=== PATIENT | male | born 1965 | race Caucasian/White ===

== ENCOUNTER 2017-05-18 22:07 | Inpatient (IN) | payer OTHER ==
[~2017-05-18] VITALS: Ht 177.8 cm; Wt 77.5 kg
[2017-05-18 22:00] VITALS: O2SAT 100
[2017-05-18] MEDS ORDERED: LIDOCAINE HCL 1% PF 2 ML VIAL ONE (22:13)
[2017-05-18] MEDS ORDERED: ONDANSETRON HCL 4 MG/2 ML VIAL ONE (22:16)
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
[2017-05-18 22:38] LABS: AUTOMATED NEUTROPHIL # 19.2 TH/MM3 (1.8-7.7); BASOPHIL # 0.1 TH/MM3 (0-0.2); BASOPHIL % 0.6 % (0.0-2.0); EOSINOPHIL # 0.2 TH/MM3 (0-0.4); EOSINOPHIL % 0.6 % (0.0-4.0); HEMATOCRIT 50.4 % (39.0-51.0); HEMOGLOBIN 16.7 GM/DL (13.0-17.0); LYMPH % 15.3 % (9.0-44.0); LYMPHOCYTE # 3.7 TH/MM3 (1.0-4.8); MEAN CELL VOLUME 87.3 FL (80.0-100.0); MEAN CORPUSCULAR HGB CONC 33.2 % (32.0-36.0); MEAN PLATELET VOLUME 9.2 FL (7.0-11.0); MONO % 4.3 % (0.0-8.0); NEUT % 79.2 % (16.0-70.0); PLATELET COUNT 311 TH/MM3 (150-450); RED BLOOD COUNT 5.78 MIL/MM3 (4.50-5.90); RED CELL DISTRIBUTION WIDTH 14.3 % (11.6-17.2); WHITE BLOOD COUNT 24.3 TH/MM3 (4.0-11.0)
[2017-05-18] MEDS ORDERED: IODIXANOL 320 MG/ML 10 ML VIAL (for Rad CT) IVCONTRAST ONE (22:48)
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
--- NOTE | 2017-05-18 23:00 | RADRPT ---
EXAM DATE/TIME: 05/18/2017 22:09 [facility] COMPARISON: No previous studies available for comparison. INDICATIONS : Post left chest tube. MEDICAL HISTORY : None. SURGICAL HISTORY : None. ENCOUNTER: Initial ACUITY: 1 day PAIN SCORE: Non-responsive. LOCATION: Left chest FINDINGS: Left chest drainage tube tip projects in the medial upper chest. Multiple displaced fractures of the lateral left ribs. Asymmetric lucency in the lower right chest, partially included in the field-of- view, suggests possible anterior pneumothorax on the right side. Right subclavian catheter tip proje cts over the proximal superior vena cava. CONCLUSION: Left chest drainage tube in the medial apex. Multiple displaced left rib fractures. Josemanuel Murphy MD on May 18, 2017 at 22:57 Board Certified Radiologist. This report was verified electronically.
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
[2017-05-18 23:04] LABS: INTERNATIONAL NORMALIZED RATIO 1.1 RATIO; PROTHROMBIN TIME - PATIENT 10.8 SEC (9.8-11.6)
[2017-05-18] MEDS ORDERED: ETOMIDATE 40 MG/20 ML VIAL ONE (23:06)
[2017-05-18] MEDS ORDERED: ROCURONIUM INJ 50 MG/5 ML VIAL ONE ×2 (23:07→23:08)
[2017-05-18] MEDS ORDERED: MIDAZOLAM HCL 5 MG/ML VIAL (1 ML) ONE (23:08)
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
[2017-05-18] MEDS ORDERED: NURSING INFORMATION XX SCH (23:15)
[2017-05-18] MEDS ORDERED: ENALAPRILAT 1.25 MG/ML VIAL IV PUSH PRN (23:15)
[2017-05-18] MEDS ORDERED: MAGNESIUM HYDROXIDE SUSP 30 ML CUP PO PRN (23:15)
[2017-05-18] MEDS ORDERED: CHLORHEXIDINE GLUCONATE 2 % 1 PACK (2 CLOTHS) TOP PRN (23:15)
[2017-05-18] MEDS ORDERED: SODIUM CHLORIDE 0.9% FLUSH 10 ML FLUSH IV FLUSH PRN (23:15)
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
[2017-05-18] MEDS ORDERED: PROPOFOL 500 MG/50 ML INJ 50 ML ONE (23:24)
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
[2017-05-18 23:31] VITALS: O2SAT 92
[2017-05-18] MEDS ORDERED: fentaNYL DRIP 250 ML IV PRN (23:45)
[2017-05-18] MEDS ORDERED: PROPOFOL 1000 MG/100 ML INJ 100 ML IV PRN (23:45)
--- NOTE | 2017-05-18 23:45 | PD.PROCEDR ---
Procedure Note Procedure DATE: 05/18/2017 PROCEDURE: Orotracheal intubation INDICATION: Respiratory failure DETAILS OF PROCEDURE The patient was placed in optimal position and preoxygenated with 100% FiO2 via bag valve mask. At the start oxygen saturation was 90%. The patient was administered 20 mg etomidate IV and 50 mg rocuronium IV. I entered the oropharynx with a size 4 GVL glidescope blade and obtained a grade 2 view of the airway. On single attempt a size 8.0 cuffed endotracheal tube was passed through the vocal cords. Correct tube location was confirmed with end tidal CO2 detector and by auscultating over bilateral lung aragon. The endotracheal tube was secured with adhesive tape at a depth of 24 cm at the lips. The patient was connected to the ventilator. The patient tolerated the procedure well without any apparent complications. Oxygen saturations were maintained greater than 95% all times. STAT chest x-ray pending at time of dictation. Nura Yoder MD May 18, 2017 23:45
--- NOTE | 2017-05-18 23:45 | PD.PROCEDR ---
Procedure Note Procedure Date of procedure: 05/18/2017 Procedure: Right #10 Bahraini chest tube placement 2 Indication: Pneumothorax Details of procedure: Informed consent was obtained from the patient. The patient was laid supine. The lateral chest wall was cleaned with ChloraPrep twice. Regional sterile drapes were applied. 1% lidocaine was used for local anesthesia and injected into the subcutaneous and deep muscle tissues. Insertion needle was placed above the rib in the midaxillary space until urbina of air was obtained. Guidewire was placed over insertion needle into the chest wall cavity. A 0.5 cm skin incision was made with a scalpel blade. Site was dilated. A size 10 Bahraini chest tube was inserted into the pleural cavity. 2-0 silk was used to close the wound and to secure the chest tube. A sterile Vaseline gauze dressing was applied. The chest tube was connected to a Pleur-evac drainage system. There was a persistent 1 chamber air leak. There was 0 output from the chest tube. Estimated blood loss: 1 cc Complications: None. Stat chest x-ray initially revealed trace of chest tube outside the right hemithorax. Second chest tube barely within with resolution of pneumothorax. Nura Yoder MD May 18, 2017 23:45
[2017-05-19] VITALS (25 sets, daily range): BP systolic 79–125; BP diastolic 46–64; PULSE 70–121; RESP 13–32; TEMP 97.6–99.6; O2SAT 92–100
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
[2017-05-19] MEDS ORDERED: LIDOCAINE 1%/EPINEPHrine 1:100,000 SOLN 30 ML VIAL ONE (00:28)
--- NOTE | 2017-05-19 00:44 | RADRPT ---
EXAM DATE/TIME: 05/19/2017 00:13 [facility] COMPARISON: CHEST SINGLE AP, May 18, 2017, 23:41. INDICATIONS : Chest tube placement. MEDICAL HISTORY : None. SURGICAL HISTORY : None. ENCOUNTER: Initial ACUITY: 1 day PAIN SCORE: Non-responsive. LOCATION: Right chest FINDINGS: Portable AP view of the chest demonstrates a normal-sized cardiac silhouette. Another pleural cathete r overlies the right chest and is not clearly appear to be within the right pleural space given the l ocation. The distal tip may be within the pleural space but most of the catheter appears to be on the chest wall. However, the right pneumothorax is no longer seen. ETT, right subclavian line, and left chest tube remain present. Nasogastric tube has been placed and distal tip is near the gastric fundus . There is airspace consolidation in the left mid and lower lungs on. Left rib fractures and left cla vicle fracture remain visualized. There is left chest wall soft tissue air. CONCLUSION: 1. The second small bore pigtail pleural catheter on the right has been placed and most of it appears to be outside of the right hemithorax except for maybe the distal tip. However, the right pneumothor ax is no longer seen suggesting that it may be within the pleural space. Chest CT could confirm locat ion, if needed. 2. Persistent volume loss and left mid and lower lung zone airspace consolidation. No left pneumothor ax is visualized. 3. The nasogastric tube tip is in the stomach. Conor Chaudhry MD on May 19, 2017 at 0:39 Board Certified Radiologist. This report was verified electronically.
--- NOTE | 2017-05-19 01:14 | RADRPT ---
EXAM DATE/TIME: 05/19/2017 01:00 [facility] COMPARISON: CHEST SINGLE AP, May 19, 2017, 0:13. INDICATIONS : Right side chest tube placement. MEDICAL HISTORY : None. SURGICAL HISTORY : None. ENCOUNTER: Initial ACUITY: 1 day PAIN SCORE: 0/10 LOCATION: Bilateral chest FINDINGS: Portable AP view of the chest demonstrates a normal-sized cardiac silhouette. ETT, NG tube, left ches t tube, and right subclavian central line remain present. The small bore right pigtail catheter is al halina the right chest wall have been removed and a larger bore right chest tube has been placed. It ext ends into the mid hemithorax and then is directed inferiorly at the inferior medial hemithorax. No ri ght pneumothorax is identified. The mediastinum has now shifted back to the midline and the generaliz ed lucency in the right hemithorax has resolved. Additionally, the deep sulcus sign has resolved. The re is persistent left mid and lower lung zone airspace consolidation. Left rib fractures and clavicle fracture remain stable. CONCLUSION: 1. Removal of the 2 pleural catheters along the right chest wall and placement of another right chest tube with distal tip in the medial inferior right hemithorax. The right pneumothorax has resolved wi th shift of the mediastinum back to the midline and resolution of the generalized lucency in the righ t hemithorax. 2. Remaining findings are stable. Conor Chaudhry MD on May 19, 2017 at 1:09 Board Certified Radiologist. This report was verified electronically.
[2017-05-19] MEDS: PANTOPRAZOLE SODIUM 40 MG VIAL IVP SCH ×2 (01:43→23:45)
--- NOTE | 2017-05-19 01:44 | PD.PROCEDR ---
Procedure Note Procedure Date of procedure: 05/19/2017 Procedure: Right chest tube placement Indication: Pneumothorax Details of procedure: Informed consent was obtained from the patient prior to procedure. The patient was laid supine. The lateral chest wall was cleaned with ChloraPrep twice. Regional sterile drapes were applied. 1% lidocaine was used for local anesthesia and injected into the subcutaneous and deep muscle tissues. A 1 cm skin incision was made with a scalpel blade. A hemostat was used for blunt dissection. The hemostat was entered into the pleural space superior to the rib with release of all their. I explored the wound with my finger. A size 20 Italian chest tube was inserted with a Mariela clamp into the pleural cavity and directed toward the posterior anterior to a depth of 16. 0-0 silk was used to close the wound and to secure the chest tube. A sterile Vaseline gauze dressing was applied. The chest tube was connected to a Pleur-evac drainage system. There was a persistent 1 chamber air leak. There was 10 cc bloody output from the chest tube. Estimated blood loss: 10 cc Complications: None. Stat chest x-ray revealed no pneumothorax. Reexpansion of the lung.. Nura Yoder MD May 19, 2017 01:44
[2017-05-19 01:58] LABS: AUTOMATED NEUTROPHIL # 17.5 TH/MM3 (1.8-7.7); BASOPHIL % 0.1 % (0.0-2.0); EOSINOPHIL % 0.2 % (0.0-4.0); HEMATOCRIT 38.5 % (39.0-51.0); HEMOGLOBIN 12.8 GM/DL (13.0-17.0); LYMPH % 8.3 % (9.0-44.0); LYMPHOCYTE # 1.8 TH/MM3 (1.0-4.8); MEAN CELL VOLUME 87.4 FL (80.0-100.0); MEAN CORPUSCULAR HEMOGLOBIN 29.1 PG (27.0-34.0); MEAN CORPUSCULAR HGB CONC 33.3 % (32.0-36.0); MEAN PLATELET VOLUME 9.4 FL (7.0-11.0); MONO % 8.4 % (0.0-8.0); MONOCYTE # 1.8 TH/MM3 (0-0.9); PLATELET COUNT 243 TH/MM3 (150-450); RED BLOOD COUNT 4.41 MIL/MM3 (4.50-5.90); RED CELL DISTRIBUTION WIDTH 13.8 % (11.6-17.2); WHITE BLOOD COUNT 21.1 TH/MM3 (4.0-11.0)
[2017-05-19] MEDS ORDERED: BISACODYL 10 MG SUPP RECTAL PRN (02:00)
[2017-05-19] MEDS ORDERED: MAGNESIUM HYDROXIDE SUSP 30 ML CUP PO PRN (02:00)
[2017-05-19] MEDS ORDERED: LACTULOSE SYRUP 20 GM/30 ML CUP PO PRN (02:00)
[2017-05-19] MEDS ORDERED: MIDAZOLAM HCL 2 MG/2 ML VIAL IV PUSH PRN (02:00)
[2017-05-19] MEDS: MIDAZOLAM 100 MG/100 ML INJ 100 ML IV PRN (02:00)
[2017-05-19 02:08] LABS: BILIRUBIN, URINE NEG (NEG); BLOOD, URINE LARGE (NEG); GLUCOSE,URINE 70 mg/dL (NEG); HYALINE CAST, URINE 12 /lpf (RARE); KETONE, URINE TRACE mg/dL (NEG); MUCUS URINE FEW /lpf (OCC); NITRITE,URINE NEG (NEG); SQUAMOUS EPITHELIAL CELL URINE 1 /hpf (0-5); URINE COLOR YELLOW (YELLW/STRAW); URINE LEUKOCYTE ESTERASE NEG (NEG); WHITE BLOOD CELL CAST, URINE 1 /lpf
[2017-05-19 02:30] LABS: ALBUMIN 2.3 GM/DL (3.4-5.0); BICARBONATE 19.9 MEQ/L (21.0-32.0); CALCIUM 6.2 MG/DL (8.5-10.1); CREATININE 1.56 MG/DL (0.60-1.30); TOTAL BILIRUBIN ADULT 0.5 MG/DL (0.2-1.0); TOTAL PROTEIN 4.6 GM/DL (6.4-8.2)
[2017-05-19 02:34] LABS: CALCIUM-PROTEIN CORRECTED 7.4 MG/DL (8.5-10.1)
[2017-05-19 02:45] LABS: BANDS 5 % (0-6); CORRECTED NUCLEATED RBC 1 /100 WBC (0-0); LYMPHOCYTES 9 % (9-44); METAMYELOCYTES 3 % (0-1); MONOCYTES 3 % (0-8); NEUTROPHIL # MANUAL DIFF 18.6 TH/MM3 (1.8-7.7); NUCLEATED RED BLOOD CELL 1 (0-0); POLYS (SEG NEUTROPHILS) 80 % (16-70)
[2017-05-19] MEDS ORDERED: CALCIUM CHLORIDE INJ 2 GM in SODIUM CHLORIDE 0.9% INJ 100 ML IV ONE (02:45)
[2017-05-19] MEDS: RESP: ALBUTEROL 2.5 MG/IPRATROPIUM 0.5 MG NEB (SCH) INH ×4 (03:29→21:36)
[2017-05-19] MEDS: MULTIVITAMIN INJ 10 ML, THIAMINE INJ 100 MG, FOLIC ACID INJ 1 MG in SODIUM CHLORID 0.9%... IV SCH (03:37)
[2017-05-19] MEDS: CHLORHEXIDINE GLUCONATE 2 % 1 PACK (2 CLOTHS) TOP SCH (03:40)
[2017-05-19] MEDS: SODIUM CHLOR 0.9% 1000 ML INJ 1,000 ML IV SCH ×4 (03:40→19:54)
[2017-05-19] MEDS: NOREPINEPHRINE 4 MG/D5W 250 ML IV PRN ×2 (04:22)
[2017-05-19] MEDS ORDERED: EPINEPHrine HCL (1:10,000) 1 MG/10 ML SYRINGE IV ONE (05:00)
[2017-05-19] MEDS ORDERED: CALCIUM CHLORIDE 10% SOLN 1 GRAM/10 ML SYR IV ONE (05:00)
[2017-05-19] MEDS ORDERED: SODIUM BICARBONATE 8.4% INJ 50 MEQ/50 ML SYR IV ONE (05:00)
[2017-05-19] MEDS ORDERED: SODIUM BICARBONATE 8.4% INJ 50 MEQ/50 ML SYR ONE (05:07)
[2017-05-19] MEDS ORDERED: SODIUM BICARBONATE 8.4% INJ 50 MEQ/50 ML SYR IV SCH (05:15)
[2017-05-19 06:11] LABS: HEMATOCRIT 44.3 % (39.0-51.0); HEMOGLOBIN 15.1 GM/DL (13.0-17.0); MEAN CELL VOLUME 86.8 FL (80.0-100.0); MEAN CORPUSCULAR HEMOGLOBIN 29.6 PG (27.0-34.0); MEAN CORPUSCULAR HGB CONC 34.1 % (32.0-36.0); MEAN PLATELET VOLUME 9.2 FL (7.0-11.0); PLATELET COUNT 175 TH/MM3 (150-450); RED CELL DISTRIBUTION WIDTH 14.3 % (11.6-17.2); WHITE BLOOD COUNT 15.4 TH/MM3 (4.0-11.0)
--- NOTE | 2017-05-19 06:23 | PD.PROCEDR ---
Procedure Note Procedure DATE: 05/19/2017 PROCEDURE: Right femoral arterial catheter placement INDICATION: Hemodynamic access DETAILS OF PROCEDURE The patient was placed in supine position. The skin was cleansed with Chloraprep. Additional barrier precautions included large sterile drape, sterile gloves, sterile gown, face mask, and hat. 1% lidocaine was used for local anesthesia. Under direct ultrasound guidance and on the initial attempt, the artery was accessed with an introducer needle. The guide wire was advanced. Using Seldinger technique 20 gauge arterial catheter was placed. The guide wire was removed. The catheter was connected to a transducer line and flushed with saline. The video monitor displayed normal arterial wave forms. The catheter was secured with 2-0 silk. A sterile dressing with antibiotic disc was applied. ESTIMATED BLOOD LOSS: minimal COMPLICATIONS: None Nura Yoder MD May 19, 2017 06:23
[2017-05-19 06:47] LABS: BICARBONATE 23.1 MEQ/L (21.0-32.0); CALCIUM 7.3 MG/DL (8.5-10.1); CREATININE 1.92 MG/DL (0.60-1.30); MAGNESIUM 1.6 MG/DL (1.5-2.5); PHOSPHORUS 4.4 MG/DL (2.5-4.9); TROPONIN I 0.36 NG/ML (0.02-0.05)
[2017-05-19] MEDS ORDERED: CALCIUM CHLORIDE 10% SOLN 1 GRAM/10 ML SYR ONE (07:20)
[2017-05-19] MEDS ORDERED: DEXTROSE 50% IN WATER 50 ML SYRINGE ONE (07:22)
[2017-05-19 07:23] LABS: CALCIUM-PROTEIN CORRECTED 8.7 MG/DL (8.5-10.1); TOTAL PROTEIN 4.7 GM/DL (6.4-8.2)
[2017-05-19] MEDS ORDERED: SODIUM CHLOR 0.9% 1000 ML INJ 2,000 ML IV ONE (07:45)
[2017-05-19] MEDS ORDERED: INSULIN HUMAN REGULAR 1,000 UNITS/10 ML VIAL IV PUSH ONE (08:00)
[2017-05-19] MEDS ORDERED: CHLORHEXIDINE 0.12% (ORAL KIT) 15 ML CUP MT SCH (08:00)
[2017-05-19] MEDS: CHLORHEXIDINE 0.12% (ORAL KIT) 15 ML CUP MT SCH ×2 (08:00→21:12)
[2017-05-19] MEDS ORDERED: DEXTROSE 50% IN WATER 50 ML SYRINGE IV ONE (08:00)
[2017-05-19] MEDS ORDERED: CALCIUM CHLORIDE 10% SOLN 1 GRAM/10 ML SYR IV PUSH ONE (08:00)
[2017-05-19] MEDS ORDERED: MAGNESIUM SULFATE 1 GM PREMIX 200 ML ONE (08:04)
[2017-05-19 08:11] LABS: ALBUMIN 2.4 GM/DL (3.4-5.0); DIRECT BILIRUBIN ADULT 0.2 MG/DL (0.0-0.2)
[2017-05-19 08:12] LABS: INTERNATIONAL NORMALIZED RATIO 1.2 RATIO; PROTHROMBIN TIME - PATIENT 12.3 SEC (9.8-11.6)
[2017-05-19 08:13] LABS: INDIRECT BILIRUBIN 0.9 MG/DL (0.0-0.8); TOTAL BILIRUBIN ADULT 1.1 MG/DL (0.2-1.0); TOTAL PROTEIN 4.7 GM/DL (6.4-8.2)
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
[2017-05-19] MEDS ORDERED: DOCUSATE SODIUM 100 MG CAP PO SCH (09:00)
[2017-05-19] MEDS: SODIUM CHLORIDE 0.9% FLUSH 10 ML FLUSH IV FLUSH SCH ×2 (09:00→21:12)
[2017-05-19] MEDS: DOCUSATE SODIUM 50 MG/SENNA 8.6 MG TAB PO SCH ×2 (09:00→19:43)
[2017-05-19] MEDS: ARTIFICIAL TEARS OPTH SOLN 15 ML BTL EACH EYE SCH ×3 (09:00→15:56)
[2017-05-19 09:09] LABS: HEMATOCRIT 36.3 % (39.0-51.0); HEMOGLOBIN 12.7 GM/DL (13.0-17.0); MEAN CELL VOLUME 86.1 FL (80.0-100.0); MEAN CORPUSCULAR HGB CONC 34.9 % (32.0-36.0); MEAN PLATELET VOLUME 9.4 FL (7.0-11.0); PLATELET COUNT 105 TH/MM3 (150-450); RED BLOOD COUNT 4.21 MIL/MM3 (4.50-5.90); RED CELL DISTRIBUTION WIDTH 14.2 % (11.6-17.2); WHITE BLOOD COUNT 8.6 TH/MM3 (4.0-11.0)
[2017-05-19 09:33] LABS: BICARBONATE 23.3 MEQ/L (21.0-32.0); CALCIUM 11.2 MG/DL (8.5-10.1); CREATININE 1.67 MG/DL (0.60-1.30)
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
[2017-05-19] MEDS: PROPOFOL 1000 MG/100 ML INJ 100 ML IV PRN ×2 (11:02→19:54)
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
--- NOTE | 2017-05-19 11:52 | ECHRPT ---
Indication: r/o tamponade CONCLUSIONS Technically very difficult and limited study. Visualization of the left ventricle is inadequate to assess systolic function. The mitral valve is not well visualized. The aortic valve is not well visualized. Structurally normal tricuspid valve. No tricuspid regurgitation. No pericardial effusion. BP: / HR: Rhythm: MEASUREMENTS (Male / Female) Normal Values Technical Quality:Very technically difficult study M-MODE LV Diastolic Diameter MM 4.2 cm 4.2 - 5.9 / 3.9 - 5.3 cm LV Systolic Diameter MM 3.5 cm LV Ejection Fraction MM Teich 36.8 % IVS Diastolic Thickness MM 1.1 cm 0.6 - 1.0 / 0.6 - 0.9 cm LVPW Diastolic Thickness MM 0.8 cm 0.6 - 1.0 / 0.6 - 0.9 cm LV Relative Wall Thickness MM 0.5 0.24 - 0.42 / 0.22 - 0.42 RV Diastolic Diameter MM 2.9 cm FINDINGS LEFT VENTRICLE Technically very difficult and limited study. Visualization of the left ventricle is inadequate to assess systolic function. RIGHT VENTRICLE Normal right ventricular size and systolic function. LEFT ATRIUM The left atrial size is normal. RIGHT ATRIUM The right atrial size is normal. ATRIAL SEPTUM Normal atrial septal thickness without atrial level shunting by limited color doppler interrogation. AORTA The aortic root and proximal ascending aorta are normal in size on limited imaging. MITRAL VALVE The mitral valve is not well visualized. AORTIC VALVE The aortic valve is not well visualized. TRICUSPID VALVE Structurally normal tricuspid valve. No tricuspid regurgitation. PULMONARY VALVE The pulmonary valve is not well visualized. VESSELS The inferior vena cava is normal in size. PERICARDIUM No pericardial effusion. Eder Lambert MD (Electronically Signed) Final Date:19 May 2017 11:50
[2017-05-19] MEDS ORDERED: IOHEXOL 350 MG/ML 10 ML VIAL (for RAD DIAG) IVCONTRAST ONE (12:51)
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
[2017-05-19 14:10] LABS: HEMATOCRIT 36.8 % (39.0-51.0); HEMOGLOBIN 12.9 GM/DL (13.0-17.0); MEAN CELL VOLUME 85.6 FL (80.0-100.0); MEAN CORPUSCULAR HEMOGLOBIN 29.9 PG (27.0-34.0); MEAN CORPUSCULAR HGB CONC 34.9 % (32.0-36.0); MEAN PLATELET VOLUME 9.1 FL (7.0-11.0); PLATELET COUNT 105 TH/MM3 (150-450); RED CELL DISTRIBUTION WIDTH 14.8 % (11.6-17.2); WHITE BLOOD COUNT 8.1 TH/MM3 (4.0-11.0)
[2017-05-19] MEDS: fentaNYL DRIP 250 ML IV PRN ×2 (14:19)
[2017-05-19 14:28] LABS: CALCIUM 8.9 MG/DL (8.5-10.1); CREATININE 1.3 MG/DL (0.60-1.30)
[2017-05-19 14:29] LABS: INTERNATIONAL NORMALIZED RATIO 1.1 RATIO; PROTHROMBIN TIME - PATIENT 10.7 SEC (9.8-11.6)
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
--- NOTE | 2017-05-19 18:45 | EKG ---
Date Performed: 05/19/2017 Time Performed: 03:19:44 PTAGE: 51 years EKG: Sinus rhythm . Right bundle branch block Low QRS voltages in precordial leads Abnormal ECG NO PREVIOUS TRACING DOCTOR: Evan Allison Interpretating Date/Time 05/19/2017 18:42:35
--- NOTE | 2017-05-19 21:16 | PD.CONS ---
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 Impressions Chest X-Ray 05/19/17 Signed Impressions: Service Date/Time: Friday, May 19, 2017 01:00 - CONCLUSION: 1. Removal of the 2 pleural catheters along the right chest wall and placement of another right chest tube with distal tip in the medial inferior right hemithorax. The right pneumothorax has resolved with shift of the mediastinum back to the midline and resolution of the generalized lucency in the right hemithorax. 2. Remaining findings are stable. Conor Chaudhry MD Chest X-Ray 05/19/17 Signed Impressions: Service Date/Time: Friday, May 19, 2017 00:13 - CONCLUSION: 1. The second small bore pigtail pleural catheter on the right has been placed and most of it appears to be outside of the right hemithorax except for maybe the distal tip. However, the right pneumothorax is no longer seen suggesting that it may be within the pleural space. Chest CT could confirm location, if needed. 2. Persistent volume loss and left mid and lower lung zone airspace consolidation. No left pneumothorax is visualized. 3. The nasogastric tube tip is in the stomach. Conor Chaudhry MD Chest CT 05/19/17 Signed Impressions: Service Date/Time: Friday, May 19, 2017 12:33 - CONCLUSION: 1. Bilateral chest tubes with tiny left anterior pneumothorax. 2. No hemothorax seen. 3. Bibasilar consolidation likely atelectasis. Eric Linares MD Abdomen/Pelvis CT 05/19/17 Signed Impressions: Service Date/Time: Friday, May 19, 2017 12:33 - CONCLUSION: The abdomen and pelvis remained stable compared to the prior examination. No acute pathology within the abdomen or pelvis. Ronnie Childers MD Thoracic Spine CT 05/18/172209 Signed Impressions: Service Date/Time: Thursday, May 18, 2017 22:27 - CONCLUSION: 1. Superior endplate fracture of T12 without involvement of the posterior cortex and with approximate 10%% loss of height. 2. Numerous bilateral posterior rib fractures from C7 to the level of the 7th rib. Josemanuel Murphy MD Pelvis X-Ray 05/18/172209 Signed Impressions: Service Date/Time: Thursday, May 18, 2017 22:09 - CONCLUSION: No gross fracture seen. Josemanuel Murphy MD Lumbar Spine CT 05/18/172209 Signed Impressions: Service Date/Time: Thursday, May 18, 2017 22:27 - CONCLUSION: 1. Lumbar vertebral bodies and posterior elements are intact. 2. Superior endplate fracture of T12 and medial left posterior 11th rib fracture. Josemanuel Murphy MD Head CT 05/18/172209 Signed Impressions: Service Date/Time: Thursday, May 18, 2017 22:27 - CONCLUSION: 1. No acute findings in the brain. Josemanuel Murphy MD Chest X-Ray 05/18/172209 Signed Impressions: Service Date/Time: Thursday, May 18, 2017 22:09 - CONCLUSION: Left chest drainage tube in the medial apex. Multiple displaced left rib fractures. Josemanuel Murphy MD Chest CT 05/18/172209 Signed Impressions: Service Date/Time: Thursday, May 18, 2017 22:27 - CONCLUSION: 1. Multiple fractures of the left ribs, left clavicle, left scapula and fracture of the lateral right 5th rib. 2. Bilateral pulmonary contusions, left greater than right and left pleural fluid. 3. Bilateral pneumothoraces with left chest drainage tube in place. Josemanuel Murphy MD Cervical Spine CT 05/18/172209 Signed Impressions: Service Date/Time: Thursday, May 18, 2017 22:27 - CONCLUSION: 1. Left transverse process fracture of C6 and fractures of the medial left 1st and 2nd ribs. 2. The vertebral bodies of the cervical spine down to C7 and posterior elements down to the level of C5 are intact. Josemanuel Murphy MD Abdomen/Pelvis CT 05/18/17 2210 Signed Impressions: Service Date/Time: Thursday, May 18, 2017 22:27 - CONCLUSION: 1. Multiple findings in the chest including bilateral pneumothoraces and multiple bilateral rib fractures, see CT thorax report. 2. The solid and hollow organs of the abdomen/pelvis are grossly intact. Josemanuel Murphy MD Humerus X-Ray 05/18/17 0000 Signed Impressions: Service Date/Time: Thursday, May 18, 2017 22:09 - CONCLUSION: 1. The humerus is intact. 2. Left chest wall and shoulder fractures. Josemanuel Murphy MD Femur X-Ray 05/18/17 0000 Signed Impressions: Service Date/Time: Thursday, May 18, 2017 22:09 - CONCLUSION: Angulated mid shaft femoral fracture. Josemanuel Murphy MD Chest X-Ray 05/18/17 0000 Signed Impressions: Service Date/Time: Thursday, May 18, 2017 23:41 - CONCLUSION: 1. There is a small bore pigtail pleural catheter overlying the right chest wall. It does not appear to be within the hemithorax or pleural space. There is a persistent right pneumothorax present. 2. A larger bore left chest tube is in stable position and no left pneumothorax is identified. There is persistent left chest wall soft tissue air. 3. Airspace consolidation in the left mid and lower lung zone, increased from the prior chest x-ray. Conor Chaudhry MD Chest X-Ray 05/18/17 0000 Signed Impressions: Service Date/Time: Thursday, May 18, 2017 22:09 - CONCLUSION: Multiple rib fractures. Left clavicular fracture. Possible pneumothorax. Josemanuel Murphy MD neuro checks in a serial fashion. Placement of ICP monitor is not indicated at this time. Pulmonary. Full mechanical ventilation in Assist control mode of ventilation aggressive pulmonary toilette, nasotracheal suction, and breathing treatments with nebulizers. nondisplaced thoracic fracture. MRI T spine when stable Cervical fracture. Osburn collar. Will obtain flexion extension xrays Hypotension , possibly hemorrhagic shock He is currently on norepinephrine 20 mcg/min to maintain mean atrial pressure greater than 65 FloTrak CI 2.5 SVV 16 Received 5 L normal saline and 3 units PRBCs. Multiple rib fractures including left 1, 2, 3, 4, 5, 6, 7, 11 right 2, 3, 4, 5, Left-sided hemothorax, Bilateral pneumothoraces Bilateral chest tubes placed to -20 cm H2O. Resolution : Rosenberg catheter has been placed for accurate I's and O's in a critical patient Acute blood loss anemia. Transfused 3 units PRBCs today. Monitor CBC and coags daily. Follow trends ID: Receive cefazolin 2 g Left mid shift femur fracture Left lateral displaced clavicle fracture Left superior spine scapula fracture Left glenoid 12 mm fracture Consult orthopedic Daily PT and OT Renal. Creatinine 1.9 unknown baseline. monitor closely urine output, BUN and creatinine Endocrine.Monitor glucose and administer low-dose insulin sliding scale as indicated ID monitor for signs of infection Protonix for stress ulcer prophylaxis Juan hose and SCD's for DVT prophylaxis Caprini Risk Assessment Model Point Value = 1 Point Value = 2 Point Value = 3 Point Value = 5 Age 41-60 Minor surgery BMI > 25 kg/m2 Swollen legs Varicose veins or History of unexplained or recurrent spontaneous Oral contraceptives or hormone replacement Sepsis (< 1 month) Serious lung disease, including pneumonia (< 1 month) Abnormal pulmonary function Acute myocardial infarction Congestive heart failure (< 1 month) History of inflammatory bowel disease Medical patient at bed rest Age 61-74 Arthroscopic surgery Major open surgery (> 45 min) Laparoscopic surgery (> 45 min) Malignancy Confined to bed (> 72 hours) Immobilizing plaster cast Central venous access Age >= 75 History of VTE Family history of VTE Factor V Leiden Prothrombin [id number] Lupus anticoagulant Anticardiolipin antibodies Elevated serum homocysteine Heparin-induced thrombocytopenia Other congenital or acquired thrombophilia Stroke (< 1 month) Elective arthroplasty Hip, pelvis, or leg fracture Acute spinal cord injury (< 1 month) Prophylaxis Regimen Total Risk Factor Score Risk Level Prophylaxis Regimen 0-1 Low Early ambulation 2 Moderate Order ONE of the following: *Sequential Compression Device (SCD) *Heparin 5000 units SQ BID 3-4 Higher Order ONE of the following medications: *Heparin 5000 units SQ TID *Enoxaparin/Lovenox 40 mg SQ daily (WT < 150 kg, CrCl > 30 mL/min) *Enoxaparin/Lovenox 30 mg SQ daily (WT < 150 kg, CrCl > 10-29 mL/min) *Enoxaparin/Lovenox 30 mg SQ BID (WT < 150 kg, CrCl > 30 mL/min) AND/OR *Sequential Compression Device (SCD) 5 or more Highest Order ONE of the following medications: *Heparin 5000 units SQ TID (Preferred with Epidurals) *Enoxaparin/Lovenox 40 mg SQ daily (WT < 150 kg, CrCl > 30 mL/min) *Enoxaparin/Lovenox 30 mg SQ daily (WT < 150 kg, CrCl > 10-29 mL/min) *Enoxaparin/Lovenox 30 mg SQ BID (WT < 150 kg, CrCl > 30 mL/min) AND *Sequential Compression Device (SCD) Caprini Risk Assessment Model Point Value = 1 Point Value = 2 Point Value = 3 Point Value = 5 Age 41-60 Minor surgery BMI > 25 kg/m2 Swollen legs Varicose veins or History of unexplained or recurrent spontaneous Oral contraceptives or hormone replacement Sepsis (< 1 month) Serious lung disease, including pneumonia (< 1 month) Abnormal pulmonary function Acute myocardial infarction Congestive heart failure (< 1 month) History of inflammatory bowel disease Medical patient at bed rest Age 61-74 Arthroscopic surgery Major open surgery (> 45 min) Laparoscopic surgery (> 45 min) Malignancy Confined to bed (> 72 hours) Immobilizing plaster cast Central venous access Age >= 75 History of VTE Family history of VTE Factor V Leiden Prothrombin [id number] Lupus anticoagulant Anticardiolipin antibodies Elevated serum homocysteine Heparin-induced thrombocytopenia Other congenital or acquired thrombophilia Stroke (< 1 month) Elective arthroplasty Hip, pelvis, or leg fracture Acute spinal cord injury (< 1 month) Prophylaxis Regimen Total Risk Factor Score Risk Level Prophylaxis Regimen 0-1 Low Early ambulation 2 Moderate Order ONE of the following: *Sequential Compression Device (SCD) *Heparin 5000 units SQ BID 3-4 Higher Order ONE of the following medications: *Heparin 5000 units SQ TID *Enoxaparin/Lovenox 40 mg SQ daily (WT < 150 kg, CrCl > 30 mL/min) *Enoxaparin/Lovenox 30 mg SQ daily (WT < 150 kg, CrCl > 10-29 mL/min) *Enoxaparin/Lovenox 30 mg SQ BID (WT < 150 kg, CrCl > 30 mL/min) AND/OR *Sequential Compression Device (SCD) 5 or more Highest Order ONE of the following medications: *Heparin 5000 units SQ TID (Preferred with Epidurals) *Enoxaparin/Lovenox 40 mg SQ daily (WT < 150 kg, CrCl > 30 mL/min) *Enoxaparin/Lovenox 30 mg SQ daily (WT < 150 kg, CrCl > 10-29 mL/min) *Enoxaparin/Lovenox 30 mg SQ BID (WT < 150 kg, CrCl > 30 mL/min) AND *Sequential Compression Device (SCD) Caprini Risk Assessment Model Point Value = 1 Point Value = 2 Point Value = 3 Point Value = 5 Age 41-60 Minor surgery BMI > 25 kg/m2 Swollen legs Varicose veins or History of unexplained or recurrent spontaneous Oral contraceptives or hormone replacement Sepsis (< 1 month) Serious lung disease, including pneumonia (< 1 month) Abnormal pulmonary function Acute myocardial infarction Congestive heart failure (< 1 month) History of inflammatory bowel disease Medical patient at bed rest Age 61-74 Arthroscopic surgery Major open surgery (> 45 min) Laparoscopic surgery (> 45 min) Malignancy Confined to bed (> 72 hours) Immobilizing plaster cast Central venous access Age >= 75 History of VTE Family history of VTE Factor V Leiden Prothrombin [id number] Lupus anticoagulant Anticardiolipin antibodies Elevated serum homocysteine Heparin-induced thrombocytopenia Other congenital or acquired thrombophilia Stroke (< 1 month) Elective arthroplasty Hip, pelvis, or leg fracture Acute spinal cord injury (< 1 month) Prophylaxis Regimen Total Risk Factor Score Risk Level Prophylaxis Regimen 0-1 Low Early ambulation 2 Moderate Order ONE of the following: *Sequential Compression Device (SCD) *Heparin 5000 units SQ BID 3-4 Higher Order ONE of the following medications: *Heparin 5000 units SQ TID *Enoxaparin/Lovenox 40 mg SQ daily (WT < 150 kg, CrCl > 30 mL/min) *Enoxaparin/Lovenox 30 mg SQ daily (WT < 150 kg, CrCl > 10-29 mL/min) *Enoxaparin/Lovenox 30 mg SQ BID (WT < 150 kg, CrCl > 30 mL/min) AND/OR *Sequential Compression Device (SCD) 5 or more Highest Order ONE of the following medications: *Heparin 5000 units SQ TID (Preferred with Epidurals) *Enoxaparin/Lovenox 40 mg SQ daily (WT < 150 kg, CrCl > 30 mL/min) *Enoxaparin/Lovenox 30 mg SQ daily (WT < 150 kg, CrCl > 10-29 mL/min) *Enoxaparin/Lovenox 30 mg SQ BID (WT < 150 kg, CrCl > 30 mL/min) AND *Sequential Compression Device (SCD) Caprini Risk Assessment Model Point Value = 1 Point Value = 2 Point Value = 3 Point Value = 5 Age 41-60 Minor surgery BMI > 25 kg/m2 Swollen legs Varicose veins or History of unexplained or recurrent spontaneous Oral contraceptives or hormone replacement Sepsis (< 1 month) Serious lung disease, including pneumonia (< 1 month) Abnormal pulmonary function Acute myocardial infarction Congestive heart failure (< 1 month) History of inflammatory bowel disease Medical patient at bed rest Age 61-74 Arthroscopic surgery Major open surgery (> 45 min) Laparoscopic surgery (> 45 min) Malignancy Confined to bed (> 72 hours) Immobilizing plaster cast Central venous access Age >= 75 History of VTE Family history of VTE Factor V Leiden Prothrombin [id number] Lupus anticoagulant Anticardiolipin antibodies Elevated serum homocysteine Heparin-induced thrombocytopenia Other congenital or acquired thrombophilia Stroke (< 1 month) Elective arthroplasty Hip, pelvis, or leg fracture Acute spinal cord injury (< 1 month) Prophylaxis Regimen Total Risk Factor Score Risk Level Prophylaxis Regimen 0-1 Low Early ambulation 2 Moderate Order ONE of the following: *Sequential Compression Device (SCD) *Heparin 5000 units SQ BID 3-4 Higher Order ONE of the following medications: *Heparin 5000 units SQ TID *Enoxaparin/Lovenox 40 mg SQ daily (WT < 150 kg, CrCl > 30 mL/min) *Enoxaparin/Lovenox 30 mg SQ daily (WT < 150 kg, CrCl > 10-29 mL/min) *Enoxaparin/Lovenox 30 mg SQ BID (WT < 150 kg, CrCl > 30 mL/min) AND/OR *Sequential Compression Device (SCD) 5 or more Highest Order ONE of the following medications: *Heparin 5000 units SQ TID (Preferred with Epidurals) *Enoxaparin/Lovenox 40 mg SQ daily (WT < 150 kg, CrCl > 30 mL/min) *Enoxaparin/Lovenox 30 mg SQ daily (WT < 150 kg, CrCl > 10-29 mL/min) *Enoxaparin/Lovenox 30 mg SQ BID (WT < 150 kg, CrCl > 30 mL/min) AND *Sequential Compression Device (SCD) Further recommendations will be provided depending on the patient's clinical evaluation and follow up studies Scott Christensen MD May 19, 2017 21:16
[2017-05-20] VITALS (15 sets, daily range): BP systolic 92–109; BP diastolic 59–64; PULSE 74–88; RESP 13–22; TEMP 97.9–99.7; O2SAT 97–100
[2017-05-20] MEDS: PROPOFOL 1000 MG/100 ML INJ 100 ML IV PRN ×5 (00:26→23:48)
[2017-05-20] MEDS: fentaNYL DRIP 250 ML IV PRN ×2 (00:29→17:59)
[2017-05-20] MEDS: MULTIVITAMIN INJ 10 ML, THIAMINE INJ 100 MG, FOLIC ACID INJ 1 MG in SODIUM CHLORID 0.9%... IV SCH (02:48)
[2017-05-20] MEDS: SODIUM CHLOR 0.9% 1000 ML INJ 1,000 ML IV SCH ×4 (02:48→20:42)
[2017-05-20] MEDS: RESP: ALBUTEROL 2.5 MG/IPRATROPIUM 0.5 MG NEB (SCH) INH ×3 (03:53→21:21)
[2017-05-20 04:46] LABS: AUTOMATED NEUTROPHIL # 6.4 TH/MM3 (1.8-7.7); BASOPHIL % 0.4 % (0.0-2.0); EOSINOPHIL % 0.5 % (0.0-4.0); HEMATOCRIT 34.1 % (39.0-51.0); HEMOGLOBIN 11.9 GM/DL (13.0-17.0); LYMPH % 17.4 % (9.0-44.0); LYMPHOCYTE # 1.5 TH/MM3 (1.0-4.8); MEAN CELL VOLUME 85.9 FL (80.0-100.0); MONO % 9.1 % (0.0-8.0); MONOCYTE # 0.8 TH/MM3 (0-0.9); NEUT % 72.6 % (16.0-70.0); PLATELET COUNT 102 TH/MM3 (150-450); RED BLOOD COUNT 3.97 MIL/MM3 (4.50-5.90); RED CELL DISTRIBUTION WIDTH 14.3 % (11.6-17.2); WHITE BLOOD COUNT 8.8 TH/MM3 (4.0-11.0)
[2017-05-20 05:27] LABS: BICARBONATE 24.7 MEQ/L (21.0-32.0); CREATININE 1.2 MG/DL (0.60-1.30)
--- NOTE | 2017-05-20 05:43 | RADRPT ---
EXAM DATE/TIME: 05/20/2017 05:14 [place] COMPARISON: CHEST SINGLE AP, May 19, 2017, 1:00. INDICATIONS : Shortness of breath. MEDICAL HISTORY : None. SURGICAL HISTORY : None. ENCOUNTER: Subsequent ACUITY: 3 days PAIN SCORE: Non-responsive. LOCATION: Bilateral chest FINDINGS: Portable AP view of the chest demonstrates a normal-sized cardiac silhouette. ETT and nasogastric tub e remain present. Bilateral chest tubes are present and no pneumothorax is seen. Right subclavian bonnie tral line is present. There is mild airspace opacity in the left lower lung zone, improved from the p rior study. There is mild left chest wall subcutaneous emphysema. Displaced left rib fractures remain visualized. The left humeral head appears inferiorly displaced in relationship to the glenoid fossa. CONCLUSION: 1. Bilateral chest tubes remain present no pneumothorax is seen. 2. Left basilar opacity representing either atelectasis or consolidation and improved from the prior study. 3. Anterior-inferior dislocation of the left humeral head indicating shoulder dislocation. Suggest co rrelating with clinical examination. Conor Chaudhry MD on May 20, 2017 at 5:38 Board Certified Radiologist. This report was verified electronically.
[2017-05-20] MEDS: CHLORHEXIDINE GLUCONATE 2 % 1 PACK (2 CLOTHS) TOP SCH (06:23)
--- NOTE | 2017-05-20 07:12 | PD.ORT.PN ---
Subjective Subjective Remarks Patient is stable. In Padilla's traction Objective Vitals Vital Signs Date Time Temp Pulse Resp B/P (MAP) Pulse Ox O2 Delivery O2 Flow Rate FiO2 05/20/17 06:00 78 05/20/17 04:00 50 05/20/17 04:00 99.2 84 13 108/64 (79) 100 05/20/17 04:00 84 05/20/17 03:53 100 50 05/20/17 02:00 50 05/20/17 02:00 84 05/20/17 01:21 98 50 05/20/17 00:00 99.7 88 13 92/60 (71) 99 05/20/17 00:00 88 05/20/17 00:00 50 05/19/17 22:00 90 05/19/17 20:51 98 50 05/19/17 20:00 50 05/19/17 20:00 99.6 86 13 102/64 (77) 98 Automatic Cuff 05/19/17 20:00 86 05/19/17 19:00 98 Mechanical Ventilator 50 05/19/17 18:00 84 05/19/17 18:00 98 Mechanical Ventilator 50 05/19/17 16:05 100 50 05/19/17 16:00 84 05/19/17 16:00 50 05/19/17 16:00 99.4 76 13 104/59 (74) 97 05/19/17 15:00 78 05/19/17 14:00 82 05/19/17 12:30 97 100 05/19/17 12:00 72 05/19/17 12:00 98.9 75 20 109/57 (74) 92 05/19/17 12:00 60 05/19/17 11:04 99 100 05/19/17 10:00 70 05/19/17 08:02 98.5 81 20 125/64 99 05/19/17 08:00 98.2 82 20 107/62 (77) 93 05/19/17 08:00 60 05/19/17 08:00 81 05/19/17 07:56 98.5 80 20 106/52 98 I/O 05/19/17 05/19/17 05/19/17 05/20/17 05/20/17 05/20/17 07:00 15:00 23:00 07:00 15:00 23:00 Intake Total 4446 ml 3490 ml 100 ml Output Total 1155 ml 2215 ml 725 ml Balance 3291 ml 3490 ml -2215 ml -625 ml Intake IV Total 1246 ml 2200 ml 100 ml Packed Cells 3200 ml 800 ml FFP 430 ml Blood Product IV Normal Saline Flush 60 ml Output Urine Total 600 ml 1800 ml 550 ml Stool Total 0 ml Gastric Drainage Total 0 ml 30 ml 25 ml Chest Tube Drainage Total 555 ml 385 ml 150 ml # Bowel Movements 0 Result Diagram: 05/20/17 0435 05/20/17 0435 Other Results Laboratory Tests Test 05/19/17 07:30 05/19/17 14:06 Prothromb Time International Ratio 1.2 RATIO 1.1 RATIO Prothrombin Time 12.3 SEC (9.8-11.6) 10.7 SEC (9.8-11.6) Imaging Last 24 hours Impressions Chest X-Ray 05/19/17 0000 Signed Impressions: Service Date/Time: Friday, May 19, 2017 01:00 - CONCLUSION: 1. Removal of the 2 pleural catheters along the right chest wall and placement of another right chest tube with distal tip in the medial inferior right hemithorax. The right pneumothorax has resolved with shift of the mediastinum back to the midline and resolution of the generalized lucency in the right hemithorax. 2. Remaining findings are stable. Conor Chaudhry MD Chest X-Ray 05/19/17 0000 Signed Impressions: Service Date/Time: Friday, May 19, 2017 00:13 - CONCLUSION: 1. The second small bore pigtail pleural catheter on the right has been placed and most of it appears to be outside of the right hemithorax except for maybe the distal tip. However, the right pneumothorax is no longer seen suggesting that it may be within the pleural space. Chest CT could confirm location, if needed. 2. Persistent volume loss and left mid and lower lung zone airspace consolidation. No left pneumothorax is visualized. 3. The nasogastric tube tip is in the stomach. Conor Chaudhry MD Thoracic Spine CT 05/18/17 2210 Signed Impressions: Service Date/Time: Thursday, May 18, 2017 22:27 - CONCLUSION: 1. Superior endplate fracture of T12 without involvement of the posterior cortex and with approximate 10%% loss of height. 2. Numerous bilateral posterior rib fractures from C7 to the level of the 7th rib. Josemanuel Murphy MD Pelvis X-Ray 05/18/172209 Signed Impressions: Service Date/Time: Thursday, May 18, 2017 22:09 - CONCLUSION: No gross fracture seen. Josemanuel Murphy MD Lumbar Spine CT 05/18/172209 Signed Impressions: Service Date/Time: Thursday, May 18, 2017 22:27 - CONCLUSION: 1. Lumbar vertebral bodies and posterior elements are intact. 2. Superior endplate fracture of T12 and medial left posterior 11th rib fracture. Josemanuel Murphy MD Head CT 05/18/172209 Signed Impressions: Service Date/Time: Thursday, May 18, 2017 22:27 - CONCLUSION: 1. No acute findings in the brain. Josemanuel Murphy MD Chest X-Ray 05/18/172209 Signed Impressions: Service Date/Time: Thursday, May 18, 2017 22:09 - CONCLUSION: Left chest drainage tube in the medial apex. Multiple displaced left rib fractures. Josemanuel Murphy MD Chest CT 05/18/172209 Signed Impressions: Service Date/Time: Thursday, May 18, 2017 22:27 - CONCLUSION: 1. Multiple fractures of the left ribs, left clavicle, left scapula and fracture of the lateral right 5th rib. 2. Bilateral pulmonary contusions, left greater than right and left pleural fluid. 3. Bilateral pneumothoraces with left chest drainage tube in place. Josemanuel Murphy MD Cervical Spine CT 05/18/172209 Signed Impressions: Service Date/Time: Thursday, May 18, 2017 22:27 - CONCLUSION: 1. Left transverse process fracture of C6 and fractures of the medial left 1st and 2nd ribs. 2. The vertebral bodies of the cervical spine down to C7 and posterior elements down to the level of C5 are intact. Josemanuel Murphy MD Abdomen/Pelvis CT 05/18/172209 Signed Impressions: Service Date/Time: Thursday, May 18, 2017 22:27 - CONCLUSION: 1. Multiple findings in the chest including bilateral pneumothoraces and multiple bilateral rib fractures, see CT thorax report. 2. The solid and hollow organs of the abdomen/pelvis are grossly intact. Josemanuel Murphy MD Objective Remarks LLE: +bucks traction. Swelling but compartments are soft. Good distal pulses and appropriate capillary refills. Assessment & Plan Assessment and Plan 1) Left Femoral Shaft Fx Continue to ice by and remain in Padilla's traction We'll plan on surgery tomorrow for left femoral shaft Critical care Roman Zamora Jr. May 20, 2017 07:12
[2017-05-20] MEDS: CHLORHEXIDINE 0.12% (ORAL KIT) 15 ML CUP MT SCH ×2 (08:00→20:00)
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
[2017-05-20] MEDS: ARTIFICIAL TEARS OPTH SOLN 15 ML BTL EACH EYE SCH ×3 (08:16→17:58)
[2017-05-20] MEDS: SODIUM CHLORIDE 0.9% FLUSH 10 ML FLUSH IV FLUSH SCH ×2 (08:17→20:42)
[2017-05-20] MEDS: DOCUSATE SODIUM 50 MG/SENNA 8.6 MG TAB PO SCH ×2 (08:21→21:00)
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
[2017-05-20] MEDS: ENOXAPARIN SODIUM 30 MG/0.3 ML SYRINGE SQ SCH (17:58)
[2017-05-20] MEDS ORDERED: ROCURONIUM INJ 50 MG/5 ML VIAL ONE ×2 (19:35→22:59)
--- NOTE | 2017-05-20 20:23 | RADRPT ---
EXAM DATE/TIME: 05/20/2017 19:58 [facility] COMPARISON: CHEST SINGLE AP, May 20, 2017, 5:14. INDICATIONS : Shortness of breath. MEDICAL HISTORY : None. SURGICAL HISTORY : None. ENCOUNTER: Subsequent ACUITY: 2 days PAIN SCORE: Non-responsive. LOCATION: Bilateral chest FINDINGS: Endotracheal tube tip above the everton. Gastric tube tip and side-port project within the stomach. Bilateral chest drainage tubes are stable in position located in the upper medial right lung and lowe r left lung. There is persisting consolidation in the left lower lung with air bronchograms and loss of delineation of portions of the left hemidiaphragm. The infiltrate appears to have increased sinc e prior. There is interval development of loss of delineation of the right hemidiaphragm with hazy o pacity suggesting pleural effusion. CONCLUSION: 1. Mild increase in size of left lower lobe consolidative infiltrate. 2. Probable new small right pleural effusion. Josemanuel Murphy MD on May 20, 2017 at 20:20 Board Certified Radiologist. This report was verified electronically.
[2017-05-20] MEDS: HYDROmorphone HCL PF 2 MG/ML VIAL IV PUSH PRN (22:33)
[2017-05-20] MEDS: PANTOPRAZOLE SODIUM 40 MG VIAL IVP SCH (23:15)
[2017-05-20] MEDS ORDERED: ROCURONIUM INJ 50 MG/5 ML VIAL IV ONE ×2 (23:15)
[2017-05-20] MEDS ORDERED: MIDAZOLAM 100 MG/NS 100 ML DRIP Premix IV PRN (23:30)
[2017-05-20] MEDS: MIDAZOLAM 100 MG/100 ML INJ 100 ML IV PRN (23:50)
[2017-05-21] VITALS (20 sets, daily range): BP systolic 93–109; BP diastolic 52–57; PULSE 67–90; RESP 13–26; TEMP 98–101.4; O2SAT 90–100
[2017-05-21] MEDS: MULTIVITAMIN INJ 10 ML, THIAMINE INJ 100 MG, FOLIC ACID INJ 1 MG in SODIUM CHLORID 0.9%... IV SCH (01:15)
[2017-05-21] MEDS: HYDROmorphone HCL PF 2 MG/ML VIAL IV PUSH PRN ×2 (01:56→05:00)
[2017-05-21] MEDS: PROPOFOL 1000 MG/100 ML INJ 100 ML IV PRN ×6 (02:58→20:52)
[2017-05-21] MEDS: RESP: ALBUTEROL 2.5 MG/IPRATROPIUM 0.5 MG NEB (SCH) INH ×5 (03:55→20:08)
[2017-05-21] MEDS: CHLORHEXIDINE GLUCONATE 2 % 1 PACK (2 CLOTHS) TOP SCH ×2 (04:00→22:07)
[2017-05-21] MEDS: SODIUM CHLOR 0.9% 1000 ML INJ 1,000 ML IV SCH (04:23)
[2017-05-21] MEDS: ENOXAPARIN SODIUM 30 MG/0.3 ML SYRINGE SQ SCH (05:01)
[2017-05-21 05:33] LABS: AUTOMATED NEUTROPHIL # 7.7 TH/MM3 (1.8-7.7); EOSINOPHIL % 0.2 % (0.0-4.0); HEMATOCRIT 30.3 % (39.0-51.0); HEMOGLOBIN 10.7 GM/DL (13.0-17.0); LYMPH % 6.3 % (9.0-44.0); LYMPHOCYTE # 0.6 TH/MM3 (1.0-4.8); MEAN CELL VOLUME 86.6 FL (80.0-100.0); MEAN CORPUSCULAR HEMOGLOBIN 30.5 PG (27.0-34.0); MEAN CORPUSCULAR HGB CONC 35.2 % (32.0-36.0); MEAN PLATELET VOLUME 9.3 FL (7.0-11.0); MONOCYTE # 0.6 TH/MM3 (0-0.9); NEUT % 86.5 % (16.0-70.0); PLATELET COUNT 117 TH/MM3 (150-450); RED CELL DISTRIBUTION WIDTH 14.4 % (11.6-17.2); WHITE BLOOD COUNT 8.9 TH/MM3 (4.0-11.0)
[2017-05-21] MEDS: fentaNYL DRIP 250 ML IV PRN ×3 (06:08→21:56)
[2017-05-21] MEDS ORDERED: LACTATED RINGER'S 1000 ML INJ 1,000 ML IV ONE ×2 (06:15→12:00)
[2017-05-21 06:16] LABS: CALCIUM 6.9 MG/DL (8.5-10.1); CREATININE 1.2 MG/DL (0.60-1.30)
[2017-05-21 06:30] LABS: CALCIUM-PROTEIN CORRECTED 8.2 MG/DL (8.5-10.1); TOTAL PROTEIN 4.7 GM/DL (6.4-8.2)
--- NOTE | 2017-05-21 06:39 | RADRPT ---
EXAM DATE/TIME: 05/21/2017 04:59 [facility] COMPARISON: CHEST SINGLE AP, May 20, 2017, 19:58. INDICATIONS : Short of breath. MEDICAL HISTORY : None. SURGICAL HISTORY : None. ENCOUNTER: Subsequent ACUITY: 3 days PAIN SCORE: Non-responsive. LOCATION: Bilateral chest FINDINGS: Portable AP view of the chest demonstrates a normal-sized cardiac silhouette. Endotracheal tube, naso gastric tube, and right subclavian central line remain present. There are bilateral chest tubes and n o pneumothorax is seen. There is bilateral lower lungs airspace opacity, left greater than right. The re are multiple rib fractures and there is a left clavicle fracture. CONCLUSION: 1. Bilateral chest tubes are present and no pneumothorax is seen. 2. Stable bibasilar airspace opacities, left greater than right. Conor Chaudhry MD on May 21, 2017 at 6:36 Board Certified Radiologist. This report was verified electronically.
[2017-05-21] MEDS ORDERED: GENTAMICIN SULFATE 80 MG/2 ML VIAL ONE (07:39)
[2017-05-21] MEDS: CHLORHEXIDINE 0.12% (ORAL KIT) 15 ML CUP MT SCH ×2 (08:00→20:25)
[2017-05-21] MEDS: ARTIFICIAL TEARS OPTH SOLN 15 ML BTL EACH EYE SCH ×3 (08:15→18:00)
[2017-05-21] MEDS: SODIUM CHLORIDE 0.9% FLUSH 10 ML FLUSH IV FLUSH SCH ×2 (08:15→22:07)
[2017-05-21] MEDS: DOCUSATE SODIUM 50 MG/SENNA 8.6 MG TAB PO SCH ×2 (08:15→20:52)
[2017-05-21] MEDS ORDERED: VANCOMYCIN HCL 1000 MG VIAL ONE (08:20)
[2017-05-21] MEDS ORDERED: ceFAZolin 2 GM PREMIX 50 ML ONE (08:21)
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
[2017-05-21 08:41] LABS: BANDS 30 % (0-6); LYMPHOCYTES 7 % (9-44); MONOCYTES 3 % (0-8); POLYS (SEG NEUTROPHILS) 60 % (16-70)
[2017-05-21] MEDS ORDERED: ALBUMIN 5% INJ 500 ML IV ONE ×2 (08:45→16:00)
[2017-05-21] MEDS: LACTATED RINGER'S 1000 ML INJ 1,000 ML IV SCH ×2 (08:45→18:45)
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
[2017-05-21] MEDS: FAMOTIDINE 20 MG TAB NG SCH ×2 (09:00→20:52)
--- NOTE | 2017-05-21 10:44 | HHI.NSPN ---
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 Caprini Risk Assessment Model Point Value = 1 Point Value = 2 Point Value = 3 Point Value = 5 Age 41-60 Minor surgery BMI > 25 kg/m2 Swollen legs Varicose veins or History of unexplained or recurrent spontaneous Oral contraceptives or hormone replacement Sepsis (< 1 month) Serious lung disease, including pneumonia (< 1 month) Abnormal pulmonary function Acute myocardial infarction Congestive heart failure (< 1 month) History of inflammatory bowel disease Medical patient at bed rest Age 61-74 Arthroscopic surgery Major open surgery (> 45 min) Laparoscopic surgery (> 45 min) Malignancy Confined to bed (> 72 hours) Immobilizing plaster cast Central venous access Age >= 75 History of VTE Family history of VTE Factor V Leiden Prothrombin [id number] Lupus anticoagulant Anticardiolipin antibodies Elevated serum homocysteine Heparin-induced thrombocytopenia Other congenital or acquired thrombophilia Stroke (< 1 month) Elective arthroplasty Hip, pelvis, or leg fracture Acute spinal cord injury (< 1 month) Prophylaxis Regimen Total Risk Factor Score Risk Level Prophylaxis Regimen 0-1 Low Early ambulation 2 Moderate Order ONE of the following: *Sequential Compression Device (SCD) *Heparin 5000 units SQ BID 3-4 Higher Order ONE of the following medications: *Heparin 5000 units SQ TID *Enoxaparin/Lovenox 40 mg SQ daily (WT < 150 kg, CrCl > 30 mL/min) *Enoxaparin/Lovenox 30 mg SQ daily (WT < 150 kg, CrCl > 10-29 mL/min) *Enoxaparin/Lovenox 30 mg SQ BID (WT < 150 kg, CrCl > 30 mL/min) AND/OR *Sequential Compression Device (SCD) 5 or more Highest Order ONE of the following medications: *Heparin 5000 units SQ TID (Preferred with Epidurals) *Enoxaparin/Lovenox 40 mg SQ daily (WT < 150 kg, CrCl > 30 mL/min) *Enoxaparin/Lovenox 30 mg SQ daily (WT < 150 kg, CrCl > 10-29 mL/min) *Enoxaparin/Lovenox 30 mg SQ BID (WT < 150 kg, CrCl > 30 mL/min) AND *Sequential Compression Device (SCD) Caprini Risk Assessment Model Point Value = 1 Point Value = 2 Point Value = 3 Point Value = 5 Age 41-60 Minor surgery BMI > 25 kg/m2 Swollen legs Varicose veins or History of unexplained or recurrent spontaneous Oral contraceptives or hormone replacement Sepsis (< 1 month) Serious lung disease, including pneumonia (< 1 month) Abnormal pulmonary function Acute myocardial infarction Congestive heart failure (< 1 month) History of inflammatory bowel disease Medical patient at bed rest Age 61-74 Arthroscopic surgery Major open surgery (> 45 min) Laparoscopic surgery (> 45 min) Malignancy Confined to bed (> 72 hours) Immobilizing plaster cast Central venous access Age >= 75 History of VTE Family history of VTE Factor V Leiden Prothrombin [id number] Lupus anticoagulant Anticardiolipin antibodies Elevated serum homocysteine Heparin-induced thrombocytopenia Other congenital or acquired thrombophilia Stroke (< 1 month) Elective arthroplasty Hip, pelvis, or leg fracture Acute spinal cord injury (< 1 month) Prophylaxis Regimen Total Risk Factor Score Risk Level Prophylaxis Regimen 0-1 Low Early ambulation 2 Moderate Order ONE of the following: *Sequential Compression Device (SCD) *Heparin 5000 units SQ BID 3-4 Higher Order ONE of the following medications: *Heparin 5000 units SQ TID *Enoxaparin/Lovenox 40 mg SQ daily (WT < 150 kg, CrCl > 30 mL/min) *Enoxaparin/Lovenox 30 mg SQ daily (WT < 150 kg, CrCl > 10-29 mL/min) *Enoxaparin/Lovenox 30 mg SQ BID (WT < 150 kg, CrCl > 30 mL/min) AND/OR *Sequential Compression Device (SCD) 5 or more Highest Order ONE of the following medications: *Heparin 5000 units SQ TID (Preferred with Epidurals) *Enoxaparin/Lovenox 40 mg SQ daily (WT < 150 kg, CrCl > 30 mL/min) *Enoxaparin/Lovenox 30 mg SQ daily (WT < 150 kg, CrCl > 10-29 mL/min) *Enoxaparin/Lovenox 30 mg SQ BID (WT < 150 kg, CrCl > 30 mL/min) AND *Sequential Compression Device (SCD) Further recommendations will be provided depending on the patient's clinical evaluation and follow up studies Scott Christensen MD May 21, 2017 10:44
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
--- NOTE | 2017-05-21 11:12 | PD.OP ---
cc: Wing Hubbard MD Operative Report Date of Surgery: May 21, 2017 Preoperative Diagnosis: Displaced left femur fracture Postoperative Diagnosis: Procedure: Left femur reduction and intramedullary nail fixation Anesthesia: Gen. Surgeon: Wing Hubbard Building Dismantler(s): VALERIO Rees PA-C The surgical procedure was assisted by my physician office manager executive assistant. My P.A. presence was necessary throughout this case for the manipulation and positioning of the surgical extremity. My P.A. was assisting me throughout the duration of this procedure. The skill set of a physician office manager executive assistant was medically necessary to complete this procedure. During the surgical case the surgical aides teacher was working at the back table and the physician office manager executive assistant was directly assisting me. Operation and Findings: Plan of activity: Weight-bear as tolerated Patient was seen and evaluated preoperatively. The patient has significant leg pain from femur shaft fracture. The risk and benefits of surgery were discussed in depth with the patient to include bleeding, infection, nonunion, malunion, need for hip replacement, painful hardware, as well as medical competitions including blood clots, stroke, heart attack, and . Informed consent was obtained. Operative site was marked. Patient was brought to the operating room and placed on Zach table. IV sedation was administered by anesthesiologist. Timeout procedure was performed. Hip and leg were prepped with alcohol followed by Hibiclens and draped in the usual sterile fashion. IV antibiotics were given prior to incision. Procedure began with reduction of fracture. Traction was applied. The leg was manipulated to achieve reduction. Excellent reduction was achieved. Fluoroscopy was used to confirm reduction. A two inch incision was made over the anterior knee. A medial arthrotomy was created. Guidepin was placed into the distal femur and advanced into the femoral canal. Fluoroscopy confirmed appropriate guidepin placement. A opening reamer was placed over the guidepin. A long ball tipped guide pin was now placed down the femoral canal into the center of the proximal femur. The nail length was now measured. Fluoroscopy confirmed appropriate guidepin placement. Flexible reamers were now passed over the guidepin to ream the intramedullary canal. The canal was reamed up to size 12. The Synthes nail 11 mm x 360 mm was attached to the insertion handle. Nail was now placed over the guidepin into the femoral canal. Fluoroscopy confirmed appropriate nail placement. A small percutaneous incisions were made over the lateral thigh. Cannulas were placed through the insertion handle down to the femur. Using the insertion handle as a guide the distal interlocking screw holes were predrilled and screw lengths were measured. Appropriate length screws was now placed. Next, using perfect gambell technique two proximal interlocking screws were placed. Screw holes were predrilled and screw lengths were measured. Final fluoroscopy revealed well aligned fracture with well- placed hardware. Incision was closed with 0 Vicryl, 3-0 Vicryl and jakob. Sterile dressings were applied. Patient was transferred to intensive care in critical condition. Wing Hubbard MD May 21, 2017 11:12
[2017-05-21] MEDS ORDERED: ROCURONIUM INJ 50 MG/5 ML SYRINGE IV PUSH ONE (12:00)
--- NOTE | 2017-05-21 13:50 | RADRPT ---
EXAM DATE/TIME: 05/21/2017 10:51 [facility] COMPARISON: No previous studies available for comparison. INDICATIONS : Right femur open reduction internal fixation. MEDICAL HISTORY : None. SURGICAL HISTORY : None. ENCOUNTER: Subsequent ACUITY: 1 day PAIN SCORE: Non-responsive. LOCATION: Right femur FINDINGS: Status post placement of intramedullary aden in the femur. There is good alignment of the fracture fra gments. CONCLUSION: Good position and alignment on this postoperative study. Ronnie Childers MD on May 21, 2017 at 13:48 Board Certified Radiologist. This report was verified electronically.
[2017-05-21] MEDS: NOREPINEPHRINE 4 MG/D5W 250 ML IV PRN ×2 (13:51→17:45)
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
[2017-05-22] VITALS (20 sets, daily range): BP systolic 95–130; BP diastolic 47–62; PULSE 74–103; RESP 13–26; TEMP 98.6–102.6; O2SAT 94–99
[2017-05-22] MEDS: PROPOFOL 1000 MG/100 ML INJ 100 ML IV PRN ×4 (00:56→20:11)
[2017-05-22] MEDS: RESP: ALBUTEROL 2.5 MG/IPRATROPIUM 0.5 MG NEB (SCH) INH ×4 (03:12→20:08)
[2017-05-22 03:46] LABS: AUTOMATED NEUTROPHIL # 7.5 TH/MM3 (1.8-7.7); BASOPHIL % 0.3 % (0.0-2.0); EOSINOPHIL # 0.1 TH/MM3 (0-0.4); EOSINOPHIL % 0.8 % (0.0-4.0); HEMATOCRIT 25.5 % (39.0-51.0); HEMOGLOBIN 8.9 GM/DL (13.0-17.0); LYMPH % 8.9 % (9.0-44.0); LYMPHOCYTE # 0.8 TH/MM3 (1.0-4.8); MEAN CELL VOLUME 88.1 FL (80.0-100.0); MEAN CORPUSCULAR HEMOGLOBIN 30.8 PG (27.0-34.0); MEAN PLATELET VOLUME 9.3 FL (7.0-11.0); MONO % 5.2 % (0.0-8.0); MONOCYTE # 0.5 TH/MM3 (0-0.9); NEUT % 84.8 % (16.0-70.0); PLATELET COUNT 95 TH/MM3 (150-450); RED CELL DISTRIBUTION WIDTH 14.3 % (11.6-17.2); WHITE BLOOD COUNT 8.8 TH/MM3 (4.0-11.0)
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
[2017-05-22 04:39] LABS: BICARBONATE 26.3 MEQ/L (21.0-32.0); CALCIUM 7.1 MG/DL (8.5-10.1); CREATININE 1.11 MG/DL (0.60-1.30)
[2017-05-22] MEDS: LACTATED RINGER'S 1000 ML INJ 1,000 ML IV SCH ×3 (04:45→23:57)
[2017-05-22 04:58] LABS: CALCIUM-PROTEIN CORRECTED 8.2 MG/DL (8.5-10.1); TOTAL PROTEIN 5.1 GM/DL (6.4-8.2)
[2017-05-22 07:05] LABS: BANDS 26 % (0-6); CORRECTED NUCLEATED RBC 4 /100 WBC (0-0); LYMPHOCYTES 16 % (9-44); MONOCYTES 3 % (0-8); NUCLEATED RED BLOOD CELL 4 (0-0); POLYS (SEG NEUTROPHILS) 54 % (16-70)
[2017-05-22] MEDS: CHLORHEXIDINE 0.12% (ORAL KIT) 15 ML CUP MT SCH ×2 (08:00→20:04)
[2017-05-22] MEDS: fentaNYL DRIP 250 ML IV PRN ×2 (08:15→15:00)
[2017-05-22] MEDS: ARTIFICIAL TEARS OPTH SOLN 15 ML BTL EACH EYE SCH ×3 (09:00→18:00)
[2017-05-22] MEDS: DOCUSATE SODIUM 50 MG/SENNA 8.6 MG TAB PO SCH ×2 (09:00→20:05)
[2017-05-22] MEDS: SODIUM CHLORIDE 0.9% FLUSH 10 ML FLUSH IV FLUSH SCH ×2 (09:00→20:05)
[2017-05-22] MEDS: FAMOTIDINE 20 MG TAB NG SCH ×2 (09:00→20:05)
--- NOTE | 2017-05-22 09:09 | PD.ORT.PN ---
Subjective Subjective Remarks POD 1 s/p IMN left femur s/p left clavicle and scap fxs stable. no changes Objective Vitals Vital Signs Date Time Temp Pulse Resp B/P (MAP) Pulse Ox O2 Delivery O2 Flow Rate FiO2 05/22/17 08:24 94 50 05/22/17 06:00 83 05/22/17 04:12 99 50 05/22/17 04:00 85 05/22/17 04:00 98.6 85 20 100/50 (67) 98 05/22/17 04:00 50 05/22/17 03:41 89 111/52 05/22/17 02:00 78 05/22/17 01:17 98 50 05/22/17 00:57 80 110/55 05/22/17 00:00 81 05/22/17 00:00 50 05/22/17 00:00 78 101/57 05/22/17 00:00 99.5 78 26 101/57 (72) 98 05/21/17 22:00 79 05/21/17 20:52 80 101/51 05/21/17 20:09 97 50 05/21/17 20:00 77 05/21/17 20:00 50 05/21/17 20:00 99.0 77 26 106/53 (70) 99 05/21/17 19:00 77 111/82 05/21/17 18:00 81 05/21/17 17:45 79 106/51 05/21/17 17:28 99 60 05/21/17 16:00 60 05/21/17 16:00 80 05/21/17 16:00 101.0 80 15 109/56 (73) 100 05/21/17 15:31 100 100 05/21/17 14:00 80 05/21/17 13:51 79 100/51 05/21/17 12:30 95 60 05/21/17 12:01 94 100 05/21/17 12:00 90 05/21/17 12:00 101.2 90 17 102/57 (72) 90 05/21/17 12:00 60 05/21/17 09:55 100 100 I/O 05/21/17 05/21/17 05/21/17 05/22/17 05/22/17 05/22/17 07:00 15:00 23:00 07:00 15:00 23:00 Intake Total 3299 ml 500 ml 5449 ml 1812 ml 100 ml Output Total 890 ml 450 ml 1085 ml 650 ml Balance 2409 ml 50 ml 4364 ml 1162 ml 100 ml Intake IV Total 3061 ml 500 ml 5303 ml 1200 ml 100 ml Tube Feeding 178 ml 96 ml 552 ml Tube Irrigant 50 ml 60 ml Other 60 ml Output Urine Total 800 ml 400 ml 875 ml 500 ml Gastric Drainage Total 0 ml Chest Tube Drainage Total 90 ml 210 ml 150 ml Estimated Blood Loss 50 ml # Bowel Movements 0 0 Result Diagram: 05/22/17 0325 05/22/17 0325 Imaging Last 24 hours Impressions Chest X-Ray 05/19/17 0000 Signed Impressions: Service Date/Time: Friday, May 19, 2017 01:00 - CONCLUSION: 1. Removal of the 2 pleural catheters along the right chest wall and placement of another right chest tube with distal tip in the medial inferior right hemithorax. The right pneumothorax has resolved with shift of the mediastinum back to the midline and resolution of the generalized lucency in the right hemithorax. 2. Remaining findings are stable. Conor Chaudhry MD Chest X-Ray 05/19/17 0000 Signed Impressions: Service Date/Time: Friday, May 19, 2017 00:13 - CONCLUSION: 1. The second small bore pigtail pleural catheter on the right has been placed and most of it appears to be outside of the right hemithorax except for maybe the distal tip. However, the right pneumothorax is no longer seen suggesting that it may be within the pleural space. Chest CT could confirm location, if needed. 2. Persistent volume loss and left mid and lower lung zone airspace consolidation. No left pneumothorax is visualized. 3. The nasogastric tube tip is in the stomach. Conor Chaudhry MD Thoracic Spine CT 05/18/172209 Signed Impressions: Service Date/Time: Thursday, May 18, 2017 22:27 - CONCLUSION: 1. Superior endplate fracture of T12 without involvement of the posterior cortex and with approximate 10%% loss of height. 2. Numerous bilateral posterior rib fractures from C7 to the level of the 7th rib. Josemanuel Murphy MD Pelvis X-Ray 05/18/172209 Signed Impressions: Service Date/Time: Thursday, May 18, 2017 22:09 - CONCLUSION: No gross fracture seen. Josemanuel Murphy MD Lumbar Spine CT 05/18/172209 Signed Impressions: Service Date/Time: Thursday, May 18, 2017 22:27 - CONCLUSION: 1. Lumbar vertebral bodies and posterior elements are intact. 2. Superior endplate fracture of T12 and medial left posterior 11th rib fracture. Josemanuel Murphy MD Head CT 05/18/172209 Signed Impressions: Service Date/Time: Thursday, May 18, 2017 22:27 - CONCLUSION: 1. No acute findings in the brain. Josemanuel Murphy MD Chest X-Ray 05/18/172209 Signed Impressions: Service Date/Time: Thursday, May 18, 2017 22:09 - CONCLUSION: Left chest drainage tube in the medial apex. Multiple displaced left rib fractures. Josemanuel Murphy MD Chest CT 05/18/172209 Signed Impressions: Service Date/Time: Thursday, May 18, 2017 22:27 - CONCLUSION: 1. Multiple fractures of the left ribs, left clavicle, left scapula and fracture of the lateral right 5th rib. 2. Bilateral pulmonary contusions, left greater than right and left pleural fluid. 3. Bilateral pneumothoraces with left chest drainage tube in place. Josemanuel Murphy MD Cervical Spine CT 05/18/172209 Signed Impressions: Service Date/Time: Thursday, May 18, 2017 22:27 - CONCLUSION: 1. Left transverse process fracture of C6 and fractures of the medial left 1st and 2nd ribs. 2. The vertebral bodies of the cervical spine down to C7 and posterior elements down to the level of C5 are intact. Josemanuel Murphy MD Abdomen/Pelvis CT 05/18/172209 Signed Impressions: Service Date/Time: Thursday, May 18, 2017 22:27 - CONCLUSION: 1. Multiple findings in the chest including bilateral pneumothoraces and multiple bilateral rib fractures, see CT thorax report. 2. The solid and hollow organs of the abdomen/pelvis are grossly intact. Josemanuel Murphy MD Objective Remarks LLE: dressings clean and dry.; intact. nvi. LUE: +swelling of shoulder. good cap refill Assessment & Plan Assessment and Plan 1) Left Femoral Shaft Fx s/p IMN - POD 1 -daily dressing changes POD 2 -WBAT 2) Left Scapula and Clavicle fxs -due to both clavicle and scapula being fractured, will need to have ORIF of clavicle. however, will plan to proceed with clavicle ORIF next week -NWB -Kt Sanchez/First An BRYAN May 22, 2017 09:09
[2017-05-22] MEDS ORDERED: SODIUM CHLOR 0.9% 250 ML INJ 250 ML IV ONE (10:15)
[2017-05-22] MEDS ORDERED: Vancomycin Consult Pharmacy 1 EA OTHER SCH (10:15)
[2017-05-22] MEDS ORDERED: LACTULOSE SYRUP 20 GM/30 ML CUP PO SCH (10:30)
[2017-05-22] MEDS ORDERED: VANCOMYCIN INJ 1,000 MG in SODIUM CHLOR 0.9% 250 ML INJ 250 ML IV ONE (11:00)
[2017-05-22 12:30] LABS: BILIRUBIN, URINE NEG (NEG); BLOOD, URINE MOD (NEG); GLUCOSE,URINE 70 mg/dL (NEG); KETONE, URINE TRACE mg/dL (NEG); MUCUS URINE FEW /lpf (OCC); NITRITE,URINE NEG (NEG); SQUAMOUS EPITHELIAL CELL URINE <1 /hpf (0-5); URINE COLOR DARK-YELLOW (YELLW/STRAW); URINE LEUKOCYTE ESTERASE NEG (NEG)
[2017-05-22] MEDS: PIPERACIL-TAZO 3.375 GM PREMIX 50 ML IV SCH ×2 (14:00→20:04)
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
--- NOTE | 2017-05-22 14:46 | HHI.NSPN ---
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 150 kg, CrCl > 30 mL/min) AND *Sequential Compression Device (SCD) Further recommendations will be provided depending on the patient's clinical evaluation and follow up studies Scott Christensen MD May 22, 2017 14:46
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
[2017-05-22] MEDS: NOREPINEPHRINE 4 MG/D5W 250 ML IV PRN ×2 (17:00)
--- NOTE | 2017-05-22 19:36 | ECHRPT ---
Indication: BLUNT CHEST TRAUMA CONCLUSIONS Very technically difficult study. Grossly normal left ventricule. In limited views, function appear around mildly reduced to normal. BP: 100 / 50 HR: 85 Rhythm: Sinus MEASUREMENTS (Male / Female) Normal Values Technical Quality:Very technically difficult study M-MODE LV Diastolic Diameter MM 5.2 cm 4.2 - 5.9 / 3.9 - 5.3 cm LV Systolic Diameter MM 3.9 cm LV Ejection Fraction MM Teich 50.1 % IVS Diastolic Thickness MM 1.6 cm 0.6 - 1.0 / 0.6 - 0.9 cm LVPW Diastolic Thickness MM 1.3 cm 0.6 - 1.0 / 0.6 - 0.9 cm LV Relative Wall Thickness MM 0.5 0.24 - 0.42 / 0.22 - 0.42 RV Diastolic Diameter MM 2.0 cm DOPPLER AV Peak Velocity 121.0 cm/s AV Peak Gradient 5.9 mmHg AV Mean Gradient 4.0 mmHg AV Velocity Time Integral 20.2 cm LVOT Peak Velocity 45.1 cm/s LVOT Peak Gradient 0.8 mmHg LVOT Velocity Time Integral 8.2 cm Mitral E Point Velocity 60.2 cm/s Mitral A Point Velocity 63.2 cm/s Mitral E to A Ratio 1.0 LV E' Lateral Velocity 8.5 cm/s Mitral E to LV E' Lateral Ratio 7.1 LV E' Septal Velocity 6.5 cm/s Mitral E to LV E' Septal Ratio 9.2 TR Peak Velocity 190.0 cm/s TR Peak Gradient 14.4 mmHg Right Atrial Pressure 10.0 mmHg Pulmonary Artery Systolic Pressu 24.4 mmHg Right Ventricular Systolic Press 24.4 mmHg PV Peak Velocity 58.7 cm/s PV Peak Gradient 1.4 mmHg FINDINGS LEFT VENTRICLE Grossly normal left ventricule. In limited views, function appear around mildly reduced to normal. RIGHT VENTRICLE The right ventricle was not well visualized. LEFT ATRIUM The left atrium was not well visualized. RIGHT ATRIUM The right atrium is not well visualized. ATRIAL SEPTUM The interatrial septum not well visualized. AORTA The aortic root and proximal ascending aorta are not well visualized. MITRAL VALVE Grossly normal AORTIC VALVE The aortic valve is not well visualized. TRICUSPID VALVE Grossly normal PULMONARY VALVE The pulmonary valve is not well visualized. PERICARDIUM No pericardial effusion. Grant Florez DO (Electronically Signed) Final Date:22 May 2017 19:36
[2017-05-22] MEDS: HYDROmorphone HCL PF 2 MG/ML VIAL IV PUSH PRN (20:06)
[2017-05-23] VITALS (18 sets, daily range): BP systolic 97–123; BP diastolic 49–84; PULSE 75–86; RESP 13–22; TEMP 98.5–99.8; O2SAT 97–100
[2017-05-23] MEDS: VANCOMYCIN INJ 1,400 MG in SODIUM CHLORID 0.9% 500 ML INJ 500 ML IV SCH ×3 (00:17→23:08)
[2017-05-23] MEDS: PIPERACIL-TAZO 3.375 GM PREMIX 50 ML IV SCH ×4 (01:18→20:26)
[2017-05-23] MEDS: PROPOFOL 1000 MG/100 ML INJ 100 ML IV PRN ×4 (01:18→23:08)
[2017-05-23] MEDS: RESP: ALBUTEROL 2.5 MG/IPRATROPIUM 0.5 MG NEB (SCH) INH (03:21)
[2017-05-23] MEDS: CHLORHEXIDINE GLUCONATE 2 % 1 PACK (2 CLOTHS) TOP SCH (04:00)
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
[2017-05-23] MEDS: fentaNYL DRIP 250 ML IV PRN ×2 (04:24→18:24)
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
[2017-05-23 05:13] LABS: BASOPHIL % 0.2 % (0.0-2.0); EOSINOPHIL # 0.1 TH/MM3 (0-0.4); EOSINOPHIL % 1.3 % (0.0-4.0); HEMOGLOBIN 9.2 GM/DL (13.0-17.0); LYMPH % 6.8 % (9.0-44.0); LYMPHOCYTE # 0.6 TH/MM3 (1.0-4.8); MEAN CORPUSCULAR HEMOGLOBIN 30.7 PG (27.0-34.0); MEAN CORPUSCULAR HGB CONC 35.3 % (32.0-36.0); MEAN PLATELET VOLUME 9.5 FL (7.0-11.0); MONOCYTE # 0.5 TH/MM3 (0-0.9); NEUT % 86.7 % (16.0-70.0); PLATELET COUNT 123 TH/MM3 (150-450); RED BLOOD COUNT 2.99 MIL/MM3 (4.50-5.90); RED CELL DISTRIBUTION WIDTH 14.6 % (11.6-17.2); WHITE BLOOD COUNT 9.3 TH/MM3 (4.0-11.0)
[2017-05-23 05:38] LABS: ALBUMIN 1.9 GM/DL (3.4-5.0); BICARBONATE 27.2 MEQ/L (21.0-32.0); CREATININE 1.34 MG/DL (0.60-1.30); TOTAL BILIRUBIN ADULT 1.2 MG/DL (0.2-1.0); TOTAL PROTEIN 5.2 GM/DL (6.4-8.2)
[2017-05-23] MEDS: LACTATED RINGER'S 1000 ML INJ 1,000 ML IV SCH ×2 (06:28→20:26)
[2017-05-23] MEDS ORDERED: METHYLNALTREXONE BROMIDE 12 MG/0.6 ML VIAL SQ ONE (07:00)
[2017-05-23] MEDS ORDERED: BISACODYL 10 MG SUPP RECTAL ONE (07:00)
[2017-05-23] MEDS ORDERED: MINERAL OIL EMULSION 55% PO ONE (07:00)
[2017-05-23] MEDS: ARTIFICIAL TEARS OPTH SOLN 15 ML BTL EACH EYE SCH ×3 (07:42→18:00)
[2017-05-23] MEDS: CHLORHEXIDINE 0.12% (ORAL KIT) 15 ML CUP MT SCH ×2 (07:42→19:42)
[2017-05-23] MEDS: SODIUM CHLORIDE 0.9% FLUSH 10 ML FLUSH IV FLUSH SCH ×2 (07:42→20:26)
[2017-05-23] MEDS: RESP: ALBUTEROL 2.5 MG/IPRATROPIUM 0.5 MG NEB (SCH) NEB ×4 (08:13→20:04)
[2017-05-23] MEDS ORDERED: GLYCERIN ADULT 2 GM SUPP RECTAL ONE (08:15)
[2017-05-23] MEDS: FAMOTIDINE 20 MG TAB NG SCH ×2 (08:23→20:26)
[2017-05-23] MEDS: POLYETHYLENE GLYCOL 17 GM PKG OG-TUBE SCH ×2 (08:23→20:26)
[2017-05-23] MEDS: DOCUSATE SODIUM 50 MG/SENNA 8.6 MG TAB PO SCH ×2 (08:23→20:26)
[2017-05-23 08:38] LABS: BANDS 29 % (0-6); CORRECTED NUCLEATED RBC 1 /100 WBC (0-0); LYMPHOCYTES 7 % (9-44); METAMYELOCYTES 1 % (0-1); MONOCYTES 7 % (0-8); MYELOCYTES 3 % (0-0); NEUTROPHIL # MANUAL DIFF 7.9 TH/MM3 (1.8-7.7); NUCLEATED RED BLOOD CELL 1 (0-0); POLYS (SEG NEUTROPHILS) 52 % (16-70)
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
[2017-05-23] MEDS: LACTULOSE SYRUP 20 GM/30 ML CUP OG-TUBE SCH ×2 (11:11→18:00)
[2017-05-23 12:20] LABS: HEMOGLOBIN A1C 5.9 % (4.3-6.0)
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
[2017-05-23 13:58] LABS: CREATININE, RANDOM URINE 231.8 MG/DL
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
[2017-05-23] MEDS ORDERED: PHARMACY ORDERED LAB ONE (22:45)
[2017-05-24] VITALS (17 sets, daily range): BP systolic 96–137; BP diastolic 54–78; PULSE 71–87; RESP 20–27; TEMP 98.8–100.4; O2SAT 93–100
[2017-05-24] MEDS: RESP: ALBUTEROL 2.5 MG/IPRATROPIUM 0.5 MG NEB (SCH) NEB ×6 (00:02→21:31)
[2017-05-24] MEDS: LACTULOSE SYRUP 20 GM/30 ML CUP OG-TUBE SCH ×4 (00:27→17:49)
[2017-05-24] MEDS: PIPERACIL-TAZO 3.375 GM PREMIX 50 ML IV SCH ×2 (03:11→08:05)
[2017-05-24] MEDS: CHLORHEXIDINE GLUCONATE 2 % 1 PACK (2 CLOTHS) TOP SCH (04:00)
[2017-05-24] MEDS: LACTATED RINGER'S 1000 ML INJ 1,000 ML IV SCH (04:45)
[2017-05-24] MEDS: PROPOFOL 1000 MG/100 ML INJ 100 ML IV PRN ×5 (04:54→19:54)
[2017-05-24 05:53] LABS: AUTOMATED NEUTROPHIL # 8.6 TH/MM3 (1.8-7.7); BASOPHIL % 0.2 % (0.0-2.0); EOSINOPHIL # 0.2 TH/MM3 (0-0.4); EOSINOPHIL % 1.9 % (0.0-4.0); HEMATOCRIT 28.3 % (39.0-51.0); HEMOGLOBIN 9.6 GM/DL (13.0-17.0); LYMPH % 7.2 % (9.0-44.0); LYMPHOCYTE # 0.7 TH/MM3 (1.0-4.8); MEAN CELL VOLUME 87.6 FL (80.0-100.0); MEAN CORPUSCULAR HEMOGLOBIN 29.8 PG (27.0-34.0); MEAN PLATELET VOLUME 9.5 FL (7.0-11.0); MONO % 6.6 % (0.0-8.0); MONOCYTE # 0.7 TH/MM3 (0-0.9); NEUT % 84.1 % (16.0-70.0); PLATELET COUNT 173 TH/MM3 (150-450); RED BLOOD COUNT 3.23 MIL/MM3 (4.50-5.90); RED CELL DISTRIBUTION WIDTH 14.6 % (11.6-17.2); WHITE BLOOD COUNT 10.2 TH/MM3 (4.0-11.0)
[2017-05-24 06:22] LABS: ALBUMIN 1.7 GM/DL (3.4-5.0); BICARBONATE 26.5 MEQ/L (21.0-32.0); CALCIUM 7.2 MG/DL (8.5-10.1); CALCIUM-PROTEIN CORRECTED 8.1 MG/DL (8.5-10.1); CREATININE 1.26 MG/DL (0.60-1.30); FREE T3 1.31 PG/ML (2.18-3.98); FREE T4 0.92 NG/DL (0.76-1.46); MAGNESIUM 2.2 MG/DL (1.5-2.5); PHOSPHORUS 2.3 MG/DL (2.5-4.9); TOTAL BILIRUBIN ADULT 1.2 MG/DL (0.2-1.0); TOTAL PROTEIN 5.4 GM/DL (6.4-8.2)
[2017-05-24 06:44] LABS: BANDS 9 % (0-6); CORRECTED NUCLEATED RBC 2 /100 WBC (0-0); LYMPHOCYTES 5 % (9-44); MONOCYTES 6 % (0-8); MYELOCYTES 2 % (0-0); NEUTROPHIL # MANUAL DIFF 8.9 TH/MM3 (1.8-7.7); NUCLEATED RED BLOOD CELL 2 (0-0); POLYS (SEG NEUTROPHILS) 76 % (16-70)
--- NOTE | 2017-05-24 06:48 | RADRPT ---
EXAM DATE/TIME: 05/24/2017 05:35 [place] COMPARISON: CT ABDOMEN & PELVIS W CONTRAST, May 19, 2017, 12:33. INDICATIONS : Obstruction. MEDICAL HISTORY : None. SURGICAL HISTORY : None. ENCOUNTER: Subsequent ACUITY: 1 day PAIN SCORE: Non-responsive. LOCATION: Bilateral abdomen. FINDINGS: Supine view of the abdomen was performed. The abdominal bowel gas pattern is normal. No abnormal ma sses, calcifications, or organomegaly is seen. The osseous structures are unremarkable. CONCLUSION: Benign-appearing abdomen. No evidence of bowel obstruction. Conor Wolf MD on May 24, 2017 at 6:46 Board Certified Radiologist. This report was verified electronically.
[2017-05-24] MEDS: CHLORHEXIDINE 0.12% (ORAL KIT) 15 ML CUP MT SCH ×2 (08:00→19:54)
[2017-05-24] MEDS: SODIUM CHLORIDE 0.9% FLUSH 10 ML FLUSH IV FLUSH SCH ×2 (08:05→19:54)
[2017-05-24] MEDS: ARTIFICIAL TEARS OPTH SOLN 15 ML BTL EACH EYE SCH ×3 (08:05→17:49)
[2017-05-24] MEDS: POLYETHYLENE GLYCOL 17 GM PKG OG-TUBE SCH ×2 (08:05→19:54)
[2017-05-24] MEDS: FAMOTIDINE 20 MG TAB NG SCH ×2 (08:05→19:54)
[2017-05-24] MEDS: DOCUSATE SODIUM 50 MG/SENNA 8.6 MG TAB PO SCH ×2 (08:05→19:54)
[2017-05-24] MEDS: fentaNYL DRIP 250 ML IV PRN ×2 (08:06→17:54)
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
[2017-05-24] MEDS: FUROSEMIDE 40 MG/4 ML VIAL IV PUSH SCH ×2 (09:55→17:54)
[2017-05-24] MEDS: POTASSIUM CHLORIDE 25 MEQ EFFERVESCENT TAB PO SCH (09:55)
--- NOTE | 2017-05-24 09:58 | RADRPT ---
EXAM DATE/TIME: 05/24/2017 09:18 [facility] COMPARISON: CHEST SINGLE AP, May 23, 2017, 3:24. INDICATIONS : Shortness of breath. MEDICAL HISTORY : None. SURGICAL HISTORY : None. ENCOUNTER: Initial ACUITY: 1 day PAIN SCORE: Non-responsive. LOCATION: Bilateral chest FINDINGS: Persistent but improving air space disease is evident throughout both lungs. The lungs are hypoaerate d. Bilateral chest tubes are in place. There is no evidence of pneumothorax. Endotracheal and nasogastric tubes remain in good position. Heart and mediastinal structures are stable. CONCLUSION: 1. Persistent but improving airspace disease. 2. No evidence of pneumothorax. 3. Stable position of support devices. Aries Parmar MD on May 24, 2017 at 9:53 Board Certified Radiologist. This report was verified electronically.
[2017-05-24] MEDS ORDERED: MAGNESIUM CITRATE SOLN 300 ML BTL PO ONE (10:00)
[2017-05-24] MEDS ORDERED: PHARMACY ORDERED LAB ONE (10:45)
[2017-05-24] MEDS: VANCOMYCIN INJ 1,500 MG in SODIUM CHLORID 0.9% 500 ML INJ 500 ML IV SCH (11:40)
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
[2017-05-24] MEDS: METOCLOPRAMIDE HCL 10 MG/2 ML VIAL IV PUSH SCH ×2 (12:49→23:06)
[2017-05-24] MEDS: PIPERACIL-TAZO 4.5 GM PREMIX 100 ML IV SCH ×2 (12:49→19:53)
[2017-05-24] MEDS: MIDAZOLAM HCL 2 MG/2 ML VIAL IV PUSH PRN (14:55)
[2017-05-24] MEDS: ENOXAPARIN SODIUM 30 MG/0.3 ML SYRINGE SQ SCH (17:54)
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
[2017-05-25] VITALS (19 sets, daily range): BP systolic 109–124; BP diastolic 56–66; PULSE 76–97; RESP 18–23; TEMP 99.4–100.4; O2SAT 94–98
[2017-05-25] MEDS: RESP: ALBUTEROL 2.5 MG/IPRATROPIUM 0.5 MG NEB (SCH) NEB ×7 (00:10→23:19)
[2017-05-25] MEDS: LACTULOSE SYRUP 20 GM/30 ML CUP OG-TUBE SCH ×4 (00:26→17:36)
[2017-05-25] MEDS: PROPOFOL 1000 MG/100 ML INJ 100 ML IV PRN ×5 (00:26→20:09)
[2017-05-25] MEDS: VANCOMYCIN INJ 1,500 MG in SODIUM CHLORID 0.9% 500 ML INJ 500 ML IV SCH ×2 (01:10→11:28)
[2017-05-25] MEDS: PIPERACIL-TAZO 4.5 GM PREMIX 100 ML IV SCH ×3 (01:10→17:35)
--- NOTE | 2017-05-25 01:19 | RADRPT ---
EXAM DATE/TIME: 05/25/2017 00:52 [place] COMPARISON: CHEST SINGLE AP, May 24, 2017, 9:18. INDICATIONS : Short of breath. MEDICAL HISTORY : None. SURGICAL HISTORY : None. ENCOUNTER: Subsequent ACUITY: 1 week PAIN SCORE: 0/10 LOCATION: Bilateral chest FINDINGS: A single portable frontal view of the chest shows bilateral thoracostomy tubes. Tip of endotracheal t ube 5 cm from the [place]. Nasogastric tube courses off the inferior margin of the film. No pneumothor ax observed. Bibasilar parenchymal consolidations left more so than right. CONCLUSION: 1. Stable bibasilar parenchymal consolidations. 2. No pneumothorax. Josemanuel Hill Jr., MD on May 25, 2017 at 1:16 Board Certified Radiologist. This report was verified electronically.
[2017-05-25] MEDS: CHLORHEXIDINE GLUCONATE 2 % 1 PACK (2 CLOTHS) TOP SCH (03:49)
[2017-05-25] MEDS: ENOXAPARIN SODIUM 30 MG/0.3 ML SYRINGE SQ SCH ×2 (05:06→17:35)
[2017-05-25] MEDS: METOCLOPRAMIDE HCL 10 MG/2 ML VIAL IV PUSH SCH ×3 (05:07→22:42)
[2017-05-25 05:31] LABS: AUTOMATED NEUTROPHIL # 8.1 TH/MM3 (1.8-7.7); BASOPHIL % 0.2 % (0.0-2.0); EOSINOPHIL # 0.2 TH/MM3 (0-0.4); EOSINOPHIL % 1.7 % (0.0-4.0); HEMATOCRIT 27.2 % (39.0-51.0); HEMOGLOBIN 9.3 GM/DL (13.0-17.0); LYMPH % 8.8 % (9.0-44.0); LYMPHOCYTE # 0.9 TH/MM3 (1.0-4.8); MEAN CELL VOLUME 87.3 FL (80.0-100.0); MEAN CORPUSCULAR HGB CONC 34.4 % (32.0-36.0); MEAN PLATELET VOLUME 8.9 FL (7.0-11.0); MONO % 6.6 % (0.0-8.0); MONOCYTE # 0.6 TH/MM3 (0-0.9); NEUT % 82.7 % (16.0-70.0); PLATELET COUNT 200 TH/MM3 (150-450); RED BLOOD COUNT 3.11 MIL/MM3 (4.50-5.90); RED CELL DISTRIBUTION WIDTH 14.5 % (11.6-17.2); WHITE BLOOD COUNT 9.8 TH/MM3 (4.0-11.0)
[2017-05-25 06:11] LABS: ALBUMIN 1.6 GM/DL (3.4-5.0); BICARBONATE 31.1 MEQ/L (21.0-32.0); CALCIUM-PROTEIN CORRECTED 7.9 MG/DL (8.5-10.1); CREATININE 1.49 MG/DL (0.60-1.30); MAGNESIUM 2.6 MG/DL (1.5-2.5); PHOSPHORUS 2.5 MG/DL (2.5-4.9); TOTAL BILIRUBIN ADULT 1.4 MG/DL (0.2-1.0); TOTAL PROTEIN 5.4 GM/DL (6.4-8.2)
[2017-05-25] MEDS: fentaNYL DRIP 250 ML IV PRN ×3 (07:04→20:10)
[2017-05-25] MEDS: CHLORHEXIDINE 0.12% (ORAL KIT) 15 ML CUP MT SCH ×2 (08:00→19:59)
[2017-05-25] MEDS ORDERED: POTASSIUM CHLORIDE 20 MEQ PWD PACKET PO PRN (08:15)
[2017-05-25] MEDS ORDERED: SODIUM PHOSPHATE INJ 30 MMOL in SODIUM CHLOR 0.9% 250 ML INJ 240 ML IV PRN (08:15)
[2017-05-25] MEDS ORDERED: MAGNESIUM OXIDE 400 MG TAB PO PRN (08:15)
[2017-05-25] MEDS ORDERED: POTASSIUM CHLOR 20 MEQ PREMIX 100 ML IV PRN (08:15)
[2017-05-25] MEDS ORDERED: POTASSIUM PHOSPHATE INJ 30 MMOL in SODIUM CHLOR 0.9% 250 ML INJ 250 ML IV PRN (08:15)
[2017-05-25] MEDS ORDERED: MAGNESIUM SULFATE INJ 2 GM in SODIUM CHLORIDE 0.9% INJ 96 ML IV PRN (08:15)
[2017-05-25] MEDS ORDERED: POTASSIUM PHOSPHATE MONOBASIC 500 MG TAB PO PRN (08:15)
[2017-05-25] MEDS ORDERED: POTASSIUM PHOSPHATE MONOBASIC 500 MG TAB PO/TUBE PRN (08:15)
[2017-05-25] MEDS ORDERED: MAGNESIUM SULFATE INJ 4 GM in SODIUM CHLORIDE 0.9% INJ 92 ML IV PRN (08:15)
[2017-05-25] MEDS ORDERED: POTASSIUM CHLOR 40 MEQ PREMIX 100 ML IV PRN ×2 (08:15)
[2017-05-25] MEDS: FAMOTIDINE 20 MG TAB NG SCH ×2 (08:16→19:59)
[2017-05-25] MEDS: POTASSIUM CHLORIDE 25 MEQ EFFERVESCENT TAB PO SCH (08:16)
[2017-05-25] MEDS: FUROSEMIDE 40 MG/4 ML VIAL IV PUSH SCH (08:16)
[2017-05-25] MEDS: POLYETHYLENE GLYCOL 17 GM PKG OG-TUBE SCH ×2 (08:17→19:59)
[2017-05-25] MEDS: ARTIFICIAL TEARS OPTH SOLN 15 ML BTL EACH EYE SCH ×3 (08:17→17:36)
[2017-05-25] MEDS: SODIUM CHLORIDE 0.9% FLUSH 10 ML FLUSH IV FLUSH SCH ×2 (08:17→19:59)
[2017-05-25] MEDS: DOCUSATE SODIUM 50 MG/SENNA 8.6 MG TAB PO SCH ×2 (08:17→19:59)
--- NOTE | 2017-05-25 08:21 | PD.ORT.PN ---
Subjective Subjective Remarks POD 4 s/p IMN left femur s/p left clavicle and scap fxs stable. no changes Objective Vitals Vital Signs Date Time Temp Pulse Resp B/P (MAP) Pulse Ox O2 Delivery O2 Flow Rate FiO2 05/25/17 06:00 82 05/25/17 04:42 94 40 05/25/17 04:00 40 05/25/17 04:00 99.4 77 20 109/57 (74) 96 05/25/17 04:00 77 05/25/17 02:00 76 05/25/17 00:12 98 40 05/25/17 00:00 100.3 77 20 114/56 (75) 96 Arterial Line 05/25/17 00:00 40 05/25/17 00:00 77 05/24/17 22:00 81 05/24/17 21:37 99 40 05/24/17 20:00 100.4 84 20 112/56 (74) 96 05/24/17 20:00 40 05/24/17 20:00 84 05/24/17 18:00 71 05/24/17 16:01 100 100 05/24/17 16:00 74 05/24/17 16:00 40 05/24/17 16:00 98.8 75 20 96/54 (68) 96 05/24/17 14:00 75 05/24/17 12:00 87 05/24/17 12:00 100.1 87 21 110/62 (78) 95 05/24/17 12:00 40 05/24/17 10:00 79 I/O 05/24/17 05/24/17 05/24/17 05/25/17 05/25/17 05/25/17 07:00 15:00 23:00 07:00 15:00 23:00 Intake Total 2278 ml 50 ml 489 ml 1348 ml 350 ml Output Total 590 ml 2340 ml 2171 ml Balance 1688 ml 50 ml -1851 ml -823 ml 350 ml Intake IV Total 1764 ml 50 ml 100 ml 915 ml 350 ml Tube Feeding 314 ml 389 ml 433 ml Tube Irrigant 200 ml Output Urine Total 450 ml 2200 ml 2100 ml Stool Total 1 ml Chest Tube Drainage Total 140 ml 140 ml 70 ml # Bowel Movements 0 1 25 Result Diagram: 05/25/17 05005/25/17 050 Imaging Last 24 hours Impressions Chest X-Ray 05/19/17 0000 Signed Impressions: Service Date/Time: Friday, May 19, 2017 01:00 - CONCLUSION: 1. Removal of the 2 pleural catheters along the right chest wall and placement of another right chest tube with distal tip in the medial inferior right hemithorax. The right pneumothorax has resolved with shift of the mediastinum back to the midline and resolution of the generalized lucency in the right hemithorax. 2. Remaining findings are stable. Conor Chaudhry MD Chest X-Ray 05/19/17 0000 Signed Impressions: Service Date/Time: Friday, May 19, 2017 00:13 - CONCLUSION: 1. The second small bore pigtail pleural catheter on the right has been placed and most of it appears to be outside of the right hemithorax except for maybe the distal tip. However, the right pneumothorax is no longer seen suggesting that it may be within the pleural space. Chest CT could confirm location, if needed. 2. Persistent volume loss and left mid and lower lung zone airspace consolidation. No left pneumothorax is visualized. 3. The nasogastric tube tip is in the stomach. Conor Chaudhry MD Thoracic Spine CT 05/18/172209 Signed Impressions: Service Date/Time: Thursday, May 18, 2017 22:27 - CONCLUSION: 1. Superior endplate fracture of T12 without involvement of the posterior cortex and with approximate 10%% loss of height. 2. Numerous bilateral posterior rib fractures from C7 to the level of the 7th rib. Josemanuel Murphy MD Pelvis X-Ray 05/18/172209 Signed Impressions: Service Date/Time: Thursday, May 18, 2017 22:09 - CONCLUSION: No gross fracture seen. Josemanuel Murphy MD Lumbar Spine CT 05/18/172209 Signed Impressions: Service Date/Time: Thursday, May 18, 2017 22:27 - CONCLUSION: 1. Lumbar vertebral bodies and posterior elements are intact. 2. Superior endplate fracture of T12 and medial left posterior 11th rib fracture. Josemanuel Murphy MD Head CT 05/18/172209 Signed Impressions: Service Date/Time: Thursday, May 18, 2017 22:27 - CONCLUSION: 1. No acute findings in the brain. Josemanuel Murphy MD Chest X-Ray 05/18/172209 Signed Impressions: Service Date/Time: Thursday, May 18, 2017 22:09 - CONCLUSION: Left chest drainage tube in the medial apex. Multiple displaced left rib fractures. Josemanuel Murphy MD Chest CT 05/18/172209 Signed Impressions: Service Date/Time: Thursday, May 18, 2017 22:27 - CONCLUSION: 1. Multiple fractures of the left ribs, left clavicle, left scapula and fracture of the lateral right 5th rib. 2. Bilateral pulmonary contusions, left greater than right and left pleural fluid. 3. Bilateral pneumothoraces with left chest drainage tube in place. Josemanuel Murphy MD Cervical Spine CT 05/18/172209 Signed Impressions: Service Date/Time: Thursday, May 18, 2017 22:27 - CONCLUSION: 1. Left transverse process fracture of C6 and fractures of the medial left 1st and 2nd ribs. 2. The vertebral bodies of the cervical spine down to C7 and posterior elements down to the level of C5 are intact. Josemanuel Murphy MD Abdomen/Pelvis CT 05/18/172209 Signed Impressions: Service Date/Time: Thursday, May 18, 2017 22:27 - CONCLUSION: 1. Multiple findings in the chest including bilateral pneumothoraces and multiple bilateral rib fractures, see CT thorax report. 2. The solid and hollow organs of the abdomen/pelvis are grossly intact. Josemanuel Murphy MD Objective Remarks LLE: dressings clean and dry.; intact. nvi. LUE: +swelling of shoulder. good cap refill Assessment & Plan Assessment and Plan 1) Left Femoral Shaft Fx s/p IMN - POD 4 -daily dressing changes -WBAT 2) Left Scapula and Clavicle fxs -npo after MN -sign consents -plan for ORIF of left clavicle tomorrow -hold Kt Johansen/[employer] PA May 25, 2017 08:21
[2017-05-25] MEDS ORDERED: POTASSIUM CHLORIDE 25 MEQ EFFERVESCENT TAB OG-TUBE ONE (09:00)
[2017-05-25 09:11] LABS: BANDS 2 % (0-6); CORRECTED NUCLEATED RBC 5 /100 WBC (0-0); LYMPHOCYTES 7 % (9-44); METAMYELOCYTES 1 % (0-1); MONOCYTES 3 % (0-8); MYELOCYTES 1 % (0-0); NEUTROPHIL # MANUAL DIFF 8.6 TH/MM3 (1.8-7.7); NUCLEATED RED BLOOD CELL 5 (0-0); POLYS (SEG NEUTROPHILS) 84 % (16-70)
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
[2017-05-25] MEDS: FUROSEMIDE 20 MG/2 ML VIAL IV PUSH SCH (17:35)
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
[2017-05-25] MEDS ORDERED: PHARMACY ORDERED LAB ONE (23:45)
[2017-05-26] VITALS (17 sets, daily range): BP systolic 101–137; BP diastolic 54–70; PULSE 82–95; RESP 18–20; TEMP 99.3–100.4; O2SAT 92–99
[2017-05-26] MEDS: PIPERACIL-TAZO 4.5 GM PREMIX 100 ML IV SCH ×3 (00:12→15:12)
[2017-05-26] MEDS: LACTULOSE SYRUP 20 GM/30 ML CUP OG-TUBE SCH ×4 (00:12→18:00)
[2017-05-26] MEDS: PROPOFOL 1000 MG/100 ML INJ 100 ML IV PRN ×4 (00:12→19:04)
[2017-05-26] MEDS: VANCOMYCIN INJ 1,500 MG in SODIUM CHLORID 0.9% 500 ML INJ 500 ML IV SCH ×2 (00:42→12:43)
[2017-05-26] MEDS ORDERED: SODIUM CHLORID 0.9% 500 ML IV PRN (01:00)
[2017-05-26] MEDS ORDERED: LACTATED RINGER'S 1000 ML IV PRN (01:00)
[2017-05-26] MEDS ORDERED: POVIDONE IODINE 5% (ANTISEPSIS KIT) 4 APPLICATIONS EACH NARE PRN (01:00)
[2017-05-26] MEDS ORDERED: CHLORHEXIDINE GLUCONATE 2 % 1 PACK (2 CLOTHS) TOPICAL PRN (01:00)
[2017-05-26] MEDS: fentaNYL DRIP 250 ML IV PRN ×3 (03:00→19:20)
[2017-05-26] MEDS: CHLORHEXIDINE GLUCONATE 2 % 1 PACK (2 CLOTHS) TOP SCH ×2 (03:03→22:00)
[2017-05-26] MEDS: RESP: ALBUTEROL 2.5 MG/IPRATROPIUM 0.5 MG NEB (SCH) NEB ×6 (03:23→23:38)
[2017-05-26] MEDS: ENOXAPARIN SODIUM 30 MG/0.3 ML SYRINGE SQ SCH ×2 (04:15→18:24)
[2017-05-26 04:47] LABS: AUTOMATED NEUTROPHIL # 10.3 TH/MM3 (1.8-7.7); BASOPHIL % 0.2 % (0.0-2.0); EOSINOPHIL # 0.2 TH/MM3 (0-0.4); EOSINOPHIL % 1.3 % (0.0-4.0); HEMATOCRIT 29.6 % (39.0-51.0); LYMPH % 10.3 % (9.0-44.0); LYMPHOCYTE # 1.3 TH/MM3 (1.0-4.8); MEAN CELL VOLUME 87.6 FL (80.0-100.0); MEAN CORPUSCULAR HEMOGLOBIN 29.8 PG (27.0-34.0); MEAN PLATELET VOLUME 8.8 FL (7.0-11.0); MONO % 6.2 % (0.0-8.0); MONOCYTE # 0.8 TH/MM3 (0-0.9); PLATELET COUNT 259 TH/MM3 (150-450); RED BLOOD COUNT 3.37 MIL/MM3 (4.50-5.90); RED CELL DISTRIBUTION WIDTH 14.7 % (11.6-17.2); WHITE BLOOD COUNT 12.5 TH/MM3 (4.0-11.0)
[2017-05-26 05:27] LABS: ALBUMIN 1.6 GM/DL (3.4-5.0); BICARBONATE 32.3 MEQ/L (21.0-32.0); CALCIUM 6.9 MG/DL (8.5-10.1); CALCIUM-PROTEIN CORRECTED 7.6 MG/DL (8.5-10.1); CREATININE 1.36 MG/DL (0.60-1.30); MAGNESIUM 2.6 MG/DL (1.5-2.5); PHOSPHORUS 3.1 MG/DL (2.5-4.9); TOTAL BILIRUBIN ADULT 1.4 MG/DL (0.2-1.0); TOTAL PROTEIN 5.7 GM/DL (6.4-8.2)
--- NOTE | 2017-05-26 06:08 | RADRPT ---
EXAM DATE/TIME: 05/26/2017 05:31 [place] COMPARISON: CHEST SINGLE AP, May 25, 2017, 0:52. INDICATIONS : Short of breath. MEDICAL HISTORY : None. SURGICAL HISTORY : None. ENCOUNTER: Subsequent ACUITY: 1 week PAIN SCORE: Non-responsive. LOCATION: Bilateral chest FINDINGS: 2 portable frontal views of the chest show bibasilar consolidations. There is been slight improvement within the right base. No effusions. Heart is normal size. Tip of endotracheal tube 5 cm proximal to [place]. Tip of the nasogastric tube just past the GE junction. Right subclavian central line. CONCLUSION: Slight improvement within right basilar consolidation. Left is unchanged. Josemanuel Hill Jr., MD on May 26, 2017 at 6:06 Board Certified Radiologist. This report was verified electronically.
[2017-05-26] MEDS: METOCLOPRAMIDE HCL 10 MG/2 ML VIAL IV PUSH SCH ×3 (06:09→21:47)
[2017-05-26] MEDS ORDERED: DILTIAZEM HCL 25 MG/5 ML VIAL ONE (06:34)
--- NOTE | 2017-05-26 07:50 | PD.ORT.PN ---
Subjective Subjective Remarks POD 5 s/p IMN left femur s/p left clavicle and scap fxs stable. no changes Objective Vitals Vital Signs Date Time Temp Pulse Resp B/P (MAP) Pulse Ox O2 Delivery O2 Flow Rate FiO2 05/26/17 06:00 85 05/26/17 04:02 97 55 05/26/17 04:00 87 05/26/17 04:00 45 05/26/17 04:00 99.5 91 18 137/61 (86) 98 05/26/17 02:00 83 05/26/17 00:00 99.3 91 18 130/70 (90) 99 05/26/17 00:00 55 05/26/17 00:00 92 05/25/17 23:29 96 55 05/25/17 22:00 90 05/25/17 20:00 55 05/25/17 20:00 100.1 94 18 124/66 (85) 96 05/25/17 20:00 94 05/25/17 19:55 95 55 05/25/17 18:00 95 05/25/17 17:18 97 55 05/25/17 16:00 40 05/25/17 16:00 93 05/25/17 16:00 100.4 90 23 121/65 (83) 97 05/25/17 14:00 93 05/25/17 13:12 96 40 05/25/17 12:00 99.7 89 18 118/59 (78) 94 05/25/17 12:00 40 05/25/17 12:00 89 05/25/17 10:00 97 05/25/17 09:16 96 40 05/25/17 08:00 40 05/25/17 08:00 81 05/25/17 08:00 100.3 81 20 112/58 (76) 95 I/O 05/25/17 05/25/17 05/25/17 05/26/17 05/26/17 05/26/17 07:00 15:00 23:00 07:00 15:00 23:00 Intake Total 1348 ml 350 ml 1845 ml 1282 ml Output Total 2171 ml 2612 ml 2050 ml Balance -823 ml 350 ml -767 ml -768 ml Intake IV Total 915 ml 350 ml 1165 ml 801 ml Tube Feeding 433 ml 620 ml 281 ml Tube Irrigant 60 ml 200 ml Output Urine Total 2100 ml 2400 ml 1700 ml Stool Total 1 ml 100 ml 200 ml Chest Tube Drainage Total 70 ml 112 ml 150 ml # Bowel Movements 25 2 1 Result Diagram: 05/26/17 0345 05/26/17 0345 Other Results Laboratory Tests Test 05/26/17 03:45 Prothromb Time International Ratio 1.0 RATIO Prothrombin Time 10.0 SEC (9.8-11.6) Imaging Last 24 hours Impressions Chest X-Ray 05/19/17 0000 Signed Impressions: Service Date/Time: Friday, May 19, 2017 01:00 - CONCLUSION: 1. Removal of the 2 pleural catheters along the right chest wall and placement of another right chest tube with distal tip in the medial inferior right hemithorax. The right pneumothorax has resolved with shift of the mediastinum back to the midline and resolution of the generalized lucency in the right hemithorax. 2. Remaining findings are stable. Conor Chaudhry MD Chest X-Ray 05/19/17 0000 Signed Impressions: Service Date/Time: Friday, May 19, 2017 00:13 - CONCLUSION: 1. The second small bore pigtail pleural catheter on the right has been placed and most of it appears to be outside of the right hemithorax except for maybe the distal tip. However, the right pneumothorax is no longer seen suggesting that it may be within the pleural space. Chest CT could confirm location, if needed. 2. Persistent volume loss and left mid and lower lung zone airspace consolidation. No left pneumothorax is visualized. 3. The nasogastric tube tip is in the stomach. Conor Chaudhry MD Thoracic Spine CT 05/18/172209 Signed Impressions: Service Date/Time: Thursday, May 18, 2017 22:27 - CONCLUSION: 1. Superior endplate fracture of T12 without involvement of the posterior cortex and with approximate 10%% loss of height. 2. Numerous bilateral posterior rib fractures from C7 to the level of the 7th rib. Josemanuel Murphy MD Pelvis X-Ray 05/18/172209 Signed Impressions: Service Date/Time: Thursday, May 18, 2017 22:09 - CONCLUSION: No gross fracture seen. Josemanuel Murphy MD Lumbar Spine CT 05/18/172209 Signed Impressions: Service Date/Time: Thursday, May 18, 2017 22:27 - CONCLUSION: 1. Lumbar vertebral bodies and posterior elements are intact. 2. Superior endplate fracture of T12 and medial left posterior 11th rib fracture. Josemanuel Murphy MD Head CT 05/18/172209 Signed Impressions: Service Date/Time: Thursday, May 18, 2017 22:27 - CONCLUSION: 1. No acute findings in the brain. Josemanuel Murphy MD Chest X-Ray 05/18/172209 Signed Impressions: Service Date/Time: Thursday, May 18, 2017 22:09 - CONCLUSION: Left chest drainage tube in the medial apex. Multiple displaced left rib fractures. Josemanuel Murphy MD Chest CT 05/18/172209 Signed Impressions: Service Date/Time: Thursday, May 18, 2017 22:27 - CONCLUSION: 1. Multiple fractures of the left ribs, left clavicle, left scapula and fracture of the lateral right 5th rib. 2. Bilateral pulmonary contusions, left greater than right and left pleural fluid. 3. Bilateral pneumothoraces with left chest drainage tube in place. Josemanuel Murphy MD Cervical Spine CT 05/18/172209 Signed Impressions: Service Date/Time: Thursday, May 18, 2017 22:27 - CONCLUSION: 1. Left transverse process fracture of C6 and fractures of the medial left 1st and 2nd ribs. 2. The vertebral bodies of the cervical spine down to C7 and posterior elements down to the level of C5 are intact. Josemanuel Murphy MD Abdomen/Pelvis CT 05/18/172209 Signed Impressions: Service Date/Time: Thursday, May 18, 2017 22:27 - CONCLUSION: 1. Multiple findings in the chest including bilateral pneumothoraces and multiple bilateral rib fractures, see CT thorax report. 2. The solid and hollow organs of the abdomen/pelvis are grossly intact. Josemanuel Murphy MD Objective Remarks LLE: dressings clean and dry.; intact. nvi. LUE: +swelling of shoulder. good cap refill Assessment & Plan Assessment and Plan 1) Left Femoral Shaft Fx s/p IMN - POD 5 -daily dressing changes -WBAT 2) Left Scapula and Clavicle fxs -surgeyr today with Dr Lio Herrera,Kt Sosa PA/[employer] PA May 26, 2017 07:50
[2017-05-26 08:29] LABS: BANDS 14 % (0-6); CORRECTED NUCLEATED RBC 3 /100 WBC (0-0); LYMPHOCYTES 14 % (9-44); METAMYELOCYTES 4 % (0-1); MONOCYTES 3 % (0-8); MYELOCYTES 1 % (0-0); NEUTROPHIL # MANUAL DIFF 10.3 TH/MM3 (1.8-7.7); NUCLEATED RED BLOOD CELL 3 (0-0); POLYS (SEG NEUTROPHILS) 63 % (16-70)
[2017-05-26 08:30] LABS: TOXIC GRANULATION 2+ (NORMAL)
[2017-05-26] MEDS: FUROSEMIDE 20 MG/2 ML VIAL IV PUSH SCH ×2 (08:51→18:24)
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
[2017-05-26] MEDS: POLYETHYLENE GLYCOL 17 GM PKG OG-TUBE SCH ×2 (08:52→21:46)
[2017-05-26] MEDS: POTASSIUM CHLORIDE 25 MEQ EFFERVESCENT TAB PO SCH (08:52)
[2017-05-26] MEDS: DOCUSATE SODIUM 50 MG/SENNA 8.6 MG TAB PO SCH ×2 (08:52→21:46)
[2017-05-26] MEDS: SODIUM CHLORIDE 0.9% FLUSH 10 ML FLUSH IV FLUSH SCH ×2 (08:52→21:46)
[2017-05-26] MEDS: FAMOTIDINE 20 MG TAB NG SCH ×2 (08:52→21:46)
[2017-05-26] MEDS: CHLORHEXIDINE 0.12% (ORAL KIT) 15 ML CUP MT SCH ×2 (08:53→20:19)
[2017-05-26] MEDS: ARTIFICIAL TEARS OPTH SOLN 15 ML BTL EACH EYE SCH ×3 (08:53→20:19)
[2017-05-26] MEDS: POTASSIUM CHLOR 20 MEQ PREMIX 100 ML IV PRN (08:58)
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
[2017-05-26] MEDS ORDERED: POTASSIUM CHLOR 20 MEQ PREMIX 100 ML IV ONE (10:00)
[2017-05-26] MEDS ORDERED: ACETAMINOPHEN 1000 MG/100 ML 100 ML IV ONE (10:24)
[2017-05-26] MEDS ORDERED: GENTAMICIN SULFATE 80 MG/2 ML VIAL ONE (11:18)
[2017-05-26] MEDS ORDERED: STERILE WATER FOR INJECTION 20 ML VIAL IV ONE (12:00)
[2017-05-26] MEDS ORDERED: VECURONIUM BROMIDE 20 MG VIAL IV ONE (12:00)
[2017-05-26] MEDS ORDERED: ROCURONIUM INJ 50 MG/5 ML SYRINGE IV PUSH ONE (12:00)
[2017-05-26] MEDS ORDERED: DEXAMETHASONE SOD PHOS 4 MG/ML VIAL IV ONE (12:00)
[2017-05-26] MEDS ORDERED: ONDANSETRON HCL 4 MG/2 ML VIAL IV ONE (12:00)
[2017-05-26] MEDS ORDERED: ceFAZolin 2 GM PREMIX 50 ML IV SCH (12:00)
--- NOTE | 2017-05-26 12:02 | PD.OP ---
cc: Wing Hubbard MD Operative Report Date of Surgery: May 26, 2017 Preoperative Diagnosis: Displaced left clavicle fracture, left scapula fracture Postoperative Diagnosis: Procedure: Open reduction internal fixation left clavicle Anesthesia: Gen. Surgeon: Wing Hubbard Flex O Writer Operator(s): VALERIO Rees PA-C The surgical procedure was assisted by my physician wet process assistant head miller. My P.A. presence was necessary throughout this case for the manipulation and positioning of the surgical extremity. My P.A. was assisting me throughout the duration of this procedure. The skill set of a physician wet process assistant head miller was medically necessary to complete this procedure. During the surgical case the salesperson surgical appliances was working at the back table and the physician wet process assistant head miller was directly assisting me. Operation and Findings: Implants used:ITS Plan of activity: Sling, nonweightbearing left arm Patient was seen and evaluated preoperatively. Patient was found to have a displaced left clavicle fracture and scapula fracture. The risks and benefits of surgical and nonsurgical options were discussed in detail and informed consent was obtained for surgery. Patient was brought to the operating room and placed on or table. IV sedation and GETA were administered by anesthesiologist. Antibiotics were given prior to incision. Operative arm and shoulder were prepped with alcohol followed by Hibiclens and draped usual sterile fashion. Timeout procedure was performed. Procedure began with a 4 inch incision over the anterior clavicle. Subcutaneous tissue was dissected with Bovie. The fracture was now visualized. Soft tissue was retracted. Fracture was cleaned with curettes. Attention was now turned to reduction. Gentle traction was applied and fracture tenaculums were used to reduce the fracture. Fracture was manipulated to achieve excellent reduction. Multiplanar fluoroscopy confirmed well aligned fracture. K wires were used to hold provisional fixation. A clavicle plate was selected and contoured to fit appropriately. Plate was provisionally held in place K wires. 3.5 cortical screws were used to compress plate to bone. Fluoroscopy confirmed appropriate plate placement and fracture reduction. Multiple screws were placed on each side of the fracture. All Screws were predrilled and premeasured for appropriate length. Care was taken to avoid injury to neurovascular structures. Final fluoroscopy revealed well aligned fracture with well-placed hardware. Wound was thoroughly irrigated. Fascia was closed with #0 Vicryl, subcutaneous tissues closed with 3-0 Vicryl, and skin was closed with jakob. Sterile dressings were applied. Patient was placed into a sling. Patient was transferred to intensive care unit in stable condition. Needle and sponge counts were correct. Wing Hubbard MD May 26, 2017 12:02
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
[2017-05-26] MEDS: cefTRIAXone INJ 2,000 MG in SODIUM CHLORIDE 0.9% INJ 100 ML IV SCH (18:23)
--- NOTE | 2017-05-26 21:35 | RADRPT ---
EXAM DATE/TIME: 05/26/2017 11:40 [facility] COMPARISON: No previous studies available for comparison. INDICATIONS : Orif left clavicle. MEDICAL HISTORY : Trauma SURGICAL HISTORY : Orthopedic surgery, left femur. ENCOUNTER: Subsequent ACUITY: 2 weeks PAIN SCORE: Non-responsive. LOCATION: Left CLAVICLE FINDINGS: Screw and plate fixation noted of the mid to distal shaft fracture of the left clavicle. Alignment ap pears near-anatomic. There is a comminuted fracture of the scapula noted. The humeral joint is dislocated anteriorly. CONCLUSION: 1. Dislocated glenohumeral joint. 2. Screw and plate fixation of the mid shaft fracture of the left clavicle in near-anatomic alignment . Conor Wolf MD on May 26, 2017 at 21:32 Board Certified Radiologist. This report was verified electronically.
[2017-05-27] VITALS (20 sets, daily range): BP systolic 97–159; BP diastolic 50–92; PULSE 78–111; RESP 18–20; TEMP 99.6–102.9; O2SAT 92–99
[2017-05-27] MEDS: LACTULOSE SYRUP 20 GM/30 ML CUP OG-TUBE SCH ×4 (00:20→17:22)
[2017-05-27] MEDS: PROPOFOL 1000 MG/100 ML INJ 100 ML IV PRN ×7 (00:21→23:54)
[2017-05-27] MEDS: HYDROmorphone HCL PF 2 MG/ML VIAL IV PUSH PRN (01:00)
[2017-05-27] MEDS: MIDAZOLAM HCL 2 MG/2 ML VIAL IV PUSH PRN ×2 (01:05→04:21)
[2017-05-27] MEDS ORDERED: MIDAZOLAM HCL 5 MG/ML VIAL (1 ML) ONE (01:07)
[2017-05-27] MEDS ORDERED: MIDAZOLAM 100 MG/NS 100 ML DRIP Premix IV PRN (01:30)
[2017-05-27] MEDS: RESP: ALBUTEROL 2.5 MG/IPRATROPIUM 0.5 MG NEB (SCH) NEB (03:29)
[2017-05-27] MEDS: ACETAMINOPHEN 325 MG TAB PO PRN ×2 (04:30→20:26)
[2017-05-27 05:05] LABS: AUTOMATED NEUTROPHIL # 10.6 TH/MM3 (1.8-7.7); BASOPHIL % 0.3 % (0.0-2.0); EOSINOPHIL # 0.4 TH/MM3 (0-0.4); EOSINOPHIL % 3.7 % (0.0-4.0); HEMATOCRIT 28.8 % (39.0-51.0); HEMOGLOBIN 9.6 GM/DL (13.0-17.0); LYMPH % 5.7 % (9.0-44.0); LYMPHOCYTE # 0.7 TH/MM3 (1.0-4.8); MEAN CELL VOLUME 89.1 FL (80.0-100.0); MEAN CORPUSCULAR HEMOGLOBIN 29.8 PG (27.0-34.0); MEAN CORPUSCULAR HGB CONC 33.5 % (32.0-36.0); MEAN PLATELET VOLUME 8.8 FL (7.0-11.0); MONO % 2.5 % (0.0-8.0); MONOCYTE # 0.3 TH/MM3 (0-0.9); NEUT % 87.8 % (16.0-70.0); PLATELET COUNT 276 TH/MM3 (150-450); RED BLOOD COUNT 3.23 MIL/MM3 (4.50-5.90); RED CELL DISTRIBUTION WIDTH 14.6 % (11.6-17.2); WHITE BLOOD COUNT 12.1 TH/MM3 (4.0-11.0)
[2017-05-27 05:09] LABS: ALBUMIN 1.6 GM/DL (3.4-5.0); BICARBONATE 31.1 MEQ/L (21.0-32.0); CALCIUM 6.7 MG/DL (8.5-10.1); CALCIUM-PROTEIN CORRECTED 7.5 MG/DL (8.5-10.1); CREATININE 1.43 MG/DL (0.60-1.30); MAGNESIUM 2.6 MG/DL (1.5-2.5); PHOSPHORUS 2.8 MG/DL (2.5-4.9); TOTAL BILIRUBIN ADULT 1.4 MG/DL (0.2-1.0); TOTAL PROTEIN 5.5 GM/DL (6.4-8.2)
[2017-05-27] MEDS: METOCLOPRAMIDE HCL 10 MG/2 ML VIAL IV PUSH SCH ×3 (05:27→20:09)
[2017-05-27] MEDS: ENOXAPARIN SODIUM 30 MG/0.3 ML SYRINGE SQ SCH ×2 (05:28→17:22)
--- NOTE | 2017-05-27 06:03 | RADRPT ---
EXAM DATE/TIME: 05/27/2017 05:23 [facility] COMPARISON: CHEST SINGLE AP, May 26, 2017, 5:31. INDICATIONS : Short of breath. MEDICAL HISTORY : None. SURGICAL HISTORY : None. ENCOUNTER: Subsequent ACUITY: 1 week PAIN SCORE: 0/10 LOCATION: Bilateral chest FINDINGS: Single portable frontal view of the chest shows consolidation scattered throughout the left lung. Thi s is more pronounced in the prior study. Right basilar consolidation is stable. Mild cardiomegaly. En dotracheal tube 4 cm from the ever[place]. Nasogastric tube and right-sided central venous catheter noted. Left basilar thoracostomy tube. No pneumothorax. Left clavicular surgical plate. Left-sided rib frac tures. CONCLUSION: Worsening consolidation throughout the left lung. Right basilar consolidation is stable. Josemanuel Hill Jr., MD on May 27, 2017 at 6:01 Board Certified Radiologist. This report was verified electronically.
[2017-05-27 06:54] LABS: BANDS 19 % (0-6); CORRECTED NUCLEATED RBC 4 /100 WBC (0-0); LYMPHOCYTES 5 % (9-44); METAMYELOCYTES 4 % (0-1); MONOCYTES 1 % (0-8); MYELOCYTES 2 % (0-0); NEUTROPHIL # MANUAL DIFF 11.1 TH/MM3 (1.8-7.7); NUCLEATED RED BLOOD CELL 4 (0-0); POLYS (SEG NEUTROPHILS) 67 % (16-70); TOXIC VACUOLATION PRESENT (NONE SEEN)
[2017-05-27] MEDS: fentaNYL DRIP 250 ML IV PRN ×2 (06:54→19:13)
[2017-05-27 06:55] LABS: TOXIC GRANULATION 1+ (NORMAL)
[2017-05-27] MEDS: FUROSEMIDE 20 MG/2 ML VIAL IV PUSH SCH ×2 (08:24→17:22)
[2017-05-27] MEDS: SODIUM CHLORIDE 0.9% FLUSH 10 ML FLUSH IV FLUSH SCH ×2 (08:24→21:08)
[2017-05-27] MEDS: FAMOTIDINE 20 MG TAB NG SCH ×2 (08:24→20:09)
[2017-05-27] MEDS: POLYETHYLENE GLYCOL 17 GM PKG OG-TUBE SCH ×2 (08:24→20:08)
[2017-05-27] MEDS: CHLORHEXIDINE 0.12% (ORAL KIT) 15 ML CUP MT SCH ×2 (08:24→20:09)
[2017-05-27] MEDS: POTASSIUM CHLORIDE 25 MEQ EFFERVESCENT TAB PO SCH (08:25)
[2017-05-27] MEDS: DOCUSATE SODIUM 50 MG/SENNA 8.6 MG TAB PO SCH ×2 (08:25→20:09)
[2017-05-27] MEDS: ARTIFICIAL TEARS OPTH SOLN 15 ML BTL EACH EYE SCH ×3 (08:33→17:22)
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
--- NOTE | 2017-05-27 12:53 | RADRPT ---
EXAM DATE/TIME: 05/27/2017 12:25 [facility] COMPARISON: CHEST SINGLE AP, May 27, 2017, 5:23. INDICATIONS : Short of breath. MEDICAL HISTORY : None. SURGICAL HISTORY : None. ENCOUNTER: Subsequent ACUITY: 2 weeks PAIN SCORE: Non-responsive. LOCATION: Bilateral chest FINDINGS: There are bilateral chest tubes in place. Endotracheal tube and nasogastric tube are in good position . There is a right subclavian introducer present. The catheter tip overlies the junction of the subcl robina vein and superior vena cava. There are postsurgical changes involving the left clavicle. There is consolidation in the left lower lobe. This is similar to previous exam. The right lung is re latively clear. There is no pneumothorax. CONCLUSION: 1. Continued basilar consolidation on the left. 2. Support equipment in satisfactory position. 3. Stable compared to previous dated 05/27/17 Alejandro Davalos MD on May 27, 2017 at 12:50 Board Certified Radiologist. This report was verified electronically.
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
[2017-05-27] MEDS: cefTRIAXone INJ 2,000 MG in SODIUM CHLORIDE 0.9% INJ 100 ML IV SCH (17:21)
[2017-05-28] VITALS (19 sets, daily range): BP systolic 92–129; BP diastolic 55–60; PULSE 87–109; RESP 18–20; TEMP 101.1–103.2; O2SAT 94–98
[2017-05-28] MEDS: LACTULOSE SYRUP 20 GM/30 ML CUP OG-TUBE SCH ×4 (00:39→18:52)
[2017-05-28] MEDS: CHLORHEXIDINE GLUCONATE 2 % 1 PACK (2 CLOTHS) TOP SCH (00:39)
[2017-05-28 05:23] LABS: AUTOMATED NEUTROPHIL # 9.8 TH/MM3 (1.8-7.7); BASOPHIL # 0.1 TH/MM3 (0-0.2); BASOPHIL % 0.4 % (0.0-2.0); EOSINOPHIL # 0.2 TH/MM3 (0-0.4); EOSINOPHIL % 1.4 % (0.0-4.0); HEMATOCRIT 27.6 % (39.0-51.0); HEMOGLOBIN 9.3 GM/DL (13.0-17.0); LYMPH % 10.3 % (9.0-44.0); LYMPHOCYTE # 1.2 TH/MM3 (1.0-4.8); MEAN CELL VOLUME 88.7 FL (80.0-100.0); MEAN CORPUSCULAR HEMOGLOBIN 29.8 PG (27.0-34.0); MEAN CORPUSCULAR HGB CONC 33.6 % (32.0-36.0); MEAN PLATELET VOLUME 8.4 FL (7.0-11.0); MONO % 4.3 % (0.0-8.0); MONOCYTE # 0.5 TH/MM3 (0-0.9); NEUT % 83.6 % (16.0-70.0); PLATELET COUNT 269 TH/MM3 (150-450); RED BLOOD COUNT 3.11 MIL/MM3 (4.50-5.90); RED CELL DISTRIBUTION WIDTH 14.8 % (11.6-17.2); WHITE BLOOD COUNT 11.7 TH/MM3 (4.0-11.0)
[2017-05-28 05:58] LABS: BICARBONATE 32.6 MEQ/L (21.0-32.0); CALCIUM 6.6 MG/DL (8.5-10.1); CREATININE 1.56 MG/DL (0.60-1.30)
[2017-05-28 06:34] LABS: TOTAL PROTEIN 5.4 GM/DL (6.4-8.2)
[2017-05-28 06:37] LABS: CALCIUM-PROTEIN CORRECTED 7.4 MG/DL (8.5-10.1)
[2017-05-28] MEDS: ENOXAPARIN SODIUM 30 MG/0.3 ML SYRINGE SQ SCH ×2 (06:40→18:51)
[2017-05-28] MEDS: METOCLOPRAMIDE HCL 10 MG/2 ML VIAL IV PUSH SCH ×2 (06:41→13:31)
[2017-05-28] MEDS: fentaNYL DRIP 250 ML IV PRN (06:50)
--- NOTE | 2017-05-28 08:04 | PD.ORT.PN ---
Subjective Subjective Remarks s/p IMN left femur s/p left clavicle and scap fxs with ORIF - POD 2 stable. no changes Objective Vitals Vital Signs Date Time Temp Pulse Resp B/P (MAP) Pulse Ox O2 Delivery O2 Flow Rate FiO2 05/28/17 06:00 87 05/28/17 04:10 98 45 05/28/17 04:00 87 05/28/17 04:00 101.6 87 20 107/55 (72) 97 05/28/17 04:00 50 05/28/17 02:00 92 05/28/17 01:14 95 50 05/28/17 00:00 50 05/28/17 00:00 95 05/28/17 00:00 102.9 95 20 92/55 (67) 96 05/27/17 22:13 96 50 05/27/17 22:00 97 05/27/17 20:00 110 05/27/17 20:00 50 05/27/17 20:00 102.9 110 20 111/57 (75) 92 05/27/17 19:42 93 50 05/27/17 18:00 99 05/27/17 16:20 96 50 05/27/17 16:00 100.0 96 20 99/73 (82) 98 05/27/17 16:00 50 05/27/17 16:00 87 05/27/17 14:00 90 05/27/17 12:55 96 50 05/27/17 12:00 65 05/27/17 12:00 99.6 78 18 125/60 (81) 95 05/27/17 12:00 95 05/27/17 11:45 99 100 05/27/17 10:00 88 05/27/17 09:02 97 65 I/O 05/27/17 05/27/17 05/27/17 05/28/17 05/28/17 05/28/17 07:00 15:00 23:00 07:00 15:00 23:00 Intake Total 871 ml 200 ml 767 ml 697 ml Output Total 1520 ml 1790 ml 1250 ml Balance -649 ml 200 ml -1023 ml -553 ml Intake IV Total 200 ml 200 ml 445 ml Tube Feeding 471 ml 322 ml 497 ml Tube Irrigant 200 ml 200 ml Output Urine Total 1200 ml 1650 ml 1100 ml Stool Total 300 ml 100 ml 100 ml Chest Tube Drainage Total 20 ml 40 ml 50 ml Result Diagram: 05/28/17 0458 05/28/178 Imaging Last 24 hours Impressions Chest X-Ray 05/19/17 0000 Signed Impressions: Service Date/Time: Friday, May 19, 2017 01:00 - CONCLUSION: 1. Removal of the 2 pleural catheters along the right chest wall and placement of another right chest tube with distal tip in the medial inferior right hemithorax. The right pneumothorax has resolved with shift of the mediastinum back to the midline and resolution of the generalized lucency in the right hemithorax. 2. Remaining findings are stable. Conor Chaudhry MD Chest X-Ray 05/19/17 0000 Signed Impressions: Service Date/Time: Friday, May 19, 2017 00:13 - CONCLUSION: 1. The second small bore pigtail pleural catheter on the right has been placed and most of it appears to be outside of the right hemithorax except for maybe the distal tip. However, the right pneumothorax is no longer seen suggesting that it may be within the pleural space. Chest CT could confirm location, if needed. 2. Persistent volume loss and left mid and lower lung zone airspace consolidation. No left pneumothorax is visualized. 3. The nasogastric tube tip is in the stomach. Conor Chaudhry MD Thoracic Spine CT [id number]/[id number] Signed Impressions: Service Date/Time: Thursday, May 18, 2017 22:27 - CONCLUSION: 1. Superior endplate fracture of T12 without involvement of the posterior cortex and with approximate 10%% loss of height. 2. Numerous bilateral posterior rib fractures from C7 to the level of the 7th rib. Josemanuel Murphy MD Pelvis X-Ray [id number] Signed Impressions: Service Date/Time: Thursday, May 18, 2017 22:09 - CONCLUSION: No gross fracture seen. Josemanuel Murphy MD Lumbar Spine CT [id number] Signed Impressions: Service Date/Time: Thursday, May 18, 2017 22:27 - CONCLUSION: 1. Lumbar vertebral bodies and posterior elements are intact. 2. Superior endplate fracture of T12 and medial left posterior 11th rib fracture. Josemanuel Murphy MD Head CT [id number] Signed Impressions: Service Date/Time: Thursday, May 18, 2017 22:27 - CONCLUSION: 1. No acute findings in the brain. Josemanuel Murphy MD Chest X-Ray [id number]/[id number] Signed Impressions: Service Date/Time: Thursday, May 18, 2017 22:09 - CONCLUSION: Left chest drainage tube in the medial apex. Multiple displaced left rib fractures. Josemanuel Murphy MD Chest CT [id number] Signed Impressions: Service Date/Time: Thursday, May 18, 2017 22:27 - CONCLUSION: 1. Multiple fractures of the left ribs, left clavicle, left scapula and fracture of the lateral right 5th rib. 2. Bilateral pulmonary contusions, left greater than right and left pleural fluid. 3. Bilateral pneumothoraces with left chest drainage tube in place. Josemanuel Murphy MD Cervical Spine CT [id number] Signed Impressions: Service Date/Time: Thursday, May 18, 2017 22:27 - CONCLUSION: 1. Left transverse process fracture of C6 and fractures of the medial left 1st and 2nd ribs. 2. The vertebral bodies of the cervical spine down to C7 and posterior elements down to the level of C5 are intact. Josemanuel Murphy MD Abdomen/Pelvis CT [id number] Signed Impressions: Service Date/Time: Thursday, May 18, 2017 22:27 - CONCLUSION: 1. Multiple findings in the chest including bilateral pneumothoraces and multiple bilateral rib fractures, see CT thorax report. 2. The solid and hollow organs of the abdomen/pelvis are grossly intact. Josemanuel Murphy MD Objective Remarks LLE: dressings clean and dry.; intact. nvi. LUE: +swelling of shoulder. good cap refill Assessment & Plan Assessment and Plan 1) Left Femoral Shaft Fx s/p IMN -daily dressing changes -WBAT 2) Left Scapula and Clavicle fxs -NWB -daily dressing changes to left clavicle -CT scan left shoulder to eval glenoid fracture -will need further surgery on glenoid once CT scan done Kt Herrera/[employer] IRVIN May 28, 2017 08:04
[2017-05-28] MEDS: CHLORHEXIDINE 0.12% (ORAL KIT) 15 ML CUP MT SCH ×2 (08:17→20:08)
[2017-05-28] MEDS: ARTIFICIAL TEARS OPTH SOLN 15 ML BTL EACH EYE SCH ×3 (08:18→18:53)
[2017-05-28] MEDS: FUROSEMIDE 20 MG/2 ML VIAL IV PUSH SCH ×2 (08:18→18:53)
[2017-05-28] MEDS: FAMOTIDINE 20 MG TAB NG SCH ×2 (08:18→20:09)
[2017-05-28] MEDS: SODIUM CHLORIDE 0.9% FLUSH 10 ML FLUSH IV FLUSH SCH ×2 (08:18→20:09)
[2017-05-28] MEDS: POLYETHYLENE GLYCOL 17 GM PKG OG-TUBE SCH ×2 (08:19→20:09)
[2017-05-28] MEDS: POTASSIUM CHLORIDE 25 MEQ EFFERVESCENT TAB PO SCH (08:19)
[2017-05-28] MEDS: DOCUSATE SODIUM 50 MG/SENNA 8.6 MG TAB PO SCH ×2 (08:19→20:09)
[2017-05-28] MEDS: ACETAMINOPHEN 325 MG TAB PO PRN ×2 (08:36→21:02)
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
[2017-05-28] MEDS ORDERED: PHARMACY ORDERED LAB ONE (11:45)
[2017-05-28 12:24] LABS: BACTERIA, URINE OCC /hpf; BILIRUBIN, URINE SMALL (NEG); BLOOD, URINE TRACE (NEG); GLUCOSE,URINE NEG (NEG); KETONE, URINE NEG (NEG); MUCUS URINE FEW /lpf (OCC); NITRITE,URINE NEG (NEG); PH, URINE 5.5 (5.0-8.5); URINE COLOR DARK-YELLOW (YELLW/STRAW); URINE LEUKOCYTE ESTERASE NEG (NEG)
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
[2017-05-28] MEDS: PROPOFOL 1000 MG/100 ML INJ 100 ML IV PRN ×2 (15:05→19:40)
[2017-05-28] MEDS ORDERED: Vancomycin Consult Pharmacy 1 EA OTHER SCH (16:30)
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
--- NOTE | 2017-05-28 18:45 | RADRPT ---
EXAM DATE/TIME: 05/28/2017 18:22 [facility] COMPARISON: CHEST SINGLE AP, May 27, 2017, 12:25. CT THORAX W CONTRAST, May 18, 2017, 22:27. INDICATIONS : Post left side chest tube removal. MEDICAL HISTORY : None. SURGICAL HISTORY : Left clavicle. ENCOUNTER: Subsequent ACUITY: 1 day PAIN SCORE: Non-responsive. LOCATION: Bilateral chest FINDINGS: Left chest tube has been removed. I don't see a pneumothorax. A right chest tube remains in place, al so without pneumothorax. Left rib fractures are again noted. Persistent parenchymal consolidation and small effusion at the le ft base, not significantly changed. Endotracheal tube tip is proximally 4 cm above the [place]. Nasogastric tube courses into the stomach. There is a right subclavian central venous catheter with tip in the superior vena cava. CONCLUSION: 1. Left chest tube removed in the interim. Other lines and tubes unchanged, including a right chest t ube. 2. No pneumothorax. 3. Parenchymal consolidation and small effusion of the left base not significantly changed. Conor Wolf MD on May 28, 2017 at 18:40 Board Certified Radiologist. This report was verified electronically.
[2017-05-28] MEDS: PIPERACIL-TAZO 3.375 GM PREMIX 50 ML IV SCH (18:51)
[2017-05-28] MEDS ORDERED: MICAFUNGIN INJ 150 MG in SODIUM CHLORIDE 0.9% INJ 100 ML IV SCH (20:00)
[2017-05-28] MEDS ORDERED: VANCOMYCIN 1,500 MG/NS 500 ML IV ONE ×2 (20:00)
[2017-05-29] VITALS (19 sets, daily range): BP systolic 95–116; BP diastolic 52–68; PULSE 68–109; RESP 14–28; TEMP 98.7–100.9; O2SAT 95–100
[2017-05-29] MEDS: PIPERACIL-TAZO 3.375 GM PREMIX 50 ML IV SCH ×5 (00:32→22:57)
[2017-05-29] MEDS: fentaNYL DRIP 250 ML IV PRN ×2 (01:48→13:00)
[2017-05-29] MEDS: PROPOFOL 1000 MG/100 ML INJ 100 ML IV PRN ×3 (01:48→23:47)
[2017-05-29] MEDS: CHLORHEXIDINE GLUCONATE 2 % 1 PACK (2 CLOTHS) TOP SCH (03:09)
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
[2017-05-29 05:09] LABS: AUTOMATED NEUTROPHIL # 7.1 TH/MM3 (1.8-7.7); BASOPHIL # 0.1 TH/MM3 (0-0.2); BASOPHIL % 0.6 % (0.0-2.0); EOSINOPHIL # 0.1 TH/MM3 (0-0.4); EOSINOPHIL % 1.1 % (0.0-4.0); HEMATOCRIT 29.5 % (39.0-51.0); HEMOGLOBIN 9.9 GM/DL (13.0-17.0); LYMPH % 12.4 % (9.0-44.0); LYMPHOCYTE # 1.1 TH/MM3 (1.0-4.8); MEAN CELL VOLUME 88.7 FL (80.0-100.0); MEAN CORPUSCULAR HEMOGLOBIN 29.8 PG (27.0-34.0); MEAN CORPUSCULAR HGB CONC 33.6 % (32.0-36.0); MEAN PLATELET VOLUME 8.8 FL (7.0-11.0); MONOCYTE # 0.4 TH/MM3 (0-0.9); NEUT % 80.9 % (16.0-70.0); PLATELET COUNT 222 TH/MM3 (150-450); RED BLOOD COUNT 3.33 MIL/MM3 (4.50-5.90); RED CELL DISTRIBUTION WIDTH 14.9 % (11.6-17.2); WHITE BLOOD COUNT 8.8 TH/MM3 (4.0-11.0)
[2017-05-29] MEDS: ENOXAPARIN SODIUM 30 MG/0.3 ML SYRINGE SQ SCH ×2 (05:24→17:53)
[2017-05-29 05:39] LABS: BICARBONATE 32.4 MEQ/L (21.0-32.0); CALCIUM 7.4 MG/DL (8.5-10.1); CREATININE 1.41 MG/DL (0.60-1.30)
[2017-05-29 07:22] LABS: BANDS 12 % (0-6); BASOPHILS 1 % (0-2); CORRECTED NUCLEATED RBC 1 /100 WBC (0-0); LYMPHOCYTES 7 % (9-44); NUCLEATED RED BLOOD CELL 1 (0-0); POLYS (SEG NEUTROPHILS) 79 % (16-70); TOXIC GRANULATION 1+ (NORMAL); TOXIC VACUOLATION PRESENT (NONE SEEN)
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
[2017-05-29] MEDS: CHLORHEXIDINE 0.12% (ORAL KIT) 15 ML CUP MT SCH ×2 (07:41→20:22)
[2017-05-29] MEDS ORDERED: VANCOMYCIN INJ 1,250 MG in SODIUM CHLOR 0.9% 250 ML INJ 250 ML IV SCH (08:00)
[2017-05-29] MEDS: ARTIFICIAL TEARS OPTH SOLN 15 ML BTL EACH EYE SCH ×3 (08:28→17:54)
[2017-05-29] MEDS: FAMOTIDINE 20 MG TAB NG SCH ×2 (08:28→20:22)
[2017-05-29] MEDS: DOCUSATE SODIUM 50 MG/SENNA 8.6 MG TAB PO SCH ×2 (08:28→20:22)
[2017-05-29] MEDS: FUROSEMIDE 20 MG/2 ML VIAL IV PUSH SCH ×2 (08:30→17:53)
[2017-05-29] MEDS: SODIUM CHLORIDE 0.9% FLUSH 10 ML FLUSH IV FLUSH SCH ×2 (08:31→20:22)
[2017-05-29] MEDS: POTASSIUM CHLORIDE 25 MEQ EFFERVESCENT TAB PO SCH (08:31)
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
[2017-05-29] MEDS: oxyCODONE HCL ORAL CONC 5 MG/0.25 ML SYRINGE PO SCH ×4 (14:02→23:47)
[2017-05-29] MEDS: ACETAMINOPHEN 325 MG TAB PO PRN (14:04)
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
--- NOTE | 2017-05-29 15:10 | HHI.NSPN ---
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 08:15 Potassium Phosphate 30 mmol/ Sodium Chloride 260 ml @ 42 mls/hr UNSCH PRN IV SEE LABEL COMMENTS; Start 05/25/17 at 08:15 Potassium Chloride (KCl Powder) 40 meq DAILY PRN PO For Potassium 3.3 - 3.5 mEq /L Last administered on 05/25/17at 20:16; Start 05/25/17 at 08:15 Potassium Bicarb/ Potassium Chloride (K-Lyte Cl Eff) 25 meq NOW ONCE OG-TUBE Last administered on 05/25/17at 09:27; Start 05/25/17 at 09:00; Stop 05/25/17 at 09:01; Status DC Piperacillin Sod/ Tazobactam Sod 100 ml @ 200 mls/hr Q8H IV Last administered on 05/26/17at 15:12; Start 05/25/17 at 16:00; Stop 05/26/17 at 16:57; Status DC Furosemide (Lasix Inj) 20 mg BID@09,18 IV PUSH Last administered on 06/01/17at 09:26; Start 05/25/17 at 18:00 Lactated Ringer's 1,000 ml @ 30 mls/hr Q24H PRN IV SEE LABEL COMMENTS; Start at 01:00; Stop 05/29/17 at 00:59; Status DC Sodium Chloride 500 ml @ 30 mls/hr [id number] PRN IV SEE LABEL COMMENTS; Start at 01:00; Stop 05/29/17 at 00:59; Status DC Povidone Iodine (Betadine 5% Antisepsis Kit) 1 applic [employer]UC[employer] PRN EACH NARE SEE LABEL COMMENTS; Start 05/26/17 at 01:00; Stop 05/29/17 at 00:59; Status DC Chlorhexidine Gluconate (Chlorhexidine 2% Cloth) 3 pack [employer] PRN TOPICAL SEE LABEL COMMENTS; Start 05/26/17 at 01:00; Stop 05/29/17 at 00:59; Status DC Diltiazem HCl (Cardizem Inj) 25 mg STK-MED ONCE .ROUTE ; Start 05/26/17 at 06:34 ; Stop 05/26/17 at 06:35; Status DC Potassium Chloride 100 ml @ 50 mls/hr ONCE ONCE IV ; Start 05/26/17 at 10:00; Stop 05/26/17 at 11:59; Status DC Acetaminophen 100 ml @ As Directed STK-MED ONCE IV ; Start 05/26/17 at 10:24; Stop 05/26/17 at 10:25; Status DC Gentamicin Sulfate (Gentamicin Inj) 240 mg STK-MED ONCE .ROUTE ; Start 05/26/17 at 11:18; Stop 05/26/17 at 11:19; Status DC Cefazolin Sodium/ Dextrose 50 ml @ 100 mls/hr Q8H IV ; Start 05/26/17 at 12:00 ; Stop 05/27/17 at 04:29; Status UNV Fentanyl Citrate (fentaNYL INJ) 200 mcg STK-MED ONCE .ROUTE ; Start 05/26/17 at 12:31; Stop 05/26/17 at 12:32; Status DC Miscellaneous Information SPECIFIC LAB TO BE DRAWN:VANCO TROUGH DATE TO... ONCE ONCE .XX ; Start 05/28/17 at 11:45; Stop 05/28/17 at 11:46; Status Cancel Ceftriaxone Sodium 2000 mg/ Sodium Chloride 100 ml @ 200 mls/hr Q24H IV Last administered on 05/27/17at 17:21; Start 05/26/17 at 18:00; Stop 05/28/17 at 17:04 ; Status DC Midazolam HCl (Versed Inj) 5 mg STK-MED ONCE .ROUTE ; Start 05/27/17 at 01:07; Stop 05/27/17 at 01:08; Status DC Midazolam HCl 100 ml @ 2 mls/hr TITRATE PRN IV SEDATION Last administered on at 01:10; Start 05/27/17 at 01:30 Acetaminophen (Tylenol) 650 mg Q4H PRN PO temp >101 Last administered on at 08:33; Start 05/27/17 at 04:30 Calcium Chloride (Calcium Chloride Inj) 1 gm STK-MED ONCE IV ; Start 05/19/17 at 05:00; Stop 05/27/17 at 10:02; Status DC Epinephrine HCl (EPINEPHrine (1:10,000) INJ) 1 mg STK-MED ONCE IV ; Start at 05:00; Stop 05/27/17 at 10:02; Status DC Sodium Bicarbonate (Sodium Bicarbonate 8.4% Inj) 50 meq STK-MED ONCE IV ; Start 05/19/17 at 05:00; Stop 05/27/17 at 10:02; Status DC Rocuronium [place] (Zemuron Inj) 50 mg STK-MED ONCE IV PUSH ; Start 05/26/17 at 12:00; Stop 05/27/17 at 15:30; Status DC Vecuronium [place] (Norcuron 20 Mg Inj) 20 mg STK-MED ONCE IV ; Start 05/26/17 at 12:00; Stop 05/27/17 at 15:30; Status DC Dexamethasone Sodium Phosphate (Decadron Inj) 4 mg STK-MED ONCE IV ; Start 05/26 at 12:00; Stop 05/27/17 at 15:30; Status DC Ondansetron HCl (Zofran Inj) 4 mg STK-MED ONCE IV ; Start 05/26/17 at 12:00; Stop 05/27/17 at 15:30; Status DC Sterile Water (Sterile Water For Injection) 20 ml STK-MED ONCE IV ; Start at 12:00; Stop 05/27/17 at 15:30; Status DC Piperacillin Sod/ Tazobactam Sod 50 ml @ 100 mls/hr Q6H IV Last administered on 05/30/17at 12:58; Start 05/28/17 at 18:00; Stop 05/30/17 at 14:18; Status DC Pharmacy Profile Note 0 ml @ 0 mls/hr UNSCH OTHER ; Start 05/28/17 at 16:30; Stop 05/29/17 at 19:52; Status DC Micafungin Sodium 150 mg/Sodium Chloride 100 ml @ 100 mls/hr Q24H IV Last administered on 05/28/17at 20:09; Start 05/28/17 at 20:00; Stop 05/29/17 at 19:52 ; Status DC Vancomycin HCl 1500 mg/Sodium Chloride 515 ml @ 257.5 mls/ hr ONCE ONCE IV Last administered on 05/28/17at 21:28; Start 05/28/17 at 20:00; Stop 05/28/17 at 21:59; Status DC Vancomycin HCl 1250 mg/Sodium Chloride 262.5 ml @ 250 mls/hr Q12H IV Last administered on 05/29/17at 07:41; Start 05/29/17 at 08:00; Stop 05/29/17 at 13:00 ; Status DC Miscellaneous Information SPECIFIC LAB TO BE PATTIE... ONCE ONCE .XX ; Start 05/31 at 07:45; Stop 05/31/17 at 07:45; Status DC Oxycodone HCl (Roxicodone Intensol Liq) 5 mg Q4H PO Last administered on at 09:27; Start 05/29/17 at 13:00 Vancomycin HCl 1500 mg/Sodium Chloride 515 ml @ 250 mls/hr Q12H IV ; Start at 20:00; Stop 05/29/17 at 20:00; Status DC Acetazolamide Sodium (Diamox Inj) 250 mg Q4HR IV PUSH Last administered on 05/30at 12:58; Start 05/29/17 at 16:00; Stop 05/30/17 at 15:59; Status DC Water (Free Water) 250 ml Q6H G-TUBE Last administered on 05/30/17at 08:26; Start 05/29/17 at 16:00; Stop 05/30/17 at 15:02; Status DC Miscellaneous Medication (ASP Crit: Doc ESBL, MDR A baumannii or P aer) 1 UNSCH X1 PRN .XX PHARMACY DOCUMENTATION; Start 05/30/17 at 14:30; Stop 05/31/17 at 14 :29; Status DC Miscellaneous Medication [place] [place] [place] 1 UNSCH X1 PRN XX PHARMACY DOCUMENTATION; Start 05/30/17 at 14:30; Stop 05/31/17 at 14:29; Status DC Ertapenem 1000 mg/ Sodium Chloride 100 ml @ 200 mls/hr Q24H IV Last administered on 05/31/17at 15:58; Start 05/30/17 at 16:00 Water (Free Water) 300 ml Q6H G-TUBE Last administered on 06/01/17at 09:27; Start 05/30/17 at 16:00 (Scott Christensen MD) Medical Decision Making MDM Remarks 51 y/o male Traumatic T12 superior endplate compression fracture Respiratory failure, remains intubated, sedated (Sulma Fernandez) Plan Plan Remarks cont neuro checks, sedation wean as tolerating and f/u neuro examination cont critical care and trauma management cont nonoperative mgt of T12 fracture, obtain TLSO when more improved for transferring (Sulma Fernandez) Attending Statement neuro Continue checks Pulmonary. Continue mechanical ventilation in Assist control mode of ventilation aggressive pulmonary toilette, nasotracheal suction, and breathing treatments with nebulizers. nondisplaced thoracic fracture. MRI T spine when stable Cervical fracture. Continue bracing with [place] collar. Will obtain flexion extension xrays when improved Hypotension , possibly hemorrhagic shock He is currently on norepinephrine 20 mcg/min to maintain mean atrial pressure greater than 65 FloTrak CI 2.5 SVV 16 Received 5 L normal saline and 3 units PRBCs. Multiple rib fractures including left 1, 2, 3, 4, 5, 6, 7, 11 right 2, 3, 4, 5, Left-sided hemothorax, Bilateral pneumothoraces Bilateral chest tubes placed to -20 cm H2O. : Rosenberg catheter has been placed for accurate I's and O's in a critical patient Acute blood loss anemia. Transfused 3 units PRBCs today. Monitor CBC and coags daily. Follow trends ID: Receive cefazolin 2 g Left mid shift femur fracture Left lateral displaced clavicle fracture Left superior spine scapula fracture Left glenoid 12 mm fracture Care by orthopedic Daily PT and OT Renal. Creatinine 1.9 unknown baseline. monitor closely urine output, BUN and creatinine Endocrine.Monitor glucose and administer low-dose insulin sliding scale as indicated ID monitor for signs of infection Protonix for stress ulcer prophylaxis Juan hose and SCD's for DVT prophylaxis The exam, history, and the medical decision-making described in the above note were completed with the assistance of the mid-level provider. I reviewed and agree with the findings presented. I attest that I had a [id number] encounter with the patient on the same day, and personally performed and documented my assessment and findings in the medical record. (Scott Christensen MD) Sulma Fernandez May 29, 2017 15:10 Scott Christensen MD Jun 01, 2017 10:53
[2017-05-29] MEDS: FREE WATER G-TUBE SCH ×2 (16:00→20:23)
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
[2017-05-29] MEDS ORDERED: VANCOMYCIN INJ 1,500 MG in SODIUM CHLORID 0.9% 500 ML INJ 500 ML IV SCH (20:00)
[2017-05-30] VITALS (19 sets, daily range): BP systolic 81–121; BP diastolic 51–69; PULSE 62–89; RESP 14–26; TEMP 98–99.5; O2SAT 100
[2017-05-30] MEDS: PROPOFOL 1000 MG/100 ML INJ 100 ML IV PRN ×3 (02:53→19:49)
[2017-05-30] MEDS: fentaNYL DRIP 250 ML IV PRN (02:54)
[2017-05-30] MEDS: CHLORHEXIDINE GLUCONATE 2 % 1 PACK (2 CLOTHS) TOP SCH (02:54)
[2017-05-30] MEDS: FREE WATER G-TUBE SCH ×4 (02:54→21:56)
[2017-05-30] MEDS: ENOXAPARIN SODIUM 30 MG/0.3 ML SYRINGE SQ SCH ×2 (04:19→18:22)
[2017-05-30] MEDS: oxyCODONE HCL ORAL CONC 5 MG/0.25 ML SYRINGE PO SCH ×5 (04:19→21:55)
[2017-05-30] MEDS: PIPERACIL-TAZO 3.375 GM PREMIX 50 ML IV SCH ×2 (04:20→12:58)
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
[2017-05-30 06:02] LABS: AUTOMATED NEUTROPHIL # 5.9 TH/MM3 (1.8-7.7); BASOPHIL # 0.1 TH/MM3 (0-0.2); BASOPHIL % 0.9 % (0.0-2.0); EOSINOPHIL # 0.2 TH/MM3 (0-0.4); EOSINOPHIL % 2.9 % (0.0-4.0); HEMATOCRIT 29.4 % (39.0-51.0); HEMOGLOBIN 9.7 GM/DL (13.0-17.0); LYMPH % 17.2 % (9.0-44.0); LYMPHOCYTE # 1.4 TH/MM3 (1.0-4.8); MEAN CELL VOLUME 90.8 FL (80.0-100.0); MEAN CORPUSCULAR HEMOGLOBIN 29.8 PG (27.0-34.0); MEAN CORPUSCULAR HGB CONC 32.9 % (32.0-36.0); MEAN PLATELET VOLUME 9.6 FL (7.0-11.0); MONO % 6.2 % (0.0-8.0); MONOCYTE # 0.5 TH/MM3 (0-0.9); NEUT % 72.8 % (16.0-70.0); PLATELET COUNT 234 TH/MM3 (150-450); RED BLOOD COUNT 3.23 MIL/MM3 (4.50-5.90); RED CELL DISTRIBUTION WIDTH 15.3 % (11.6-17.2)
[2017-05-30 07:03] LABS: BICARBONATE 29.5 MEQ/L (21.0-32.0); CREATININE 1.32 MG/DL (0.60-1.30)
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
[2017-05-30 07:27] LABS: CALCIUM-PROTEIN CORRECTED 7.5 MG/DL (8.5-10.1); TOTAL PROTEIN 6.1 GM/DL (6.4-8.2)
[2017-05-30] MEDS: POTASSIUM CHLOR 20 MEQ PREMIX 100 ML IV PRN (08:24)
[2017-05-30] MEDS: FUROSEMIDE 20 MG/2 ML VIAL IV PUSH SCH ×2 (08:25→18:21)
[2017-05-30] MEDS: FAMOTIDINE 20 MG TAB NG SCH ×2 (08:25→21:55)
[2017-05-30] MEDS: POTASSIUM CHLORIDE 25 MEQ EFFERVESCENT TAB PO SCH (08:25)
[2017-05-30] MEDS: SODIUM CHLORIDE 0.9% FLUSH 10 ML FLUSH IV FLUSH SCH ×2 (08:25→21:55)
[2017-05-30] MEDS: ARTIFICIAL TEARS OPTH SOLN 15 ML BTL EACH EYE SCH ×3 (08:26→18:21)
[2017-05-30] MEDS: CHLORHEXIDINE 0.12% (ORAL KIT) 15 ML CUP MT SCH ×2 (08:26→21:55)
[2017-05-30] MEDS: DOCUSATE SODIUM 50 MG/SENNA 8.6 MG TAB PO SCH ×2 (08:26→21:55)
[2017-05-30] MEDS: ACETAMINOPHEN 325 MG TAB PO PRN (08:33)
--- NOTE | 2017-05-30 13:14 | HHI.NSPN ---
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 Start 05/30/17 at 14:30; Stop 05/31/17 at 14:29; Status DC Ertapenem 1000 mg/ Sodium Chloride 100 ml @ 200 mls/hr Q24H IV Last administered on 05/31/17at 15:58; Start 05/30/17 at 16:00 Water (Free Water) 300 ml Q6H G-TUBE Last administered on 06/01/17at 09:27; Start 05/30/17 at 16:00 Attending Statement neuro Continue checks Pulmonary. Continue mechanical ventilation in Assist control mode of ventilation aggressive pulmonary toilette, nasotracheal suction, and breathing treatments with nebulizers. nondisplaced thoracic fracture. MRI T spine when stable Cervical fracture. Continue bracing with Wise collar. Will obtain flexion extension xrays when improved Hypotension , possibly hemorrhagic shock He is currently on norepinephrine 20 mcg/min to maintain mean atrial pressure greater than 65 FloTrak CI 2.5 SVV 16 Received 5 L normal saline and 3 units PRBCs. Multiple rib fractures including left 1, 2, 3, 4, 5, 6, 7, 11 right 2, 3, 4, 5, Left-sided hemothorax, Bilateral pneumothoraces Bilateral chest tubes placed to -20 cm H2O. : Rosenberg catheter has been placed for accurate I's and O's in a critical patient Acute blood loss anemia. Transfused 3 units PRBCs today. Monitor CBC and coags daily. Follow trends ID: Receive cefazolin 2 g Left mid shift femur fracture Left lateral displaced clavicle fracture Left superior spine scapula fracture Left glenoid 12 mm fracture Care by orthopedic Daily PT and OT Renal. Creatinine 1.9 unknown baseline. monitor closely urine output, BUN and creatinine Endocrine.Monitor glucose and administer low-dose insulin sliding scale as indicated ID monitor for signs of infection Protonix for stress ulcer prophylaxis Juan hose and SCD's for DVT prophylaxis The exam, history, and the medical decision-making described in the above note were completed with the assistance of the mid-level provider. I reviewed and agree with the findings presented. I attest that I had a [id number] encounter with the patient on the same day, and personally performed and documented my assessment and findings in the medical record. Scott Christensen MD May 30, 2017 13:14
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
[2017-05-30] MEDS ORDERED: ASP: Documented ESBL, MDR A baumannii or P. aeruginosa PRN (14:30)
[2017-05-30] MEDS ORDERED: PHARMACY INFORMATION XX PRN (14:30)
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
[2017-05-30] MEDS: ERTAPENEM INJ 1,000 MG in SODIUM CHLORIDE 0.9% INJ 100 ML IV SCH (18:21)
[2017-05-31] VITALS (18 sets, daily range): BP systolic 102–125; BP diastolic 58–74; PULSE 73–93; RESP 14–27; TEMP 98.7–99.7; O2SAT 98–100
[2017-05-31] MEDS: oxyCODONE HCL ORAL CONC 5 MG/0.25 ML SYRINGE PO SCH ×6 (01:00→21:55)
[2017-05-31] MEDS: CHLORHEXIDINE GLUCONATE 2 % 1 PACK (2 CLOTHS) TOP SCH (04:00)
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
[2017-05-31] MEDS: FREE WATER G-TUBE SCH ×4 (05:13→21:55)
[2017-05-31] MEDS: ENOXAPARIN SODIUM 30 MG/0.3 ML SYRINGE SQ SCH ×2 (05:20→18:11)
[2017-05-31] MEDS: POTASSIUM CHLOR 20 MEQ PREMIX 100 ML IV PRN (05:20)
[2017-05-31] MEDS ORDERED: PHARMACY ORDERED LAB ONE (07:45)
[2017-05-31] MEDS: CHLORHEXIDINE 0.12% (ORAL KIT) 15 ML CUP MT SCH ×2 (08:08→21:55)
[2017-05-31] MEDS: SODIUM CHLORIDE 0.9% FLUSH 10 ML FLUSH IV FLUSH SCH ×2 (08:09→21:00)
[2017-05-31] MEDS: ARTIFICIAL TEARS OPTH SOLN 15 ML BTL EACH EYE SCH ×3 (08:09→18:11)
[2017-05-31] MEDS: POTASSIUM CHLORIDE 25 MEQ EFFERVESCENT TAB PO SCH (08:09)
[2017-05-31] MEDS: FAMOTIDINE 20 MG TAB NG SCH ×2 (08:09→21:55)
[2017-05-31] MEDS: DOCUSATE SODIUM 50 MG/SENNA 8.6 MG TAB PO SCH ×2 (08:10→21:00)
[2017-05-31] MEDS: FUROSEMIDE 20 MG/2 ML VIAL IV PUSH SCH ×2 (08:11→18:11)
[2017-05-31 10:49] LABS: BASOPHIL # 0.1 TH/MM3 (0-0.2); BASOPHIL % 0.5 % (0.0-2.0); EOSINOPHIL # 0.3 TH/MM3 (0-0.4); EOSINOPHIL % 2.2 % (0.0-4.0); HEMATOCRIT 33.2 % (39.0-51.0); HEMOGLOBIN 10.6 GM/DL (13.0-17.0); LYMPH % 16.6 % (9.0-44.0); MEAN CELL VOLUME 89.5 FL (80.0-100.0); MEAN CORPUSCULAR HEMOGLOBIN 28.6 PG (27.0-34.0); MEAN CORPUSCULAR HGB CONC 31.9 % (32.0-36.0); MEAN PLATELET VOLUME 9.7 FL (7.0-11.0); MONO % 6.6 % (0.0-8.0); MONOCYTE # 0.8 TH/MM3 (0-0.9); NEUT % 74.1 % (16.0-70.0); PLATELET COUNT 427 TH/MM3 (150-450); RED BLOOD COUNT 3.71 MIL/MM3 (4.50-5.90); RED CELL DISTRIBUTION WIDTH 15.1 % (11.6-17.2); WHITE BLOOD COUNT 12.2 TH/MM3 (4.0-11.0)
[2017-05-31 11:16] LABS: ALBUMIN 1.9 GM/DL (3.4-5.0); BICARBONATE 27.6 MEQ/L (21.0-32.0); CALCIUM 7.3 MG/DL (8.5-10.1); CALCIUM-PROTEIN CORRECTED 7.6 MG/DL (8.5-10.1); CREATININE 1.22 MG/DL (0.60-1.30); TOTAL BILIRUBIN ADULT 1.4 MG/DL (0.2-1.0); TOTAL PROTEIN 6.5 GM/DL (6.4-8.2)
[2017-05-31] MEDS: PROPOFOL 1000 MG/100 ML INJ 100 ML IV PRN (12:04)
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
[2017-05-31] MEDS: ERTAPENEM INJ 1,000 MG in SODIUM CHLORIDE 0.9% INJ 100 ML IV SCH (15:58)
--- NOTE | 2017-05-31 16:07 | HHI.NSPN ---
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 [facility]acy Information) 1 UNSCH X1 PRN XX PHARMACY DOCUMENTATION; Start 05/30/17 at 14:30; Stop 05/31/17 at 14:29; Status DC Ertapenem 1000 mg/ Sodium Chloride 100 ml @ 200 mls/hr Q24H IV Last administered on 05/31/17at 15:58; Start 05/30/17 at 16:00 Water (Free Water) 300 ml Q6H G-TUBE Last administered on 05/31/17at 15:58; Start 05/30/17 at 16:00 Attending Statement neuro Continue checks Pulmonary. Continue mechanical ventilation in Assist control mode of ventilation aggressive pulmonary toilette, nasotracheal suction, and breathing treatments with nebulizers. nondisplaced thoracic fracture. MRI T spine when stable Cervical fracture. Continue bracing with [place] collar. Will obtain flexion extension xrays when improved Hypotension , possibly hemorrhagic shock He is currently on norepinephrine 20 mcg/min to maintain mean atrial pressure greater than 65 FloTrak CI 2.5 SVV 16 Received 5 L normal saline and 3 units PRBCs. Multiple rib fractures including left 1, 2, 3, 4, 5, 6, 7, 11 right 2, 3, 4, 5, Left-sided hemothorax, Bilateral pneumothoraces Bilateral chest tubes placed to -20 cm H2O. : Rosenberg catheter has been placed for accurate I's and O's in a critical patient Acute blood loss anemia. Transfused 3 units PRBCs today. Monitor CBC and coags daily. Follow trends ID: Receive cefazolin 2 g Left mid shift femur fracture Left lateral displaced clavicle fracture Left superior spine scapula fracture Left glenoid 12 mm fracture Care by orthopedic Daily PT and OT Renal. Creatinine 1.9 unknown baseline. monitor closely urine output, BUN and creatinine Endocrine.Monitor glucose and administer low-dose insulin sliding scale as indicated ID monitor for signs of infection Protonix for stress ulcer prophylaxis Juan hose and SCD's for DVT prophylaxis The exam, history, and the medical decision-making described in the above note were completed with the assistance of the mid-level provider. I reviewed and agree with the findings presented. I attest that I had a [id number] encounter with the patient on the same day, and personally performed and documented my assessment and findings in the medical record. Scott Christensen MD May 31, 2017 16:07
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
[2017-05-31] MEDS: fentaNYL DRIP 250 ML IV PRN (22:54)
[2017-06-01] VITALS (20 sets, daily range): BP systolic 97–143; BP diastolic 56–87; PULSE 75–96; RESP 16–26; TEMP 98.8–100.3; O2SAT 94–100
[2017-06-01] MEDS: oxyCODONE HCL ORAL CONC 5 MG/0.25 ML SYRINGE PO SCH ×6 (00:53→21:42)
[2017-06-01] MEDS: CHLORHEXIDINE GLUCONATE 2 % 1 PACK (2 CLOTHS) TOP SCH ×2 (03:15→21:43)
[2017-06-01] MEDS: FREE WATER G-TUBE SCH ×4 (04:00→21:43)
[2017-06-01] MEDS: ENOXAPARIN SODIUM 30 MG/0.3 ML SYRINGE SQ SCH ×3 (05:49→21:43)
--- NOTE | 2017-06-01 07:17 | PD.ORT.PN ---
Subjective Subjective Remarks s/p IMN left femur s/p left clavicle and scap fxs with ORIF - POD 6 stable. no changes Objective Vitals Vital Signs Date Time Temp Pulse Resp B/P (MAP) Pulse Ox O2 Delivery O2 Flow Rate FiO2 06/01/17 06:00 86 06/01/17 05:31 100 30 06/01/17 04:00 86 06/01/17 04:00 30 06/01/17 04:00 99.9 86 22 143/87 (105) 100 06/01/17 02:00 89 06/01/17 01:32 99 30 06/01/17 00:00 99.1 88 26 123/65 (84) 100 06/01/17 00:00 88 06/01/17 00:00 30 05/31/17 22:00 81 05/31/17 20:47 100 30 05/31/17 20:00 30 05/31/17 20:00 99.3 84 15 102/61 (75) 100 05/31/17 20:00 85 05/31/17 18:14 98 30 05/31/17 18:00 85 05/31/17 16:00 30 05/31/17 16:00 98.9 73 14 111/65 (80) 100 05/31/17 16:00 83 05/31/17 14:18 88 05/31/17 12:10 30 05/31/17 12:10 98.7 93 27 110/58 (75) 100 05/31/17 12:04 83 05/31/17 11:05 30 05/31/17 11:00 30 05/31/17 10:46 100 30 05/31/17 10:00 83 05/31/17 08:00 98.9 73 14 111/65 (80) 100 05/31/17 08:00 30 05/31/17 08:00 73 I/O 05/31/17 05/31/17 05/31/17 06/01/17 06/01/17 06/01/17 07:00 15:00 23:00 07:00 15:00 23:00 Intake Total 1013 ml 1414 ml 1522 ml Output Total 1400 ml 1760.0 ml 1650 ml Balance -387 ml -346.0 ml -128 ml Intake IV Total 409 ml Tube Feeding 413 ml 405 ml 922 ml Other 600 ml 600 ml 600 ml Output Urine Total 1400 ml 1650 ml 1550 ml Stool Total 50 ml 100 ml Tube Feeding Residual Discard 60.0 ml Result Diagram: 05/31/1755 05/31/17954 Imaging Last 24 hours Impressions Chest X-Ray 05/19/17 0000 Signed Impressions: Service Date/Time: Friday, May 19, 2017 01:00 - CONCLUSION: 1. Removal of the 2 pleural catheters along the right chest wall and placement of another right chest tube with distal tip in the medial inferior right hemithorax. The right pneumothorax has resolved with shift of the mediastinum back to the midline and resolution of the generalized lucency in the right hemithorax. 2. Remaining findings are stable. Conor Chaudhry MD Chest X-Ray 05/19/17 0000 Signed Impressions: Service Date/Time: Friday, May 19, 2017 00:13 - CONCLUSION: 1. The second small bore pigtail pleural catheter on the right has been placed and most of it appears to be outside of the right hemithorax except for maybe the distal tip. However, the right pneumothorax is no longer seen suggesting that it may be within the pleural space. Chest CT could confirm location, if needed. 2. Persistent volume loss and left mid and lower lung zone airspace consolidation. No left pneumothorax is visualized. 3. The nasogastric tube tip is in the stomach. Conor Chaudhry MD Thoracic Spine CT 05/18/172209 Signed Impressions: Service Date/Time: Thursday, May 18, 2017 22:27 - CONCLUSION: 1. Superior endplate fracture of T12 without involvement of the posterior cortex and with approximate 10%% loss of height. 2. Numerous bilateral posterior rib fractures from C7 to the level of the 7th rib. Josemanuel Murphy MD Pelvis X-Ray 05/18/172209 Signed Impressions: Service Date/Time: Thursday, May 18, 2017 22:09 - CONCLUSION: No gross fracture seen. Josemanuel Murphy MD Lumbar Spine CT 05/18/172209 Signed Impressions: Service Date/Time: Thursday, May 18, 2017 22:27 - CONCLUSION: 1. Lumbar vertebral bodies and posterior elements are intact. 2. Superior endplate fracture of T12 and medial left posterior 11th rib fracture. Josemanuel uMrphy MD Head CT 05/18/172209 Signed Impressions: Service Date/Time: Thursday, May 18, 2017 22:27 - CONCLUSION: 1. No acute findings in the brain. Josemanuel Murphy MD Chest X-Ray 05/18/172209 Signed Impressions: Service Date/Time: Thursday, May 18, 2017 22:09 - CONCLUSION: Left chest drainage tube in the medial apex. Multiple displaced left rib fractures. Josemanuel Murphy MD Chest CT 05/18/172209 Signed Impressions: Service Date/Time: Thursday, May 18, 2017 22:27 - CONCLUSION: 1. Multiple fractures of the left ribs, left clavicle, left scapula and fracture of the lateral right 5th rib. 2. Bilateral pulmonary contusions, left greater than right and left pleural fluid. 3. Bilateral pneumothoraces with left chest drainage tube in place. Josemanuel Murphy MD Cervical Spine CT 05/18/172209 Signed Impressions: Service Date/Time: Thursday, May 18, 2017 22:27 - CONCLUSION: 1. Left transverse process fracture of C6 and fractures of the medial left 1st and 2nd ribs. 2. The vertebral bodies of the cervical spine down to C7 and posterior elements down to the level of C5 are intact. Josemanuel Murphy MD Abdomen/Pelvis CT 05/18/172209 Signed Impressions: Service Date/Time: Thursday, May 18, 2017 22:27 - CONCLUSION: 1. Multiple findings in the chest including bilateral pneumothoraces and multiple bilateral rib fractures, see CT thorax report. 2. The solid and hollow organs of the abdomen/pelvis are grossly intact. Josemanuel Murphy MD Objective Remarks LLE: dressings clean and dry.; intact. nvi. LUE: +swelling of shoulder. good cap refill Assessment & Plan Assessment and Plan 1) Left Femoral Shaft Fx s/p IMN -daily dressing changes -WBAT 2) Left Scapula and Clavicle fxs s/p ORIF of clavicle - POD 6 -NWB -daily dressing changes to left clavicle -CT of shoulder complete -will need ORIF of left glenoid -npo after MN -consents on chart -plan for possible surgery tomorrow Kt Herrera/[employer] Senior Project Manager PA Jun 01, 2017 07:17
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
[2017-06-01] MEDS: FUROSEMIDE 20 MG/2 ML VIAL IV PUSH SCH ×2 (09:26→17:53)
[2017-06-01] MEDS: FAMOTIDINE 20 MG TAB NG SCH ×2 (09:26→21:42)
[2017-06-01] MEDS: ARTIFICIAL TEARS OPTH SOLN 15 ML BTL EACH EYE SCH ×3 (09:26→17:53)
[2017-06-01] MEDS: CHLORHEXIDINE 0.12% (ORAL KIT) 15 ML CUP MT SCH ×2 (09:26→21:42)
[2017-06-01] MEDS: POTASSIUM CHLORIDE 25 MEQ EFFERVESCENT TAB PO SCH (09:26)
[2017-06-01] MEDS: DOCUSATE SODIUM 50 MG/SENNA 8.6 MG TAB PO SCH ×2 (09:26→21:42)
[2017-06-01] MEDS: SODIUM CHLORIDE 0.9% FLUSH 10 ML FLUSH IV FLUSH SCH ×2 (09:31→21:42)
[2017-06-01] MEDS: PROPOFOL 1000 MG/100 ML INJ 100 ML IV PRN (10:41)
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
[2017-06-01 15:17] LABS: AUTOMATED NEUTROPHIL # 6.9 TH/MM3 (1.8-7.7); BASOPHIL # 0.1 TH/MM3 (0-0.2); BASOPHIL % 0.7 % (0.0-2.0); EOSINOPHIL # 0.2 TH/MM3 (0-0.4); HEMATOCRIT 27.5 % (39.0-51.0); HEMOGLOBIN 9.6 GM/DL (13.0-17.0); LYMPH % 13.2 % (9.0-44.0); LYMPHOCYTE # 1.2 TH/MM3 (1.0-4.8); MEAN CELL VOLUME 89.3 FL (80.0-100.0); MEAN CORPUSCULAR HEMOGLOBIN 31.1 PG (27.0-34.0); MEAN CORPUSCULAR HGB CONC 34.9 % (32.0-36.0); MEAN PLATELET VOLUME 8.7 FL (7.0-11.0); MONO % 9.3 % (0.0-8.0); MONOCYTE # 0.9 TH/MM3 (0-0.9); NEUT % 74.8 % (16.0-70.0); PLATELET COUNT 394 TH/MM3 (150-450); RED BLOOD COUNT 3.08 MIL/MM3 (4.50-5.90); RED CELL DISTRIBUTION WIDTH 14.5 % (11.6-17.2); WHITE BLOOD COUNT 9.3 TH/MM3 (4.0-11.0)
[2017-06-01 15:40] LABS: BICARBONATE 29.5 MEQ/L (21.0-32.0); CALCIUM 7.6 MG/DL (8.5-10.1); CREATININE 1.15 MG/DL (0.60-1.30)
[2017-06-01] MEDS: ERTAPENEM INJ 1,000 MG in SODIUM CHLORIDE 0.9% INJ 100 ML IV SCH (15:50)
[2017-06-01] MEDS: fentaNYL DRIP 250 ML IV PRN (15:51)
[2017-06-01 16:21] LABS: STOMATOCYTES 1+ (NORMAL)
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
[2017-06-01] MEDS: ACETAMINOPHEN 325 MG TAB PO PRN (21:42)
[2017-06-02] VITALS (18 sets, daily range): BP systolic 103–136; BP diastolic 56–72; PULSE 75–107; RESP 16–29; TEMP 99.5–100.5; O2SAT 94–100
[2017-06-02] MEDS: oxyCODONE HCL ORAL CONC 5 MG/0.25 ML SYRINGE PO SCH ×6 (00:09→20:36)
[2017-06-02] MEDS: MIDAZOLAM HCL 2 MG/2 ML VIAL IV PUSH PRN ×3 (00:45→23:38)
[2017-06-02] MEDS: FREE WATER G-TUBE SCH ×5 (01:55→23:39)
[2017-06-02] MEDS: PROPOFOL 1000 MG/100 ML INJ 100 ML IV PRN ×3 (01:55→18:22)
[2017-06-02 05:35] LABS: AUTOMATED NEUTROPHIL # 6.9 TH/MM3 (1.8-7.7); BASOPHIL % 0.5 % (0.0-2.0); EOSINOPHIL # 0.1 TH/MM3 (0-0.4); EOSINOPHIL % 1.3 % (0.0-4.0); HEMATOCRIT 31.9 % (39.0-51.0); HEMOGLOBIN 10.4 GM/DL (13.0-17.0); LYMPH % 16.3 % (9.0-44.0); LYMPHOCYTE # 1.5 TH/MM3 (1.0-4.8); MEAN CELL VOLUME 91.2 FL (80.0-100.0); MEAN CORPUSCULAR HEMOGLOBIN 29.8 PG (27.0-34.0); MEAN CORPUSCULAR HGB CONC 32.7 % (32.0-36.0); MONO % 8.3 % (0.0-8.0); MONOCYTE # 0.8 TH/MM3 (0-0.9); NEUT % 73.6 % (16.0-70.0); PLATELET COUNT 430 TH/MM3 (150-450); WHITE BLOOD COUNT 9.3 TH/MM3 (4.0-11.0)
[2017-06-02 05:55] LABS: BICARBONATE 27.4 MEQ/L (21.0-32.0); CALCIUM 7.9 MG/DL (8.5-10.1); CREATININE 1.16 MG/DL (0.60-1.30)
--- NOTE | 2017-06-02 07:06 | PD.ORT.PN ---
Subjective Subjective Remarks s/p IMN left femur s/p left clavicle and scap fxs with ORIF - POD 7 stable. no changes Objective Vitals Vital Signs Date Time Temp Pulse Resp B/P (MAP) Pulse Ox O2 Delivery O2 Flow Rate FiO2 06/02/17 06:00 78 06/02/17 04:00 81 06/02/17 04:00 100.1 81 16 103/61 (75) 99 06/02/17 04:00 40 06/02/17 03:41 99 40 06/02/17 02:00 81 06/02/17 00:40 100 40 06/02/17 00:00 100.4 88 26 136/72 (93) 94 06/02/17 00:00 88 06/02/17 00:00 40 06/01/17 23:48 94 28 06/01/17 22:00 96 06/01/17 20:31 94 28 06/01/17 20:00 100.3 90 24 110/62 (78) 98 06/01/17 20:00 90 06/01/17 20:00 28 18 18:00 94 06/01/17 16:00 90 06/01/17 16:00 99.8 94 21 108/61 (77) 99 06/01/17 16:00 28 06/01/17 16:00 98 28 06/01/17 16:00 28 18 14:00 90 18 12:52 100 28 18 12:00 28 06/01/17 12:00 98.8 87 21 97/56 (70) 96 06/01/17 12:00 87 18 10:33 100 28 18 10:00 75 18 09:01 100 28 18 08:00 30 06/01/17 08:00 80 06/01/17 08:00 99.7 80 16 119/70 (86) 100 I/O 06/01/06/01/18 //18 //18 //18 18 07:00 15:00 23:00 07:00 15:00 23:00 Intake Total 1522 ml 100 ml 1670 ml 806 ml Output Total 1650 ml 1950 ml 1300 ml Balance -128 ml 100 ml -280 ml -494 ml Intake IV Total 100 ml 350 ml Tube Feeding 922 ml 720 ml 416 ml Other 600 ml 600 ml 390 ml Output Urine Total 1550 ml 1850 ml 1250 ml Stool Total 100 ml 100 ml 50 ml Result Diagram: 06/02/17 0510 06/02/17 0510 Imaging Last 24 hours Impressions Chest X-Ray 05/19/17 0000 Signed Impressions: Service Date/Time: Friday, May 19, 2017 01:00 - CONCLUSION: 1. Removal of the 2 pleural catheters along the right chest wall and placement of another right chest tube with distal tip in the medial inferior right hemithorax. The right pneumothorax has resolved with shift of the mediastinum back to the midline and resolution of the generalized lucency in the right hemithorax. 2. Remaining findings are stable. Conor Chaudhry MD Chest X-Ray 05/19/17 0000 Signed Impressions: Service Date/Time: Friday, May 19, 2017 00:13 - CONCLUSION: 1. The second small bore pigtail pleural catheter on the right has been placed and most of it appears to be outside of the right hemithorax except for maybe the distal tip. However, the right pneumothorax is no longer seen suggesting that it may be within the pleural space. Chest CT could confirm location, if needed. 2. Persistent volume loss and left mid and lower lung zone airspace consolidation. No left pneumothorax is visualized. 3. The nasogastric tube tip is in the stomach. Conor Chaudhry MD Thoracic Spine CT 05/18/172209 Signed Impressions: Service Date/Time: Thursday, May 18, 2017 22:27 - CONCLUSION: 1. Superior endplate fracture of T12 without involvement of the posterior cortex and with approximate 10%% loss of height. 2. Numerous bilateral posterior rib fractures from C7 to the level of the 7th rib. Josemanuel Murphy MD Pelvis X-Ray 05/18/172209 Signed Impressions: Service Date/Time: Thursday, May 18, 2017 22:09 - CONCLUSION: No gross fracture seen. Josemanuel Murphy MD Lumbar Spine CT 05/18/172209 Signed Impressions: Service Date/Time: Thursday, May 18, 2017 22:27 - CONCLUSION: 1. Lumbar vertebral bodies and posterior elements are intact. 2. Superior endplate fracture of T12 and medial left posterior 11th rib fracture. Josemanuel Murphy MD Head CT 05/18/172209 Signed Impressions: Service Date/Time: Thursday, May 18, 2017 22:27 - CONCLUSION: 1. No acute findings in the brain. Josemanuel Murphy MD Chest X-Ray 05/18/172209 Signed Impressions: Service Date/Time: Thursday, May 18, 2017 22:09 - CONCLUSION: Left chest drainage tube in the medial apex. Multiple displaced left rib fractures. Josemanuel Murphy MD Chest CT 05/18/172209 Signed Impressions: Service Date/Time: Thursday, May 18, 2017 22:27 - CONCLUSION: 1. Multiple fractures of the left ribs, left clavicle, left scapula and fracture of the lateral right 5th rib. 2. Bilateral pulmonary contusions, left greater than right and left pleural fluid. 3. Bilateral pneumothoraces with left chest drainage tube in place. Josemanuel Murphy MD Cervical Spine CT 05/18/172209 Signed Impressions: Service Date/Time: Thursday, May 18, 2017 22:27 - CONCLUSION: 1. Left transverse process fracture of C6 and fractures of the medial left 1st and 2nd ribs. 2. The vertebral bodies of the cervical spine down to C7 and posterior elements down to the level of C5 are intact. Josemanuel Murphy MD Abdomen/Pelvis CT 05/18/172209 Signed Impressions: Service Date/Time: Thursday, May 18, 2017 22:27 - CONCLUSION: 1. Multiple findings in the chest including bilateral pneumothoraces and multiple bilateral rib fractures, see CT thorax report. 2. The solid and hollow organs of the abdomen/pelvis are grossly intact. Josemanuel Murphy MD Objective Remarks LLE: dressings clean and dry.; intact. nvi. LUE: +swelling of shoulder. good cap refill Assessment & Plan Assessment and Plan 1) Left Femoral Shaft Fx s/p IMN -daily dressing changes -WBAT 2) Left Scapula and Clavicle fxs s/p ORIF of clavicle - POD 7 -NWB -daily dressing changes to left clavicle -CT of shoulder complete -will need ORIF of left glenoid -npo after MN -consents on chart -plan for surgery thursday for left glenoid Kt Herrera/First An BRYAN Jun 02, 2017 07:05
[2017-06-02] MEDS: CHLORHEXIDINE 0.12% (ORAL KIT) 15 ML CUP MT SCH ×2 (08:05→20:35)
[2017-06-02] MEDS: POTASSIUM CHLORIDE 25 MEQ EFFERVESCENT TAB PO SCH (08:14)
[2017-06-02] MEDS: SODIUM CHLORIDE 0.9% FLUSH 10 ML FLUSH IV FLUSH SCH ×2 (08:15→20:36)
[2017-06-02] MEDS: FUROSEMIDE 20 MG/2 ML VIAL IV PUSH SCH ×2 (08:15→18:21)
[2017-06-02] MEDS: FAMOTIDINE 20 MG TAB NG SCH ×2 (08:15→20:36)
[2017-06-02] MEDS: DOCUSATE SODIUM 50 MG/SENNA 8.6 MG TAB PO SCH ×2 (08:15→20:36)
[2017-06-02] MEDS: ARTIFICIAL TEARS OPTH SOLN 15 ML BTL EACH EYE SCH ×3 (08:16→18:00)
[2017-06-02] MEDS: fentaNYL DRIP 250 ML IV PRN (08:29)
--- NOTE | 2017-06-02 08:37 | HHI.PR ---
Neuropsych Emotional Emotional: UnabletoAssess: Emotional, Anxious/Fearful, Depressed/Sad, Hostile/ Resentful, Irritable/Angry/Frustrate, Labile, Constricted/Blunted Behavior Behavior: Intact: Impulsive/Agitated, Unable to Asses: Behavior, Coping/ Acceptance, Cooperative w/ Treatment, Motivation, Frustration Tolerance/[place], Suicidal/Homicidal Risk Cognitive Cognitive: Unable to Asses: Cognitive, Attention/Concentration, Confused/ Orientation, Insight/Awareness, Judgement/Problem-Solving, Memory Psychosocial Psychosocial: Unable to Asses: Psychosocial, Family/Other Adjustment, Realistic Expectation, Self-Esteem/Confidence Progress Notes/Response to Tx Contents of Sessions: Adjustment, Level of Consciousness Time with Patient: 15 minutes Premorbid psychological status Premorbid Cognitive, Emotional and Behavioral Status: Deferred. The patient has high school years of education and a solid work history prior to this injury. The patient has no prior psychiatric difficulties, as described above. Substance abuse history is unknown. Behavioral Reactions of Patient and Family/Support System: Deferred. The patients family is experiencing ongoing issues of adjustment given the nature of the injury, and this aspect of recovery will require ongoing monitoring. Emotional/Behavioral Status of Patient and Family/Support System: Deferred. Pertinent issues, if appropriate to this patients clinical care, are described in detail above. Maximizing acute care outcome It is recommended that the patient be monitored for emergent behavioral impulsivity as the medical condition evolves. This patients neuropathological challenges may limit his rehabilitation potential going forward, and these challenges will require specialized therapeutic skills to maximize outcome. Additionally, the patients family is experiencing ongoing issues of adjustment given the traumatic nature of the injury, and they may benefit from ongoing psychological assistance. At this point in the recovery process, the patient does not have cognitive capacity as the patient is unable to understand a situation and its likely consequences, nor is he able to manipulate information rationally. Cognitive capacity will be assessed throughout the recovery process. Anticipated Problems Ongoing areas of concern will include behavioral impulsivity, lack of insight and judgment, which is expected to improve with time and treatment. Presently , the patient intubated and sedated. Given the severity of the patient's injuries it is my clinical opinion that this patient will be unable to return to any type of productive employment for at least one year, perhaps longer and likely never. This patient is not considered safe to discharge home with supervision. Treatment Plan This clinician will continue to follow with you throughout the course of this patients critical care treatment, and I will be available to meet with the patients family/support system to facilitate their understanding and the ongoing care of their family member. The goals of neuropsychological intervention shall be both educational and supportive to the family/support system as is deemed clinically appropriate. Disinhibition Score: 15.68 Aggression Score: 14.00 Lability Score: 14.00 Agitated Behavior Total Score: 15 Impression 51 year old male s/p [place] [facility] [place] The patient reportedly is difficult to wean from sedation, hence the referral to neuropsychology. Diagnosis: (1) Multiple fractures of ribs, bilateral, initial encounter for closed fracture Status: Acute Progress Note Narrative PTD 15. The patient's respiratory functioning is improving, and sedation is being weaned. There is a concern whether there was a hypoxic component to his multitrauma. He has no diagnosed brain injury from his accident. His ABS is 15 (15.7,14,14), the same from yesterday. However, on further investigation, nursing had not completed the scale since 05/31. The ABS was reordered, and the incident was reported to the nurse landscape account manager for the unit. I will follow. Jay Maradiaga PhD Jun 02, 2017 8:37 am
--- NOTE | 2017-06-02 11:37 | HHI.NSPN ---
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 Potassium Phosphate (K-Phos) 2,000 mg UNSCH PRN PO/TUBE SEE LABEL COMMENTS; Start 05/25/17 at 08:15 Potassium Phosphate 30 mmol/ Sodium Chloride 260 ml @ 42 mls/hr UNSCH PRN IV SEE LABEL COMMENTS; Start 05/25/17 at 08:15 Potassium Chloride (KCl Powder) 40 meq DAILY PRN PO For Potassium 3.3 - 3.5 mEq /L Last administered on 05/25/17at 20:16; Start 05/25/17 at 08:15 Potassium Bicarb/ Potassium Chloride (K-Lyte Cl Eff) 25 meq NOW ONCE OG-TUBE Last administered on 05/25/17at 09:27; Start 05/25/17 at 09:00; Stop 05/25/17 at 09:01; Status DC Piperacillin Sod/ Tazobactam Sod 100 ml @ 200 mls/hr Q8H IV Last administered on 05/26/17at 15:12; Start 05/25/17 at 16:00; Stop 05/26/17 at 16:57; Status DC Furosemide (Lasix Inj) 20 mg BID@,18 IV PUSH Last administered on 06/05/17at 09:50; Start 05/25/17 at 18:00 Lactated Ringer's 1,000 ml @ 30 mls/hr Q24H PRN IV SEE LABEL COMMENTS; Start at 01:00; Stop 05/29/17 at 00:59; Status DC Sodium Chloride 500 ml @ 30 mls/hr [id number] PRN IV SEE LABEL COMMENTS; Start at 01:00; Stop 05/29/17 at 00:59; Status DC Povidone Iodine (Betadine 5% Antisepsis Kit) 1 applic ATTACHER PRN EACH NARE SEE LABEL COMMENTS; Start 05/26/17 at 01:00; Stop 05/29/17 at 00:59; Status DC Chlorhexidine Gluconate (Chlorhexidine 2% Cloth) 3 pack ATTACHER PRN TOPICAL SEE LABEL COMMENTS; Start 05/26/17 at 01:00; Stop 05/29/17 at 00:59; Status DC Diltiazem HCl (Cardizem Inj) 25 mg STK-MED ONCE .ROUTE ; Start 05/26/17 at 06:34 ; Stop 05/26/17 at 06:35; Status DC Potassium Chloride 100 ml @ 50 mls/hr ONCE ONCE IV ; Start 05/26/17 at 10:00; Stop 05/26/17 at 11:59; Status DC Acetaminophen 100 ml @ As Directed STK-MED ONCE IV ; Start 05/26/17 at 10:24; Stop 05/26/17 at 10:25; Status DC Gentamicin Sulfate (Gentamicin Inj) 240 mg STK-MED ONCE .ROUTE ; Start 05/26/17 at 11:18; Stop 05/26/17 at 11:19; Status DC Cefazolin Sodium/ Dextrose 50 ml @ 100 mls/hr Q8H IV ; Start 05/26/17 at 12:00 ; Stop 05/27/17 at 04:29; Status UNV Fentanyl Citrate (fentaNYL INJ) 200 mcg STK-MED ONCE .ROUTE ; Start 05/26/17 at 12:31; Stop 05/26/17 at 12:32; Status DC Miscellaneous Information SPECIFIC LAB TO BE DRAWN:VANCO TROUGH DATE TO... ONCE ONCE .XX ; Start 05/28/17 at 11:45; Stop 05/28/17 at 11:46; Status Cancel Ceftriaxone Sodium 2000 mg/ Sodium Chloride 100 ml @ 200 mls/hr Q24H IV Last administered on 05/27/17at 17:21; Start 05/26/17 at 18:00; Stop 05/28/17 at 17:04 ; Status DC Midazolam HCl (Versed Inj) 5 mg STK-MED ONCE .ROUTE ; Start 05/27/17 at 01:07; Stop 05/27/17 at 01:08; Status DC Midazolam HCl 100 ml @ 2 mls/hr TITRATE PRN IV SEDATION Last administered on at 01:10; Start 05/27/17 at 01:30; Stop 06/04/17 at 11:12; Status DC Acetaminophen (Tylenol) 650 mg Q4H PRN PO temp >101 Last administered on at 23:38; Start 05/27/17 at 04:30 Calcium Chloride (Calcium Chloride Inj) 1 gm STK-MED ONCE IV ; Start 05/19/17 at 05:00; Stop 05/27/17 at 10:02; Status DC Epinephrine HCl (EPINEPHrine (1:10,000) INJ) 1 mg STK-MED ONCE IV ; Start at 05:00; Stop 05/27/17 at 10:02; Status DC Sodium Bicarbonate (Sodium Bicarbonate 8.4% Inj) 50 meq STK-MED ONCE IV ; Start 05/19/17 at 05:00; Stop 05/27/17 at 10:02; Status DC Rocuronium [place] (Zemuron Inj) 50 mg STK-MED ONCE IV PUSH ; Start 05/26/17 at 12:00; Stop 05/27/17 at 15:30; Status DC Vecuronium [place] (Norcuron 20 Mg Inj) 20 mg STK-MED ONCE IV ; Start 05/26/17 at 12:00; Stop 05/27/17 at 15:30; Status DC Dexamethasone Sodium Phosphate (Decadron Inj) 4 mg STK-MED ONCE IV ; Start 05/26 at 12:00; Stop 05/27/17 at 15:30; Status DC Ondansetron HCl (Zofran Inj) 4 mg STK-MED ONCE IV ; Start 05/26/17 at 12:00; Stop 05/27/17 at 15:30; Status DC Sterile Water (Sterile Water For Injection) 20 ml STK-MED ONCE IV ; Start at 12:00; Stop 05/27/17 at 15:30; Status DC Piperacillin Sod/ Tazobactam Sod 50 ml @ 100 mls/hr Q6H IV Last administered on 05/30/17at 12:58; Start 05/28/17 at 18:00; Stop 05/30/17 at 14:18; Status DC Pharmacy Profile Note 0 ml @ 0 mls/hr UNSCH OTHER ; Start 05/28/17 at 16:30; Stop 05/29/17 at 19:52; Status DC Micafungin Sodium 150 mg/Sodium Chloride 100 ml @ 100 mls/hr Q24H IV Last administered on 05/28/17at 20:09; Start 05/28/17 at 20:00; Stop 05/29/17 at 19:52 ; Status DC Vancomycin HCl 1500 mg/Sodium Chloride 515 ml @ 257.5 mls/ hr ONCE ONCE IV Last administered on 05/28/17at 21:28; Start 05/28/17 at 20:00; Stop 05/28/17 at 21:59; Status DC Vancomycin HCl 1250 mg/Sodium Chloride 262.5 ml @ 250 mls/hr Q12H IV Last administered on 05/29/17at 07:41; Start 05/29/17 at 08:00; Stop 05/29/17 at 13:00 ; Status DC Miscellaneous Information SPECIFIC LAB TO BE PATTIE... ONCE ONCE .XX ; Start 05/31 at 07:45; Stop 05/31/17 at 07:45; Status DC Oxycodone HCl (Roxicodone Intensol Liq) 5 mg Q4H PO Last administered on at 09:25; Start 05/29/17 at 13:00 Vancomycin HCl 1500 mg/Sodium Chloride 515 ml @ 250 mls/hr Q12H IV ; Start at 20:00; Stop 05/29/17 at 20:00; Status DC Acetazolamide Sodium (Diamox Inj) 250 mg Q4HR IV PUSH Last administered on 05/30at 12:58; Start 05/29/17 at 16:00; Stop 05/30/17 at 15:59; Status DC Water (Free Water) 250 ml Q6H G-TUBE Last administered on 05/30/17at 08:26; Start 05/29/17 at 16:00; Stop 05/30/17 at 15:02; Status DC Miscellaneous Medication (ASP Crit: Doc ESBL, MDR A baumannii or P aer) 1 UNSCH X1 PRN .XX PHARMACY DOCUMENTATION; Start 05/30/17 at 14:30; Stop 05/31/17 at 14 :29; Status DC Miscellaneous Medication ([facility]) 1 UNSCH X1 PRN XX PHARMACY DOCUMENTATION; Start 05/30/17 at 14:30; Stop 05/31/17 at 14:29; Status DC Ertapenem 1000 mg/ Sodium Chloride 100 ml @ 200 mls/hr Q24H IV Last administered on 06/04/17at 17:11; Start 05/30/17 at 16:00; Stop 06/08/17 at 15:59 Water (Free Water) 300 ml Q6H G-TUBE Last administered on 06/04/17at 04:00; Start 05/30/17 at 16:00; Stop 06/05/17 at 06:51; Status DC Gentamicin Sulfate (Gentamicin Inj) 240 mg STK-MED ONCE .ROUTE Last administered on 06/03/17at 10:57; Start 06/03/17 at 07:26; Stop 06/03/17 at 07:27 ; Status DC Cefazolin Sodium (Ancef Inj) 2,000 mg ONCE ONCE IV Last administered on at 10:47; Start 06/03/17 at 11:02; Stop 06/03/17 at 11:05; Status DC Cefazolin Sodium/ Dextrose 50 ml @ 100 mls/hr Q8H IV ; Start 06/03/17 at 18:00 ; Stop 06/03/17 at 18:00; Status DC Cefazolin Sodium 2000 mg/Sodium Chloride 120 ml @ 100 mls/hr Q8H IV Last administered on 06/05/17at 11:42; Start 06/03/17 at 18:00; Stop 06/05/17 at 11:11 ; Status DC Fentanyl Citrate (fentaNYL INJ) 300 mcg STK-MED ONCE .ROUTE ; Start 06/03/17 at 13:22; Stop 06/03/17 at 13:23; Status DC Fentanyl (Duragesic 50 Mcg Patch.72 Hr) 1 patch Q3D T-DERMAL Last administered on 06/04/17at 11:41; Start 06/04/17 at 12:00 Morphine Sulfate (Morphine Inj) 2 mg Q3H PRN IV PUSH breakthrough pain Last administered on 06/04/17at 23:43; Start 06/04/17 at 11:15 Miscellaneous Information 1 Q3D T-DERMAL ; Start 06/07/17 at 12:00 Hydromorphone HCl (Dilaudid Pf Inj) 1 mg ONCE ONCE IV PUSH ; Start 06/04/17 at 14:15; Stop 06/04/17 at 14:16; Status DC Artificial Tears (Tears Naturale Opth Soln) 1 drop TID PRN EACH EYE dry eye; Start 06/05/17 at 06:45 Rocuronium [place] (Zemuron Inj) 100 mg STK-MED ONCE IV PUSH ; Start 06/03/17 at 12:00; Stop 06/05/17 at 09:50; Status DC Phenylephrine HCl (Neosynephrine/ NS 1000 Mcg/10ml Syr) 1,000 mcg STK-MED ONCE IV ; Start 06/03/17 at 12:00; Stop 06/05/17 at 09:50; Status DC Dexamethasone Sodium Phosphate (Decadron Inj) 4 mg STK-MED ONCE IV ; Start 06/03 at 12:00; Stop 06/05/17 at 09:50; Status DC Ondansetron HCl (Zofran Inj) 4 mg STK-MED ONCE IV ; Start 06/03/17 at 12:00; Stop 06/05/17 at 09:50; Status DC Cefazolin Sodium (Ancef Inj) 2,000 mg STK-MED ONCE IV ; Start 06/03/17 at 12:00 ; Stop 06/05/17 at 09:50; Status DC (Scott Christensen MD) Medical Decision Making MDM Remarks 51 y/o male Traumatic T12 superior endplate compression fracture Respiratory failure, remains intubated, sedated (Sulma Fernandez) Plan Plan Remarks cont neuro checks, sedation wean as tolerating and f/u neuro examination cont critical care and trauma management cont nonoperative mgt of T12 fracture, obtain TLSO when more improved for transferring (Sulma Fernandez) Attending Statement neuro Continue checks Pulmonary. Continue mechanical ventilation in Assist control mode of ventilation aggressive pulmonary toilette, nasotracheal suction, and breathing treatments with nebulizers. nondisplaced thoracic fracture. MRI T spine when stable Cervical fracture. Continue bracing with [place] collar. Will obtain flexion extension xrays when improved Hypotension , possibly hemorrhagic shock He is currently on norepinephrine 20 mcg/min to maintain mean atrial pressure greater than 65 FloTrak CI 2.5 SVV 16 Received 5 L normal saline and 3 units PRBCs. Multiple rib fractures including left 1, 2, 3, 4, 5, 6, 7, 11 right 2, 3, 4, 5, Left-sided hemothorax, Bilateral pneumothoraces Bilateral chest tubes placed to -20 cm H2O. : Rosenberg catheter has been placed for accurate I's and O's in a critical patient Acute blood loss anemia. Transfused 3 units PRBCs today. Monitor CBC and coags daily. Follow trends ID: Receive cefazolin 2 g Left mid shift femur fracture Left lateral displaced clavicle fracture Left superior spine scapula fracture Left glenoid 12 mm fracture Care by orthopedic Daily PT and OT Renal. Creatinine 1.9 unknown baseline. monitor closely urine output, BUN and creatinine Endocrine.Monitor glucose and administer low-dose insulin sliding scale as indicated ID monitor for signs of infection Protonix for stress ulcer prophylaxis Juan hose and SCD's for DVT prophylaxis The exam, history, and the medical decision-making described in the above note were completed with the assistance of the mid-level provider. I reviewed and agree with the findings presented. I attest that I had a [id number] encounter with the patient on the same day, and personally performed and documented my assessment and findings in the medical record. (Scott Christensen MD) Sulma Fernandez Jun 02, 2017 11:37 Scott Christensen MD Jun 05, 2017 13:01
[2017-06-02] MEDS: ERTAPENEM INJ 1,000 MG in SODIUM CHLORIDE 0.9% INJ 100 ML IV SCH (15:23)
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
[2017-06-02] MEDS: ENOXAPARIN SODIUM 30 MG/0.3 ML SYRINGE SQ SCH ×2 (18:21→23:39)
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
[2017-06-02] MEDS: ACETAMINOPHEN 325 MG TAB PO PRN (23:38)
[2017-06-02] MEDS: CHLORHEXIDINE GLUCONATE 2 % 1 PACK (2 CLOTHS) TOP SCH (23:39)
[2017-06-02] MEDS: RESP: ALBUTEROL 2.5 MG/3 ML NEB (PRN) INH (23:49)
[2017-06-03] VITALS (13 sets, daily range): BP systolic 104–118; BP diastolic 59–83; PULSE 83–109; RESP 18–36; TEMP 98.1–101.5; O2SAT 94–100
[2017-06-03] MEDS: oxyCODONE HCL ORAL CONC 5 MG/0.25 ML SYRINGE PO SCH ×3 (01:00→20:39)
[2017-06-03 06:06] LABS: AUTOMATED NEUTROPHIL # 7.6 TH/MM3 (1.8-7.7); BASOPHIL # 0.1 TH/MM3 (0-0.2); BASOPHIL % 0.9 % (0.0-2.0); EOSINOPHIL # 0.1 TH/MM3 (0-0.4); HEMATOCRIT 36.1 % (39.0-51.0); HEMOGLOBIN 11.8 GM/DL (13.0-17.0); LYMPH % 15.4 % (9.0-44.0); LYMPHOCYTE # 1.6 TH/MM3 (1.0-4.8); MEAN CELL VOLUME 91.7 FL (80.0-100.0); MEAN CORPUSCULAR HGB CONC 32.7 % (32.0-36.0); MEAN PLATELET VOLUME 8.9 FL (7.0-11.0); MONO % 7.9 % (0.0-8.0); MONOCYTE # 0.8 TH/MM3 (0-0.9); NEUT % 74.8 % (16.0-70.0); PLATELET COUNT 469 TH/MM3 (150-450); RED BLOOD COUNT 3.94 MIL/MM3 (4.50-5.90); RED CELL DISTRIBUTION WIDTH 15.2 % (11.6-17.2); WHITE BLOOD COUNT 10.2 TH/MM3 (4.0-11.0)
[2017-06-03 06:31] LABS: BICARBONATE 27.5 MEQ/L (21.0-32.0); CALCIUM 7.5 MG/DL (8.5-10.1); CREATININE 1.19 MG/DL (0.60-1.30)
[2017-06-03] MEDS ORDERED: GENTAMICIN SULFATE 80 MG/2 ML VIAL ONE (07:26)
[2017-06-03 07:56] LABS: BANDS 2 % (0-6); BASOPHILS 2 % (0-2); CORRECTED NUCLEATED RBC 1 /100 WBC (0-0); LYMPHOCYTES 10 % (9-44); METAMYELOCYTES 1 % (0-1); MONOCYTES 4 % (0-8); MYELOCYTES 2 % (0-0); NEUTROPHIL # MANUAL DIFF 8.6 TH/MM3 (1.8-7.7); NUCLEATED RED BLOOD CELL 1 (0-0); POLYS (SEG NEUTROPHILS) 79 % (16-70)
[2017-06-03 07:57] LABS: POLYCHROMASIA 2.1 % (0.0-1.9)
[2017-06-03] MEDS: CHLORHEXIDINE 0.12% (ORAL KIT) 15 ML CUP MT SCH ×2 (08:00→20:40)
--- NOTE | 2017-06-03 08:16 | PD.ORT.PN ---
Subjective Subjective Remarks s/p IMN left femur s/p left clavicle and scap fxs with ORIF - POD 8 stable. no changes Objective Vitals Vital Signs Date Time Temp Pulse Resp B/P (MAP) Pulse Ox O2 Delivery O2 Flow Rate FiO2 06/03/17 06:00 88 06/03/17 04:00 92 06/03/17 04:00 50 06/03/17 04:00 100.3 92 24 113/66 (82) 100 06/03/17 02:00 100 06/03/17 00:00 109 06/03/17 00:00 50 06/03/17 00:00 101.5 109 36 104/59 (74) 94 06/02/17 23:50 95 50 06/02/17 22:00 107 06/02/17 20:19 100 30 06/02/17 20:00 99.7 97 29 128/66 (86) 97 06/02/17 20:00 97 06/02/17 20:00 30 06/02/17 18:00 94 06/02/17 16:00 86 06/02/17 16:00 99.5 86 22 116/67 (83) 98 06/02/17 16:00 40 06/02/17 14:00 92 06/02/17 12:00 100.5 96 21 113/56 (75) 98 06/02/17 12:00 40 06/02/17 12:00 94 06/02/17 11:55 98 40 06/02/17 10:00 96 06/02/17 08:29 98 40 I/O 06/02/17 06/02/17 06/02/17 06/03/17 06/03/17 06/03/17 07:00 15:00 23:00 07:00 15:00 23:00 Intake Total 806 ml 250 ml 1197 ml 673 ml Output Total 1300 ml 2850 ml 2350 ml Balance -494 ml 250 ml -1653 ml -1677 ml Intake IV Total 250 ml 200 ml Tube Feeding 416 ml 397 ml 313 ml Other 390 ml 600 ml 360 ml Output Urine Total 1250 ml 2800 ml 2250 ml Stool Total 50 ml 50 ml 100 ml Result Diagram: 06/03/17 0514 06/03/17 0514 Imaging Last 24 hours Impressions Chest X-Ray 3/6/18 0000 Signed Impressions: Service Date/Time: Friday, May 19, 2017 01:00 - CONCLUSION: 1. Removal of the 2 pleural catheters along the right chest wall and placement of another right chest tube with distal tip in the medial inferior right hemithorax. The right pneumothorax has resolved with shift of the mediastinum back to the midline and resolution of the generalized lucency in the right hemithorax. 2. Remaining findings are stable. Conor Chaudhry MD Chest X-Ray 05/19/17 Signed Impressions: Service Date/Time: Friday, May 19, 2017 00:13 - CONCLUSION: 1. The second small bore pigtail pleural catheter on the right has been placed and most of it appears to be outside of the right hemithorax except for maybe the distal tip. However, the right pneumothorax is no longer seen suggesting that it may be within the pleural space. Chest CT could confirm location, if needed. 2. Persistent volume loss and left mid and lower lung zone airspace consolidation. No left pneumothorax is visualized. 3. The nasogastric tube tip is in the stomach. Conor Chaudhry MD Thoracic Spine CT [id number]/[id number] Signed Impressions: Service Date/Time: Thursday, May 18, 2017 22:27 - CONCLUSION: 1. Superior endplate fracture of T12 without involvement of the posterior cortex and with approximate 10%% loss of height. 2. Numerous bilateral posterior rib fractures from C7 to the level of the 7th rib. Josemanuel Murphy MD Pelvis X-Ray [id number] Signed Impressions: Service Date/Time: Thursday, May 18, 2017 22:09 - CONCLUSION: No gross fracture seen. Josemanuel Murphy MD Lumbar Spine CT [id number]/[id number] Signed Impressions: Service Date/Time: Thursday, May 18, 2017 22:27 - CONCLUSION: 1. Lumbar vertebral bodies and posterior elements are intact. 2. Superior endplate fracture of T12 and medial left posterior 11th rib fracture. Josemanuel Murphy MD Head CT [id number] Signed Impressions: Service Date/Time: Thursday, May 18, 2017 22:27 - CONCLUSION: 1. No acute findings in the brain. Josemanuel Murphy MD Chest X-Ray [id number]/172209 Signed Impressions: Service Date/Time: Thursday, May 18, 2017 22:09 - CONCLUSION: Left chest drainage tube in the medial apex. Multiple displaced left rib fractures. Josemanuel Murphy MD Chest CT [id number]/172209 Signed Impressions: Service Date/Time: Thursday, May 18, 2017 22:27 - CONCLUSION: 1. Multiple fractures of the left ribs, left clavicle, left scapula and fracture of the lateral right 5th rib. 2. Bilateral pulmonary contusions, left greater than right and left pleural fluid. 3. Bilateral pneumothoraces with left chest drainage tube in place. Josemanuel Murphy MD Cervical Spine CT [id number] Signed Impressions: Service Date/Time: Thursday, May 18, 2017 22:27 - CONCLUSION: 1. Left transverse process fracture of C6 and fractures of the medial left 1st and 2nd ribs. 2. The vertebral bodies of the cervical spine down to C7 and posterior elements down to the level of C5 are intact. Josemanuel Murphy MD Abdomen/Pelvis CT [id number] Signed Impressions: Service Date/Time: Thursday, May 18, 2017 22:27 - CONCLUSION: 1. Multiple findings in the chest including bilateral pneumothoraces and multiple bilateral rib fractures, see CT thorax report. 2. The solid and hollow organs of the abdomen/pelvis are grossly intact. Josemanuel Murphy MD Objective Remarks LLE: dressings clean and dry.; intact. nvi. LUE: +swelling of shoulder. good cap refill Assessment & Plan Assessment and Plan 1) Left Femoral Shaft Fx s/p IMN -daily dressing changes -WBAT 2) Left Scapula and Clavicle fxs s/p ORIF of clavicle - POD 8 -NWB -daily dressing changes to left clavicle -CT of shoulder complete -will need ORIF of left glenoid -surgery today for left glenoid Kt Herrera/First An BRYAN Jun 03, 2017 08:16
--- NOTE | 2017-06-03 08:42 | HHI.PR ---
Neuropsych Emotional Emotional: UnabletoAssess: Emotional, Anxious/Fearful, Depressed/Sad, Hostile/ Resentful, Irritable/Angry/Frustrate, Labile, Constricted/Blunted Behavior Behavior: Unable to Asses: Behavior, Coping/Acceptance, Cooperative w/ Treatment, Motivation, Frustration Tolerance/[place], Impulsive/Agitated, Suicidal/ Homicidal Risk Cognitive Cognitive: Unable to Asses: Cognitive, Attention/Concentration, Confused/ Orientation, Insight/Awareness, Judgement/Problem-Solving, Memory Psychosocial Psychosocial: Unable to Asses: Psychosocial, Family/Other Adjustment, Realistic Expectation, Self-Esteem/Confidence Progress Notes/Response to Tx Contents of Sessions: Adjustment, Level of Consciousness Time with Patient: 15 minutes Premorbid psychological status Premorbid Cognitive, Emotional and Behavioral Status: Deferred. The patient has high school years of education and a solid work history prior to this injury. The patient has no prior psychiatric difficulties, as described above. Substance abuse history is unknown. Behavioral Reactions of Patient and Family/Support System: Deferred. The patients family is experiencing ongoing issues of adjustment given the nature of the injury, and this aspect of recovery will require ongoing monitoring. Emotional/Behavioral Status of Patient and Family/Support System: Deferred. Pertinent issues, if appropriate to this patients clinical care, are described in detail above. Maximizing acute care outcome It is recommended that the patient be monitored for emergent behavioral impulsivity as the medical condition evolves. This patients neuropathological challenges may limit his rehabilitation potential going forward, and these challenges will require specialized therapeutic skills to maximize outcome. Additionally, the patients family is experiencing ongoing issues of adjustment given the traumatic nature of the injury, and they may benefit from ongoing psychological assistance. At this point in the recovery process, the patient does not have cognitive capacity as the patient is unable to understand a situation and its likely consequences, nor is he able to manipulate information rationally. Cognitive capacity will be assessed throughout the recovery process. Anticipated Problems Ongoing areas of concern will include behavioral impulsivity, lack of insight and judgment, which is expected to improve with time and treatment. Presently , the patient intubated and sedated. Given the severity of the patient's injuries it is my clinical opinion that this patient will be unable to return to any type of productive employment for at least one year, perhaps longer and likely never. This patient is not considered safe to discharge home with supervision. Treatment Plan This clinician will continue to follow with you throughout the course of this patients critical care treatment, and I will be available to meet with the patients family/support system to facilitate their understanding and the ongoing care of their family member. The goals of neuropsychological intervention shall be both educational and supportive to the family/support system as is deemed clinically appropriate. Disinhibition Score: 15.68 Aggression Score: 14.00 Lability Score: 14.00 Agitated Behavior Total Score: 15 Impression 51 year old male s/p [place]it[place] 2[place] [facility] [place]. The patient reportedly is difficult to wean from sedation, hence the referral to neuropsychology. Diagnosis: (1) Multiple fractures of ribs, bilateral, initial encounter for closed fracture Status: Acute Progress Note Narrative PTD 16. The patient remains mechanically ventilated and is tolerating CPAP trials. His sedation is being weaned, and in doing so there is a risk of agitation/restlessness. The ABS was ordered, twice, although nursing is not completing, which was reported to nurse manager of warehouse and risk management. He was out to OR this morning during rounds. I will follow. aJy Maradiaga PhD Jun 03, 2017 8:42 am
[2017-06-03] MEDS: ARTIFICIAL TEARS OPTH SOLN 15 ML BTL EACH EYE SCH (09:00)
[2017-06-03] MEDS: fentaNYL DRIP 250 ML IV PRN (10:02)
[2017-06-03] MEDS ORDERED: ceFAZolin INJ 1,000 MG VIAL IV ONE ×2 (11:02→12:00)
[2017-06-03] MEDS ORDERED: PHENYLEPH/NS 1000 MCG/10 ML SYR IV ONE (12:00)
[2017-06-03] MEDS ORDERED: ROCURONIUM INJ 50 MG/5 ML SYRINGE IV PUSH ONE (12:00)
[2017-06-03] MEDS ORDERED: ONDANSETRON HCL 4 MG/2 ML VIAL IV ONE (12:00)
[2017-06-03] MEDS ORDERED: DEXAMETHASONE SOD PHOS 4 MG/ML VIAL IV ONE (12:00)
--- NOTE | 2017-06-03 12:36 | PD.OP ---
cc: Wing Hubbard MD Operative Report Date of Surgery: Jun 03, 2017 Preoperative Diagnosis: Displaced left scapula / glenoid fracture Postoperative Diagnosis: Procedure: Open reduction internal fixation left glenoid/scapular Surgeon: Wing Hubbard Cna Caregiver(s): VALERIO Forte PA-C The surgical procedure was assisted by my physician collections assistant. My P.A. presence was necessary throughout this case for the manipulation and positioning of the surgical extremity. My P.A. was assisting me throughout the duration of this procedure. The skill set of a physician collections assistant was medically necessary to complete this procedure. During the surgical case the director medical surgical was working at the back table and the physician collections assistant was directly assisting me. Operation and Findings: Patient was seen and evaluated preoperatively. Patient was found to have a displaced left glenoid fracture with dislocation of shoulder. The risks and benefits of surgical and nonsurgical options were discussed in detail and informed consent was obtained for surgery. Patient was brought to the operating room and placed on or table. IV sedation and GETA were administered by anesthesiologist. Antibiotics were given prior to incision. Operative arm and shoulder were prepped with alcohol followed by Hibiclens and draped usual sterile fashion. Timeout procedure was performed. Procedure began with a 4 inch incision over the anterior shoulder. Cephalic vein was identified. A deltopectoral approach was utilized. At this point the coracoid process fragment was visualized. The rotator cuff interval was opened first. Multiple attempts were made at reduction of fracture through the rotator cuff interval. I was unable to achieve optimal reduction. At this point an osteotomy was performed of the lesser tuberosity. The subscapularis and lesser tuberosity were elevated. The glenoid was now visualized. At this point attention was turned towards reduction of fracture. The posterior portion of the glenoid was visualized. The anterior portion of the glenoid which was still attached to the coracoid process was also visualized. Fracture fragment was manipulated. The fracture fragment was gently mobilized. Multiple attempts were made to achieve anatomic reduction. A complete anatomic reduction was not obtainable. The fracture fragment was placed into near- anatomic alignment. K wires were used to hold provisional fixation. Fluoroscopy confirmed reasonable alignment of the fracture. The glenohumeral joint was now reduced. 2 guidepins for the ITS cannulated screws were now placed from anterior to posterior across the fracture. Fluoroscopy confirmed appropriate guidepin placement. Cannulated drills placed over the guidepin. 2 appropriate length screws were now placed. Good compression was obtained. At this point attention was turned to repair of the subscapularis osteotomy. #5 FiberWire suture were placed through the rotator cuff tendon and lesser tuberosity. Drill tunnels were now made through the humerus. Sutures were passed through the bone tunnels. Sutures were tied appropriately. Subscapularis was now stable. Final fluoroscopy revealed well aligned fracture with well-placed hardware. Wound was thoroughly irrigated. Fascia was closed with #1 Vicryl, subcutaneous tissues closed with 3-0 Vicryl, and skin was closed with jakob. Sterile dressings were applied. Patient was placed into a sling. Patient was awakened and transferred to recovery in stable condition. Needle and sponge counts were correct. Wing Hubbard MD Jun 03, 2017 12:36
--- NOTE | 2017-06-03 13:51 | RADRPT ---
EXAM DATE/TIME: 06/03/2017 12:10 [facility] COMPARISON: No previous studies available for comparison. INDICATIONS : Open reduction internal fixation of left scapula/ glenoid fossa. MEDICAL HISTORY : None. SURGICAL HISTORY : None. ENCOUNTER: Initial ACUITY: 1 day PAIN SCORE: Non-responsive. LOCATION: Left Scapula FINDINGS: Plate is seen bridging the clavicle. Screws are seen in the glenoid. Alignment is anatomic. CONCLUSION: Anatomic alignment. Selvin Davalos MD FACR on June 03, 2017 at 13:48 Board Certified Radiologist. This report was verified electronically.
--- NOTE | 2017-06-03 13:54 | HHI.NSPN ---
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 05/25/17 at 08:15 Potassium Phosphate (K-Phos) 2,000 mg UNSCH PRN PO/TUBE SEE LABEL COMMENTS; Start 05/25/17 at 08:15 Potassium Phosphate 30 mmol/ Sodium Chloride 260 ml @ 42 mls/hr UNSCH PRN IV SEE LABEL COMMENTS; Start 05/25/17 at 08:15 Potassium Chloride (KCl Powder) 40 meq DAILY PRN PO For Potassium 3.3 - 3.5 mEq /L Last administered on 05/25/17at 20:16; Start 05/25/17 at 08:15 Potassium Bicarb/ Potassium Chloride (K-Lyte Cl Eff) 25 meq NOW ONCE OG-TUBE Last administered on 05/25/17at 09:27; Start 05/25/17 at 09:00; Stop 05/25/17 at 09:01; Status DC Piperacillin Sod/ Tazobactam Sod 100 ml @ 200 mls/hr Q8H IV Last administered on 05/26/17at 15:12; Start 05/25/17 at 16:00; Stop 05/26/17 at 16:57; Status DC Furosemide (Lasix Inj) 20 mg BID@,18 IV PUSH Last administered on 06/06/17at 08:43; Start 05/25/17 at 18:00; Stop 06/06/17 at 11:10; Status DC Lactated Ringer's 1,000 ml @ 30 mls/hr Q24H PRN IV SEE LABEL COMMENTS; Start at 01:00; Stop 05/29/17 at 00:59; Status DC Sodium Chloride 500 ml @ 30 mls/hr [id number] PRN IV SEE LABEL COMMENTS; Start at 01:00; Stop 05/29/17 at 00:59; Status DC Povidone Iodine (Betadine 5% Antisepsis Kit) 1 applic SENIOR STAFF PSYCHOLOGIST PRN EACH NARE SEE LABEL COMMENTS; Start 05/26/17 at 01:00; Stop 05/29/17 at 00:59; Status DC Chlorhexidine Gluconate (Chlorhexidine 2% Cloth) 3 pack SENIOR STAFF PSYCHOLOGIST PRN TOPICAL SEE LABEL COMMENTS; Start 05/26/17 at 01:00; Stop 05/29/17 at 00:59; Status DC Diltiazem HCl (Cardizem Inj) 25 mg STK-MED ONCE .ROUTE ; Start 05/26/17 at 06:34 ; Stop 05/26/17 at 06:35; Status DC Potassium Chloride 100 ml @ 50 mls/hr ONCE ONCE IV ; Start 05/26/17 at 10:00; Stop 05/26/17 at 11:59; Status DC Acetaminophen 100 ml @ As Directed STK-MED ONCE IV ; Start 05/26/17 at 10:24; Stop 05/26/17 at 10:25; Status DC Gentamicin Sulfate (Gentamicin Inj) 240 mg STK-MED ONCE .ROUTE ; Start 05/26/17 at 11:18; Stop 05/26/17 at 11:19; Status DC Cefazolin Sodium/ Dextrose 50 ml @ 100 mls/hr Q8H IV ; Start 05/26/17 at 12:00 ; Stop 05/27/17 at 04:29; Status UNV Fentanyl Citrate (fentaNYL INJ) 200 mcg STK-MED ONCE .ROUTE ; Start 05/26/17 at 12:31; Stop 05/26/17 at 12:32; Status DC Miscellaneous Information SPECIFIC LAB TO BE DRAWN:VANCO TROUGH DATE TO... ONCE ONCE .XX ; Start 05/28/17 at 11:45; Stop 05/28/17 at 11:46; Status Cancel Ceftriaxone Sodium 2000 mg/ Sodium Chloride 100 ml @ 200 mls/hr Q24H IV Last administered on 05/27/17at 17:21; Start 05/26/17 at 18:00; Stop 05/28/17 at 17:04 ; Status DC Midazolam HCl (Versed Inj) 5 mg STK-MED ONCE .ROUTE ; Start 05/27/17 at 01:07; Stop 05/27/17 at 01:08; Status DC Midazolam HCl 100 ml @ 2 mls/hr TITRATE PRN IV SEDATION Last administered on at 01:10; Start 05/27/17 at 01:30; Stop 06/04/17 at 11:12; Status DC Acetaminophen (Tylenol) 650 mg Q4H PRN PO temp >101 Last administered on at 23:38; Start 05/27/17 at 04:30 Calcium Chloride (Calcium Chloride Inj) 1 gm STK-MED ONCE IV ; Start 05/19/17 at 05:00; Stop 05/27/17 at 10:02; Status DC Epinephrine HCl (EPINEPHrine (1:10,000) INJ) 1 mg STK-MED ONCE IV ; Start at 05:00; Stop 05/27/17 at 10:02; Status DC Sodium Bicarbonate (Sodium Bicarbonate 8.4% Inj) 50 meq STK-MED ONCE IV ; Start 05/19/17 at 05:00; Stop 05/27/17 at 10:02; Status DC Rocuronium Loyal (Zemuron Inj) 50 mg STK-MED ONCE IV PUSH ; Start 05/26/17 at 12:00; Stop 05/27/17 at 15:30; Status DC Vecuronium Loyal (Norcuron 20 Mg Inj) 20 mg STK-MED ONCE IV ; Start 05/26/17 at 12:00; Stop 05/27/17 at 15:30; Status DC Dexamethasone Sodium Phosphate (Decadron Inj) 4 mg STK-MED ONCE IV ; Start 05/26 at 12:00; Stop 05/27/17 at 15:30; Status DC Ondansetron HCl (Zofran Inj) 4 mg STK-MED ONCE IV ; Start 05/26/17 at 12:00; Stop 05/27/17 at 15:30; Status DC Sterile Water (Sterile Water For Injection) 20 ml STK-MED ONCE IV ; Start at 12:00; Stop 05/27/17 at 15:30; Status DC Piperacillin Sod/ Tazobactam Sod 50 ml @ 100 mls/hr Q6H IV Last administered on 05/30/17at 12:58; Start 05/28/17 at 18:00; Stop 05/30/17 at 14:18; Status DC Pharmacy Profile Note 0 ml @ 0 mls/hr UNSCH OTHER ; Start 05/28/17 at 16:30; Stop 05/29/17 at 19:52; Status DC Micafungin Sodium 150 mg/Sodium Chloride 100 ml @ 100 mls/hr Q24H IV Last administered on 05/28/17at 20:09; Start 05/28/17 at 20:00; Stop 05/29/17 at 19:52 ; Status DC Vancomycin HCl 1500 mg/Sodium Chloride 515 ml @ 257.5 mls/ hr ONCE ONCE IV Last administered on 05/28/17at 21:28; Start 05/28/17 at 20:00; Stop 05/28/17 at 21:59; Status DC Vancomycin HCl 1250 mg/Sodium Chloride 262.5 ml @ 250 mls/hr Q12H IV Last administered on 05/29/17at 07:41; Start 05/29/17 at 08:00; Stop 05/29/17 at 13:00 ; Status DC Miscellaneous Information SPECIFIC LAB TO BE PATTIE... ONCE ONCE .XX ; Start 05/31 at 07:45; Stop 05/31/17 at 07:45; Status DC Oxycodone HCl (Roxicodone Intensol Liq) 5 mg Q4H PO Last administered on at 12:22; Start 05/29/17 at 13:00 Vancomycin HCl 1500 mg/Sodium Chloride 515 ml @ 250 mls/hr Q12H IV ; Start at 20:00; Stop 05/29/17 at 20:00; Status DC Acetazolamide Sodium (Diamox Inj) 250 mg Q4HR IV PUSH Last administered on 05/30at 12:58; Start 05/29/17 at 16:00; Stop 05/30/17 at 15:59; Status DC Water (Free Water) 250 ml Q6H G-TUBE Last administered on 05/30/17at 08:26; Start 05/29/17 at 16:00; Stop 05/30/17 at 15:02; Status DC Miscellaneous Medication (ASP Crit: Doc ESBL, MDR A baumannii or P aer) 1 UNSCH X1 PRN .XX PHARMACY DOCUMENTATION; Start 05/30/17 at 14:30; Stop 05/31/17 at 14 :29; Status DC Miscellaneous Medication (Replaced By [facility] Information) 1 UNSCH X1 PRN XX PHARMACY DOCUMENTATION; Start 05/30/17 at 14:30; Stop 05/31/17 at 14:29; Status DC Ertapenem 1000 mg/ Sodium Chloride 100 ml @ 200 mls/hr Q24H IV Last administered on 06/05/17at 16:59; Start 05/30/17 at 16:00; Stop 06/08/17 at 15:59 Water (Free Water) 300 ml Q6H G-TUBE Last administered on 06/04/17at 04:00; Start 05/30/17 at 16:00; Stop 06/05/17 at 06:51; Status DC Gentamicin Sulfate (Gentamicin Inj) 240 mg STK-MED ONCE .ROUTE Last administered on 06/03/17at 10:57; Start 06/03/17 at 07:26; Stop 06/03/17 at 07:27 ; Status DC Cefazolin Sodium (Ancef Inj) 2,000 mg ONCE ONCE IV Last administered on at 10:47; Start 06/03/17 at 11:02; Stop 06/03/17 at 11:05; Status DC Cefazolin Sodium/ Dextrose 50 ml @ 100 mls/hr Q8H IV ; Start 06/03/17 at 18:00 ; Stop 06/03/17 at 18:00; Status DC Cefazolin Sodium 2000 mg/Sodium Chloride 120 ml @ 100 mls/hr Q8H IV Last administered on 06/05/17at 11:42; Start 06/03/17 at 18:00; Stop 06/05/17 at 11:11 ; Status DC Fentanyl Citrate (fentaNYL INJ) 300 mcg STK-MED ONCE .ROUTE ; Start 06/03/17 at 13:22; Stop 06/03/17 at 13:23; Status DC Fentanyl (Duragesic 50 Mcg Patch.72 Hr) 1 patch Q3D T-DERMAL Last administered on 06/04/17at 11:41; Start 06/04/17 at 12:00 Morphine Sulfate (Morphine Inj) 2 mg Q3H PRN IV PUSH breakthrough pain Last administered on 06/06/17at 13:52; Start 06/04/17 at 11:15 Miscellaneous Information 1 Q3D T-DERMAL ; Start 06/07/17 at 12:00 Hydromorphone HCl (Dilaudid Pf Inj) 1 mg ONCE ONCE IV PUSH ; Start 06/04/17 at 14:15; Stop 06/04/17 at 14:16; Status DC Artificial Tears (Tears Naturale Opth Soln) 1 drop TID PRN EACH EYE dry eye; Start 06/05/17 at 06:45 Rocuronium Loyal (Zemuron Inj) 100 mg STK-MED ONCE IV PUSH ; Start 06/03/17 at 12:00; Stop 06/05/17 at 09:50; Status DC Phenylephrine HCl (Neosynephrine/ NS 1000 Mcg/10ml Syr) 1,000 mcg STK-MED ONCE IV ; Start 06/03/17 at 12:00; Stop 06/05/17 at 09:50; Status DC Dexamethasone Sodium Phosphate (Decadron Inj) 4 mg STK-MED ONCE IV ; Start 06/03 at 12:00; Stop 06/05/17 at 09:50; Status DC Ondansetron HCl (Zofran Inj) 4 mg STK-MED ONCE IV ; Start 06/03/17 at 12:00; Stop 06/05/17 at 09:50; Status DC Cefazolin Sodium (Ancef Inj) 2,000 mg STK-MED ONCE IV ; Start 06/03/17 at 12:00 ; Stop 06/05/17 at 09:50; Status DC (Scott Christensen MD) Medical Decision Making MDM Remarks 51 y/o male Traumatic T12 superior endplate compression fracture Respiratory failure, remains intubated, sedated (Sulma Fernandez) Plan Plan Remarks cont neuro checks, cont critical care and trauma management cont nonoperative mgt of T12 fracture, obtain TLSO when more improved for transferring (Sulma Fernandez) Attending Statement neuro Continue checks Pulmonary. Continue mechanical ventilation in Assist control mode of ventilation aggressive pulmonary toilette, nasotracheal suction, and breathing treatments with nebulizers. nondisplaced thoracic fracture. MRI T spine when stable Cervical fracture. Continue bracing with [place] collar. Will obtain flexion extension xrays when improved Hypotension , possibly hemorrhagic shock He is currently on norepinephrine 20 mcg/min to maintain mean atrial pressure greater than 65 FloTrak CI 2.5 SVV 16 Received 5 L normal saline and 3 units PRBCs. Multiple rib fractures including left 1, 2, 3, 4, 5, 6, 7, 11 right 2, 3, 4, 5, Left-sided hemothorax, Bilateral pneumothoraces Bilateral chest tubes placed to -20 cm H2O. : Rosenberg catheter has been placed for accurate I's and O's in a critical patient Acute blood loss anemia. Transfused 3 units PRBCs today. Monitor CBC and coags daily. Follow trends ID: Receive cefazolin 2 g Left mid shift femur fracture Left lateral displaced clavicle fracture Left superior spine scapula fracture Left glenoid 12 mm fracture Care by orthopedic Daily PT and OT Renal. Creatinine 1.9 unknown baseline. monitor closely urine output, BUN and creatinine Endocrine.Monitor glucose and administer low-dose insulin sliding scale as indicated ID monitor for signs of infection Protonix for stress ulcer prophylaxis Juan hose and SCD's for DVT prophylaxis The exam, history, and the medical decision-making described in the above note were completed with the assistance of the mid-level provider. I reviewed and agree with the findings presented. I attest that I had a [id number] encounter with the patient on the same day, and personally performed and documented my assessment and findings in the medical record. (Scott Christensen MD) Sulma Fernandez Jun 03, 2017 13:54 Scott Christensen MD Jun 06, 2017 14:50
[2017-06-03] MEDS: ERTAPENEM INJ 1,000 MG in SODIUM CHLORIDE 0.9% INJ 100 ML IV SCH (14:42)
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
[2017-06-03] MEDS: CEFAZOLIN INJ 2,000 MG in SODIUM CHLORIDE 0.9% INJ 100 ML IV SCH (17:18)
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
[2017-06-03] MEDS ORDERED: ceFAZolin 2 GM PREMIX 50 ML IV SCH (18:00)
[2017-06-03] MEDS: FAMOTIDINE 20 MG TAB NG SCH (20:38)
[2017-06-03] MEDS: SODIUM CHLORIDE 0.9% FLUSH 10 ML FLUSH IV FLUSH SCH (20:38)
[2017-06-03] MEDS: DOCUSATE SODIUM 50 MG/SENNA 8.6 MG TAB PO SCH (20:39)
[2017-06-03] MEDS: FREE WATER G-TUBE SCH (23:39)
[2017-06-04] VITALS (19 sets, daily range): BP systolic 98–121; BP diastolic 57–71; PULSE 85–107; RESP 16–32; TEMP 98.2–99.4; O2SAT 96–100
[2017-06-04] MEDS: oxyCODONE HCL ORAL CONC 5 MG/0.25 ML SYRINGE PO SCH ×7 (00:57→20:16)
[2017-06-04] MEDS: CEFAZOLIN INJ 2,000 MG in SODIUM CHLORIDE 0.9% INJ 100 ML IV SCH ×3 (01:03→17:12)
[2017-06-04] MEDS: PROPOFOL 1000 MG/100 ML INJ 100 ML IV PRN ×2 (01:03→05:15)
[2017-06-04] MEDS: FREE WATER G-TUBE SCH ×4 (04:00→21:09)
[2017-06-04] MEDS: ENOXAPARIN SODIUM 30 MG/0.3 ML SYRINGE SQ SCH ×2 (05:15→17:13)
[2017-06-04] MEDS: CHLORHEXIDINE GLUCONATE 2 % 1 PACK (2 CLOTHS) TOP SCH (05:16)
--- NOTE | 2017-06-04 07:08 | PD.ORT.PN ---
Subjective Subjective Remarks s/p IMN left femur - POD 14 s/p ORIF left clavicle fx - POD 9 s/p ORIF left glenoid fx - POD 1 stable. no changes Objective Vitals Vital Signs Date Time Temp Pulse Resp B/P (MAP) Pulse Ox O2 Delivery O2 Flow Rate FiO2 06/04/17 06:00 95 06/04/17 05:13 16 06/04/17 04:00 50 06/04/17 04:00 88 06/04/17 04:00 99.4 90 16 98/57 (71) 99 06/04/17 03:30 99 50 06/04/17 02:00 85 06/04/17 00:08 99 50 06/04/17 00:00 99.3 105 18 117/71 (86) 99 06/04/17 00:00 50 06/04/17 00:00 107 06/03/17 22:00 101 06/03/17 20:16 100 50 06/03/17 20:00 99.0 102 22 110/66 (81) 100 06/03/17 20:00 103 06/03/17 20:00 50 06/03/17 18:00 100 06/03/17 16:00 99 06/03/17 16:00 50 06/03/17 16:00 98.1 94 23 118/69 (85) 100 06/03/17 14:25 98 50 06/03/17 14:00 50 06/03/17 14:00 98.1 83 18 115/83 (94) 98 06/03/17 14:00 83 06/03/17 09:02 100 50 06/03/17 08:00 99.2 87 23 110/65 (80) 100 06/03/17 08:00 87 06/03/17 08:00 50 I/O 06/03/17 06/03/17 06/03/17 06/04/17 06/04/17 06/04/17 07:00 15:00 23:00 07:00 15:00 23:00 Intake Total 673 ml 640 ml 460 ml 1176 ml Output Total 2350 ml 450 ml 500 ml 1200 ml Balance -1677 ml 190 ml -40 ml -24 ml Intake IV Total 240 ml 100 ml 320 ml Tube Feeding 313 ml 60 ml 556 ml Other 360 ml 400 ml 300 ml 300 ml Output Urine Total 2250 ml 500 ml 1150 ml Stool Total 100 ml 50 ml Estimated Blood Loss 50 ml Other 400 ml Result Diagram: 06/03/17 0514 06/03/17 0514 Imaging Last 24 hours Impressions Chest X-Ray 05/19/17 0000 Signed Impressions: Service Date/Time: Friday, May 19, 2017 01:00 - CONCLUSION: 1. Removal of the 2 pleural catheters along the right chest wall and placement of another right chest tube with distal tip in the medial inferior right hemithorax. The right pneumothorax has resolved with shift of the mediastinum back to the midline and resolution of the generalized lucency in the right hemithorax. 2. Remaining findings are stable. Conor Chaudhry MD Chest X-Ray 05/19/17 0000 Signed Impressions: Service Date/Time: Friday, May 19, 2017 00:13 - CONCLUSION: 1. The second small bore pigtail pleural catheter on the right has been placed and most of it appears to be outside of the right hemithorax except for maybe the distal tip. However, the right pneumothorax is no longer seen suggesting that it may be within the pleural space. Chest CT could confirm location, if needed. 2. Persistent volume loss and left mid and lower lung zone airspace consolidation. No left pneumothorax is visualized. 3. The nasogastric tube tip is in the stomach. Conor Chaudhry MD Thoracic Spine CT [id number]/18/172209 Signed Impressions: Service Date/Time: Thursday, May 18, 2017 22:27 - CONCLUSION: 1. Superior endplate fracture of T12 without involvement of the posterior cortex and with approximate 10%% loss of height. 2. Numerous bilateral posterior rib fractures from C7 to the level of the 7th rib. Josemanuel Murphy MD Pelvis X-Ray [id number]/172209 Signed Impressions: Service Date/Time: Thursday, May 18, 2017 22:09 - CONCLUSION: No gross fracture seen. Josemanuel Murphy MD Lumbar Spine CT [id number]/18/172209 Signed Impressions: Service Date/Time: Thursday, May 18, 2017 22:27 - CONCLUSION: 1. Lumbar vertebral bodies and posterior elements are intact. 2. Superior endplate fracture of T12 and medial left posterior 11th rib fracture. Josemanuel Murphy MD Head CT [id number]/172209 Signed Impressions: Service Date/Time: Thursday, May 18, 2017 22:27 - CONCLUSION: 1. No acute findings in the brain. Josemanuel Murphy MD Chest X-Ray [id number]/18/172209 Signed Impressions: Service Date/Time: Thursday, May 18, 2017 22:09 - CONCLUSION: Left chest drainage tube in the medial apex. Multiple displaced left rib fractures. Josemanuel Murphy MD Chest CT [id number]/18/172209 Signed Impressions: Service Date/Time: Thursday, May 18, 2017 22:27 - CONCLUSION: 1. Multiple fractures of the left ribs, left clavicle, left scapula and fracture of the lateral right 5th rib. 2. Bilateral pulmonary contusions, left greater than right and left pleural fluid. 3. Bilateral pneumothoraces with left chest drainage tube in place. Josemanuel Murphy MD Cervical Spine CT [id number] Signed Impressions: Service Date/Time: Thursday, May 18, 2017 22:27 - CONCLUSION: 1. Left transverse process fracture of C6 and fractures of the medial left 1st and 2nd ribs. 2. The vertebral bodies of the cervical spine down to C7 and posterior elements down to the level of C5 are intact. Josemanuel Murphy MD Abdomen/Pelvis CT [id number] Signed Impressions: Service Date/Time: Thursday, May 18, 2017 22:27 - CONCLUSION: 1. Multiple findings in the chest including bilateral pneumothoraces and multiple bilateral rib fractures, see CT thorax report. 2. The solid and hollow organs of the abdomen/pelvis are grossly intact. Josemanuel Murphy MD Objective Remarks LLE: dressings clean and dry.; intact. nvi. LUE: +swelling of shoulder. good cap refill Assessment & Plan Assessment and Plan 1) Left Femoral Shaft Fx s/p IMN - POD 14 -daily dressing changes -WBAT -will order Xrays today of left femur 2) Left Clavicle fxs s/p ORIF- POD 9 3) Left Glenoid Fx s/p ORIF - POD 1 -NWB LUE -maintain sling/swathe at all times -no ROM -daily dressing changes POD 2 -Ortho surgeries complete at this time Kt Herrera/Health Plan Advisor IRVIN Jun 04, 2017 07:08
[2017-06-04] MEDS ORDERED: WHEEMIS3 (07:09)
[2017-06-04] MEDS ORDERED: XARE10TA PO (07:09)
[2017-06-04] MEDS ORDERED: HYDR-3583 PO (07:09)
[2017-06-04] MEDS: CHLORHEXIDINE 0.12% (ORAL KIT) 15 ML CUP MT SCH ×2 (08:00→20:00)
[2017-06-04] MEDS: POTASSIUM CHLORIDE 25 MEQ EFFERVESCENT TAB PO SCH ×2 (08:13→09:00)
[2017-06-04] MEDS: FUROSEMIDE 20 MG/2 ML VIAL IV PUSH SCH ×3 (08:14→17:12)
[2017-06-04] MEDS: FAMOTIDINE 20 MG TAB NG SCH ×2 (08:15→20:16)
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
[2017-06-04] MEDS: SODIUM CHLORIDE 0.9% FLUSH 10 ML FLUSH IV FLUSH SCH ×2 (09:00→20:17)
[2017-06-04] MEDS: ARTIFICIAL TEARS OPTH SOLN 15 ML BTL EACH EYE SCH ×2 (09:00→13:00)
[2017-06-04] MEDS: DOCUSATE SODIUM 50 MG/SENNA 8.6 MG TAB PO SCH ×2 (09:00→20:16)
[2017-06-04 10:07] LABS: CREATININE 1.11 MG/DL (0.60-1.30)
[2017-06-04] MEDS: ONDANSETRON HCL 4 MG/2 ML VIAL IV PUSH PRN ×2 (11:40→18:50)
[2017-06-04] MEDS: fentaNYL 50 MCG/HR PATCH T-DERMAL SCH (11:41)
[2017-06-04] MEDS: MORPHINE SULFATE 2 MG/ML SYRINGE IV PUSH PRN ×4 (11:41→23:43)
--- NOTE | 2017-06-04 14:07 | RADRPT ---
EXAM DATE/TIME: 06/04/2017 12:15 [facility] COMPARISON: FEMUR LEFT (AP & LAT/2VWS), May 21, 2017, 10:51. INDICATIONS : Post op left femur fracture. MEDICAL HISTORY : None. SURGICAL HISTORY : Left shoulder ORIF. Left femur ORIF. ENCOUNTER: Subsequent ACUITY: 2 days PAIN SCORE: 9/10 LOCATION: Left femur FINDINGS: Intramedullary aden with fixation screws are noted within the left femur status post ORIF. There is ad equate alignment of the femur. CONCLUSION: Status post ORIF of left mid femoral shaft fracture appears to be adequately aligned. Esteban Shen MD on June 04, 2017 at 14:03 Board Certified Radiologist. This report was verified electronically.
[2017-06-04] MEDS ORDERED: HYDROmorphone HCL PF 1 MG/ML VIAL IV PUSH ONE (14:15)
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
[2017-06-04] MEDS: ERTAPENEM INJ 1,000 MG in SODIUM CHLORIDE 0.9% INJ 100 ML IV SCH (17:11)
[2017-06-05] VITALS (16 sets, daily range): BP systolic 113–125; BP diastolic 60–68; PULSE 94–106; RESP 22–30; TEMP 98.6–100.3; O2SAT 94–99
[2017-06-05] MEDS: oxyCODONE HCL ORAL CONC 5 MG/0.25 ML SYRINGE PO SCH ×6 (00:53→20:12)
[2017-06-05] MEDS: CEFAZOLIN INJ 2,000 MG in SODIUM CHLORIDE 0.9% INJ 100 ML IV SCH ×2 (02:23→11:42)
[2017-06-05] MEDS: CHLORHEXIDINE GLUCONATE 2 % 1 PACK (2 CLOTHS) TOP SCH (04:00)
[2017-06-05] MEDS: FREE WATER G-TUBE SCH (04:00)
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
[2017-06-05 04:30] LABS: AUTOMATED NEUTROPHIL # 5.8 TH/MM3 (1.8-7.7); BASOPHIL # 0.1 TH/MM3 (0-0.2); BASOPHIL % 0.8 % (0.0-2.0); EOSINOPHIL # 0.1 TH/MM3 (0-0.4); EOSINOPHIL % 0.7 % (0.0-4.0); HEMATOCRIT 25.9 % (39.0-51.0); HEMOGLOBIN 8.6 GM/DL (13.0-17.0); LYMPH % 13.1 % (9.0-44.0); MEAN CORPUSCULAR HEMOGLOBIN 29.7 PG (27.0-34.0); MEAN PLATELET VOLUME 8.5 FL (7.0-11.0); MONO % 12.3 % (0.0-8.0); NEUT % 73.1 % (16.0-70.0); PLATELET COUNT 476 TH/MM3 (150-450); RED BLOOD COUNT 2.88 MIL/MM3 (4.50-5.90); RED CELL DISTRIBUTION WIDTH 15.7 % (11.6-17.2); WHITE BLOOD COUNT 7.9 TH/MM3 (4.0-11.0)
[2017-06-05 05:09] LABS: ALBUMIN 1.9 GM/DL (3.4-5.0); BICARBONATE 29.9 MEQ/L (21.0-32.0); CREATININE 1.02 MG/DL (0.60-1.30); TOTAL PROTEIN 6.3 GM/DL (6.4-8.2)
[2017-06-05 05:12] LABS: CALCIUM-PROTEIN CORRECTED 6.4 MG/DL (8.5-10.1)
[2017-06-05] MEDS: ENOXAPARIN SODIUM 30 MG/0.3 ML SYRINGE SQ SCH ×2 (05:21→17:00)
[2017-06-05] MEDS ORDERED: ARTIFICIAL TEARS OPTH SOLN 15 ML BTL EACH EYE PRN (06:45)
--- NOTE | 2017-06-05 07:06 | PD.ORT.PN ---
Subjective Subjective Remarks s/p IMN left femur - POD 15 s/p ORIF left clavicle fx - POD 10 s/p ORIF left glenoid fx - POD 2 extubated. awake. responds to commands Objective Vitals Vital Signs Date Time Temp Pulse Resp B/P (MAP) Pulse Ox O2 Delivery O2 Flow Rate FiO2 06/05/17 06:00 96 06/05/17 04:59 97 35 06/05/17 04:00 100.3 105 26 118/65 (82) 97 06/05/17 04:00 105 06/05/17 02:00 105 06/05/17 00:00 100.3 97 26 116/60 (78) 99 06/05/17 00:00 99 35 06/05/17 00:00 97 06/04/17 22:00 96 06/04/17 21:53 97 40 06/04/17 21:52 97 Nasal Cannula 5.00 06/04/17 20:00 98.2 102 16 121/61 (81) 97 06/04/17 19:30 Nasal Cannula 6.00 06/04/17 18:00 100 06/04/17 16:00 99.0 97 22 113/70 (84) 98 06/04/17 16:00 97 06/04/17 14:00 97 06/04/17 12:30 98 Bi-Pap 40 06/04/17 12:30 97 40 06/04/17 12:00 100 06/04/17 12:00 99.2 100 32 110/60 (77) 99 06/04/17 10:00 107 06/04/17 09:02 96 Nasal Cannula 6 06/04/17 09:00 100 Nasal Cannula 4.00 06/04/17 08:48 98 50 06/04/17 08:47 50 06/04/17 08:00 50 06/04/17 08:00 99.0 104 27 114/64 (81) 100 06/04/17 08:00 104 I/O 06/04/17 06/04/17 06/04/17 06/05/17 06/05/17 06/05/17 07:00 15:00 23:00 07:00 15:00 23:00 Intake Total 1176 ml 60 ml Output Total 1200 ml 1850 ml 1625 ml Balance -24 ml -1790 ml -1625 ml Intake IV Total 320 ml Tube Feeding 556 ml Other 300 ml 60 ml Output Urine Total 1150 ml 1850 ml 1625 ml Stool Total 50 ml 0 ml 0 ml Result Diagram: 06/05/17 0340 06/05/17 0340 Imaging Last 24 hours Impressions Chest X-Ray 05/19/17 0000 Signed Impressions: Service Date/Time: Friday, May 19, 2017 01:00 - CONCLUSION: 1. Removal of the 2 pleural catheters along the right chest wall and placement of another right chest tube with distal tip in the medial inferior right hemithorax. The right pneumothorax has resolved with shift of the mediastinum back to the midline and resolution of the generalized lucency in the right hemithorax. 2. Remaining findings are stable. Conor Chaudhry MD Chest X-Ray 05/19/17 0000 Signed Impressions: Service Date/Time: Friday, May 19, 2017 00:13 - CONCLUSION: 1. The second small bore pigtail pleural catheter on the right has been placed and most of it appears to be outside of the right hemithorax except for maybe the distal tip. However, the right pneumothorax is no longer seen suggesting that it may be within the pleural space. Chest CT could confirm location, if needed. 2. Persistent volume loss and left mid and lower lung zone airspace consolidation. No left pneumothorax is visualized. 3. The nasogastric tube tip is in the stomach. Conor Chaudhry MD Thoracic Spine CT [id number]/18/172209 Signed Impressions: Service Date/Time: Thursday, May 18, 2017 22:27 - CONCLUSION: 1. Superior endplate fracture of T12 without involvement of the posterior cortex and with approximate 10%% loss of height. 2. Numerous bilateral posterior rib fractures from C7 to the level of the 7th rib. Josemanuel Murphy MD Pelvis X-Ray [id number]/18/172209 Signed Impressions: Service Date/Time: Thursday, May 18, 2017 22:09 - CONCLUSION: No gross fracture seen. Josemanuel Murphy MD Lumbar Spine CT [id number]/18/172209 Signed Impressions: Service Date/Time: Thursday, May 18, 2017 22:27 - CONCLUSION: 1. Lumbar vertebral bodies and posterior elements are intact. 2. Superior endplate fracture of T12 and medial left posterior 11th rib fracture. Josemanuel Murphy MD Head CT [id number]/18/172209 Signed Impressions: Service Date/Time: Thursday, May 18, 2017 22:27 - CONCLUSION: 1. No acute findings in the brain. Josemanuel Murphy MD Chest X-Ray 05/18/172209 Signed Impressions: Service Date/Time: Thursday, May 18, 2017 22:09 - CONCLUSION: Left chest drainage tube in the medial apex. Multiple displaced left rib fractures. Josemanuel Murphy MD Chest CT [id number]/18/172209 Signed Impressions: Service Date/Time: Thursday, May 18, 2017 22:27 - CONCLUSION: 1. Multiple fractures of the left ribs, left clavicle, left scapula and fracture of the lateral right 5th rib. 2. Bilateral pulmonary contusions, left greater than right and left pleural fluid. 3. Bilateral pneumothoraces with left chest drainage tube in place. Josemanuel Murphy MD Cervical Spine CT [id number]/18/172209 Signed Impressions: Service Date/Time: Thursday, May 18, 2017 22:27 - CONCLUSION: 1. Left transverse process fracture of C6 and fractures of the medial left 1st and 2nd ribs. 2. The vertebral bodies of the cervical spine down to C7 and posterior elements down to the level of C5 are intact. Josemanuel Murphy MD Abdomen/Pelvis CT [id number]/18/172209 Signed Impressions: Service Date/Time: Thursday, May 18, 2017 22:27 - CONCLUSION: 1. Multiple findings in the chest including bilateral pneumothoraces and multiple bilateral rib fractures, see CT thorax report. 2. The solid and hollow organs of the abdomen/pelvis are grossly intact. Josemanuel Murphy MD Objective Remarks LLE: dressings clean and dry.; intact. nvi. LUE: +swelling of shoulder. good cap refill Assessment & Plan Assessment and Plan 1) Left Femoral Shaft Fx s/p IMN - POD 15 -daily dressing changes -WBAT -will order Xrays today of left femur 2) Left Clavicle fxs s/p ORIF- POD 10 3) Left Glenoid Fx s/p ORIF - POD 2 -NWB LUE -maintain sling/swathe at all times -no ROM -daily dressing changes POD 2 -Ortho surgeries complete at this time Kt Herrera/Sign Poster PA Jun 05, 2017 07:06
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
[2017-06-05] MEDS: POTASSIUM CHLORIDE 25 MEQ EFFERVESCENT TAB PO SCH (09:49)
[2017-06-05] MEDS: FAMOTIDINE 20 MG TAB NG SCH ×2 (09:49→20:12)
[2017-06-05] MEDS: DOCUSATE SODIUM 50 MG/SENNA 8.6 MG TAB PO SCH ×2 (09:49→20:12)
[2017-06-05] MEDS: FUROSEMIDE 20 MG/2 ML VIAL IV PUSH SCH ×2 (09:50→17:01)
[2017-06-05] MEDS: SODIUM CHLORIDE 0.9% FLUSH 10 ML FLUSH IV FLUSH SCH ×2 (09:50→20:13)
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
[2017-06-05] MEDS: ERTAPENEM INJ 1,000 MG in SODIUM CHLORIDE 0.9% INJ 100 ML IV SCH (16:59)
[2017-06-05] MEDS: RESP: ALBUTEROL 2.5 MG/3 ML NEB (PRN) INH (17:00)
[2017-06-06] VITALS (13 sets, daily range): BP systolic 129–147; BP diastolic 63–84; PULSE 69–108; RESP 16–28; TEMP 98.1–99.3; O2SAT 95–99
[2017-06-06] MEDS: oxyCODONE HCL ORAL CONC 5 MG/0.25 ML SYRINGE PO SCH ×6 (01:00→20:44)
[2017-06-06] MEDS: CHLORHEXIDINE GLUCONATE 2 % 1 PACK (2 CLOTHS) TOP SCH (03:50)
[2017-06-06] MEDS: ENOXAPARIN SODIUM 30 MG/0.3 ML SYRINGE SQ SCH ×2 (05:28→17:21)
[2017-06-06 05:47] LABS: AUTOMATED NEUTROPHIL # 6.1 TH/MM3 (1.8-7.7); BASOPHIL % 0.3 % (0.0-2.0); EOSINOPHIL # 0.1 TH/MM3 (0-0.4); EOSINOPHIL % 1.3 % (0.0-4.0); HEMATOCRIT 26.8 % (39.0-51.0); HEMOGLOBIN 8.9 GM/DL (13.0-17.0); LYMPH % 16.2 % (9.0-44.0); LYMPHOCYTE # 1.4 TH/MM3 (1.0-4.8); MEAN CELL VOLUME 92.1 FL (80.0-100.0); MEAN CORPUSCULAR HEMOGLOBIN 30.5 PG (27.0-34.0); MEAN CORPUSCULAR HGB CONC 33.1 % (32.0-36.0); MEAN PLATELET VOLUME 8.4 FL (7.0-11.0); MONOCYTE # 0.9 TH/MM3 (0-0.9); NEUT % 72.2 % (16.0-70.0); PLATELET COUNT 490 TH/MM3 (150-450); RED BLOOD COUNT 2.91 MIL/MM3 (4.50-5.90); RED CELL DISTRIBUTION WIDTH 16.1 % (11.6-17.2); WHITE BLOOD COUNT 8.5 TH/MM3 (4.0-11.0)
[2017-06-06 05:58] LABS: BICARBONATE 28.7 MEQ/L (21.0-32.0); CALCIUM 6.9 MG/DL (8.5-10.1); CREATININE 0.8 MG/DL (0.60-1.30)
[2017-06-06 06:17] LABS: TOTAL PROTEIN 6.6 GM/DL (6.4-8.2)
[2017-06-06 06:41] LABS: CALCIUM-PROTEIN CORRECTED 7.2 MG/DL (8.5-10.1)
--- NOTE | 2017-06-06 08:15 | PD.ORT.PN ---
Subjective Subjective Remarks Continuing to progress. Pain is controlled Objective Vitals Vital Signs Date Time Temp Pulse Resp B/P (MAP) Pulse Ox O2 Delivery O2 Flow Rate FiO2 06/06/17 06:00 96 06/06/17 04:00 98 06/06/17 04:00 69 18 138/69 (92) 95 06/06/17 02:00 102 06/06/17 00:00 89 06/06/17 00:00 95 22 129/63 (85) 99 06/05/17 22:00 97 06/05/17 20:19 97 35 06/05/17 20:00 97 22 125/68 (87) 96 06/05/17 20:00 106 06/05/17 19:00 97 Nasal Cannula 3.00 06/05/17 18:00 101 06/05/17 16:00 99 06/05/17 16:00 98.8 99 30 120/67 (84) 97 06/05/17 14:00 94 06/05/17 12:00 97 06/05/17 12:00 98.7 97 27 113/67 (82) 97 06/05/17 11:20 95 35 06/05/17 10:00 105 06/05/17 09:00 94 Nasal Cannula 3.00 I/O 06/05/17 06/05/17 06/05/17 06/06/17 06/06/17 06/06/17 07:00 15:00 23:00 07:00 15:00 23:00 Intake Total 1973 ml 263 ml 480 ml Output Total 1625 ml 860 ml 550 ml 800 ml Balance -1625 ml 1113 ml -287 ml -320 ml Intake Oral 680 ml 150 ml 480 ml IV Total 1293 ml 113 ml Other 0 ml Output Urine Total 1625 ml 860 ml 550 ml 800 ml Stool Total 0 ml Bladder Scan Volume Amount 505 ml Result Diagram: 06/06/17 0510 06/06/17 0510 Imaging Last 24 hours Impressions Chest X-Ray 05/19/17 0000 Signed Impressions: Service Date/Time: Friday, May 19, 2017 01:00 - CONCLUSION: 1. Removal of the 2 pleural catheters along the right chest wall and placement of another right chest tube with distal tip in the medial inferior right hemithorax. The right pneumothorax has resolved with shift of the mediastinum back to the midline and resolution of the generalized lucency in the right hemithorax. 2. Remaining findings are stable. Conor Chaudhry MD Chest X-Ray 05/19/17 0000 Signed Impressions: Service Date/Time: Friday, May 19, 2017 00:13 - CONCLUSION: 1. The second small bore pigtail pleural catheter on the right has been placed and most of it appears to be outside of the right hemithorax except for maybe the distal tip. However, the right pneumothorax is no longer seen suggesting that it may be within the pleural space. Chest CT could confirm location, if needed. 2. Persistent volume loss and left mid and lower lung zone airspace consolidation. No left pneumothorax is visualized. 3. The nasogastric tube tip is in the stomach. Conor Chaudhry MD Thoracic Spine CT [id number]/[id number] Signed Impressions: Service Date/Time: Thursday, May 18, 2017 22:27 - CONCLUSION: 1. Superior endplate fracture of T12 without involvement of the posterior cortex and with approximate 10%% loss of height. 2. Numerous bilateral posterior rib fractures from C7 to the level of the 7th rib. Josemanuel Murphy MD Pelvis X-Ray [id number] Signed Impressions: Service Date/Time: Thursday, May 18, 2017 22:09 - CONCLUSION: No gross fracture seen. Josemanuel Murphy MD Lumbar Spine CT [id number] Signed Impressions: Service Date/Time: Thursday, May 18, 2017 22:27 - CONCLUSION: 1. Lumbar vertebral bodies and posterior elements are intact. 2. Superior endplate fracture of T12 and medial left posterior 11th rib fracture. Josemanuel Murphy MD Head CT [id number] Signed Impressions: Service Date/Time: Thursday, May 18, 2017 22:27 - CONCLUSION: 1. No acute findings in the brain. Josemanuel Murphy MD Chest X-Ray [id number]/18/172209 Signed Impressions: Service Date/Time: Thursday, May 18, 2017 22:09 - CONCLUSION: Left chest drainage tube in the medial apex. Multiple displaced left rib fractures. Josemanuel Murphy MD Chest CT [id number]/172209 Signed Impressions: Service Date/Time: Thursday, May 18, 2017 22:27 - CONCLUSION: 1. Multiple fractures of the left ribs, left clavicle, left scapula and fracture of the lateral right 5th rib. 2. Bilateral pulmonary contusions, left greater than right and left pleural fluid. 3. Bilateral pneumothoraces with left chest drainage tube in place. Josemanuel Murphy MD Cervical Spine CT [id number] Signed Impressions: Service Date/Time: Thursday, May 18, 2017 22:27 - CONCLUSION: 1. Left transverse process fracture of C6 and fractures of the medial left 1st and 2nd ribs. 2. The vertebral bodies of the cervical spine down to C7 and posterior elements down to the level of C5 are intact. Josemanuel Murphy MD Abdomen/Pelvis CT [id number] Signed Impressions: Service Date/Time: Thursday, May 18, 2017 22:27 - CONCLUSION: 1. Multiple findings in the chest including bilateral pneumothoraces and multiple bilateral rib fractures, see CT thorax report. 2. The solid and hollow organs of the abdomen/pelvis are grossly intact. Josemanuel Murphy MD Objective Remarks LLE: dressings clean and dry.; intact. nvi. LUE: Clean dry dressings in place +swelling of shoulder. good cap refill. Sling and swath in place. Full extension and flexion of all fingers Assessment & Plan Assessment and Plan 1) Left Femoral Shaft Fx s/p IMN - POD 16 -daily dressing changes -WBAT 2) Left Clavicle fxs s/p ORIF- POD 11 3) Left Glenoid Fx s/p ORIF - POD 3 -NWB LUE -maintain sling/swathe at all times -no ROM -daily dressing changes POD 2 . Dry dressings over clavicle and Xeroform over humerus incision -Ortho surgeries complete at this time Roman Zaomra Jr. Jun 06, 2017 08:15
[2017-06-06] MEDS: FUROSEMIDE 20 MG/2 ML VIAL IV PUSH SCH (08:43)
[2017-06-06] MEDS: FAMOTIDINE 20 MG TAB NG SCH ×2 (08:43→20:44)
[2017-06-06] MEDS: DOCUSATE SODIUM 50 MG/SENNA 8.6 MG TAB PO SCH ×2 (08:43→20:44)
[2017-06-06] MEDS: POTASSIUM CHLORIDE 25 MEQ EFFERVESCENT TAB PO SCH (08:44)
[2017-06-06] MEDS: SODIUM CHLORIDE 0.9% FLUSH 10 ML FLUSH IV FLUSH SCH ×2 (08:44→20:44)
[2017-06-06] MEDS: MORPHINE SULFATE 2 MG/ML SYRINGE IV PUSH PRN ×4 (10:50→22:24)
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
[2017-06-06] MEDS: ERTAPENEM INJ 1,000 MG in SODIUM CHLORIDE 0.9% INJ 100 ML IV SCH (15:47)
[2017-06-06] MEDS: SENNOSIDES 8.6 MG TAB PO PRN (20:44)
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
[2017-06-07] VITALS (14 sets, daily range): BP systolic 128–165; BP diastolic 64–80; PULSE 76–103; RESP 17–29; TEMP 98–101; O2SAT 94–100
[2017-06-07] MEDS: MAGNESIUM HYDROXIDE SUSP 30 ML CUP PO SCH ×3 (00:10→23:22)
[2017-06-07] MEDS: oxyCODONE HCL ORAL CONC 5 MG/0.25 ML SYRINGE PO SCH ×5 (00:10→20:55)
[2017-06-07] MEDS: MORPHINE SULFATE 2 MG/ML SYRINGE IV PUSH PRN ×5 (01:10→21:44)
[2017-06-07] MEDS: RESP: ALBUTEROL 2.5 MG/3 ML NEB (PRN) INH (03:32)
[2017-06-07] MEDS: ACETAMINOPHEN 325 MG TAB PO PRN ×2 (03:36→11:17)
[2017-06-07] MEDS: CHLORHEXIDINE GLUCONATE 2 % 1 PACK (2 CLOTHS) TOP SCH (04:00)
[2017-06-07] MEDS: ENOXAPARIN SODIUM 30 MG/0.3 ML SYRINGE SQ SCH ×2 (04:42→18:42)
[2017-06-07] MEDS: POTASSIUM CHLORIDE 25 MEQ EFFERVESCENT TAB PO SCH (08:22)
[2017-06-07] MEDS: FAMOTIDINE 20 MG TAB NG SCH ×2 (08:23→20:54)
[2017-06-07] MEDS: DOCUSATE SODIUM 50 MG/SENNA 8.6 MG TAB PO SCH ×2 (08:23→20:54)
[2017-06-07] MEDS: SODIUM CHLORIDE 0.9% FLUSH 10 ML FLUSH IV FLUSH SCH ×2 (08:24→20:55)
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
[2017-06-07] MEDS: REMOVE OLD DURAGESIC (FENTANYL) PATCH T-DERMAL SCH (11:18)
[2017-06-07] MEDS: fentaNYL 50 MCG/HR PATCH T-DERMAL SCH (11:18)
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
[2017-06-07] MEDS: ERTAPENEM INJ 1,000 MG in SODIUM CHLORIDE 0.9% INJ 100 ML IV SCH (16:14)
[2017-06-07 16:48] LABS: AUTOMATED NEUTROPHIL # 6.4 TH/MM3 (1.8-7.7); BASOPHIL # 0.1 TH/MM3 (0-0.2); BASOPHIL % 0.6 % (0.0-2.0); EOSINOPHIL # 0.2 TH/MM3 (0-0.4); EOSINOPHIL % 2.6 % (0.0-4.0); HEMATOCRIT 32.1 % (39.0-51.0); HEMOGLOBIN 10.5 GM/DL (13.0-17.0); LYMPH % 16.8 % (9.0-44.0); LYMPHOCYTE # 1.5 TH/MM3 (1.0-4.8); MEAN CELL VOLUME 89.8 FL (80.0-100.0); MEAN CORPUSCULAR HEMOGLOBIN 29.3 PG (27.0-34.0); MEAN CORPUSCULAR HGB CONC 32.6 % (32.0-36.0); MEAN PLATELET VOLUME 8.7 FL (7.0-11.0); MONO % 8.4 % (0.0-8.0); MONOCYTE # 0.7 TH/MM3 (0-0.9); NEUT % 71.6 % (16.0-70.0); PLATELET COUNT 470 TH/MM3 (150-450); RED BLOOD COUNT 3.57 MIL/MM3 (4.50-5.90); RED CELL DISTRIBUTION WIDTH 15.3 % (11.6-17.2); WHITE BLOOD COUNT 8.9 TH/MM3 (4.0-11.0)
[2017-06-07 17:06] LABS: BICARBONATE 27.2 MEQ/L (21.0-32.0); CALCIUM 7.7 MG/DL (8.5-10.1); CREATININE 0.75 MG/DL (0.60-1.30)
[2017-06-08] VITALS (11 sets, daily range): BP systolic 127–141; BP diastolic 67–84; PULSE 91–104; RESP 17–20; TEMP 97.8–98.6; O2SAT 93–100
[2017-06-08] MEDS: oxyCODONE HCL ORAL CONC 5 MG/0.25 ML SYRINGE PO SCH ×6 (01:10→20:21)
[2017-06-08] MEDS: MORPHINE SULFATE 2 MG/ML SYRINGE IV PUSH PRN ×3 (01:52→18:08)
[2017-06-08] MEDS: CHLORHEXIDINE GLUCONATE 2 % 1 PACK (2 CLOTHS) TOP SCH (02:45)
[2017-06-08] MEDS: ENOXAPARIN SODIUM 30 MG/0.3 ML SYRINGE SQ SCH ×2 (04:49→16:29)
[2017-06-08 05:50] LABS: BASOPHIL % 0.5 % (0.0-2.0); EOSINOPHIL # 0.2 TH/MM3 (0-0.4); EOSINOPHIL % 2.7 % (0.0-4.0); HEMATOCRIT 31.4 % (39.0-51.0); HEMOGLOBIN 10.4 GM/DL (13.0-17.0); LYMPH % 19.6 % (9.0-44.0); LYMPHOCYTE # 1.4 TH/MM3 (1.0-4.8); MEAN CELL VOLUME 89.3 FL (80.0-100.0); MEAN CORPUSCULAR HEMOGLOBIN 29.6 PG (27.0-34.0); MEAN CORPUSCULAR HGB CONC 33.2 % (32.0-36.0); MEAN PLATELET VOLUME 8.4 FL (7.0-11.0); MONO % 8.5 % (0.0-8.0); MONOCYTE # 0.6 TH/MM3 (0-0.9); NEUT % 68.7 % (16.0-70.0); PLATELET COUNT 538 TH/MM3 (150-450); RED BLOOD COUNT 3.51 MIL/MM3 (4.50-5.90); RED CELL DISTRIBUTION WIDTH 15.5 % (11.6-17.2); WHITE BLOOD COUNT 7.3 TH/MM3 (4.0-11.0)
[2017-06-08 05:53] LABS: BICARBONATE 26.5 MEQ/L (21.0-32.0); CALCIUM 7.6 MG/DL (8.5-10.1); CREATININE 0.82 MG/DL (0.60-1.30)
--- NOTE | 2017-06-08 07:09 | PD.ORT.PN ---
Subjective Subjective Remarks s/p IMN left femur - POD 18 s/p ORIF left clavicle fx - POD 13 s/p ORIF left glenoid fx - POD 5 extubated. awake. responds to commands Objective Vitals Vital Signs Date Time Temp Pulse Resp B/P (MAP) Pulse Ox O2 Delivery O2 Flow Rate FiO2 06/08/17 06:00 100 06/08/17 05:49 18 06/08/17 04:00 98.6 98 18 137/75 (95) 100 06/08/17 04:00 93 06/08/17 02:00 98 06/08/17 01:57 16 06/08/17 00:00 98 06/08/17 00:00 98.2 98 17 131/78 (95) 100 06/07/17 22:00 81 06/07/17 20:21 100 Nasal Cannula 3.00 06/07/17 20:00 98.9 96 24 145/76 (99) 100 06/07/17 20:00 96 06/07/17 19:00 100 Nasal Cannula 2.00 06/07/17 18:00 90 06/07/17 16:00 98.0 94 20 165/77 (106) 98 06/07/17 16:00 94 06/07/17 14:00 76 06/07/17 12:00 98.8 103 22 129/80 (96) 95 06/07/17 12:00 76 06/07/17 10:00 76 06/07/17 08:02 97 Nasal Cannula 3.00 06/07/17 08:00 76 06/07/17 08:00 97 Nasal Cannula 2.00 06/07/17 08:00 98.8 90 22 128/73 (91) 97 I/O 06/07/17 06/07/17 06/07/17 06/08/17 06/08/17 06/08/17 07:00 15:00 23:00 07:00 15:00 23:00 Intake Total 720 ml 760 ml 120 ml Output Total 501 ml 226 ml 375 ml Balance 219 ml 534 ml -255 ml Intake Oral 720 ml 660 ml 120 ml IV Total 100 ml Output Urine Total 500 ml 225 ml 375 ml Stool Total 1 ml 1 ml # Voids 5 5 # Bowel Movements 2 Result Diagram: 06/08/1744406/08/17444 Imaging Last 24 hours Impressions Chest X-Ray 05/19/17 0000 Signed Impressions: Service Date/Time: Friday, May 19, 2017 01:00 - CONCLUSION: 1. Removal of the 2 pleural catheters along the right chest wall and placement of another right chest tube with distal tip in the medial inferior right hemithorax. The right pneumothorax has resolved with shift of the mediastinum back to the midline and resolution of the generalized lucency in the right hemithorax. 2. Remaining findings are stable. Conor Chaudhry MD Chest X-Ray 05/19/17 0000 Signed Impressions: Service Date/Time: Friday, May 19, 2017 00:13 - CONCLUSION: 1. The second small bore pigtail pleural catheter on the right has been placed and most of it appears to be outside of the right hemithorax except for maybe the distal tip. However, the right pneumothorax is no longer seen suggesting that it may be within the pleural space. Chest CT could confirm location, if needed. 2. Persistent volume loss and left mid and lower lung zone airspace consolidation. No left pneumothorax is visualized. 3. The nasogastric tube tip is in the stomach. Conor Chaudhry MD Thoracic Spine CT [id number]/18/[id number] Signed Impressions: Service Date/Time: Thursday, May 18, 2017 22:27 - CONCLUSION: 1. Superior endplate fracture of T12 without involvement of the posterior cortex and with approximate 10%% loss of height. 2. Numerous bilateral posterior rib fractures from C7 to the level of the 7th rib. Josemanuel Murphy MD Pelvis X-Ray [id number]/[id number] Signed Impressions: Service Date/Time: Thursday, May 18, 2017 22:09 - CONCLUSION: No gross fracture seen. Josemanuel Murphy MD Lumbar Spine CT [id number]/18/172209 Signed Impressions: Service Date/Time: Thursday, May 18, 2017 22:27 - CONCLUSION: 1. Lumbar vertebral bodies and posterior elements are intact. 2. Superior endplate fracture of T12 and medial left posterior 11th rib fracture. Josemanuel Murphy MD Head CT [id number]/18/172209 Signed Impressions: Service Date/Time: Thursday, May 18, 2017 22:27 - CONCLUSION: 1. No acute findings in the brain. Josemanuel Murphy MD Chest X-Ray [id number]/18/172209 Signed Impressions: Service Date/Time: Thursday, May 18, 2017 22:09 - CONCLUSION: Left chest drainage tube in the medial apex. Multiple displaced left rib fractures. Josemanuel Murphy MD Chest CT [id number]/18/172209 Signed Impressions: Service Date/Time: Thursday, May 18, 2017 22:27 - CONCLUSION: 1. Multiple fractures of the left ribs, left clavicle, left scapula and fracture of the lateral right 5th rib. 2. Bilateral pulmonary contusions, left greater than right and left pleural fluid. 3. Bilateral pneumothoraces with left chest drainage tube in place. Josemanuel Murphy MD Cervical Spine CT [id number]/18/172209 Signed Impressions: Service Date/Time: Thursday, May 18, 2017 22:27 - CONCLUSION: 1. Left transverse process fracture of C6 and fractures of the medial left 1st and 2nd ribs. 2. The vertebral bodies of the cervical spine down to C7 and posterior elements down to the level of C5 are intact. Josemanuel Murphy MD Abdomen/Pelvis CT 05/18/172209 Signed Impressions: Service Date/Time: Thursday, May 18, 2017 22:27 - CONCLUSION: 1. Multiple findings in the chest including bilateral pneumothoraces and multiple bilateral rib fractures, see CT thorax report. 2. The solid and hollow organs of the abdomen/pelvis are grossly intact. Josemanuel Murphy MD Objective Remarks LLE: dressings clean and dry.; intact. nvi. LUE: Clean dry dressings in place +swelling of shoulder. good cap refill. Sling and swath in place. Full extension and flexion of all fingers Assessment & Plan Assessment and Plan 1) Left Femoral Shaft Fx s/p IMN - POD 18 -daily dressing changes -WBAT 2) Left Clavicle fxs s/p ORIF- POD 13 3) Left Glenoid Fx s/p ORIF - POD 5 -NWB LUE -maintain sling/swathe at all times -no ROM -daily dressing changes POD 2 . Dry dressings over clavicle and Xeroform over humerus incision -Ortho surgeries complete at this time Kt Herrera/Sports Equipment Racker IRVIN Jun 08, 2017 07:09
[2017-06-08] MEDS: DOCUSATE SODIUM 50 MG/SENNA 8.6 MG TAB PO SCH ×2 (08:23→20:22)
[2017-06-08] MEDS: FAMOTIDINE 20 MG TAB NG SCH ×2 (08:23→20:22)
[2017-06-08] MEDS: SODIUM CHLORIDE 0.9% FLUSH 10 ML FLUSH IV FLUSH SCH ×2 (08:23→20:22)
[2017-06-08] MEDS: POTASSIUM CHLORIDE 25 MEQ EFFERVESCENT TAB PO SCH (08:23)
[2017-06-08] MEDS: LACTULOSE SYRUP 20 GM/30 ML CUP PO SCH (08:28)
[2017-06-08] MEDS: MAGNESIUM HYDROXIDE SUSP 30 ML CUP PO SCH (13:13)
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
[2017-06-09] VITALS (11 sets, daily range): BP systolic 123–149; BP diastolic 69–82; PULSE 93–104; RESP 16–20; TEMP 97.7–99.5; O2SAT 92–98
[2017-06-09] MEDS: oxyCODONE HCL ORAL CONC 5 MG/0.25 ML SYRINGE PO SCH ×6 (02:08→20:24)
[2017-06-09] MEDS: MAGNESIUM HYDROXIDE SUSP 30 ML CUP PO SCH ×2 (02:08→14:00)
[2017-06-09] MEDS: CHLORHEXIDINE GLUCONATE 2 % 1 PACK (2 CLOTHS) TOP SCH (04:00)
[2017-06-09] MEDS: ENOXAPARIN SODIUM 30 MG/0.3 ML SYRINGE SQ SCH ×2 (04:26→17:49)
[2017-06-09] MEDS: RESP: ALBUTEROL 2.5 MG/3 ML NEB (PRN) INH (04:37)
[2017-06-09] MEDS: MORPHINE SULFATE 2 MG/ML SYRINGE IV PUSH PRN ×2 (05:29→23:16)
[2017-06-09] MEDS: LACTULOSE SYRUP 20 GM/30 ML CUP PO SCH (09:00)
[2017-06-09] MEDS: SODIUM CHLORIDE 0.9% FLUSH 10 ML FLUSH IV FLUSH SCH ×2 (09:00→20:24)
[2017-06-09] MEDS: DOCUSATE SODIUM 50 MG/SENNA 8.6 MG TAB PO SCH ×2 (09:00→20:24)
[2017-06-09] MEDS: FAMOTIDINE 20 MG TAB NG SCH ×2 (09:37→20:23)
[2017-06-09] MEDS: POTASSIUM CHLORIDE 25 MEQ EFFERVESCENT TAB PO SCH (09:37)
--- NOTE | 2017-06-09 11:24 | RADRPT ---
EXAM DATE/TIME: 06/09/2017 10:43 [place] COMPARISON: No previous studies available for comparison. INDICATIONS : T12 fracture. MEDICAL HISTORY : cleared by rad SURGICAL HISTORY : cleared by rad ENCOUNTER: Initial ACUITY: 3 day PAIN SCORE: 5/10 LOCATION: back TECHNIQUE: Multiplanar multisequence MRI of the thoracic spine was performed. FINDINGS: There is a mild compression fracture through the superior endplate of T12 with marrow edema. This is not associated with significant retropulsion. There is no compression of the conus medullaris. At T8 vertebral body posteriorly there is a 2.1 cm lesion that has increased T1 signal and decreased T2 signal. Findings are nonspecific. Consider atypical hemangioma. No associated pathologic fracture. CONCLUSION: 1. At T12 there is a mild superior plate compression fracture without retropulsion. No compression of conus medullaris. 2. At T8 there is a 2.1 cm vertebral body lesion posteriorly. This is of uncertain etiology. Consider atypical hemangioma. Av Cheung MD on June 09, 2017 at 11:14 Board Certified Radiologist. This report was verified electronically.
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
[2017-06-10 00:23] VITALS: BP 128/74; PULSE 91; RESP 18; TEMP 98.8; O2SAT 96
[2017-06-10] MEDS: MAGNESIUM HYDROXIDE SUSP 30 ML CUP PO SCH ×3 (01:20→21:19)
[2017-06-10] MEDS: oxyCODONE HCL ORAL CONC 5 MG/0.25 ML SYRINGE PO SCH ×6 (01:20→21:18)
[2017-06-10] MEDS: CHLORHEXIDINE GLUCONATE 2 % 1 PACK (2 CLOTHS) TOP SCH ×2 (04:00→21:19)
[2017-06-10 04:30] VITALS: BP 143/81; PULSE 95; RESP 17; TEMP 98.2; O2SAT 97
[2017-06-10] MEDS: ENOXAPARIN SODIUM 30 MG/0.3 ML SYRINGE SQ SCH ×2 (05:50→17:55)
--- NOTE | 2017-06-10 07:12 | PD.ORT.PN ---
Subjective Subjective Remarks Continuing to progress. Pain is controlled Objective Vitals Vital Signs Date Time Temp Pulse Resp B/P (MAP) Pulse Ox O2 Delivery O2 Flow Rate FiO2 06/10/17 06:29 20 06/10/17 04:30 98.2 95 17 143/81 (101) 97 06/10/17 02:18 20 06/10/17 00:23 98.8 91 18 128/74 (92) 96 06/09/17 20:00 97.7 93 18 123/82 (96) 96 06/09/17 19:20 Nasal Cannula 2.00 06/09/17 18:32 95 06/09/17 17:19 98 Nasal Cannula 3.00 06/09/17 16:00 98.0 93 16 135/78 (97) 95 06/09/17 14:33 95 06/09/17 12:29 2.00 06/09/17 12:27 95 06/09/17 12:00 97.7 95 20 148/73 (98) 98 06/09/17 09:15 92 Nasal Cannula 3.00 06/09/17 08:00 97.8 104 19 140/69 (92) 92 I/O 06/09/17 06/09/17 06/09/17 06/10/17 06/10/17 06/10/17 07:00 15:00 23:00 07:00 15:00 23:00 Intake Total 380 ml 0 ml 765 ml 480 ml Output Total 1800 ml 1750 ml 2700 ml Balance -1420 ml 0 ml -985 ml -2220 ml Intake Oral 380 ml 765 ml 480 ml IV Total 0 ml Output Urine Total 1800 ml 1750 ml 2700 ml # Bowel Movements 0 4 Result Diagram: 06/08/17 0445 06/08/17 0445 Imaging Last 24 hours Impressions Chest X-Ray 05/19/17 0000 Signed Impressions: Service Date/Time: Friday, May 19, 2017 01:00 - CONCLUSION: 1. Removal of the 2 pleural catheters along the right chest wall and placement of another right chest tube with distal tip in the medial inferior right hemithorax. The right pneumothorax has resolved with shift of the mediastinum back to the midline and resolution of the generalized lucency in the right hemithorax. 2. Remaining findings are stable. Conor Chaudhry MD Chest X-Ray 05/19/17 0000 Signed Impressions: Service Date/Time: Friday, May 19, 2017 00:13 - CONCLUSION: 1. The second small bore pigtail pleural catheter on the right has been placed and most of it appears to be outside of the right hemithorax except for maybe the distal tip. However, the right pneumothorax is no longer seen suggesting that it may be within the pleural space. Chest CT could confirm location, if needed. 2. Persistent volume loss and left mid and lower lung zone airspace consolidation. No left pneumothorax is visualized. 3. The nasogastric tube tip is in the stomach. Conor Chaudhry MD Thoracic Spine CT 05/18/172209 Signed Impressions: Service Date/Time: Thursday, May 18, 2017 22:27 - CONCLUSION: 1. Superior endplate fracture of T12 without involvement of the posterior cortex and with approximate 10%% loss of height. 2. Numerous bilateral posterior rib fractures from C7 to the level of the 7th rib. Josemanuel Murphy MD Pelvis X-Ray [id number]/18/172209 Signed Impressions: Service Date/Time: Thursday, May 18, 2017 22:09 - CONCLUSION: No gross fracture seen. Josemanuel Murphy MD Lumbar Spine CT [id number]/18/172209 Signed Impressions: Service Date/Time: Thursday, May 18, 2017 22:27 - CONCLUSION: 1. Lumbar vertebral bodies and posterior elements are intact. 2. Superior endplate fracture of T12 and medial left posterior 11th rib fracture. Josemanuel Murphy MD Head CT [id number]/18/172209 Signed Impressions: Service Date/Time: Thursday, May 18, 2017 22:27 - CONCLUSION: 1. No acute findings in the brain. Josemanuel Murphy MD Chest X-Ray [id number]/18/172209 Signed Impressions: Service Date/Time: Thursday, May 18, 2017 22:09 - CONCLUSION: Left chest drainage tube in the medial apex. Multiple displaced left rib fractures. Josemanuel Mruphy MD Chest CT [id number]/18/172209 Signed Impressions: Service Date/Time: Thursday, May 18, 2017 22:27 - CONCLUSION: 1. Multiple fractures of the left ribs, left clavicle, left scapula and fracture of the lateral right 5th rib. 2. Bilateral pulmonary contusions, left greater than right and left pleural fluid. 3. Bilateral pneumothoraces with left chest drainage tube in place. Josemanuel Murphy MD Cervical Spine CT [id number]/18/172209 Signed Impressions: Service Date/Time: Thursday, May 18, 2017 22:27 - CONCLUSION: 1. Left transverse process fracture of C6 and fractures of the medial left 1st and 2nd ribs. 2. The vertebral bodies of the cervical spine down to C7 and posterior elements down to the level of C5 are intact. Josemanuel Murphy MD Abdomen/Pelvis CT [id number]/18/172209 Signed Impressions: Service Date/Time: Thursday, May 18, 2017 22:27 - CONCLUSION: 1. Multiple findings in the chest including bilateral pneumothoraces and multiple bilateral rib fractures, see CT thorax report. 2. The solid and hollow organs of the abdomen/pelvis are grossly intact. Josemanuel Murphy MD Objective Remarks LLE: dressings clean and dry.; intact. nvi. LUE: Clean dry dressings in place +swelling of shoulder. good cap refill. Sling is laying on bed next to patient. Full extension and flexion of all fingers Assessment & Plan Assessment and Plan 1) Left Femoral Shaft Fx s/p IMN - POD 19 -daily dressing changes -WBAT 2) Left Clavicle fxs s/p ORIF- POD 14 3) Left Glenoid Fx s/p ORIF - POD 6 -NWB LUE -maintain sling/swathe at all times - Orthotec to apply a new sling and swath and to reinforce -no ROM -daily dressing . Dry dressings over clavicle and Xeroform over humerus incision New x-rays today of left shoulder due to noncompliance in sling not on body -Ortho surgeries complete at this time Roman Zamora Jr. Jun 10, 2017 07:12
[2017-06-10 08:00] VITALS: BP 141/78; PULSE 99; RESP 19; TEMP 97.9; O2SAT 95
[2017-06-10] MEDS: LACTULOSE SYRUP 20 GM/30 ML CUP PO SCH (09:00)
--- NOTE | 2017-06-10 10:24 | RADRPT ---
EXAM DATE/TIME: 06/10/2017 09:45 [facility] COMPARISON: No previous studies available for comparison. INDICATIONS : Left shoulder pain; Post op. MEDICAL HISTORY : None. SURGICAL HISTORY : ORIF left shoulder. ENCOUNTER: Subsequent ACUITY: 1 week PAIN SCORE: 10/10 LOCATION: Left shoulder. FINDINGS: Status post internal fixation of the left clavicle. There is good alignment and position of the fract ure fragments. There are 2 screws in the scapula. There is good alignment at the left shoulder joint. Multiple left-sided rib fractures are demonstrated. CONCLUSION: Good position and alignment on this postoperative study. Ronnie Childers MD on June 10, 2017 at 10:22 Board Certified Radiologist. This report was verified electronically.
[2017-06-10] MEDS: DOCUSATE SODIUM 50 MG/SENNA 8.6 MG TAB PO SCH ×2 (10:36→21:00)
[2017-06-10] MEDS: POTASSIUM CHLORIDE 25 MEQ EFFERVESCENT TAB PO SCH (10:37)
[2017-06-10] MEDS: FAMOTIDINE 20 MG TAB NG SCH ×2 (10:37→21:19)
[2017-06-10] MEDS: SODIUM CHLORIDE 0.9% FLUSH 10 ML FLUSH IV FLUSH SCH ×2 (10:39→21:18)
[2017-06-10] MEDS: MORPHINE SULFATE 2 MG/ML SYRINGE IV PUSH PRN ×3 (11:40→23:44)
[2017-06-10] MEDS: fentaNYL 50 MCG/HR PATCH T-DERMAL SCH (11:40)
[2017-06-10 12:00] VITALS: BP 127/63; PULSE 103; RESP 19; TEMP 97.7; O2SAT 92
[2017-06-10] MEDS: REMOVE OLD DURAGESIC (FENTANYL) PATCH T-DERMAL SCH (12:00)
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
[2017-06-10 15:02] LABS: CREATININE 0.74 MG/DL (0.60-1.30)
[2017-06-10 16:00] VITALS: BP 140/71; PULSE 95; RESP 18; TEMP 97.7; O2SAT 97
[2017-06-10 20:00] VITALS: BP 132/81; PULSE 94; RESP 16; TEMP 98.1; O2SAT 95
[2017-06-10] MEDS: SODIUM CHLORIDE 0.9% FLUSH 10 ML FLUSH IV FLUSH PRN (23:44)
[2017-06-11] VITALS: BP 146/75; PULSE 94; RESP 16; TEMP 98.9; O2SAT 93
[2017-06-11] MEDS: oxyCODONE HCL ORAL CONC 5 MG/0.25 ML SYRINGE PO SCH ×6 (02:02→21:24)
[2017-06-11] MEDS: ENOXAPARIN SODIUM 30 MG/0.3 ML SYRINGE SQ SCH ×2 (04:18→17:29)
[2017-06-11] MEDS: MORPHINE SULFATE 2 MG/ML SYRINGE IV PUSH PRN ×2 (06:46→14:19)
[2017-06-11] MEDS: SODIUM CHLORIDE 0.9% FLUSH 10 ML FLUSH IV FLUSH PRN (06:46)
[2017-06-11 08:00] VITALS: BP 142/72; PULSE 99; RESP 17; TEMP 97.7; O2SAT 92
[2017-06-11] MEDS: LACTULOSE SYRUP 20 GM/30 ML CUP PO SCH (08:18)
[2017-06-11] MEDS: DOCUSATE SODIUM 50 MG/SENNA 8.6 MG TAB PO SCH ×2 (08:19→21:24)
[2017-06-11] MEDS: FAMOTIDINE 20 MG TAB NG SCH ×2 (08:23→21:24)
[2017-06-11] MEDS: POTASSIUM CHLORIDE 25 MEQ EFFERVESCENT TAB PO SCH (08:23)
[2017-06-11] MEDS: SODIUM CHLORIDE 0.9% FLUSH 10 ML FLUSH IV FLUSH SCH ×2 (08:23→21:24)
[2017-06-11 11:45] VITALS: O2SAT 92
[2017-06-11 12:00] VITALS: BP 152/71; PULSE 90; RESP 17; TEMP 97.5; O2SAT 96
[2017-06-11] MEDS: MAGNESIUM HYDROXIDE SUSP 30 ML CUP PO SCH (12:41)
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
[2017-06-11 16:00] VITALS: BP 163/78; PULSE 98; RESP 17; TEMP 97.8; O2SAT 93
[2017-06-11 20:00] VITALS: BP 129/77; PULSE 94; RESP 18; TEMP 97.8; O2SAT 95
[2017-06-12] VITALS: BP 133/72; PULSE 95; RESP 18; TEMP 98.1; O2SAT 94
[2017-06-12] MEDS: MAGNESIUM HYDROXIDE SUSP 30 ML CUP PO SCH ×2 (01:57→12:38)
[2017-06-12] MEDS: oxyCODONE HCL ORAL CONC 5 MG/0.25 ML SYRINGE PO SCH ×6 (01:58→21:00)
[2017-06-12] MEDS: CHLORHEXIDINE GLUCONATE 2 % 1 PACK (2 CLOTHS) TOP SCH (04:00)
[2017-06-12 04:14] LABS: BICARBONATE 26.5 MEQ/L (21.0-32.0); CALCIUM 7.8 MG/DL (8.5-10.1); CREATININE 0.75 MG/DL (0.60-1.30)
[2017-06-12] MEDS: ENOXAPARIN SODIUM 30 MG/0.3 ML SYRINGE SQ SCH ×2 (06:27→16:39)
[2017-06-12 07:49] LABS: AUTOMATED NEUTROPHIL # 5.8 TH/MM3 (1.8-7.7); BASOPHIL # 0.1 TH/MM3 (0-0.2); BASOPHIL % 0.9 % (0.0-2.0); EOSINOPHIL # 0.2 TH/MM3 (0-0.4); EOSINOPHIL % 2.3 % (0.0-4.0); HEMATOCRIT 33.6 % (39.0-51.0); HEMOGLOBIN 10.9 GM/DL (13.0-17.0); LYMPH % 14.3 % (9.0-44.0); LYMPHOCYTE # 1.2 TH/MM3 (1.0-4.8); MEAN CELL VOLUME 89.3 FL (80.0-100.0); MEAN CORPUSCULAR HGB CONC 32.5 % (32.0-36.0); MEAN PLATELET VOLUME 8.5 FL (7.0-11.0); MONO % 10.9 % (0.0-8.0); MONOCYTE # 0.9 TH/MM3 (0-0.9); NEUT % 71.6 % (16.0-70.0); PLATELET COUNT 346 TH/MM3 (150-450); RED BLOOD COUNT 3.77 MIL/MM3 (4.50-5.90); RED CELL DISTRIBUTION WIDTH 15.2 % (11.6-17.2); WHITE BLOOD COUNT 8.1 TH/MM3 (4.0-11.0)
[2017-06-12 08:00] VITALS: BP 138/72; PULSE 98; RESP 18; TEMP 98.4; O2SAT 94
[2017-06-12] MEDS: LACTULOSE SYRUP 20 GM/30 ML CUP PO SCH (09:00)
[2017-06-12] MEDS: FAMOTIDINE 20 MG TAB NG SCH ×2 (09:00→21:00)
[2017-06-12] MEDS: SODIUM CHLORIDE 0.9% FLUSH 10 ML FLUSH IV FLUSH SCH ×2 (09:00→21:00)
--- NOTE | 2017-06-12 09:06 | PD.ORT.PN ---
Subjective Subjective Remarks Continuing to progress. Pain is controlled Objective Vitals Vital Signs Date Time Temp Pulse Resp B/P (MAP) Pulse Ox O2 Delivery O2 Flow Rate FiO2 06/12/17 00:00 98.1 95 18 133/72 (92) 94 06/11/17 20:00 97.8 94 18 129/77 (94) 95 06/11/17 19:38 21 06/11/17 16:00 97.8 98 17 163/78 (106) 93 06/11/17 12:00 97.5 90 17 152/71 (98) 96 06/11/17 11:45 92 21 I/O 06/11/17 06/11/17 06/11/17 06/12/17 06/12/17 06/12/17 07:00 15:00 23:00 07:00 15:00 23:00 Intake Total 480 ml 1000 ml Output Total 2800 ml 3000 ml 1800 ml Balance -2320 ml -2000 ml -1800 ml Intake Oral 480 ml 1000 ml Output Urine Total 2800 ml 3000 ml 1800 ml # Bowel Movements 0 0 2 Result Diagram: 06/12/17 0609 06/12/17 0341 Imaging Last 24 hours Impressions Chest X-Ray 05/19/17 0000 Signed Impressions: Service Date/Time: Friday, May 19, 2017 01:00 - CONCLUSION: 1. Removal of the 2 pleural catheters along the right chest wall and placement of another right chest tube with distal tip in the medial inferior right hemithorax. The right pneumothorax has resolved with shift of the mediastinum back to the midline and resolution of the generalized lucency in the right hemithorax. 2. Remaining findings are stable. Conor Chaudhry MD Chest X-Ray 05/19/17 0000 Signed Impressions: Service Date/Time: Friday, May 19, 2017 00:13 - CONCLUSION: 1. The second small bore pigtail pleural catheter on the right has been placed and most of it appears to be outside of the right hemithorax except for maybe the distal tip. However, the right pneumothorax is no longer seen suggesting that it may be within the pleural space. Chest CT could confirm location, if needed. 2. Persistent volume loss and left mid and lower lung zone airspace consolidation. No left pneumothorax is visualized. 3. The nasogastric tube tip is in the stomach. Conor Chaudhry MD Thoracic Spine CT 3/5/18 2210 Signed Impressions: Service Date/Time: Thursday, May 18, 2017 22:27 - CONCLUSION: 1. Superior endplate fracture of T12 without involvement of the posterior cortex and with approximate 10%% loss of height. 2. Numerous bilateral posterior rib fractures from C7 to the level of the 7th rib. Josemanuel Murphy MD Pelvis X-Ray 05/18/172209 Signed Impressions: Service Date/Time: Thursday, May 18, 2017 22:09 - CONCLUSION: No gross fracture seen. Josemanuel Murphy MD Lumbar Spine CT [id number]/18/172209 Signed Impressions: Service Date/Time: Thursday, May 18, 2017 22:27 - CONCLUSION: 1. Lumbar vertebral bodies and posterior elements are intact. 2. Superior endplate fracture of T12 and medial left posterior 11th rib fracture. Josemanuel Murphy MD Head CT [id number]/18/172209 Signed Impressions: Service Date/Time: Thursday, May 18, 2017 22:27 - CONCLUSION: 1. No acute findings in the brain. Josemanuel Murphy MD Chest X-Ray 05/18/172209 Signed Impressions: Service Date/Time: Thursday, May 18, 2017 22:09 - CONCLUSION: Left chest drainage tube in the medial apex. Multiple displaced left rib fractures. Josemanuel Murphy MD Chest CT 05/18/172209 Signed Impressions: Service Date/Time: Thursday, May 18, 2017 22:27 - CONCLUSION: 1. Multiple fractures of the left ribs, left clavicle, left scapula and fracture of the lateral right 5th rib. 2. Bilateral pulmonary contusions, left greater than right and left pleural fluid. 3. Bilateral pneumothoraces with left chest drainage tube in place. Josemanuel Murphy MD Cervical Spine CT 05/18/172209 Signed Impressions: Service Date/Time: Thursday, May 18, 2017 22:27 - CONCLUSION: 1. Left transverse process fracture of C6 and fractures of the medial left 1st and 2nd ribs. 2. The vertebral bodies of the cervical spine down to C7 and posterior elements down to the level of C5 are intact. Josemanuel Murphy MD Abdomen/Pelvis CT 05/18/172209 Signed Impressions: Service Date/Time: Thursday, May 18, 2017 22:27 - CONCLUSION: 1. Multiple findings in the chest including bilateral pneumothoraces and multiple bilateral rib fractures, see CT thorax report. 2. The solid and hollow organs of the abdomen/pelvis are grossly intact. Josemanuel Murphy MD Objective Remarks LLE: dressings clean and dry.; intact. nvi. LUE: Clean dry dressings in place +swelling of shoulder. good cap refill. Swelling is on the body but not appropriately attached. Full extension and flexion of all fingers Assessment & Plan Assessment and Plan 1) Left Femoral Shaft Fx s/p IMN - POD 21 -daily dressing changes -WBAT 2) Left Clavicle fxs s/p ORIF- POD 16 3) Left Glenoid Fx s/p ORIF - POD 8 -NWB LUE -maintain sling/swathe at all times - [employer] to apply a new sling and swath and to reinforce -no ROM -daily dressing . Dry dressings over clavicle and Xeroform over humerus incision -Ortho surgeries complete at this time Roman Zamora Jr. Jun 12, 2017 09:06
[2017-06-12] MEDS: POTASSIUM CHLORIDE 25 MEQ EFFERVESCENT TAB PO SCH (09:28)
[2017-06-12] MEDS: DOCUSATE SODIUM 50 MG/SENNA 8.6 MG TAB PO SCH ×2 (09:28→21:00)
[2017-06-12 12:00] VITALS: BP 133/71; PULSE 97; RESP 20; TEMP 98.3; O2SAT 95
[2017-06-12 16:00] VITALS: BP 134/68; PULSE 98; RESP 16; TEMP 97.7; O2SAT 95
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
[2017-06-12 20:00] VITALS: BP 134/80; PULSE 101; RESP 18; TEMP 98.2; O2SAT 96
[2017-06-13] VITALS: BP 131/73; PULSE 96; RESP 18; TEMP 98; O2SAT 95
[2017-06-13] MEDS: MAGNESIUM HYDROXIDE SUSP 30 ML CUP PO SCH ×2 (00:52→12:23)
[2017-06-13] MEDS: oxyCODONE HCL ORAL CONC 5 MG/0.25 ML SYRINGE PO SCH ×6 (00:52→20:52)
[2017-06-13] MEDS: CHLORHEXIDINE GLUCONATE 2 % 1 PACK (2 CLOTHS) TOP SCH (00:53)
[2017-06-13] MEDS: ENOXAPARIN SODIUM 30 MG/0.3 ML SYRINGE SQ SCH ×2 (05:30→16:28)
[2017-06-13 08:00] VITALS: BP 131/81; PULSE 94; RESP 19; TEMP 97.7; O2SAT 98
[2017-06-13] MEDS: POTASSIUM CHLORIDE 25 MEQ EFFERVESCENT TAB PO SCH (09:52)
[2017-06-13] MEDS: DOCUSATE SODIUM 50 MG/SENNA 8.6 MG TAB PO SCH ×2 (09:53→20:52)
[2017-06-13] MEDS: LACTULOSE SYRUP 20 GM/30 ML CUP PO SCH (09:53)
[2017-06-13] MEDS: SODIUM CHLORIDE 0.9% FLUSH 10 ML FLUSH IV FLUSH SCH ×2 (09:53→20:53)
[2017-06-13] MEDS: FAMOTIDINE 20 MG TAB NG SCH ×2 (09:53→20:52)
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
[2017-06-13 12:00] VITALS: BP 132/85; PULSE 96; RESP 17; TEMP 97.6; O2SAT 94
[2017-06-13] MEDS: REMOVE OLD DURAGESIC (FENTANYL) PATCH T-DERMAL SCH (12:22)
[2017-06-13] MEDS: fentaNYL 50 MCG/HR PATCH T-DERMAL SCH (12:22)
[2017-06-13] MEDS: QUEtiapine FUMARATE 25 MG TAB PO SCH ×2 (12:22→20:52)
[2017-06-13 16:00] VITALS: BP 122/67; PULSE 106; RESP 21; TEMP 98.1; O2SAT 94
[2017-06-13 20:00] VITALS: BP 127/76; PULSE 98; RESP 20; TEMP 97.8; O2SAT 93
[2017-06-14] VITALS (7 sets, daily range): BP systolic 124–146; BP diastolic 65–88; PULSE 92–110; RESP 17–22; TEMP 97.3–98.8; O2SAT 92–99
[2017-06-14] MEDS: MAGNESIUM HYDROXIDE SUSP 30 ML CUP PO SCH ×2 (01:10→12:20)
[2017-06-14] MEDS: oxyCODONE HCL ORAL CONC 5 MG/0.25 ML SYRINGE PO SCH ×6 (01:10→23:34)
[2017-06-14] MEDS: CHLORHEXIDINE GLUCONATE 2 % 1 PACK (2 CLOTHS) TOP SCH (01:11)
[2017-06-14] MEDS: ENOXAPARIN SODIUM 30 MG/0.3 ML SYRINGE SQ SCH ×2 (04:59→17:39)
[2017-06-14 05:56] LABS: CREATININE 1.22 MG/DL (0.60-1.30)
[2017-06-14] MEDS: POTASSIUM CHLORIDE 25 MEQ EFFERVESCENT TAB PO SCH (08:26)
[2017-06-14] MEDS: LACTULOSE SYRUP 20 GM/30 ML CUP PO SCH (08:27)
[2017-06-14] MEDS: SENNOSIDES 8.6 MG TAB PO PRN (08:27)
[2017-06-14] MEDS: FAMOTIDINE 20 MG TAB NG SCH ×2 (08:27→20:20)
[2017-06-14] MEDS: DOCUSATE SODIUM 50 MG/SENNA 8.6 MG TAB PO SCH ×2 (08:27→20:20)
[2017-06-14] MEDS: QUEtiapine FUMARATE 25 MG TAB PO SCH ×2 (08:28→20:20)
[2017-06-14] MEDS: SODIUM CHLORIDE 0.9% FLUSH 10 ML FLUSH IV FLUSH SCH ×2 (08:31→20:20)
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
[2017-06-14] MEDS: MORPHINE SULFATE 2 MG/ML SYRINGE IV PUSH PRN (20:20)
[2017-06-15] MEDS: oxyCODONE HCL ORAL CONC 5 MG/0.25 ML SYRINGE PO SCH ×6 (00:57→21:14)
[2017-06-15] MEDS: MAGNESIUM HYDROXIDE SUSP 30 ML CUP PO SCH ×2 (02:00→14:29)
[2017-06-15] MEDS: CHLORHEXIDINE GLUCONATE 2 % 1 PACK (2 CLOTHS) TOP SCH (04:00)
[2017-06-15] MEDS: ENOXAPARIN SODIUM 30 MG/0.3 ML SYRINGE SQ SCH ×2 (04:42→19:47)
[2017-06-15 08:00] VITALS: BP 126/60; PULSE 90; RESP 18; TEMP 97.5; O2SAT 95
--- NOTE | 2017-06-15 08:29 | PD.ORT.PN ---
Subjective Subjective Remarks Continuing to progress. Pain is controlled Objective Vitals Vital Signs Date Time Temp Pulse Resp B/P (MAP) Pulse Ox O2 Delivery O2 Flow Rate FiO2 06/15/17 08:00 97.5 90 18 126/60 (82) 95 06/15/17 05:13 20 06/14/17 23:55 98.5 102 20 131/78 (95) 96 06/14/17 23:27 20 06/14/17 20:00 98.3 102 20 146/73 (97) 93 06/14/17 18:01 94 Nasal Cannula 2.00 06/14/17 16:00 97.6 99 19 124/74 (91) 92 06/14/17 12:00 97.3 97 17 130/88 (102) 94 I/O 06/14/17 06/14/17 06/14/17 06/15/17 06/15/17 06/15/17 07:00 15:00 23:00 07:00 15:00 23:00 Intake Total 480 ml 1595 ml 720 ml Output Total 400 ml 1700 ml 3000 ml Balance 80 ml -105 ml -2280 ml Intake Oral 480 ml 1595 ml 720 ml Output Urine Total 400 ml 1700 ml 3000 ml # Bowel Movements 0 2 0 Result Diagram: 06/12/17 0609 06/14/17 0319 Imaging Last 24 hours Impressions Chest X-Ray 05/19/17 0000 Signed Impressions: Service Date/Time: Friday, May 19, 2017 01:00 - CONCLUSION: 1. Removal of the 2 pleural catheters along the right chest wall and placement of another right chest tube with distal tip in the medial inferior right hemithorax. The right pneumothorax has resolved with shift of the mediastinum back to the midline and resolution of the generalized lucency in the right hemithorax. 2. Remaining findings are stable. Conor Chaudhry MD Chest X-Ray 05/19/17 0000 Signed Impressions: Service Date/Time: Friday, May 19, 2017 00:13 - CONCLUSION: 1. The second small bore pigtail pleural catheter on the right has been placed and most of it appears to be outside of the right hemithorax except for maybe the distal tip. However, the right pneumothorax is no longer seen suggesting that it may be within the pleural space. Chest CT could confirm location, if needed. 2. Persistent volume loss and left mid and lower lung zone airspace consolidation. No left pneumothorax is visualized. 3. The nasogastric tube tip is in the stomach. Conor Chaudhry MD Thoracic Spine CT 05/18/172209 Signed Impressions: Service Date/Time: Thursday, May 18, 2017 22:27 - CONCLUSION: 1. Superior endplate fracture of T12 without involvement of the posterior cortex and with approximate 10%% loss of height. 2. Numerous bilateral posterior rib fractures from C7 to the level of the 7th rib. Josemanuel Murphy MD Pelvis X-Ray 05/18/172209 Signed Impressions: Service Date/Time: Thursday, May 18, 2017 22:09 - CONCLUSION: No gross fracture seen. Josemanuel Murphy MD Lumbar Spine CT 05/18/172209 Signed Impressions: Service Date/Time: Thursday, May 18, 2017 22:27 - CONCLUSION: 1. Lumbar vertebral bodies and posterior elements are intact. 2. Superior endplate fracture of T12 and medial left posterior 11th rib fracture. Josemanuel Murphy MD Head CT [id number]/18/172209 Signed Impressions: Service Date/Time: Thursday, May 18, 2017 22:27 - CONCLUSION: 1. No acute findings in the brain. Josemanuel Murphy MD Chest X-Ray 05/18/172209 Signed Impressions: Service Date/Time: Thursday, May 18, 2017 22:09 - CONCLUSION: Left chest drainage tube in the medial apex. Multiple displaced left rib fractures. Josemanuel Murphy MD Chest CT 05/18/172209 Signed Impressions: Service Date/Time: Thursday, May 18, 2017 22:27 - CONCLUSION: 1. Multiple fractures of the left ribs, left clavicle, left scapula and fracture of the lateral right 5th rib. 2. Bilateral pulmonary contusions, left greater than right and left pleural fluid. 3. Bilateral pneumothoraces with left chest drainage tube in place. Josemanuel Murphy MD Cervical Spine CT 05/18/172209 Signed Impressions: Service Date/Time: Thursday, May 18, 2017 22:27 - CONCLUSION: 1. Left transverse process fracture of C6 and fractures of the medial left 1st and 2nd ribs. 2. The vertebral bodies of the cervical spine down to C7 and posterior elements down to the level of C5 are intact. Josemanuel Murphy MD Abdomen/Pelvis CT 05/18/17 2210 Signed Impressions: Service Date/Time: Thursday, May 18, 2017 22:27 - CONCLUSION: 1. Multiple findings in the chest including bilateral pneumothoraces and multiple bilateral rib fractures, see CT thorax report. 2. The solid and hollow organs of the abdomen/pelvis are grossly intact. Josemanuel Murphy MD Objective Remarks LLE: dressings clean and dry.; intact. nvi. LUE: Clean dry dressings in place +swelling of shoulder. good cap refill. Swelling is on the body but not appropriately attached. Full extension and flexion of all fingers Assessment & Plan Assessment and Plan 1) Left Femoral Shaft Fx s/p IMN - 05/21/17 -daily dressing changes -WBAT 2) Left Clavicle fxs s/p ORIF- 05/26/17 3) Left Glenoid Fx s/p ORIF - 06/03/17 -NWB LUE -maintain sling/swathe at all times - [employer] to apply a new sling and swath and to reinforce -no ROM -daily dressing with xreoform and primapore -Ortho surgeries complete at this time Roman Zamora Jr. Jun 15, 2017 08:29
[2017-06-15 08:56] VITALS: O2SAT 96
[2017-06-15] MEDS: LACTULOSE SYRUP 20 GM/30 ML CUP PO SCH (09:00)
[2017-06-15] MEDS: DOCUSATE SODIUM 50 MG/SENNA 8.6 MG TAB PO SCH ×2 (09:00→21:13)
[2017-06-15] MEDS: POTASSIUM CHLORIDE 25 MEQ EFFERVESCENT TAB PO SCH (10:10)
[2017-06-15] MEDS: QUEtiapine FUMARATE 25 MG TAB PO SCH ×2 (10:10→21:13)
[2017-06-15] MEDS: FAMOTIDINE 20 MG TAB NG SCH ×2 (10:19→21:13)
[2017-06-15] MEDS: SODIUM CHLORIDE 0.9% FLUSH 10 ML FLUSH IV FLUSH SCH ×2 (10:20→21:14)
[2017-06-15 12:00] VITALS: BP 120/68; PULSE 88; RESP 18; TEMP 97.7; O2SAT 96
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
[2017-06-15 16:00] VITALS: BP 124/64; PULSE 93; RESP 18; TEMP 98.4; O2SAT 97
[2017-06-15 20:00] VITALS: BP 131/68; PULSE 97; RESP 18; TEMP 98.2; O2SAT 93
[2017-06-16] VITALS: BP 121/67; PULSE 105; RESP 20; TEMP 98; O2SAT 94
[2017-06-16] MEDS: CHLORHEXIDINE GLUCONATE 2 % 1 PACK (2 CLOTHS) TOP SCH (00:25)
[2017-06-16] MEDS: MAGNESIUM HYDROXIDE SUSP 30 ML CUP PO SCH ×3 (00:25→20:51)
[2017-06-16] MEDS: oxyCODONE HCL ORAL CONC 5 MG/0.25 ML SYRINGE PO SCH ×6 (01:00→20:48)
[2017-06-16] MEDS: ENOXAPARIN SODIUM 30 MG/0.3 ML SYRINGE SQ SCH ×2 (04:18→17:22)
[2017-06-16 04:48] LABS: CALCIUM 7.7 MG/DL (8.5-10.1); CREATININE 0.81 MG/DL (0.60-1.30)
[2017-06-16 04:51] LABS: AUTOMATED NEUTROPHIL # 3.5 TH/MM3 (1.8-7.7); BASOPHIL % 0.7 % (0.0-2.0); EOSINOPHIL # 0.2 TH/MM3 (0-0.4); EOSINOPHIL % 3.1 % (0.0-4.0); HEMATOCRIT 33.9 % (39.0-51.0); LYMPH % 20.3 % (9.0-44.0); LYMPHOCYTE # 1.1 TH/MM3 (1.0-4.8); MEAN CELL VOLUME 87.7 FL (80.0-100.0); MEAN CORPUSCULAR HEMOGLOBIN 28.4 PG (27.0-34.0); MEAN CORPUSCULAR HGB CONC 32.4 % (32.0-36.0); MEAN PLATELET VOLUME 9.2 FL (7.0-11.0); MONO % 13.7 % (0.0-8.0); MONOCYTE # 0.8 TH/MM3 (0-0.9); NEUT % 62.2 % (16.0-70.0); PLATELET COUNT 259 TH/MM3 (150-450); RED BLOOD COUNT 3.87 MIL/MM3 (4.50-5.90); RED CELL DISTRIBUTION WIDTH 15.3 % (11.6-17.2); WHITE BLOOD COUNT 5.6 TH/MM3 (4.0-11.0)
[2017-06-16] MEDS: LACTULOSE SYRUP 20 GM/30 ML CUP PO SCH (07:25)
[2017-06-16 08:00] VITALS: BP 132/72; PULSE 91; RESP 18; TEMP 97.7; O2SAT 95
[2017-06-16] MEDS: DOCUSATE SODIUM 50 MG/SENNA 8.6 MG TAB PO SCH ×3 (08:46→20:51)
[2017-06-16] MEDS: FAMOTIDINE 20 MG TAB NG SCH ×2 (08:46→20:48)
[2017-06-16] MEDS: QUEtiapine FUMARATE 25 MG TAB PO SCH ×2 (08:46→20:48)
[2017-06-16] MEDS: POTASSIUM CHLORIDE 25 MEQ EFFERVESCENT TAB PO SCH (08:47)
[2017-06-16] MEDS: SODIUM CHLORIDE 0.9% FLUSH 10 ML FLUSH IV FLUSH SCH ×2 (08:48→20:51)
[2017-06-16] MEDS: MORPHINE SULFATE 2 MG/ML SYRINGE IV PUSH PRN (10:11)
[2017-06-16 12:00] VITALS: BP 124/74; PULSE 99; RESP 18; TEMP 97.6; O2SAT 97
[2017-06-16] MEDS: REMOVE OLD DURAGESIC (FENTANYL) PATCH T-DERMAL SCH (12:00)
[2017-06-16] MEDS: fentaNYL 50 MCG/HR PATCH T-DERMAL SCH (12:16)
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
[2017-06-16 16:00] VITALS: BP 124/71; PULSE 91; RESP 18; TEMP 97.8; O2SAT 97
[2017-06-16 17:53] VITALS: O2SAT 97
[2017-06-16 20:00] VITALS: BP 124/75; PULSE 90; RESP 17; TEMP 97.8; O2SAT 95
[2017-06-17] VITALS: BP 117/72; PULSE 86; RESP 17; TEMP 98; O2SAT 96
[2017-06-17] MEDS: MORPHINE SULFATE 2 MG/ML SYRINGE IV PUSH PRN (00:10)
[2017-06-17] MEDS: oxyCODONE HCL ORAL CONC 5 MG/0.25 ML SYRINGE PO SCH ×6 (01:50→21:03)
[2017-06-17] MEDS: CHLORHEXIDINE GLUCONATE 2 % 1 PACK (2 CLOTHS) TOP SCH (04:00)
[2017-06-17] MEDS: ENOXAPARIN SODIUM 30 MG/0.3 ML SYRINGE SQ SCH ×2 (06:38→18:47)
[2017-06-17] MEDS: DOCUSATE SODIUM 50 MG/SENNA 8.6 MG TAB PO SCH ×2 (07:30→21:04)
[2017-06-17] MEDS: LACTULOSE SYRUP 20 GM/30 ML CUP PO SCH (07:30)
[2017-06-17 08:00] VITALS: BP 110/71; PULSE 87; RESP 17; TEMP 97.9; O2SAT 95
[2017-06-17] MEDS: POTASSIUM CHLORIDE 25 MEQ EFFERVESCENT TAB PO SCH (09:47)
[2017-06-17] MEDS: SODIUM CHLORIDE 0.9% FLUSH 10 ML FLUSH IV FLUSH SCH ×2 (09:48→21:04)
[2017-06-17] MEDS: QUEtiapine FUMARATE 25 MG TAB PO SCH ×2 (09:48→21:03)
[2017-06-17] MEDS: FAMOTIDINE 20 MG TAB NG SCH ×2 (09:48→21:02)
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
[2017-06-17 12:00] VITALS: BP 140/66; PULSE 92; RESP 17; TEMP 98.6; O2SAT 97
[2017-06-17] MEDS: MAGNESIUM HYDROXIDE SUSP 30 ML CUP PO SCH (14:36)
[2017-06-17] MEDS: GABAPENTIN 300 MG CAP PO SCH ×2 (14:37→18:47)
[2017-06-17 16:00] VITALS: BP 131/64; PULSE 93; RESP 18; TEMP 97.9; O2SAT 93
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
[2017-06-17 18:16] VITALS: O2SAT 93
[2017-06-17 20:00] VITALS: BP 149/69; PULSE 96; RESP 17; TEMP 98.1; O2SAT 97
[2017-06-18] VITALS: BP 136/62; PULSE 87; RESP 17; TEMP 97.8; O2SAT 97
[2017-06-18] MEDS: MAGNESIUM HYDROXIDE SUSP 30 ML CUP PO SCH ×2 (01:16→13:18)
[2017-06-18] MEDS: oxyCODONE HCL ORAL CONC 5 MG/0.25 ML SYRINGE PO SCH ×6 (01:21→21:51)
[2017-06-18] MEDS: CHLORHEXIDINE GLUCONATE 2 % 1 PACK (2 CLOTHS) TOP SCH (04:00)
[2017-06-18] MEDS: ENOXAPARIN SODIUM 30 MG/0.3 ML SYRINGE SQ SCH ×2 (05:17→17:07)
[2017-06-18 08:00] VITALS: BP 142/70; PULSE 93; RESP 18; TEMP 97.4; O2SAT 95
[2017-06-18] MEDS: SODIUM CHLORIDE 0.9% FLUSH 10 ML FLUSH IV FLUSH SCH ×2 (08:24→21:53)
[2017-06-18] MEDS: LACTULOSE SYRUP 20 GM/30 ML CUP PO SCH (08:24)
[2017-06-18] MEDS: FAMOTIDINE 20 MG TAB NG SCH ×2 (08:24→21:53)
[2017-06-18] MEDS: POTASSIUM CHLORIDE 25 MEQ EFFERVESCENT TAB PO SCH (08:24)
[2017-06-18] MEDS: DOCUSATE SODIUM 50 MG/SENNA 8.6 MG TAB PO SCH ×2 (08:25→21:00)
[2017-06-18] MEDS: GABAPENTIN 300 MG CAP PO SCH ×3 (08:26→17:06)
[2017-06-18] MEDS: QUEtiapine FUMARATE 25 MG TAB PO SCH ×2 (08:26→21:51)
[2017-06-18] MEDS: MORPHINE SULFATE 2 MG/ML SYRINGE IV PUSH PRN (10:50)
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
[2017-06-18 11:22] VITALS: BP 128/88; PULSE 102; RESP 18; TEMP 97.3; O2SAT 98
[2017-06-18 14:46] VITALS: BP 121/72; PULSE 90; RESP 18; TEMP 98.9; O2SAT 96
[2017-06-18 20:00] VITALS: BP 131/64; PULSE 97; RESP 20; TEMP 98.8; O2SAT 95
[2017-06-19] VITALS: BP 121/68; PULSE 97; RESP 20; TEMP 98.4; O2SAT 94
[2017-06-19] MEDS: oxyCODONE HCL ORAL CONC 5 MG/0.25 ML SYRINGE PO SCH ×6 (01:00→21:09)
[2017-06-19] MEDS: MAGNESIUM HYDROXIDE SUSP 30 ML CUP PO SCH ×2 (02:00→12:38)
[2017-06-19] MEDS: CHLORHEXIDINE GLUCONATE 2 % 1 PACK (2 CLOTHS) TOP SCH (02:11)
[2017-06-19] MEDS: ENOXAPARIN SODIUM 30 MG/0.3 ML SYRINGE SQ SCH ×2 (04:29→18:14)
[2017-06-19 08:00] VITALS: BP 133/75; PULSE 105; RESP 18; TEMP 97.9; O2SAT 96
[2017-06-19] MEDS: FAMOTIDINE 20 MG TAB NG SCH ×2 (09:45→21:10)
[2017-06-19] MEDS: DOCUSATE SODIUM 50 MG/SENNA 8.6 MG TAB PO SCH ×2 (09:45→21:10)
[2017-06-19] MEDS: POTASSIUM CHLORIDE 25 MEQ EFFERVESCENT TAB PO SCH (09:45)
[2017-06-19] MEDS: GABAPENTIN 300 MG CAP PO SCH ×3 (09:45→18:14)
[2017-06-19] MEDS: LACTULOSE SYRUP 20 GM/30 ML CUP PO SCH (09:45)
[2017-06-19] MEDS: SODIUM CHLORIDE 0.9% FLUSH 10 ML FLUSH IV FLUSH SCH ×2 (09:45→21:10)
[2017-06-19] MEDS: QUEtiapine FUMARATE 25 MG TAB PO SCH ×2 (09:45→21:11)
[2017-06-19 12:00] VITALS: BP 110/78; PULSE 94; RESP 18; TEMP 98.1; O2SAT 95
[2017-06-19] MEDS: REMOVE OLD DURAGESIC (FENTANYL) PATCH T-DERMAL SCH (12:00)
[2017-06-19] MEDS: fentaNYL 50 MCG/HR PATCH T-DERMAL SCH (12:42)
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
[2017-06-19 16:00] VITALS: BP 140/75; PULSE 98; RESP 18; TEMP 98.1; O2SAT 96
[2017-06-19 17:42] VITALS: O2SAT 96
[2017-06-19 20:00] VITALS: BP 144/70; PULSE 95; RESP 18; TEMP 98.5; O2SAT 96
[2017-06-20 00:08] VITALS: BP 148/81; PULSE 88; RESP 20; TEMP 98.7; O2SAT 98
[2017-06-20] MEDS: oxyCODONE HCL ORAL CONC 5 MG/0.25 ML SYRINGE PO SCH ×6 (01:26→21:38)
[2017-06-20] MEDS: CHLORHEXIDINE GLUCONATE 2 % 1 PACK (2 CLOTHS) TOP SCH (01:27)
[2017-06-20] MEDS: MAGNESIUM HYDROXIDE SUSP 30 ML CUP PO SCH ×2 (01:27→13:58)
[2017-06-20] MEDS: ENOXAPARIN SODIUM 30 MG/0.3 ML SYRINGE SQ SCH ×2 (05:07→17:58)
[2017-06-20 08:00] VITALS: BP 115/67; PULSE 80; RESP 16; TEMP 97.7; O2SAT 93
[2017-06-20] MEDS: LACTULOSE SYRUP 20 GM/30 ML CUP PO SCH (09:37)
[2017-06-20] MEDS: QUEtiapine FUMARATE 25 MG TAB PO SCH ×2 (09:38→21:39)
[2017-06-20] MEDS: POTASSIUM CHLORIDE 25 MEQ EFFERVESCENT TAB PO SCH (09:38)
[2017-06-20] MEDS: GABAPENTIN 300 MG CAP PO SCH ×3 (09:38→17:57)
[2017-06-20] MEDS: DOCUSATE SODIUM 50 MG/SENNA 8.6 MG TAB PO SCH ×2 (09:38→21:00)
[2017-06-20] MEDS: FAMOTIDINE 20 MG TAB NG SCH ×2 (09:39→21:39)
[2017-06-20] MEDS: SODIUM CHLORIDE 0.9% FLUSH 10 ML FLUSH IV FLUSH SCH ×2 (09:40→21:39)
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
[2017-06-20 12:00] VITALS: BP 114/78; PULSE 87; RESP 17; TEMP 97.6; O2SAT 95
[2017-06-20 16:00] VITALS: BP 126/69; PULSE 96; RESP 16; TEMP 97.8; O2SAT 97
[2017-06-20 20:00] VITALS: BP 125/75; PULSE 96; RESP 20; TEMP 98.2; O2SAT 94
[2017-06-20 20:13] VITALS: O2SAT 95
[2017-06-21] VITALS: BP 138/73; PULSE 90; RESP 20; TEMP 97.9; O2SAT 97
[2017-06-21] MEDS: oxyCODONE HCL ORAL CONC 5 MG/0.25 ML SYRINGE PO SCH ×6 (01:05→20:50)
[2017-06-21] MEDS: MAGNESIUM HYDROXIDE SUSP 30 ML CUP PO SCH ×2 (01:05→13:00)
[2017-06-21] MEDS: CHLORHEXIDINE GLUCONATE 2 % 1 PACK (2 CLOTHS) TOP SCH (01:06)
[2017-06-21] MEDS: ENOXAPARIN SODIUM 30 MG/0.3 ML SYRINGE SQ SCH ×2 (04:45→17:48)
[2017-06-21 08:00] VITALS: BP 129/76; PULSE 80; RESP 19; TEMP 97.5; O2SAT 96
[2017-06-21] MEDS: FAMOTIDINE 20 MG TAB NG SCH ×2 (08:56→20:50)
[2017-06-21] MEDS: GABAPENTIN 300 MG CAP PO SCH ×3 (08:56→17:48)
[2017-06-21] MEDS: QUEtiapine FUMARATE 25 MG TAB PO SCH ×2 (08:56→20:51)
[2017-06-21] MEDS: DOCUSATE SODIUM 50 MG/SENNA 8.6 MG TAB PO SCH ×2 (08:56→20:49)
[2017-06-21] MEDS: LACTULOSE SYRUP 20 GM/30 ML CUP PO SCH (08:57)
[2017-06-21] MEDS: POTASSIUM CHLORIDE 25 MEQ EFFERVESCENT TAB PO SCH (08:57)
[2017-06-21] MEDS: SODIUM CHLORIDE 0.9% FLUSH 10 ML FLUSH IV FLUSH SCH ×2 (08:59→20:50)
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
[2017-06-21 12:20] VITALS: BP 120/76; PULSE 91; RESP 19; TEMP 97.6; O2SAT 97
[2017-06-21 12:51] VITALS: O2SAT 94
[2017-06-21 16:00] VITALS: BP 128/76; PULSE 99; RESP 19; TEMP 98.4; O2SAT 94
[2017-06-21 20:00] VITALS: BP 131/73; PULSE 95; RESP 18; TEMP 98.2; O2SAT 96
[2017-06-22] VITALS: BP 115/67; PULSE 97; RESP 18; TEMP 97.9; O2SAT 95
[2017-06-22] MEDS: oxyCODONE HCL ORAL CONC 5 MG/0.25 ML SYRINGE PO SCH ×6 (01:33→21:45)
[2017-06-22] MEDS: CHLORHEXIDINE GLUCONATE 2 % 1 PACK (2 CLOTHS) TOP SCH (01:33)
[2017-06-22] MEDS: MAGNESIUM HYDROXIDE SUSP 30 ML CUP PO SCH ×2 (01:33→14:00)
[2017-06-22] MEDS: ENOXAPARIN SODIUM 30 MG/0.3 ML SYRINGE SQ SCH ×2 (05:28→18:17)
[2017-06-22 06:05] LABS: AUTOMATED NEUTROPHIL # 3.2 TH/MM3 (1.8-7.7); BASOPHIL % 0.8 % (0.0-2.0); EOSINOPHIL # 0.2 TH/MM3 (0-0.4); EOSINOPHIL % 3.4 % (0.0-4.0); HEMATOCRIT 38.1 % (39.0-51.0); HEMOGLOBIN 12.5 GM/DL (13.0-17.0); LYMPH % 27.2 % (9.0-44.0); LYMPHOCYTE # 1.5 TH/MM3 (1.0-4.8); MEAN CELL VOLUME 86.7 FL (80.0-100.0); MEAN CORPUSCULAR HEMOGLOBIN 28.4 PG (27.0-34.0); MEAN CORPUSCULAR HGB CONC 32.7 % (32.0-36.0); MEAN PLATELET VOLUME 8.9 FL (7.0-11.0); MONO % 10.4 % (0.0-8.0); MONOCYTE # 0.6 TH/MM3 (0-0.9); NEUT % 58.2 % (16.0-70.0); PLATELET COUNT 210 TH/MM3 (150-450); RED BLOOD COUNT 4.39 MIL/MM3 (4.50-5.90); WHITE BLOOD COUNT 5.5 TH/MM3 (4.0-11.0)
[2017-06-22 06:24] LABS: BICARBONATE 29.7 MEQ/L (21.0-32.0); CALCIUM 8.5 MG/DL (8.5-10.1); CREATININE 0.81 MG/DL (0.60-1.30)
--- NOTE | 2017-06-22 06:56 | PD.ORT.PN ---
Subjective Subjective Remarks Continuing to progress. Pain is controlled. Has removed his sling again Objective Vitals Vital Signs Date Time Temp Pulse Resp B/P (MAP) Pulse Ox O2 Delivery O2 Flow Rate FiO2 06/22/17 00:00 97.9 97 18 115/67 (83) 95 06/21/17 20:00 98.2 95 18 131/73 (92) 96 06/21/17 18:01 18 06/21/17 16:00 98.4 99 19 128/76 (93) 94 06/21/17 12:51 94 21 06/21/17 12:20 97.6 91 19 120/76 (91) 97 06/21/17 08:00 97.5 80 19 129/76 (93) 96 I/O 06/21/17 06/21/17 06/21/17 06/22/17 06/22/17 06/22/17 07:00 15:00 23:00 07:00 15:00 23:00 Intake Total 920 ml Output Total 625 ml 1000 ml Balance -625 ml 920 ml -1000 ml Intake Oral 920 ml Output Urine Total 625 ml 1000 ml # Voids 2 Result Diagram: 06/22/17 0509 06/22/17 0509 Imaging Last 24 hours Impressions Chest X-Ray 05/19/17 0000 Signed Impressions: Service Date/Time: Friday, May 19, 2017 01:00 - CONCLUSION: 1. Removal of the 2 pleural catheters along the right chest wall and placement of another right chest tube with distal tip in the medial inferior right hemithorax. The right pneumothorax has resolved with shift of the mediastinum back to the midline and resolution of the generalized lucency in the right hemithorax. 2. Remaining findings are stable. Conor Chaudhry MD Chest X-Ray 05/19/17 0000 Signed Impressions: Service Date/Time: Friday, May 19, 2017 00:13 - CONCLUSION: 1. The second small bore pigtail pleural catheter on the right has been placed and most of it appears to be outside of the right hemithorax except for maybe the distal tip. However, the right pneumothorax is no longer seen suggesting that it may be within the pleural space. Chest CT could confirm location, if needed. 2. Persistent volume loss and left mid and lower lung zone airspace consolidation. No left pneumothorax is visualized. 3. The nasogastric tube tip is in the stomach. Conor Chaudhry MD Thoracic Spine CT 05/18/172209 Signed Impressions: Service Date/Time: Thursday, May 18, 2017 22:27 - CONCLUSION: 1. Superior endplate fracture of T12 without involvement of the posterior cortex and with approximate 10%% loss of height. 2. Numerous bilateral posterior rib fractures from C7 to the level of the 7th rib. Josemanuel Murphy MD Pelvis X-Ray [id number]/18/172209 Signed Impressions: Service Date/Time: Thursday, May 18, 2017 22:09 - CONCLUSION: No gross fracture seen. Josemanuel Murphy MD Lumbar Spine CT 05/18/172209 Signed Impressions: Service Date/Time: Thursday, May 18, 2017 22:27 - CONCLUSION: 1. Lumbar vertebral bodies and posterior elements are intact. 2. Superior endplate fracture of T12 and medial left posterior 11th rib fracture. Josemanuel Murphy MD Head CT [id number]/18/172209 Signed Impressions: Service Date/Time: Thursday, May 18, 2017 22:27 - CONCLUSION: 1. No acute findings in the brain. Josemanuel Murphy MD Chest X-Ray 05/18/172209 Signed Impressions: Service Date/Time: Thursday, May 18, 2017 22:09 - CONCLUSION: Left chest drainage tube in the medial apex. Multiple displaced left rib fractures. Josemanuel Murphy MD Chest CT [id number]/18/172209 Signed Impressions: Service Date/Time: Thursday, May 18, 2017 22:27 - CONCLUSION: 1. Multiple fractures of the left ribs, left clavicle, left scapula and fracture of the lateral right 5th rib. 2. Bilateral pulmonary contusions, left greater than right and left pleural fluid. 3. Bilateral pneumothoraces with left chest drainage tube in place. Josemanuel Murphy MD Cervical Spine CT 05/18/172209 Signed Impressions: Service Date/Time: Thursday, May 18, 2017 22:27 - CONCLUSION: 1. Left transverse process fracture of C6 and fractures of the medial left 1st and 2nd ribs. 2. The vertebral bodies of the cervical spine down to C7 and posterior elements down to the level of C5 are intact. Josemanuel Murphy MD Abdomen/Pelvis CT 05/18/17 2210 Signed Impressions: Service Date/Time: Thursday, May 18, 2017 22:27 - CONCLUSION: 1. Multiple findings in the chest including bilateral pneumothoraces and multiple bilateral rib fractures, see CT thorax report. 2. The solid and hollow organs of the abdomen/pelvis are grossly intact. Josemanuel Murphy MD Objective Remarks LLE: dressings clean and dry.; intact. nvi. LUE: Clean dry dressings in place +swelling of shoulder. good cap refill. Sling is laying beside the patient. Sling is reapplied. Full extension and flexion of all fingers Assessment & Plan Assessment and Plan 1) Left Femoral Shaft Fx s/p IMN - 05/21/17 -daily dressing changes -WBAT 2) Left Clavicle fxs s/p ORIF- 05/26/17 3) Left Glenoid Fx s/p ORIF - 06/03/17 -NWB LUE -maintain sling/swathe at all times - [employer] to apply a new sling and swath and to reinforce -no ROM Discontinue jakob 2 left shoulder - both incisions -daily dressing with xreoform and primapore for 2 more days -Ortho surgeries complete at this time Roman Zamora Jr. Jun 22, 2017 06:56
[2017-06-22 08:00] VITALS: BP 113/77; PULSE 94; RESP 18; TEMP 97.4; O2SAT 95
[2017-06-22] MEDS: LACTULOSE SYRUP 20 GM/30 ML CUP PO SCH (09:00)
[2017-06-22] MEDS: SODIUM CHLORIDE 0.9% FLUSH 10 ML FLUSH IV FLUSH SCH ×2 (09:00→21:00)
[2017-06-22] MEDS: POTASSIUM CHLORIDE 25 MEQ EFFERVESCENT TAB PO SCH (09:04)
[2017-06-22] MEDS: GABAPENTIN 300 MG CAP PO SCH ×3 (09:05→18:17)
[2017-06-22] MEDS: QUEtiapine FUMARATE 25 MG TAB PO SCH ×2 (09:05→21:44)
[2017-06-22] MEDS: FAMOTIDINE 20 MG TAB NG SCH ×2 (09:06→21:44)
[2017-06-22] MEDS: DOCUSATE SODIUM 50 MG/SENNA 8.6 MG TAB PO SCH ×2 (09:06→21:44)
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
[2017-06-22] MEDS: fentaNYL 50 MCG/HR PATCH T-DERMAL SCH (11:43)
[2017-06-22] MEDS: REMOVE OLD DURAGESIC (FENTANYL) PATCH T-DERMAL SCH (11:43)
[2017-06-22 12:00] VITALS: BP 132/66; PULSE 98; RESP 18; TEMP 97.9; O2SAT 95
[2017-06-22 14:30] VITALS: O2SAT 95
[2017-06-22 16:00] VITALS: BP 127/63; PULSE 93; RESP 18; TEMP 97.8; O2SAT 94
[2017-06-22 20:00] VITALS: BP 140/75; PULSE 97; RESP 20; TEMP 98.6; O2SAT 98
[2017-06-23] VITALS: BP_SYST 137; BP_SYST 74; BP_DIAS 74; PULSE 84; RESP 18; TEMP 98.1; O2SAT 98
[2017-06-23] MEDS: MAGNESIUM HYDROXIDE SUSP 30 ML CUP PO SCH ×2 (01:15→12:54)
[2017-06-23] MEDS: oxyCODONE HCL ORAL CONC 5 MG/0.25 ML SYRINGE PO SCH ×6 (01:15→21:12)
[2017-06-23] MEDS: CHLORHEXIDINE GLUCONATE 2 % 1 PACK (2 CLOTHS) TOP SCH (04:00)
[2017-06-23] MEDS: ENOXAPARIN SODIUM 30 MG/0.3 ML SYRINGE SQ SCH ×2 (05:38→17:07)
[2017-06-23 08:00] VITALS: BP 126/78; PULSE 78; RESP 19; TEMP 97.9; O2SAT 94
[2017-06-23] MEDS: FAMOTIDINE 20 MG TAB NG SCH ×2 (08:32→21:11)
[2017-06-23] MEDS: SODIUM CHLORIDE 0.9% FLUSH 10 ML FLUSH IV FLUSH SCH ×3 (08:32→21:00)
[2017-06-23] MEDS: DOCUSATE SODIUM 50 MG/SENNA 8.6 MG TAB PO SCH ×2 (08:33→21:11)
[2017-06-23] MEDS: GABAPENTIN 300 MG CAP PO SCH ×3 (08:33→17:06)
[2017-06-23] MEDS: QUEtiapine FUMARATE 25 MG TAB PO SCH ×2 (08:33→21:10)
[2017-06-23] MEDS: POTASSIUM CHLORIDE 25 MEQ EFFERVESCENT TAB PO SCH (08:33)
[2017-06-23] MEDS: LACTULOSE SYRUP 20 GM/30 ML CUP PO SCH (08:33)
[2017-06-23] MEDS ORDERED: ENOX30P SQ (10:51)
[2017-06-23] MEDS ORDERED: NEUR300C PO (10:51)
[2017-06-23] MEDS ORDERED: FENT50T T-DERMAL (10:51)
[2017-06-23] MEDS ORDERED: PERI PO (10:51)
[2017-06-23] MEDS ORDERED: SERO25TA PO (10:51)
[2017-06-23] MEDS ORDERED: OXYC-392 PO (10:54)
[2017-06-23 12:00] VITALS: BP 127/74; PULSE 87; RESP 19; TEMP 97.6; O2SAT 95
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
[2017-06-23 16:00] VITALS: BP 113/67; PULSE 92; RESP 19; TEMP 98.2; O2SAT 96
[2017-06-23 20:00] VITALS: BP 133/75; PULSE 90; RESP 18; TEMP 98.3; O2SAT 98
[2017-06-24] VITALS: BP 132/64; PULSE 91; RESP 18; TEMP 99.2; O2SAT 94
[2017-06-24] MEDS: oxyCODONE HCL ORAL CONC 5 MG/0.25 ML SYRINGE PO SCH ×6 (01:37→21:51)
[2017-06-24] MEDS: MAGNESIUM HYDROXIDE SUSP 30 ML CUP PO SCH ×2 (01:38→12:41)
[2017-06-24] MEDS: CHLORHEXIDINE GLUCONATE 2 % 1 PACK (2 CLOTHS) TOP SCH (01:39)
[2017-06-24] MEDS: ENOXAPARIN SODIUM 30 MG/0.3 ML SYRINGE SQ SCH ×2 (05:30→17:11)
[2017-06-24 08:00] VITALS: BP 123/72; PULSE 94; RESP 17; TEMP 97.6; O2SAT 97
[2017-06-24] MEDS: FAMOTIDINE 20 MG TAB NG SCH ×2 (08:38→21:51)
[2017-06-24] MEDS: SODIUM CHLORIDE 0.9% FLUSH 10 ML FLUSH IV FLUSH SCH ×2 (08:38→21:00)
[2017-06-24] MEDS: DOCUSATE SODIUM 50 MG/SENNA 8.6 MG TAB PO SCH ×2 (08:39→21:51)
[2017-06-24] MEDS: GABAPENTIN 300 MG CAP PO SCH ×3 (08:39→17:07)
[2017-06-24] MEDS: QUEtiapine FUMARATE 25 MG TAB PO SCH ×2 (08:40→21:52)
[2017-06-24] MEDS: POTASSIUM CHLORIDE 25 MEQ EFFERVESCENT TAB PO SCH (08:43)
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
[2017-06-24 12:00] VITALS: BP 131/76; PULSE 94; RESP 17; TEMP 97.5; O2SAT 96
--- NOTE | 2017-06-24 13:47 | RADRPT ---
EXAM DATE/TIME: 06/24/2017 13:27 [facility] COMPARISON: FEMUR LEFT (AP & LAT/2VWS), June 04, 2017, 12:15. INDICATIONS : Pain in his right knee MEDICAL HISTORY : None. SURGICAL HISTORY : None. ENCOUNTER: Initial ACUITY: 2 weeks PAIN SCORE: 8/10 LOCATION: Right knee FINDINGS: Soft tissue calcification surrounds the right distal femur and is indeterminate. The findings may rep resent myositis ossificans if there has been previous trauma or may be intra-articular in location. C linical correlation is recommended. There is no acute fracture or dislocation of the right knee. No s ignificant knee joint effusion is noted. Mild degenerative changes are noted involving the patellofem oral joint. CONCLUSION: 1. Soft tissue calcification surrounds the right distal femur and is indeterminate. The findings may represent myositis ossificans if there has been previous trauma or may be intra-articular in location . Clinical correlation is recommended. 2. No acute fracture or dislocation. 3. No significant knee joint effusion. 4. Mild degenerative changes involving the patellofemoral joint. Esteban Shen MD on June 24, 2017 at 13:41 Board Certified Radiologist. This report was verified electronically.
[2017-06-24 16:00] VITALS: BP 121/69; PULSE 94; RESP 17; TEMP 98; O2SAT 97
[2017-06-24 20:00] VITALS: BP 140/77; PULSE 92; RESP 16; TEMP 98.1; O2SAT 97
[2017-06-25] VITALS: BP 147/84; PULSE 93; RESP 16; TEMP 98.5; O2SAT 98
[2017-06-25] MEDS: MAGNESIUM HYDROXIDE SUSP 30 ML CUP PO SCH ×2 (03:06→14:15)
[2017-06-25] MEDS: oxyCODONE HCL ORAL CONC 5 MG/0.25 ML SYRINGE PO SCH ×6 (03:06→21:38)
[2017-06-25] MEDS: CHLORHEXIDINE GLUCONATE 2 % 1 PACK (2 CLOTHS) TOP SCH (03:08)
[2017-06-25] MEDS: ENOXAPARIN SODIUM 30 MG/0.3 ML SYRINGE SQ SCH (06:16)
--- NOTE | 2017-06-25 06:59 | PD.ORT.PN ---
Subjective Subjective Remarks s/p IMN left femur - POD 33 s/p ORIF left clavicle fx - POD 30 s/p ORIF left glenoid fx - POD 22 awake and alert. states doing well. reports no pain in shoulder. states burning sensation in fingers. states right knee pain and stiffness and that he has been trying to loosen it up by bending it. Objective Vitals Vital Signs Date Time Temp Pulse Resp B/P (MAP) Pulse Ox O2 Delivery O2 Flow Rate FiO2 06/25/17 00:00 98.5 93 16 147/84 (105) 98 06/24/17 20:00 98.1 92 16 140/77 (98) 97 06/24/17 16:00 98.0 94 17 121/69 (86) 97 06/24/17 12:00 97.5 94 17 131/76 (94) 96 06/24/17 08:00 97.6 94 17 123/72 (89) 97 I/O 06/24/17 06/24/17 06/24/17 06/25/17 06/25/17 06/25/17 07:00 15:00 23:00 07:00 15:00 23:00 Intake Total 780 ml 2742 ml Output Total 1000 ml 650 ml 1400 ml Balance -220 ml 2092 ml -1400 ml Intake Oral 780 ml 2742 ml Output Urine Total 1000 ml 650 ml 1400 ml # Bowel Movements 0 Result Diagram: 06/22/17 0509 06/22/17 0509 Imaging Last 24 hours Impressions Chest X-Ray 05/19/17 0000 Signed Impressions: Service Date/Time: Friday, May 19, 2017 01:00 - CONCLUSION: 1. Removal of the 2 pleural catheters along the right chest wall and placement of another right chest tube with distal tip in the medial inferior right hemithorax. The right pneumothorax has resolved with shift of the mediastinum back to the midline and resolution of the generalized lucency in the right hemithorax. 2. Remaining findings are stable. Conor Chaudhry MD Chest X-Ray 05/19/17 0000 Signed Impressions: Service Date/Time: Friday, May 19, 2017 00:13 - CONCLUSION: 1. The second small bore pigtail pleural catheter on the right has been placed and most of it appears to be outside of the right hemithorax except for maybe the distal tip. However, the right pneumothorax is no longer seen suggesting that it may be within the pleural space. Chest CT could confirm location, if needed. 2. Persistent volume loss and left mid and lower lung zone airspace consolidation. No left pneumothorax is visualized. 3. The nasogastric tube tip is in the stomach. Conor Chaudhry MD Thoracic Spine CT 05/18/172209 Signed Impressions: Service Date/Time: Thursday, May 18, 2017 22:27 - CONCLUSION: 1. Superior endplate fracture of T12 without involvement of the posterior cortex and with approximate 10%% loss of height. 2. Numerous bilateral posterior rib fractures from C7 to the level of the 7th rib. Josemanuel Murphy MD Pelvis X-Ray 05/18/172209 Signed Impressions: Service Date/Time: Thursday, May 18, 2017 22:09 - CONCLUSION: No gross fracture seen. Josemanuel Murphy MD Lumbar Spine CT 05/18/172209 Signed Impressions: Service Date/Time: Thursday, May 18, 2017 22:27 - CONCLUSION: 1. Lumbar vertebral bodies and posterior elements are intact. 2. Superior endplate fracture of T12 and medial left posterior 11th rib fracture. Josemanuel Murphy MD Head CT 05/18/172209 Signed Impressions: Service Date/Time: Thursday, May 18, 2017 22:27 - CONCLUSION: 1. No acute findings in the brain. Josemanuel Murphy MD Chest X-Ray 05/18/172209 Signed Impressions: Service Date/Time: Thursday, May 18, 2017 22:09 - CONCLUSION: Left chest drainage tube in the medial apex. Multiple displaced left rib fractures. Josemanuel Murphy MD Chest CT 05/18/172209 Signed Impressions: Service Date/Time: Thursday, May 18, 2017 22:27 - CONCLUSION: 1. Multiple fractures of the left ribs, left clavicle, left scapula and fracture of the lateral right 5th rib. 2. Bilateral pulmonary contusions, left greater than right and left pleural fluid. 3. Bilateral pneumothoraces with left chest drainage tube in place. Josemanuel Murphy MD Cervical Spine CT 05/18/172209 Signed Impressions: Service Date/Time: Thursday, May 18, 2017 22:27 - CONCLUSION: 1. Left transverse process fracture of C6 and fractures of the medial left 1st and 2nd ribs. 2. The vertebral bodies of the cervical spine down to C7 and posterior elements down to the level of C5 are intact. Josemanuel Murphy MD Abdomen/Pelvis CT 05/18/170 Signed Impressions: Service Date/Time: Thursday, May 18, 2017 22:27 - CONCLUSION: 1. Multiple findings in the chest including bilateral pneumothoraces and multiple bilateral rib fractures, see CT thorax report. 2. The solid and hollow organs of the abdomen/pelvis are grossly intact. Josemanuel Murphy MD Objective Remarks LLE: dressings clean and dry.; intact. nvi. LUE: Clean dry dressings in place +swelling of shoulder. good cap refill. sling intact. nvi. RLE: motion of knee from 0-30deg. extreme stiffness. point tender over proximal MCL. no laxity to valgus/varus. neg dougie Assessment & Plan Assessment and Plan 1) Left Femoral Shaft Fx s/p IMN - 05/21/17 -daily dressing changes -WBAT -DC jakob 2) Left Clavicle fxs s/p ORIF- 05/26/17 3) Left Glenoid Fx s/p ORIF - 06/03/17 -NWB LUE -maintain sling/swathe at all times -no ROM Discontinue jakob 2 left shoulder - both incisions DC dressing changes -will order new XR today of shoulder to make sure still reduced 4) Right Knee Pain -XR reveals significan amount of HO present along MCL and LCL. however, no laxity on exam. patien has extreme stiffness of knee -work aggressively with therapy on motion of knee and stretching -WBAT -no restrictions -Ortho surgeries complete at this time Kt Herrera/Skinning Machine Feeder PA Jun 25, 2017 06:59
[2017-06-25 08:18] VITALS: BP 138/77; PULSE 92; RESP 19; TEMP 98; O2SAT 98
[2017-06-25] MEDS: SODIUM CHLORIDE 0.9% FLUSH 10 ML FLUSH IV FLUSH SCH ×2 (09:50→21:40)
[2017-06-25] MEDS: POTASSIUM CHLORIDE 25 MEQ EFFERVESCENT TAB PO SCH (10:14)
[2017-06-25] MEDS: fentaNYL 50 MCG/HR PATCH T-DERMAL SCH (10:17)
[2017-06-25] MEDS: FAMOTIDINE 20 MG TAB NG SCH ×2 (10:18→21:38)
[2017-06-25] MEDS: DOCUSATE SODIUM 50 MG/SENNA 8.6 MG TAB PO SCH ×2 (10:18→21:38)
[2017-06-25] MEDS: QUEtiapine FUMARATE 25 MG TAB PO SCH ×2 (10:18→21:38)
[2017-06-25] MEDS: GABAPENTIN 300 MG CAP PO SCH ×3 (10:21→17:36)
[2017-06-25] MEDS: REMOVE OLD DURAGESIC (FENTANYL) PATCH T-DERMAL SCH (11:06)
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
[2017-06-25 12:00] VITALS: BP 138/89; PULSE 92; RESP 18; TEMP 97.9; O2SAT 97
--- NOTE | 2017-06-25 14:14 | RADRPT ---
EXAM DATE/TIME: 06/25/2017 13:25 [facility] COMPARISON: SHOULDER LEFT COMPLETE (>2VWS), June 10, 2017, 9:45. INDICATIONS : Left shoulder pain post operatively. MEDICAL HISTORY : None. SURGICAL HISTORY : ORIF left shoulder/clavicle ENCOUNTER: Subsequent ACUITY: 3 weeks PAIN SCORE: 10/10 LOCATION: Left shoulder FINDINGS: Anterior dislocation of the left humeral head in relation to the glenoid. There is a fracture involvi ng the left humeral head medially which was noted on the previous examination. The patient is status post ORIF of left clavicular fracture with hardware in good position. 2 screws are also noted within the scapula. CONCLUSION: Anterior dislocation of the left humeral head in relation to the glenoid. Stable fracture involving t he left humeral head medially. Esteban Shen MD on June 25, 2017 at 14:09 Board Certified Radiologist. This report was verified electronically.
[2017-06-25 16:00] VITALS: BP 126/81; PULSE 93; RESP 17; TEMP 97.6; O2SAT 96
[2017-06-25 20:00] VITALS: BP 129/73; PULSE 93; RESP 18; TEMP 98.1; O2SAT 95
[2017-06-26] VITALS: BP 123/72; PULSE 92; RESP 18; TEMP 98.1; O2SAT 96
[2017-06-26] MEDS: MAGNESIUM HYDROXIDE SUSP 30 ML CUP PO SCH ×2 (01:11→14:00)
[2017-06-26] MEDS: oxyCODONE HCL ORAL CONC 5 MG/0.25 ML SYRINGE PO SCH ×6 (01:11→20:27)
[2017-06-26] MEDS ORDERED: LACTATED RINGER'S 1000 ML IV PRN (02:00)
[2017-06-26] MEDS ORDERED: SODIUM CHLORID 0.9% 500 ML IV PRN (02:00)
[2017-06-26] MEDS ORDERED: CHLORHEXIDINE GLUCONATE 2 % 1 PACK (2 CLOTHS) TOPICAL PRN (02:00)
[2017-06-26] MEDS ORDERED: METOPROLOL TARTRATE 25 MG TAB PO PRN (02:00)
[2017-06-26] MEDS ORDERED: POVIDONE IODINE 5% (ANTISEPSIS KIT) 4 APPLICATIONS EACH NARE PRN (02:00)
[2017-06-26] MEDS: CHLORHEXIDINE GLUCONATE 2 % 1 PACK (2 CLOTHS) TOP SCH (03:14)
[2017-06-26] MEDS ORDERED: KETAMINE HCL 50 MG/5 ML SYRINGE ONE (07:13)
[2017-06-26] MEDS ORDERED: KETAMINE HCL 500 MG/10 ML VIAL ONE (07:48)
[2017-06-26 08:00] VITALS: BP 115/79; PULSE 93; RESP 18; TEMP 98.4; O2SAT 97
[2017-06-26] MEDS: FAMOTIDINE 20 MG TAB NG SCH ×2 (09:00→20:27)
[2017-06-26] MEDS: QUEtiapine FUMARATE 25 MG TAB PO SCH ×2 (09:00→20:27)
[2017-06-26] MEDS: GABAPENTIN 300 MG CAP PO SCH ×3 (09:00→16:17)
[2017-06-26] MEDS: SODIUM CHLORIDE 0.9% FLUSH 10 ML FLUSH IV FLUSH SCH ×2 (09:00→20:27)
[2017-06-26] MEDS: POTASSIUM CHLORIDE 25 MEQ EFFERVESCENT TAB PO SCH (09:00)
[2017-06-26] MEDS: DOCUSATE SODIUM 50 MG/SENNA 8.6 MG TAB PO SCH ×2 (09:00→20:27)
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
[2017-06-26] MEDS: ERGOCALCIFEROL (VIT D2) 50,000 UNIT CAP PO SCH (10:00)
[2017-06-26] MEDS ORDERED: DO NOT ADM ANY ANTICOAGULANT DRUGS PRN (10:03)
[2017-06-26] MEDS ORDERED: MIDAZOLAM HCL 2 MG/2 ML VIAL ONE (10:11)
[2017-06-26 12:00] VITALS: BP 133/86; PULSE 88; RESP 18; TEMP 97.6; O2SAT 100
[2017-06-26] MEDS ORDERED: PHENYLEPH/NS 1000 MCG/10 ML SYR IV ONE (12:00)
[2017-06-26] MEDS ORDERED: PROPOFOL 200 MG/20 ML AMP IV ONE (12:00)
[2017-06-26] MEDS ORDERED: LIDOCAINE HCL 1% PF 5 ML SYRINGE OTHER ONE (12:00)
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
--- NOTE | 2017-06-26 14:25 | PD.ORT.PN ---
Subjective Subjective Remarks s/p IMN left femur - POD 34 s/p ORIF left clavicle fx - POD 31 s/p ORIF left glenoid fx - POD 23 POD 0 s/p closed reduction left shoulder stable in pacu. Objective Vitals Vital Signs Date Time Temp Pulse Resp B/P (MAP) Pulse Ox O2 Delivery O2 Flow Rate FiO2 06/26/17 12:00 97.6 88 18 133/86 (102) 100 06/26/17 11:34 Nasal Cannula 2.00 06/26/17 10:20 85 16 127/82 (97) 100 Nasal Cannula 2 06/26/17 10:15 92 16 122/82 (95) 100 Nasal Cannula 2 06/26/17 10:02 97.7 95 16 125/86 (99) 100 Nasal Cannula 2 06/26/17 08:30 84 16 123/70 (87) 97 06/26/17 08:15 89 18 138/82 (100) 99 06/26/17 08:00 98.4 93 18 115/79 (91) 97 06/26/17 08:00 98.7 15 123/81 (95) 06/26/17 00:00 98.1 92 18 123/72 (89) 96 06/25/17 20:00 98.1 93 18 129/73 (91) 95 06/25/17 16:00 97.6 93 17 126/81 (96) 96 I/O 06/25/17 06/25/17 06/25/17 06/26/17 06/26/17 06/26/17 07:00 15:00 23:00 07:00 15:00 23:00 Intake Total 0 ml 1050 ml 400 ml Output Total 2300 ml 500 ml 1100 ml 0 ml Balance -2300 ml 550 ml -1100 ml 400 ml Intake Oral 0 ml 1050 ml Other 400 ml Output Urine Total 2300 ml 500 ml 1100 ml Estimated Blood Loss 0 ml # Bowel Movements 0 1 Result Diagram: 06/22/17 0509 06/22/17 0509 Imaging Last 24 hours Impressions Chest X-Ray 05/19/17 0000 Signed Impressions: Service Date/Time: Friday, May 19, 2017 01:00 - CONCLUSION: 1. Removal of the 2 pleural catheters along the right chest wall and placement of another right chest tube with distal tip in the medial inferior right hemithorax. The right pneumothorax has resolved with shift of the mediastinum back to the midline and resolution of the generalized lucency in the right hemithorax. 2. Remaining findings are stable. Conor Chaudhry MD Chest X-Ray 05/19/17 0000 Signed Impressions: Service Date/Time: Friday, May 19, 2017 00:13 - CONCLUSION: 1. The second small bore pigtail pleural catheter on the right has been placed and most of it appears to be outside of the right hemithorax except for maybe the distal tip. However, the right pneumothorax is no longer seen suggesting that it may be within the pleural space. Chest CT could confirm location, if needed. 2. Persistent volume loss and left mid and lower lung zone airspace consolidation. No left pneumothorax is visualized. 3. The nasogastric tube tip is in the stomach. Conor Chaudhry MD Thoracic Spine CT 05/18/172209 Signed Impressions: Service Date/Time: Thursday, May 18, 2017 22:27 - CONCLUSION: 1. Superior endplate fracture of T12 without involvement of the posterior cortex and with approximate 10%% loss of height. 2. Numerous bilateral posterior rib fractures from C7 to the level of the 7th rib. Josemanuel Murphy MD Pelvis X-Ray 05/18/172209 Signed Impressions: Service Date/Time: Thursday, May 18, 2017 22:09 - CONCLUSION: No gross fracture seen. Josemanuel Murphy MD Lumbar Spine CT 05/18/172209 Signed Impressions: Service Date/Time: Thursday, May 18, 2017 22:27 - CONCLUSION: 1. Lumbar vertebral bodies and posterior elements are intact. 2. Superior endplate fracture of T12 and medial left posterior 11th rib fracture. Josemanuel Murphy MD Head CT 05/18/172209 Signed Impressions: Service Date/Time: Thursday, May 18, 2017 22:27 - CONCLUSION: 1. No acute findings in the brain. Josemanuel Murphy MD Chest X-Ray 05/18/172209 Signed Impressions: Service Date/Time: Thursday, May 18, 2017 22:09 - CONCLUSION: Left chest drainage tube in the medial apex. Multiple displaced left rib fractures. Josemanuel Murphy MD Chest CT 05/18/172209 Signed Impressions: Service Date/Time: Thursday, May 18, 2017 22:27 - CONCLUSION: 1. Multiple fractures of the left ribs, left clavicle, left scapula and fracture of the lateral right 5th rib. 2. Bilateral pulmonary contusions, left greater than right and left pleural fluid. 3. Bilateral pneumothoraces with left chest drainage tube in place. Josemanuel Murphy MD Cervical Spine CT 05/18/172209 Signed Impressions: Service Date/Time: Thursday, May 18, 2017 22:27 - CONCLUSION: 1. Left transverse process fracture of C6 and fractures of the medial left 1st and 2nd ribs. 2. The vertebral bodies of the cervical spine down to C7 and posterior elements down to the level of C5 are intact. Josemanuel Murphy MD Abdomen/Pelvis CT 05/18/172209 Signed Impressions: Service Date/Time: Thursday, May 18, 2017 22:27 - CONCLUSION: 1. Multiple findings in the chest including bilateral pneumothoraces and multiple bilateral rib fractures, see CT thorax report. 2. The solid and hollow organs of the abdomen/pelvis are grossly intact. Josemanuel Murphy MD Objective Remarks LLE: dressings clean and dry.; intact. nvi. LUE: Clean dry dressings in place +swelling of shoulder. good cap refill. sling intact. nvi. RLE: motion of knee from 0-30deg. extreme stiffness. point tender over proximal MCL. no laxity to valgus/varus. neg dougie Assessment & Plan Assessment and Plan 1) Left Femoral Shaft Fx s/p IMN - 05/21/17 -daily dressing changes -WBAT -DC jakob 2) Left Clavicle fxs s/p ORIF- 05/26/17 3) Left Glenoid Fx s/p ORIF - 06/03/17 -NWB LUE -maintain sling/swathe at all times -PT to work on PROM and AAROM. no Ext Rot beyond 10deg 4) Right Knee Pain -XR reveals significan amount of HO present along MCL and LCL. however, no laxity on exam. patien has extreme stiffness of knee -work aggressively with therapy on motion of knee and stretching -WBAT -no restrictions -Ortho surgeries complete at this time Kt Herrera PA/Sub Arc Operator PA Jun 26, 2017 14:25
--- NOTE | 2017-06-26 15:05 | RADRPT ---
EXAM DATE/TIME: 06/26/2017 09:41 [facility] COMPARISON: SHOULDER LEFT LTD (2VWS), June 25, 2017, 13:25. INDICATIONS : Left shoulder closed reduction. MEDICAL HISTORY : None. SURGICAL HISTORY : ORIF left shoulder/clavicle ENCOUNTER: Initial ACUITY: 1 day PAIN SCORE: Non-responsive. LOCATION: Left Shoulder FINDINGS: There has been successful reduction of the left shoulder dislocation. Fracture of the left humeral he ad is again noted. CONCLUSION: Successful reduction of the left shoulder dislocation. Stable fracture of the left humeral head. Esteban Shen MD on June 26, 2017 at 15:02 Board Certified Radiologist. This report was verified electronically.
[2017-06-26 16:00] VITALS: BP 128/72; PULSE 93; RESP 20; TEMP 98; O2SAT 96
[2017-06-26 20:00] VITALS: BP 130/79; PULSE 94; RESP 20; TEMP 98; O2SAT 96
[2017-06-27] VITALS: BP 131/72; PULSE 86; RESP 18; TEMP 98; O2SAT 95
[2017-06-27] MEDS: MAGNESIUM HYDROXIDE SUSP 30 ML CUP PO SCH ×2 (01:23→13:00)
[2017-06-27] MEDS: oxyCODONE HCL ORAL CONC 5 MG/0.25 ML SYRINGE PO SCH ×6 (01:24→21:02)
[2017-06-27] MEDS: CHLORHEXIDINE GLUCONATE 2 % 1 PACK (2 CLOTHS) TOP SCH (03:43)
[2017-06-27 08:00] VITALS: BP 130/80; PULSE 81; RESP 17; TEMP 97.6; O2SAT 95
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
[2017-06-27 08:13] LABS: HEMATOCRIT 37.3 % (39.0-51.0); HEMOGLOBIN 12.4 GM/DL (13.0-17.0); MEAN CELL VOLUME 85.9 FL (80.0-100.0); MEAN CORPUSCULAR HEMOGLOBIN 28.5 PG (27.0-34.0); MEAN CORPUSCULAR HGB CONC 33.2 % (32.0-36.0); MEAN PLATELET VOLUME 9.5 FL (7.0-11.0); PLATELET COUNT 187 TH/MM3 (150-450); RED BLOOD COUNT 4.35 MIL/MM3 (4.50-5.90); RED CELL DISTRIBUTION WIDTH 14.8 % (11.6-17.2)
[2017-06-27] MEDS: POTASSIUM CHLORIDE 25 MEQ EFFERVESCENT TAB PO SCH (08:22)
[2017-06-27] MEDS: QUEtiapine FUMARATE 25 MG TAB PO SCH ×2 (08:22→19:39)
[2017-06-27] MEDS: DOCUSATE SODIUM 50 MG/SENNA 8.6 MG TAB PO SCH ×2 (08:23→19:38)
[2017-06-27] MEDS: GABAPENTIN 300 MG CAP PO SCH ×2 (08:23→13:00)
[2017-06-27] MEDS: CHOLECALCIFEROL (VIT D3) 1000 UNIT TAB PO SCH (08:23)
[2017-06-27] MEDS: FAMOTIDINE 20 MG TAB NG SCH ×2 (08:23→19:37)
[2017-06-27] MEDS: SODIUM CHLORIDE 0.9% FLUSH 10 ML FLUSH IV FLUSH SCH ×2 (08:23→19:37)
[2017-06-27 08:33] LABS: BICARBONATE 28.7 MEQ/L (21.0-32.0); CALCIUM 8.5 MG/DL (8.5-10.1); CREATININE 0.82 MG/DL (0.60-1.30)
[2017-06-27 12:00] VITALS: BP 125/73; PULSE 94; RESP 17; TEMP 98.1; O2SAT 96
[2017-06-27 16:00] VITALS: BP 134/82; PULSE 93; RESP 17; TEMP 97.9; O2SAT 94
[2017-06-27] MEDS: GABAPENTIN 400 MG CAP PO SCH (17:01)
[2017-06-27 20:00] VITALS: BP 132/82; PULSE 91; RESP 18; TEMP 98.2; O2SAT 97
[2017-06-27 21:11] VITALS: O2SAT 96
[2017-06-28] VITALS: BP 122/68; PULSE 89; RESP 18; TEMP 98.4; O2SAT 96
[2017-06-28] MEDS: oxyCODONE HCL ORAL CONC 5 MG/0.25 ML SYRINGE PO SCH ×6 (01:12→20:18)
[2017-06-28] MEDS: MAGNESIUM HYDROXIDE SUSP 30 ML CUP PO SCH ×2 (01:12→12:57)
[2017-06-28] MEDS: CHLORHEXIDINE GLUCONATE 2 % 1 PACK (2 CLOTHS) TOP SCH (04:00)
[2017-06-28] MEDS: DOCUSATE SODIUM 50 MG/SENNA 8.6 MG TAB PO SCH ×2 (07:55→20:17)
[2017-06-28] MEDS: POTASSIUM CHLORIDE 25 MEQ EFFERVESCENT TAB PO SCH (07:56)
[2017-06-28] MEDS: GABAPENTIN 400 MG CAP PO SCH ×3 (07:56→17:07)
[2017-06-28] MEDS: CHOLECALCIFEROL (VIT D3) 1000 UNIT TAB PO SCH (07:56)
[2017-06-28] MEDS: FAMOTIDINE 20 MG TAB NG SCH ×2 (07:56→20:18)
[2017-06-28] MEDS: SODIUM CHLORIDE 0.9% FLUSH 10 ML FLUSH IV FLUSH SCH ×2 (07:57→20:00)
[2017-06-28] MEDS: QUEtiapine FUMARATE 25 MG TAB PO SCH ×2 (07:57→20:18)
[2017-06-28 08:00] VITALS: BP 139/75; PULSE 91; RESP 17; TEMP 97.3; O2SAT 95
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
[2017-06-28 10:33] VITALS: O2SAT 96
[2017-06-28 11:26] LABS: BILIRUBIN, URINE NEG (NEG); BLOOD, URINE NEG (NEG); GLUCOSE,URINE NEG (NEG); HYALINE CAST, URINE 5 /lpf (RARE); KETONE, URINE NEG (NEG); MUCUS URINE FEW /lpf (OCC); NITRITE,URINE NEG (NEG); RENAL EPITHELIAL CELLS <1 /hpf; SQUAMOUS EPITHELIAL CELL URINE 1 /hpf (0-5); URINE COLOR YELLOW (YELLW/STRAW); URINE LEUKOCYTE ESTERASE NEG (NEG)
[2017-06-28 12:00] VITALS: BP 126/76; PULSE 90; RESP 17; TEMP 98; O2SAT 96
[2017-06-28] MEDS: REMOVE OLD DURAGESIC (FENTANYL) PATCH T-DERMAL SCH (12:00)
[2017-06-28] MEDS: fentaNYL 50 MCG/HR PATCH T-DERMAL SCH (12:57)
[2017-06-28 16:00] VITALS: BP 118/84; PULSE 97; RESP 17; TEMP 98.1; O2SAT 95
[2017-06-28] MEDS: ENOXAPARIN SODIUM 30 MG/0.3 ML SYRINGE SQ SCH (17:08)
[2017-06-28 20:00] VITALS: BP 147/70; PULSE 98; RESP 20; TEMP 98.3; O2SAT 97
[2017-06-29] VITALS: BP 131/69; PULSE 97; RESP 18; TEMP 98.7; O2SAT 99
[2017-06-29] MEDS: oxyCODONE HCL ORAL CONC 5 MG/0.25 ML SYRINGE PO SCH ×6 (00:52→21:54)
[2017-06-29] MEDS: MAGNESIUM HYDROXIDE SUSP 30 ML CUP PO SCH ×2 (00:52→12:54)
[2017-06-29] MEDS: CHLORHEXIDINE GLUCONATE 2 % 1 PACK (2 CLOTHS) TOP SCH (04:00)
[2017-06-29] MEDS: ENOXAPARIN SODIUM 30 MG/0.3 ML SYRINGE SQ SCH ×2 (05:03→17:42)
[2017-06-29 08:00] VITALS: BP 125/78; PULSE 80; RESP 18; TEMP 97.9; O2SAT 96
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
[2017-06-29] MEDS: SODIUM CHLORIDE 0.9% FLUSH 10 ML FLUSH IV FLUSH SCH ×3 (09:00→21:53)
[2017-06-29] MEDS: POTASSIUM CHLORIDE 25 MEQ EFFERVESCENT TAB PO SCH (09:03)
[2017-06-29] MEDS: DOCUSATE SODIUM 50 MG/SENNA 8.6 MG TAB PO SCH ×2 (09:04→21:52)
[2017-06-29] MEDS: CHOLECALCIFEROL (VIT D3) 1000 UNIT TAB PO SCH (09:04)
[2017-06-29] MEDS: QUEtiapine FUMARATE 25 MG TAB PO SCH ×2 (09:04→21:52)
[2017-06-29] MEDS: GABAPENTIN 400 MG CAP PO SCH ×3 (09:04→17:43)
[2017-06-29] MEDS: FAMOTIDINE 20 MG TAB NG SCH ×2 (09:04→21:52)
[2017-06-29 12:00] VITALS: BP 142/78; PULSE 85; RESP 18; TEMP 97.1; O2SAT 97
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
[2017-06-29 15:26] VITALS: O2SAT 97
[2017-06-29 16:00] VITALS: BP 124/84; PULSE 94; RESP 16; TEMP 98; O2SAT 95
[2017-06-29 20:00] VITALS: BP 129/76; PULSE 97; RESP 19; TEMP 98.2; O2SAT 96
[2017-06-30] VITALS (7 sets, daily range): BP systolic 121–143; BP diastolic 69–84; PULSE 86–97; RESP 16–18; TEMP 97.7–98.9; O2SAT 95–97
[2017-06-30] MEDS: oxyCODONE HCL ORAL CONC 5 MG/0.25 ML SYRINGE PO SCH ×6 (01:43→20:42)
[2017-06-30] MEDS: MAGNESIUM HYDROXIDE SUSP 30 ML CUP PO SCH ×2 (01:44→13:12)
[2017-06-30] MEDS: CHLORHEXIDINE GLUCONATE 2 % 1 PACK (2 CLOTHS) TOP SCH (04:00)
[2017-06-30] MEDS: ENOXAPARIN SODIUM 30 MG/0.3 ML SYRINGE SQ SCH ×2 (05:39→16:49)
[2017-06-30] MEDS: QUEtiapine FUMARATE 25 MG TAB PO SCH ×2 (07:57→20:41)
[2017-06-30] MEDS: DOCUSATE SODIUM 50 MG/SENNA 8.6 MG TAB PO SCH ×2 (07:57→20:41)
[2017-06-30] MEDS: FAMOTIDINE 20 MG TAB NG SCH ×2 (07:57→20:41)
[2017-06-30] MEDS: GABAPENTIN 400 MG CAP PO SCH ×3 (07:57→16:49)
[2017-06-30] MEDS: POTASSIUM CHLORIDE 25 MEQ EFFERVESCENT TAB PO SCH (07:57)
[2017-06-30] MEDS: CHOLECALCIFEROL (VIT D3) 1000 UNIT TAB PO SCH (07:57)
[2017-06-30] MEDS: SODIUM CHLORIDE 0.9% FLUSH 10 ML FLUSH IV FLUSH SCH ×2 (07:58→20:42)
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
[2017-07-01] VITALS (7 sets, daily range): BP systolic 123–141; BP diastolic 76–99; PULSE 78–105; RESP 16–20; TEMP 96.4–99.1; O2SAT 95–100
[2017-07-01] MEDS: MAGNESIUM HYDROXIDE SUSP 30 ML CUP PO SCH ×3 (00:55→19:54)
[2017-07-01] MEDS: oxyCODONE HCL ORAL CONC 5 MG/0.25 ML SYRINGE PO SCH ×6 (00:55→23:16)
[2017-07-01] MEDS: CHLORHEXIDINE GLUCONATE 2 % 1 PACK (2 CLOTHS) TOP SCH (04:00)
[2017-07-01] MEDS: ENOXAPARIN SODIUM 30 MG/0.3 ML SYRINGE SQ SCH ×2 (07:24→16:40)
--- NOTE | 2017-07-01 07:31 | PD.ORT.PN ---
Subjective Subjective Remarks Continuing to progress. Pain is controlled. Sling is intact Objective Vitals Vital Signs Date Time Temp Pulse Resp B/P (MAP) Pulse Ox O2 Delivery O2 Flow Rate FiO2 07/01/17 00:00 97.6 78 17 134/79 (97) 95 06/30/17 20:00 98.2 86 17 143/69 (93) 96 06/30/17 18:06 95 21 06/30/17 16:00 98.9 97 18 124/73 (90) 95 06/30/17 12:00 98.0 91 18 127/84 (98) 96 06/30/17 11:27 97 06/30/17 08:00 97.7 89 16 129/79 (96) 96 I/O 06/30/17 06/30/17 06/30/17 07/01/17 07/01/17 07/01/17 07:00 15:00 23:00 07:00 15:00 23:00 Intake Total 240 ml 0 ml 840 ml 480 ml Output Total 650 ml 650 ml 450 ml Balance -410 ml 0 ml 190 ml 30 ml Intake Oral 240 ml 840 ml 480 ml IV Total 0 ml 0 ml Output Urine Total 650 ml 650 ml 450 ml # Bowel Movements 1 Result Diagram: 06/27/17 0755 06/27/17 0755 Imaging Last 24 hours Impressions Chest X-Ray 05/19/17 0000 Signed Impressions: Service Date/Time: Friday, May 19, 2017 01:00 - CONCLUSION: 1. Removal of the 2 pleural catheters along the right chest wall and placement of another right chest tube with distal tip in the medial inferior right hemithorax. The right pneumothorax has resolved with shift of the mediastinum back to the midline and resolution of the generalized lucency in the right hemithorax. 2. Remaining findings are stable. Conor Chaudhry MD Chest X-Ray 05/19/17 0000 Signed Impressions: Service Date/Time: Friday, May 19, 2017 00:13 - CONCLUSION: 1. The second small bore pigtail pleural catheter on the right has been placed and most of it appears to be outside of the right hemithorax except for maybe the distal tip. However, the right pneumothorax is no longer seen suggesting that it may be within the pleural space. Chest CT could confirm location, if needed. 2. Persistent volume loss and left mid and lower lung zone airspace consolidation. No left pneumothorax is visualized. 3. The nasogastric tube tip is in the stomach. Conor Chaudhry MD Thoracic Spine CT 05/18/172209 Signed Impressions: Service Date/Time: Thursday, May 18, 2017 22:27 - CONCLUSION: 1. Superior endplate fracture of T12 without involvement of the posterior cortex and with approximate 10%% loss of height. 2. Numerous bilateral posterior rib fractures from C7 to the level of the 7th rib. Josemanuel Murphy MD Pelvis X-Ray [id number]/18/172209 Signed Impressions: Service Date/Time: Thursday, May 18, 2017 22:09 - CONCLUSION: No gross fracture seen. Josemanuel Murphy MD Lumbar Spine CT [id number]/18/172209 Signed Impressions: Service Date/Time: Thursday, May 18, 2017 22:27 - CONCLUSION: 1. Lumbar vertebral bodies and posterior elements are intact. 2. Superior endplate fracture of T12 and medial left posterior 11th rib fracture. Josemanuel Murphy MD Head CT [id number]/18/172209 Signed Impressions: Service Date/Time: Thursday, May 18, 2017 22:27 - CONCLUSION: 1. No acute findings in the brain. Josemanuel Murphy MD Chest X-Ray [id number]/18/172209 Signed Impressions: Service Date/Time: Thursday, May 18, 2017 22:09 - CONCLUSION: Left chest drainage tube in the medial apex. Multiple displaced left rib fractures. Josemanuel Murphy MD Chest CT [id number]/18/172209 Signed Impressions: Service Date/Time: Thursday, May 18, 2017 22:27 - CONCLUSION: 1. Multiple fractures of the left ribs, left clavicle, left scapula and fracture of the lateral right 5th rib. 2. Bilateral pulmonary contusions, left greater than right and left pleural fluid. 3. Bilateral pneumothoraces with left chest drainage tube in place. Josemanuel Murphy MD Cervical Spine CT [id number]/18/172209 Signed Impressions: Service Date/Time: Thursday, May 18, 2017 22:27 - CONCLUSION: 1. Left transverse process fracture of C6 and fractures of the medial left 1st and 2nd ribs. 2. The vertebral bodies of the cervical spine down to C7 and posterior elements down to the level of C5 are intact. Josemanuel Murphy MD Abdomen/Pelvis CT 05/18/170 Signed Impressions: Service Date/Time: Thursday, May 18, 2017 22:27 - CONCLUSION: 1. Multiple findings in the chest including bilateral pneumothoraces and multiple bilateral rib fractures, see CT thorax report. 2. The solid and hollow organs of the abdomen/pelvis are grossly intact. Josemanuel Murphy MD Objective Remarks LLE: Incisions well approximated. Leti in position. Intact sensation distally with good capillary refill LUE: Clean dry dressings in place +swelling of shoulder. good cap refill. sling intact. nvi. RLE: motion of knee from 0-30deg. extreme stiffness. point tender over proximal MCL. no laxity to valgus/varus. neg dougie Assessment & Plan Assessment and Plan 1) Left Femoral Shaft Fx s/p IMN - 05/21/17 -daily dressing changes -WBAT -DC leti 2) Left Clavicle fxs s/p ORIF- 05/26/17 3) Left Glenoid Fx s/p ORIF - 06/03/17 -NWB LUE -maintain sling/swathe at all times -PT to work on PROM and AAROM. no Ext Rot beyond 10deg 4) Right Knee Pain -XR reveals significan amount of HO present along MCL and LCL. however, no laxity on exam. patien has extreme stiffness of knee -work aggressively with therapy on motion of knee and stretching -WBAT -no restrictions -Ortho surgeries complete at this time Roman Zamora Jr. Jul 01, 2017 07:30
[2017-07-01] MEDS: CHOLECALCIFEROL (VIT D3) 1000 UNIT TAB PO SCH (09:30)
[2017-07-01] MEDS: GABAPENTIN 400 MG CAP PO SCH ×3 (09:30→16:40)
[2017-07-01] MEDS: QUEtiapine FUMARATE 25 MG TAB PO SCH (09:30)
[2017-07-01] MEDS: DOCUSATE SODIUM 50 MG/SENNA 8.6 MG TAB PO SCH ×2 (09:30→19:52)
[2017-07-01] MEDS: POTASSIUM CHLORIDE 25 MEQ EFFERVESCENT TAB PO SCH (09:31)
[2017-07-01] MEDS: FAMOTIDINE 20 MG TAB NG SCH ×2 (09:31→19:52)
[2017-07-01] MEDS: SODIUM CHLORIDE 0.9% FLUSH 10 ML FLUSH IV FLUSH SCH ×2 (09:32→19:53)
[2017-07-01] MEDS: fentaNYL 50 MCG/HR PATCH T-DERMAL SCH (11:00)
[2017-07-01] MEDS: REMOVE OLD DURAGESIC (FENTANYL) PATCH T-DERMAL SCH (11:00)
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
[2017-07-02] VITALS: BP 119/75; PULSE 91; RESP 20; TEMP 98.6; O2SAT 95
[2017-07-02] MEDS: ENOXAPARIN SODIUM 30 MG/0.3 ML SYRINGE SQ SCH ×2 (05:56→16:53)
[2017-07-02] MEDS: oxyCODONE HCL ORAL CONC 5 MG/0.25 ML SYRINGE PO SCH ×4 (05:56→23:55)
[2017-07-02 07:52] VITALS: BP 119/81; PULSE 85; RESP 17; TEMP 97.7; O2SAT 96
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
[2017-07-02] MEDS: SODIUM CHLORIDE 0.9% FLUSH 10 ML FLUSH IV FLUSH SCH ×2 (09:00→21:00)
[2017-07-02] MEDS: GABAPENTIN 400 MG CAP PO SCH ×3 (09:16→16:53)
[2017-07-02] MEDS: FAMOTIDINE 20 MG TAB NG SCH ×2 (09:16→21:07)
[2017-07-02] MEDS: CHOLECALCIFEROL (VIT D3) 1000 UNIT TAB PO SCH (09:16)
[2017-07-02] MEDS: DOCUSATE SODIUM 50 MG/SENNA 8.6 MG TAB PO SCH ×2 (09:16→21:07)
[2017-07-02] MEDS: POTASSIUM CHLORIDE 25 MEQ EFFERVESCENT TAB PO SCH (09:17)
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
[2017-07-02 12:00] VITALS: BP 123/79; PULSE 76; RESP 18; TEMP 97.8; O2SAT 96
[2017-07-02] MEDS: MAGNESIUM HYDROXIDE SUSP 30 ML CUP PO SCH ×2 (12:29→23:56)
[2017-07-02 13:30] VITALS: BP 138/94; PULSE 85; RESP 18; TEMP 97.7; O2SAT 96
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
[2017-07-02 16:00] VITALS: BP 130/84; PULSE 92; RESP 18; TEMP 97.8; O2SAT 98
[2017-07-02 20:00] VITALS: BP 126/76; PULSE 90; RESP 18; TEMP 98.2; O2SAT 95
[2017-07-03] VITALS: BP 130/82; PULSE 88; RESP 18; TEMP 98.4; O2SAT 96
[2017-07-03] MEDS: oxyCODONE HCL ORAL CONC 5 MG/0.25 ML SYRINGE PO SCH ×4 (06:49→23:28)
[2017-07-03] MEDS: ENOXAPARIN SODIUM 30 MG/0.3 ML SYRINGE SQ SCH ×2 (06:49→17:59)
[2017-07-03 07:28] LABS: AUTOMATED NEUTROPHIL # 2.6 TH/MM3 (1.8-7.7); BASOPHIL # 0.1 TH/MM3 (0-0.2); BASOPHIL % 1.2 % (0.0-2.0); EOSINOPHIL # 0.2 TH/MM3 (0-0.4); EOSINOPHIL % 4.8 % (0.0-4.0); HEMATOCRIT 37.9 % (39.0-51.0); HEMOGLOBIN 13.1 GM/DL (13.0-17.0); LYMPH % 32.3 % (9.0-44.0); LYMPHOCYTE # 1.6 TH/MM3 (1.0-4.8); MEAN CELL VOLUME 84.2 FL (80.0-100.0); MEAN CORPUSCULAR HEMOGLOBIN 29.1 PG (27.0-34.0); MEAN CORPUSCULAR HGB CONC 34.6 % (32.0-36.0); MEAN PLATELET VOLUME 9.4 FL (7.0-11.0); MONO % 9.6 % (0.0-8.0); MONOCYTE # 0.5 TH/MM3 (0-0.9); NEUT % 52.1 % (16.0-70.0); PLATELET COUNT 239 TH/MM3 (150-450); RED CELL DISTRIBUTION WIDTH 14.6 % (11.6-17.2); WHITE BLOOD COUNT 4.9 TH/MM3 (4.0-11.0)
[2017-07-03 08:00] VITALS: BP 141/84; PULSE 79; RESP 18; TEMP 97.7; O2SAT 97
[2017-07-03 08:02] LABS: ALT (GPT) 43 U/L (12-78); AST (GOT) 22 U/L (15-37); BICARBONATE 27.6 MEQ/L (21.0-32.0); BLOOD UREA NITROGEN 16 MG/DL (7-18); CALCIUM 8.5 MG/DL (8.5-10.1); CHLORIDE 104 MEQ/L (98-107); CREATININE 0.71 MG/DL (0.60-1.30); GLOMERULAR FILTRATION RATE 118 ML/MIN (>89); GLUCOSE,RANDOM 117 MG/DL (74-106); SODIUM (NA) 139 MEQ/L (136-145)
[2017-07-03 08:04] LABS: ALKALINE PHOSPHATASE 431 U/L (45-117); TOTAL BILIRUBIN ADULT 0.5 MG/DL (0.2-1.0); TOTAL PROTEIN 7.5 GM/DL (6.4-8.2)
[2017-07-03] MEDS: GABAPENTIN 400 MG CAP PO SCH ×3 (09:02→17:59)
[2017-07-03] MEDS: CHOLECALCIFEROL (VIT D3) 1000 UNIT TAB PO SCH (09:02)
[2017-07-03] MEDS: DOCUSATE SODIUM 50 MG/SENNA 8.6 MG TAB PO SCH ×2 (09:02→19:58)
[2017-07-03] MEDS: FAMOTIDINE 20 MG TAB NG SCH ×2 (09:02→19:58)
[2017-07-03] MEDS: ERGOCALCIFEROL (VIT D2) 50,000 UNIT CAP PO SCH (09:02)
[2017-07-03] MEDS: SODIUM CHLORIDE 0.9% FLUSH 10 ML FLUSH IV FLUSH SCH ×2 (09:03→19:59)
[2017-07-03] MEDS: POTASSIUM CHLORIDE 25 MEQ EFFERVESCENT TAB PO SCH (09:03)
[2017-07-03 12:00] VITALS: BP 133/87; PULSE 80; RESP 18; TEMP 97.9; O2SAT 95
[2017-07-03] MEDS ORDERED: WHEEMIS3 (13:13)
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
[2017-07-03] MEDS: MAGNESIUM HYDROXIDE SUSP 30 ML CUP PO SCH ×2 (14:00→23:30)
[2017-07-03 16:00] VITALS: BP 129/83; PULSE 89; RESP 18; TEMP 97.8; O2SAT 96
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
[2017-07-03 20:00] VITALS: BP 132/72; PULSE 82; RESP 17; TEMP 98; O2SAT 97
[2017-07-04] VITALS: BP 134/81; PULSE 79; RESP 17; TEMP 98.1; O2SAT 98
[2017-07-04] MEDS: ENOXAPARIN SODIUM 30 MG/0.3 ML SYRINGE SQ SCH ×2 (05:59→18:02)
[2017-07-04] MEDS: oxyCODONE HCL ORAL CONC 5 MG/0.25 ML SYRINGE PO SCH ×3 (05:59→18:02)
[2017-07-04 08:00] VITALS: BP 132/78; PULSE 78; RESP 18; TEMP 97.8; O2SAT 94
[2017-07-04] MEDS: POTASSIUM CHLORIDE 25 MEQ EFFERVESCENT TAB PO SCH (08:58)
[2017-07-04] MEDS: FAMOTIDINE 20 MG TAB NG SCH ×2 (08:58→20:10)
[2017-07-04] MEDS: GABAPENTIN 400 MG CAP PO SCH ×3 (08:59→18:02)
[2017-07-04] MEDS: DOCUSATE SODIUM 50 MG/SENNA 8.6 MG TAB PO SCH ×2 (08:59→20:10)
[2017-07-04] MEDS: CHOLECALCIFEROL (VIT D3) 1000 UNIT TAB PO SCH (08:59)
[2017-07-04] MEDS: SODIUM CHLORIDE 0.9% FLUSH 10 ML FLUSH IV FLUSH SCH ×2 (09:00→20:13)
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
[2017-07-04 12:00] VITALS: BP 138/83; PULSE 77; RESP 19; TEMP 97.6; O2SAT 98
[2017-07-04] MEDS: REMOVE OLD DURAGESIC (FENTANYL) PATCH T-DERMAL SCH (12:00)
[2017-07-04] MEDS: fentaNYL 50 MCG/HR PATCH T-DERMAL SCH (12:25)
[2017-07-04] MEDS: MAGNESIUM HYDROXIDE SUSP 30 ML CUP PO SCH (12:26)
[2017-07-04 16:00] VITALS: BP 134/76; PULSE 83; RESP 19; TEMP 97.9; O2SAT 97
[2017-07-04 20:00] VITALS: BP 144/86; PULSE 83; RESP 19; TEMP 97.7; O2SAT 96
--- NOTE | 2017-07-04 20:20 | PD.ORT.PN ---
Subjective Subjective Remarks Complaint increase left shoulder pain and hematoma over left thigh. No new trauma Objective Vitals Vital Signs Date Time Temp Pulse Resp B/P (MAP) Pulse Ox O2 Delivery O2 Flow Rate FiO2 07/04/17 16:00 97.9 83 19 134/76 (95) 97 07/04/17 12:00 97.6 77 19 138/83 (101) 98 07/04/17 08:00 97.8 78 18 132/78 (96) 94 07/04/17 00:00 98.1 79 17 134/81 (98) 98 I/O 07/03/17 07/03/17 07/03/17 07/04/17 07/04/17 07/04/17 07:00 15:00 23:00 07:00 15:00 23:00 Intake Total 360 ml 960 ml 240 ml 960 ml Output Total 500 ml 1250 ml 1950 ml 800 ml Balance -140 ml -290 ml -1710 ml 160 ml Intake Oral 360 ml 960 ml 240 ml 960 ml Output Urine Total 500 ml 1250 ml 1950 ml 800 ml # Bowel Movements 0 1 0 1 Result Diagram: 07/03/17 0641 07/03/17 06 Imaging Last 24 hours Impressions Chest X-Ray 05/19/17 Signed Impressions: Service Date/Time: Friday, May 19, 2017 01:00 - CONCLUSION: 1. Removal of the 2 pleural catheters along the right chest wall and placement of another right chest tube with distal tip in the medial inferior right hemithorax. The right pneumothorax has resolved with shift of the mediastinum back to the midline and resolution of the generalized lucency in the right hemithorax. 2. Remaining findings are stable. Conor Chaudhry MD Chest X-Ray 05/19/17 0000 Signed Impressions: Service Date/Time: Friday, May 19, 2017 00:13 - CONCLUSION: 1. The second small bore pigtail pleural catheter on the right has been placed and most of it appears to be outside of the right hemithorax except for maybe the distal tip. However, the right pneumothorax is no longer seen suggesting that it may be within the pleural space. Chest CT could confirm location, if needed. 2. Persistent volume loss and left mid and lower lung zone airspace consolidation. No left pneumothorax is visualized. 3. The nasogastric tube tip is in the stomach. Conor Chaudhry MD Thoracic Spine CT 05/18/172209 Signed Impressions: Service Date/Time: Thursday, May 18, 2017 22:27 - CONCLUSION: 1. Superior endplate fracture of T12 without involvement of the posterior cortex and with approximate 10%% loss of height. 2. Numerous bilateral posterior rib fractures from C7 to the level of the 7th rib. Josemanuel Murphy MD Pelvis X-Ray 05/18/172209 Signed Impressions: Service Date/Time: Thursday, May 18, 2017 22:09 - CONCLUSION: No gross fracture seen. Josemanuel Murphy MD Lumbar Spine CT 05/18/172209 Signed Impressions: Service Date/Time: Thursday, May 18, 2017 22:27 - CONCLUSION: 1. Lumbar vertebral bodies and posterior elements are intact. 2. Superior endplate fracture of T12 and medial left posterior 11th rib fracture. Josemanuel Murphy MD Head CT 05/18/172209 Signed Impressions: Service Date/Time: Thursday, May 18, 2017 22:27 - CONCLUSION: 1. No acute findings in the brain. Josemanuel Murphy MD Chest X-Ray 05/18/172209 Signed Impressions: Service Date/Time: Thursday, May 18, 2017 22:09 - CONCLUSION: Left chest drainage tube in the medial apex. Multiple displaced left rib fractures. Josemanuel Murphy MD Chest CT 05/18/172209 Signed Impressions: Service Date/Time: Thursday, May 18, 2017 22:27 - CONCLUSION: 1. Multiple fractures of the left ribs, left clavicle, left scapula and fracture of the lateral right 5th rib. 2. Bilateral pulmonary contusions, left greater than right and left pleural fluid. 3. Bilateral pneumothoraces with left chest drainage tube in place. Josemanuel Murphy MD Cervical Spine CT 05/18/172209 Signed Impressions: Service Date/Time: Thursday, May 18, 2017 22:27 - CONCLUSION: 1. Left transverse process fracture of C6 and fractures of the medial left 1st and 2nd ribs. 2. The vertebral bodies of the cervical spine down to C7 and posterior elements down to the level of C5 are intact. Josemanuel Murphy MD Abdomen/Pelvis CT 05/18/172209 Signed Impressions: Service Date/Time: Thursday, May 18, 2017 22:27 - CONCLUSION: 1. Multiple findings in the chest including bilateral pneumothoraces and multiple bilateral rib fractures, see CT thorax report. 2. The solid and hollow organs of the abdomen/pelvis are grossly intact. Josemanuel Murphy MD Objective Remarks LLE: Incisions well approximated. [place] in position. Intact sensation distally with good capillary refill LUE: Appears dislocated. Clean dry dressings in place, internal rotation deformity. tender. +swelling of shoulder. good cap refill. sling intact. nvi. RLE: motion of knee from 0-30deg. extreme stiffness. Point tender over proximal MCL. no laxity to valgus/varus. neg dougie LLE: nvi, Thigh tenderness and hematoma. No erythema. Overall compressible compartments. Good cap refill. intact sensation distally Assessment & Plan Assessment and Plan 1) Left Femoral Shaft Fx s/p IMN - 05/21/17 -daily dressing changes -WBAT -DC jakob 2) Left Clavicle fxs s/p ORIF- 05/26/17 3) Left Glenoid Fx s/p ORIF - 06/03/17 -NWB LUE -maintain sling/swathe at all times -PT to work on [employer] and [employer]. no Ext Rot beyond 10deg Patient appeared to have dislocated his left shoulder. Patient was maintained in internal rotation and adduction. X-ray examination will enter dislocation. OR tomorrow for left shoulder closed reduction. 4) Right Knee Pain -XR reveals significan amount of HO present along MCL and LCL. however, no laxity on exam. patien has extreme stiffness of knee -work aggressively with therapy on motion of knee and stretching -WBAT -no restrictions Right thigh swelling and hematoma. I Recommend range of motion as tolerated, starting with passive range of motion and progress to active as tolerated. No need for intervention at this time. Compartments are soft. Israel Duque Jr., MD Jul 04, 2017 20:20
[2017-07-05] VITALS: BP 137/83; PULSE 80; RESP 21; TEMP 97.9; O2SAT 98
[2017-07-05] MEDS: MAGNESIUM HYDROXIDE SUSP 30 ML CUP PO SCH ×3 (00:30→20:19)
[2017-07-05] MEDS ORDERED: LACTATED RINGER'S 1000 ML IV PRN (04:15)
[2017-07-05] MEDS ORDERED: CHLORHEXIDINE GLUCONATE 2 % 1 PACK (2 CLOTHS) TOPICAL PRN (04:15)
[2017-07-05] MEDS ORDERED: POVIDONE IODINE 5% (ANTISEPSIS KIT) 4 APPLICATIONS EACH NARE PRN (04:15)
[2017-07-05] MEDS: ENOXAPARIN SODIUM 30 MG/0.3 ML SYRINGE SQ SCH ×2 (05:42→18:10)
[2017-07-05] MEDS: oxyCODONE HCL ORAL CONC 5 MG/0.25 ML SYRINGE PO SCH ×4 (05:43→18:10)
[2017-07-05 08:00] VITALS: BP 102/72; PULSE 87; RESP 18; TEMP 98.1; O2SAT 97
[2017-07-05] MEDS: POTASSIUM CHLORIDE 25 MEQ EFFERVESCENT TAB PO SCH (08:04)
[2017-07-05] MEDS: FAMOTIDINE 20 MG TAB NG SCH ×2 (08:04→20:18)
[2017-07-05] MEDS: GABAPENTIN 400 MG CAP PO SCH ×3 (08:04→18:10)
[2017-07-05] MEDS: CHOLECALCIFEROL (VIT D3) 1000 UNIT TAB PO SCH (08:05)
[2017-07-05] MEDS: DOCUSATE SODIUM 50 MG/SENNA 8.6 MG TAB PO SCH ×2 (08:05→20:18)
[2017-07-05] MEDS: SODIUM CHLORIDE 0.9% FLUSH 10 ML FLUSH IV FLUSH SCH ×2 (08:05→20:18)
[2017-07-05] MEDS ORDERED: MIDAZOLAM HCL 2 MG/2 ML VIAL ONE (10:57)
--- NOTE | 2017-07-05 11:00 | RADRPT ---
EXAM DATE/TIME: 07/05/2017 10:29 [place] COMPARISON: SHOULDER LEFT LTD (2VWS), July 03, 2017, 15:58. INDICATIONS : Left shoulder closed reduction. MEDICAL HISTORY : None. SURGICAL HISTORY : ORIF left shoulder/clavicle ENCOUNTER: Subsequent ACUITY: 1 week PAIN SCORE: Non-responsive. LOCATION: Left Shoulder. FINDINGS: Patient is status post open reduction internal fixation with screw-plate fixation device again noted along the distal clavicle. 2 lag type screws are noted in the scapula. There is overlying artifact on several images. CONCLUSION: Postoperative changes again noted. Roman Gould MD on July 05, 2017 at 10:56 Board Certified Radiologist. This report was verified electronically.
[2017-07-05] MEDS ORDERED: DO NOT ADM ANY ANTICOAGULANT DRUGS PRN (11:45)
[2017-07-05 12:00] VITALS: BP 123/74; PULSE 88; RESP 18; TEMP 97.8; O2SAT 96
[2017-07-05] MEDS ORDERED: LIDOCAINE HCL 1% PF 5 ML SYRINGE OTHER ONE (12:00)
[2017-07-05] MEDS ORDERED: PROPOFOL 200 MG/20 ML AMP IV ONE (12:00)
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
--- NOTE | 2017-07-05 15:27 | PD.OP ---
cc: Israel Duque Jr., MD Operative Report Date of Surgery: Jul 05, 2017 Preoperative Diagnosis: Left shoulder recurrent dislocation Postoperative Diagnosis: Persistent inferior anterior dislocation, left shoulder Procedure: Attempted left shoulder closed reduction Anesthesia: Sedation Surgeon: Israel Duque Cardiopulmonary Supervisor(s): staff Resident Surgeon: none Operation and Findings: Very pleasant male who is status post ORIF of the clavicle and scapula by Dr Morrow. Although the patient does not recall much of this, his friend in the room recall him falling and catching himself on his left shoulder last week. Since that incident he has experienced pain and decreased range of motion of the left shoulder with swelling. X-rays taken yesterday revealed left shoulder dislocation. Informed consent was obtained. Operative site was marked. He is brought to the operating room. Is given IV sedation and general anesthesia. Timeout procedure was performed. Traction and countertraction were applied. There appeared to be anterior inferior dislocation of the shoulder with the shoulder in internal rotation and adduction. The shoulder joint was gently manipulated but appeared to be perched over the anterior inferior glenoid. I was not able to maintain the shoulder reduced despite a few attempts. The shoulder was placed into a sling and swath. Patient was awakened and transferred to recovery in stable condition. I will obtain CT to r/o a deep hill-sachs lesion. Israel Duque Jr., MD Jul 05, 2017 15:27
[2017-07-05 16:00] VITALS: BP 127/73; PULSE 81; RESP 18; TEMP 98.1; O2SAT 97
[2017-07-05 20:00] VITALS: BP 139/65; PULSE 97; RESP 19; TEMP 98.3; O2SAT 97
--- NOTE | 2017-07-05 20:23 | RADRPT ---
EXAM DATE/TIME: 07/05/2017 19:55 [facility] COMPARISON: SHOULDER LEFT LTD (2VWS), July 03, 2017, 15:58. SHOULDER LEFT LTD (2VWS), July 05, 2017, 10:29. C T SHOULDER LEFT W/O CONTRAST, May 28, 2017, 16:42. INDICATIONS : Evaluate left shoulder fracture. RADIATION DOSE: 60.18 CTDIvol (mGy) MEDICAL HISTORY : None SURGICAL HISTORY : None. ENCOUNTER: Subsequent ACUITY: 2 months PAIN SCALE: 0/10 LOCATION: Left shoulder TECHNIQUE: Volumetric scanning of the shoulder was performed. Using automated exposure control and adjustment o f the mA and/or kV according to patient size, radiation dose was kept as low as reasonably achievable to obtain optimal diagnostic quality images. DICOM format image data is available electronically f or review and comparison. FINDINGS: There is a superior sideplate with interlocking screws traversing the distal left radius fracture. Al ignment is stable. The acromioclavicular joint is intact. 2 screws are present anteriorly extending t hrough the coracoid process to the scapula, deep to the glenoid. The hardware demonstrates no fractur e or signs of loosening. The coracoid fragment remains displaced anteriorly. There are 2 new bone fra gments along the anterior medial aspect of the humeral head with the humeral head appearing to be the donor site. Glenohumeral joint is intact. There is heterotopic ossification throughout the soft tiss ues surrounding the left shoulder and extending inferior medially to the anterior chest wall. There i s a persistent fracture of the scapular body which is minimally displaced. There is bony callus and heterotopic ossification surrounding the fractured left ribs. No pneumothora x is identified. Left pleural thickening is present. CONCLUSION: 1. There appears to be a new fracture of the anterior medial aspect of the humeral head with 2 osseou s fragments present that were not seen previously. 2. There is bony callus at the fracture sites as well as heterotopic ossification within the soft tis sues surrounding the left shoulder and extending anteriorly in the region of the pectoralis major and minor muscle to abut the anterior chest wall at the costicartilage sternal junction. 3. Stable minimally displaced fracture of the body of the scapula. 4. There is bony callous as well as heterotopic ossification surrounding the left rib fractures. Conor Chaudhry MD on July 05, 2017 at 20:13 Board Certified Radiologist. This report was verified electronically.
[2017-07-06] VITALS: BP 124/78; PULSE 87; RESP 20; TEMP 97.9; O2SAT 97
[2017-07-06] MEDS: oxyCODONE HCL ORAL CONC 5 MG/0.25 ML SYRINGE PO SCH ×4 (00:03→17:54)
[2017-07-06] MEDS: ENOXAPARIN SODIUM 30 MG/0.3 ML SYRINGE SQ SCH ×2 (05:40→17:55)
[2017-07-06] MEDS: GABAPENTIN 400 MG CAP PO SCH ×3 (07:57→17:54)
[2017-07-06] MEDS: SODIUM CHLORIDE 0.9% FLUSH 10 ML FLUSH IV FLUSH SCH ×2 (07:57→20:40)
[2017-07-06] MEDS: FAMOTIDINE 20 MG TAB NG SCH ×2 (07:57→20:40)
[2017-07-06] MEDS: POTASSIUM CHLORIDE 25 MEQ EFFERVESCENT TAB PO SCH (07:58)
[2017-07-06] MEDS: DOCUSATE SODIUM 50 MG/SENNA 8.6 MG TAB PO SCH ×2 (07:58→20:41)
[2017-07-06] MEDS: CHOLECALCIFEROL (VIT D3) 1000 UNIT TAB PO SCH (07:58)
--- NOTE | 2017-07-06 07:59 | PD.ORT.PN ---
Subjective Subjective Remarks s/p IMN left femur - POD 44 s/p ORIF left clavicle fx - POD 41 s/p ORIF left glenoid fx - POD 33 s/p closed reduction left shoulder twice stable in room Objective Vitals Vital Signs Date Time Temp Pulse Resp B/P (MAP) Pulse Ox O2 Delivery O2 Flow Rate FiO2 07/06/17 00:00 97.9 87 20 124/78 (93) 97 07/05/17 20:00 98.3 97 19 139/65 (89) 97 07/05/17 16:00 98.1 81 18 127/73 (91) 97 07/05/17 12:00 97.8 88 18 123/74 (90) 96 07/05/17 11:08 74 16 116/58 (77) 100 Nasal Cannula 2 07/05/17 11:00 77 16 109/62 (78) 100 Nasal Cannula 2 07/05/17 10:49 97.8 78 16 122/68 (86) 100 Nasal Cannula 2 07/05/17 08:00 98.1 87 18 102/72 (82) 97 I/O 07/05/17 07/05/17 07/05/17 07/06/17 07/06/17 07/06/17 07:00 15:00 23:00 07:00 15:00 23:00 Intake Total 1200 ml 600 ml 960 ml Output Total 900 ml Balance 300 ml 600 ml 960 ml Intake Oral 1200 ml 960 ml IV Total 600 ml Output Urine Total 900 ml # Voids 3 1 # Bowel Movements 0 Result Diagram: 07/03/17 0641 07/03/17 0641 Imaging Last 24 hours Impressions Chest X-Ray 05/19/17 0000 Signed Impressions: Service Date/Time: Friday, May 19, 2017 01:00 - CONCLUSION: 1. Removal of the 2 pleural catheters along the right chest wall and placement of another right chest tube with distal tip in the medial inferior right hemithorax. The right pneumothorax has resolved with shift of the mediastinum back to the midline and resolution of the generalized lucency in the right hemithorax. 2. Remaining findings are stable. Conor Chaudhry MD Chest X-Ray 05/19/17 0000 Signed Impressions: Service Date/Time: Friday, May 19, 2017 00:13 - CONCLUSION: 1. The second small bore pigtail pleural catheter on the right has been placed and most of it appears to be outside of the right hemithorax except for maybe the distal tip. However, the right pneumothorax is no longer seen suggesting that it may be within the pleural space. Chest CT could confirm location, if needed. 2. Persistent volume loss and left mid and lower lung zone airspace consolidation. No left pneumothorax is visualized. 3. The nasogastric tube tip is in the stomach. Conor Chaudhry MD Thoracic Spine CT 05/18/172209 Signed Impressions: Service Date/Time: Thursday, May 18, 2017 22:27 - CONCLUSION: 1. Superior endplate fracture of T12 without involvement of the posterior cortex and with approximate 10%% loss of height. 2. Numerous bilateral posterior rib fractures from C7 to the level of the 7th rib. Josmeanuel Murphy MD Pelvis X-Ray 05/18/172209 Signed Impressions: Service Date/Time: Thursday, May 18, 2017 22:09 - CONCLUSION: No gross fracture seen. Josemanuel Murphy MD Lumbar Spine CT 05/18/172209 Signed Impressions: Service Date/Time: Thursday, May 18, 2017 22:27 - CONCLUSION: 1. Lumbar vertebral bodies and posterior elements are intact. 2. Superior endplate fracture of T12 and medial left posterior 11th rib fracture. Josemanuel Murphy MD Head CT 05/18/172209 Signed Impressions: Service Date/Time: Thursday, May 18, 2017 22:27 - CONCLUSION: 1. No acute findings in the brain. Josemanuel Murphy MD Chest X-Ray 05/18/172209 Signed Impressions: Service Date/Time: Thursday, May 18, 2017 22:09 - CONCLUSION: Left chest drainage tube in the medial apex. Multiple displaced left rib fractures. Josemanuel Murphy MD Chest CT 05/18/172209 Signed Impressions: Service Date/Time: Thursday, May 18, 2017 22:27 - CONCLUSION: 1. Multiple fractures of the left ribs, left clavicle, left scapula and fracture of the lateral right 5th rib. 2. Bilateral pulmonary contusions, left greater than right and left pleural fluid. 3. Bilateral pneumothoraces with left chest drainage tube in place. Josemanuel Murphy MD Cervical Spine CT 05/18/172209 Signed Impressions: Service Date/Time: Thursday, May 18, 2017 22:27 - CONCLUSION: 1. Left transverse process fracture of C6 and fractures of the medial left 1st and 2nd ribs. 2. The vertebral bodies of the cervical spine down to C7 and posterior elements down to the level of C5 are intact. Josemanuel Murphy MD Abdomen/Pelvis CT 05/18/172209 Signed Impressions: Service Date/Time: Thursday, May 18, 2017 22:27 - CONCLUSION: 1. Multiple findings in the chest including bilateral pneumothoraces and multiple bilateral rib fractures, see CT thorax report. 2. The solid and hollow organs of the abdomen/pelvis are grossly intact. Josemanuel Murphy MD Objective Remarks LLE: Incisions well approximated. Burton in position. Intact sensation distally with good capillary refill LUE: Appears dislocated. Clean dry dressings in place, internal rotation deformity. tender. +swelling of shoulder. good cap refill. sling intact. nvi. RLE: motion of knee from 0-30deg. extreme stiffness. Point tender over proximal MCL. no laxity to valgus/varus. neg dougie LLE: nvi, Thigh tenderness and hematoma. No erythema. Overall compressible compartments. Good cap refill. intact sensation distally Assessment & Plan Assessment and Plan 1) Left Femoral Shaft Fx s/p IMN - 05/21/17 -daily dressing changes -WBAT -DC jakob 2) Left Clavicle fxs s/p ORIF- 05/26/17 3) Left Glenoid Fx s/p ORIF - 06/03/17 -NWB LUE -maintain sling/swathe at all times -cancel all physical therapy of left shoulder. patient shoulder is too unstable at this point for motion due to multiple dislocations. 4) Right Knee Pain -XR reveals significan amount of HO present along MCL and LCL. however, no laxity on exam. patien has extreme stiffness of knee -work aggressively with therapy on motion of knee and stretching -WBAT -no restrictions Right thigh swelling and hematoma. I Recommend range of motion as tolerated, starting with passive range of motion and progress to active as tolerated. No need for intervention at this time. Compartments are soft. Kt Herrera PA/Tip Puncher PA Jul 06, 2017 07:59
[2017-07-06 08:00] VITALS: BP 125/82; PULSE 90; RESP 18; TEMP 97.6; O2SAT 97
[2017-07-06 12:00] VITALS: BP 158/92; PULSE 73; RESP 17; TEMP 97.4; O2SAT 96
[2017-07-06] MEDS: MAGNESIUM HYDROXIDE SUSP 30 ML CUP PO SCH (12:23)
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
[2017-07-06 16:00] VITALS: BP 128/81; PULSE 91; RESP 19; TEMP 97.9; O2SAT 97
[2017-07-06 20:00] VITALS: BP 129/74; PULSE 89; RESP 18; TEMP 97.7; O2SAT 96
[2017-07-07] VITALS: BP 130/72; PULSE 82; RESP 18; TEMP 97.9; O2SAT 95
[2017-07-07] MEDS: oxyCODONE HCL ORAL CONC 5 MG/0.25 ML SYRINGE PO SCH ×4 (00:41→18:04)
[2017-07-07] MEDS: MAGNESIUM HYDROXIDE SUSP 30 ML CUP PO SCH ×2 (00:44→12:11)
[2017-07-07] MEDS ORDERED: LACTATED RINGER'S 1000 ML IV PRN (02:15)
[2017-07-07] MEDS ORDERED: CHLORHEXIDINE GLUCONATE 2 % 1 PACK (2 CLOTHS) TOPICAL PRN (02:15)
[2017-07-07] MEDS ORDERED: POVIDONE IODINE 5% (ANTISEPSIS KIT) 4 APPLICATIONS EACH NARE PRN (02:15)
[2017-07-07 04:00] VITALS: BP 125/75; PULSE 85; RESP 18; TEMP 97.1; O2SAT 94
[2017-07-07] MEDS: ENOXAPARIN SODIUM 30 MG/0.3 ML SYRINGE SQ SCH ×2 (04:55→18:00)
[2017-07-07 08:00] VITALS: BP 136/81; PULSE 70; RESP 19; TEMP 97.5; O2SAT 95
[2017-07-07] MEDS: DOCUSATE SODIUM 50 MG/SENNA 8.6 MG TAB PO SCH ×2 (09:21→21:14)
[2017-07-07] MEDS: FAMOTIDINE 20 MG TAB NG SCH ×2 (09:22→21:14)
[2017-07-07] MEDS: SODIUM CHLORIDE 0.9% FLUSH 10 ML FLUSH IV FLUSH SCH ×2 (09:22→21:00)
[2017-07-07] MEDS: POTASSIUM CHLORIDE 25 MEQ EFFERVESCENT TAB PO SCH (09:22)
[2017-07-07] MEDS: GABAPENTIN 400 MG CAP PO SCH ×3 (09:22→18:04)
[2017-07-07] MEDS: CHOLECALCIFEROL (VIT D3) 1000 UNIT TAB PO SCH (09:22)
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
[2017-07-07] MEDS ORDERED: TEMAZEPAM 7.5 MG CAP PO PRN (11:30)
--- NOTE | 2017-07-07 11:32 | PD.ORT.PN ---
Subjective Subjective Remarks s/p IMN left femur - POD 45 s/p ORIF left clavicle fx - POD 42 s/p ORIF left glenoid fx - POD 34 s/p closed reduction left shoulder twice stable in room. no complaints. Objective Vitals Vital Signs Date Time Temp Pulse Resp B/P (MAP) Pulse Ox O2 Delivery O2 Flow Rate FiO2 07/07/17 05:57 20 07/07/17 04:00 97.1 85 18 125/75 (92) 94 07/07/17 00:00 97.9 82 18 130/72 (91) 95 07/06/17 20:00 97.7 89 18 129/74 (92) 96 07/06/17 16:00 97.9 91 19 128/81 (97) 97 07/06/17 12:00 97.4 73 17 158/92 (114) 96 I/O 07/06/17 07/06/17 07/06/17 07/07/17 07/07/17 07/07/17 06:59 14:59 22:59 06:59 14:59 22:59 Intake Total 950 ml 0 ml Output Total 1000 ml Balance -50 ml 0 ml Intake Oral 950 ml 0 ml Output Urine Total 1000 ml # Voids 1 0 # Bowel Movements 0 0 Result Diagram: 07/03/17 0641 07/03/17 0641 Imaging Last 24 hours Impressions Chest X-Ray 05/19/17 0000 Signed Impressions: Service Date/Time: Friday, May 19, 2017 01:00 - CONCLUSION: 1. Removal of the 2 pleural catheters along the right chest wall and placement of another right chest tube with distal tip in the medial inferior right hemithorax. The right pneumothorax has resolved with shift of the mediastinum back to the midline and resolution of the generalized lucency in the right hemithorax. 2. Remaining findings are stable. Conor Chaudhry MD Chest X-Ray 05/19/17 0000 Signed Impressions: Service Date/Time: Friday, May 19, 2017 00:13 - CONCLUSION: 1. The second small bore pigtail pleural catheter on the right has been placed and most of it appears to be outside of the right hemithorax except for maybe the distal tip. However, the right pneumothorax is no longer seen suggesting that it may be within the pleural space. Chest CT could confirm location, if needed. 2. Persistent volume loss and left mid and lower lung zone airspace consolidation. No left pneumothorax is visualized. 3. The nasogastric tube tip is in the stomach. Conor Chaudhry MD Thoracic Spine CT 05/18/172209 Signed Impressions: Service Date/Time: Thursday, May 18, 2017 22:27 - CONCLUSION: 1. Superior endplate fracture of T12 without involvement of the posterior cortex and with approximate 10%% loss of height. 2. Numerous bilateral posterior rib fractures from C7 to the level of the 7th rib. Josemanuel Murphy MD Pelvis X-Ray 05/18/172209 Signed Impressions: Service Date/Time: Thursday, May 18, 2017 22:09 - CONCLUSION: No gross fracture seen. Josemanuel Murphy MD Lumbar Spine CT 05/18/172209 Signed Impressions: Service Date/Time: Thursday, May 18, 2017 22:27 - CONCLUSION: 1. Lumbar vertebral bodies and posterior elements are intact. 2. Superior endplate fracture of T12 and medial left posterior 11th rib fracture. Josemanuel Murphy MD Head CT 05/18/172209 Signed Impressions: Service Date/Time: Thursday, May 18, 2017 22:27 - CONCLUSION: 1. No acute findings in the brain. Josemanuel Murphy MD Chest X-Ray 05/18/172209 Signed Impressions: Service Date/Time: Thursday, May 18, 2017 22:09 - CONCLUSION: Left chest drainage tube in the medial apex. Multiple displaced left rib fractures. Josemanuel Murphy MD Chest CT 05/18/172209 Signed Impressions: Service Date/Time: Thursday, May 18, 2017 22:27 - CONCLUSION: 1. Multiple fractures of the left ribs, left clavicle, left scapula and fracture of the lateral right 5th rib. 2. Bilateral pulmonary contusions, left greater than right and left pleural fluid. 3. Bilateral pneumothoraces with left chest drainage tube in place. Josemanuel Murphy MD Cervical Spine CT 05/18/172209 Signed Impressions: Service Date/Time: Thursday, May 18, 2017 22:27 - CONCLUSION: 1. Left transverse process fracture of C6 and fractures of the medial left 1st and 2nd ribs. 2. The vertebral bodies of the cervical spine down to C7 and posterior elements down to the level of C5 are intact. Josemanuel Murphy MD Abdomen/Pelvis CT 05/18/170 Signed Impressions: Service Date/Time: Thursday, May 18, 2017 22:27 - CONCLUSION: 1. Multiple findings in the chest including bilateral pneumothoraces and multiple bilateral rib fractures, see CT thorax report. 2. The solid and hollow organs of the abdomen/pelvis are grossly intact. Josemanuel Murphy MD Objective Remarks LLE: Incisions well approximated. [place] in position. Intact sensation distally with good capillary refill LUE: Appears dislocated. Clean dry dressings in place, internal rotation deformity. tender. +swelling of shoulder. good cap refill. sling intact. nvi. RLE: motion of knee from 0-30deg. extreme stiffness. Point tender over proximal MCL. no laxity to valgus/varus. neg dougie LLE: nvi, Thigh tenderness and hematoma. No erythema. Overall compressible compartments. Good cap refill. intact sensation distally Assessment & Plan Assessment and Plan 1) Left Femoral Shaft Fx s/p IMN - 05/21/17 -daily dressing changes -WBAT -DC jakob 2) Left Clavicle fxs s/p ORIF- 05/26/17 3) Left Glenoid Fx s/p ORIF - 06/03/17 -NWB LUE -maintain sling/swathe at all times -cancel all physical therapy of left shoulder. patient shoulder is too unstable at this point for motion due to multiple dislocations. 4) Right Knee Pain -XR reveals significan amount of HO present along MCL and LCL. however, no laxity on exam. patien has extreme stiffness of knee -work aggressively with therapy on motion of knee and stretching -WBAT -no restrictions Right thigh swelling and hematoma. I Recommend range of motion as tolerated, starting with passive range of motion and progress to active as tolerated. No need for intervention at this time. Compartments are soft. ortho surgeries complete. diet restarted. no forseeable procedures to be done at this time. Kt Herrera/Physical Testing Supervisor IRVIN Jul 07, 2017 11:32
[2017-07-07 12:00] VITALS: BP 130/86; PULSE 81; RESP 17; TEMP 98; O2SAT 97
[2017-07-07] MEDS: REMOVE OLD DURAGESIC (FENTANYL) PATCH T-DERMAL SCH (12:00)
[2017-07-07] MEDS: fentaNYL 50 MCG/HR PATCH T-DERMAL SCH (12:04)
[2017-07-07 16:00] VITALS: BP 127/77; PULSE 94; RESP 18; TEMP 98; O2SAT 96
[2017-07-07 20:00] VITALS: BP 140/83; PULSE 89; RESP 18; TEMP 97.9; O2SAT 96
[2017-07-08] VITALS: BP 129/85; PULSE 85; RESP 18; TEMP 98.1; O2SAT 95
[2017-07-08] MEDS: MAGNESIUM HYDROXIDE SUSP 30 ML CUP PO SCH ×2 (00:46→12:10)
[2017-07-08] MEDS: oxyCODONE HCL ORAL CONC 5 MG/0.25 ML SYRINGE PO SCH ×4 (00:46→17:40)
[2017-07-08] MEDS: ENOXAPARIN SODIUM 30 MG/0.3 ML SYRINGE SQ SCH ×2 (05:40→17:40)
[2017-07-08 08:00] VITALS: BP 134/85; PULSE 83; RESP 17; TEMP 97.4; O2SAT 95
--- NOTE | 2017-07-08 08:05 | PD.ORT.PN ---
Subjective Subjective Remarks s/p IMN left femur - POD 46 s/p ORIF left clavicle fx - POD 43 s/p ORIF left glenoid fx - POD 35 s/p closed reduction left shoulder twice stable in room. no complaints. Objective Vitals Vital Signs Date Time Temp Pulse Resp B/P (MAP) Pulse Ox O2 Delivery O2 Flow Rate FiO2 07/08/17 03:17 20 07/08/17 00:00 98.1 85 18 129/85 (100) 95 07/07/17 20:00 97.9 89 18 140/83 (102) 96 07/07/17 16:00 98.0 94 18 127/77 (94) 96 07/07/17 12:00 98.0 81 17 130/86 (101) 97 I/O 07/07/17 07/07/17 07/07/17 07/08/17 07/08/17 07/08/17 07:00 15:00 23:00 07:00 15:00 23:00 Intake Total 0 ml 1060 ml 480 ml Output Total 600 ml 1500 ml Balance 0 ml 460 ml -1020 ml Intake Oral 0 ml 1060 ml 480 ml Output Urine Total 600 ml 1500 ml # Voids 0 # Bowel Movements 0 0 1 Imaging Last 24 hours Impressions Chest X-Ray 05/19/17 0000 Signed Impressions: Service Date/Time: Friday, May 19, 2017 01:00 - CONCLUSION: 1. Removal of the 2 pleural catheters along the right chest wall and placement of another right chest tube with distal tip in the medial inferior right hemithorax. The right pneumothorax has resolved with shift of the mediastinum back to the midline and resolution of the generalized lucency in the right hemithorax. 2. Remaining findings are stable. Conor Chaudhry MD Chest X-Ray 05/19/17 0000 Signed Impressions: Service Date/Time: Friday, May 19, 2017 00:13 - CONCLUSION: 1. The second small bore pigtail pleural catheter on the right has been placed and most of it appears to be outside of the right hemithorax except for maybe the distal tip. However, the right pneumothorax is no longer seen suggesting that it may be within the pleural space. Chest CT could confirm location, if needed. 2. Persistent volume loss and left mid and lower lung zone airspace consolidation. No left pneumothorax is visualized. 3. The nasogastric tube tip is in the stomach. Conor Chaudhry MD Thoracic Spine CT 05/18/172209 Signed Impressions: Service Date/Time: Thursday, May 18, 2017 22:27 - CONCLUSION: 1. Superior endplate fracture of T12 without involvement of the posterior cortex and with approximate 10%% loss of height. 2. Numerous bilateral posterior rib fractures from C7 to the level of the 7th rib. Josemanuel Murphy MD Pelvis X-Ray 05/18/172209 Signed Impressions: Service Date/Time: Thursday, May 18, 2017 22:09 - CONCLUSION: No gross fracture seen. Josemanuel Murphy MD Lumbar Spine CT 05/18/172209 Signed Impressions: Service Date/Time: Thursday, May 18, 2017 22:27 - CONCLUSION: 1. Lumbar vertebral bodies and posterior elements are intact. 2. Superior endplate fracture of T12 and medial left posterior 11th rib fracture. Josemanuel Murphy MD Head CT 05/18/172209 Signed Impressions: Service Date/Time: Thursday, May 18, 2017 22:27 - CONCLUSION: 1. No acute findings in the brain. Josemanuel Murphy MD Chest X-Ray 05/18/172209 Signed Impressions: Service Date/Time: Thursday, May 18, 2017 22:09 - CONCLUSION: Left chest drainage tube in the medial apex. Multiple displaced left rib fractures. Josemanuel Murphy MD Chest CT 05/18/172209 Signed Impressions: Service Date/Time: Thursday, May 18, 2017 22:27 - CONCLUSION: 1. Multiple fractures of the left ribs, left clavicle, left scapula and fracture of the lateral right 5th rib. 2. Bilateral pulmonary contusions, left greater than right and left pleural fluid. 3. Bilateral pneumothoraces with left chest drainage tube in place. Josemanuel Murphy MD Cervical Spine CT 05/18/172209 Signed Impressions: Service Date/Time: Thursday, May 18, 2017 22:27 - CONCLUSION: 1. Left transverse process fracture of C6 and fractures of the medial left 1st and 2nd ribs. 2. The vertebral bodies of the cervical spine down to C7 and posterior elements down to the level of C5 are intact. Josemanuel Murphy MD Abdomen/Pelvis CT 05/18/17 2210 Signed Impressions: Service Date/Time: Thursday, May 18, 2017 22:27 - CONCLUSION: 1. Multiple findings in the chest including bilateral pneumothoraces and multiple bilateral rib fractures, see CT thorax report. 2. The solid and hollow organs of the abdomen/pelvis are grossly intact. Josemanuel Murphy MD Objective Remarks LLE: Incisions well approximated. Leti in position. Intact sensation distally with good capillary refill LUE: Appears dislocated. Clean dry dressings in place, internal rotation deformity. tender. +swelling of shoulder. good cap refill. sling intact. nvi. RLE: motion of knee from 0-30deg. extreme stiffness. Point tender over proximal MCL. no laxity to valgus/varus. neg dougie LLE: nvi, Thigh tenderness and hematoma. No erythema. Overall compressible compartments. Good cap refill. intact sensation distally Assessment & Plan Assessment and Plan 1) Left Femoral Shaft Fx s/p IMN - 05/21/17 -daily dressing changes -WBAT -DC leti 2) Left Clavicle fxs s/p ORIF- 05/26/17 3) Left Glenoid Fx s/p ORIF - 06/03/17 -NWB LUE -maintain sling/swathe at all times -cancel all physical therapy of left shoulder. patient shoulder is too unstable at this point for motion due to multiple dislocations. 4) Right Knee Pain -XR reveals significan amount of HO present along MCL and LCL. however, no laxity on exam. patien has extreme stiffness of knee -work aggressively with therapy on motion of knee and stretching -WBAT -no restrictions Right thigh swelling and hematoma. I Recommend range of motion as tolerated, starting with passive range of motion and progress to active as tolerated. No need for intervention at this time. Compartments are soft. ortho surgeries complete. diet restarted. no forseeable procedures to be done at this time. will re-order CT scan of left shoulder for fear of repeat dislocation Kt Herrera/First An BRYAN Jul 08, 2017 08:05
[2017-07-08] MEDS: DOCUSATE SODIUM 50 MG/SENNA 8.6 MG TAB PO SCH ×2 (08:34→20:53)
[2017-07-08] MEDS: SODIUM CHLORIDE 0.9% FLUSH 10 ML FLUSH IV FLUSH SCH ×2 (08:35→20:54)
[2017-07-08] MEDS: GABAPENTIN 400 MG CAP PO SCH ×3 (08:35→17:40)
[2017-07-08] MEDS: FAMOTIDINE 20 MG TAB NG SCH ×2 (08:35→20:53)
[2017-07-08] MEDS: POTASSIUM CHLORIDE 25 MEQ EFFERVESCENT TAB PO SCH (08:35)
[2017-07-08] MEDS: CHOLECALCIFEROL (VIT D3) 1000 UNIT TAB PO SCH (08:35)
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
[2017-07-08 12:00] VITALS: BP 130/79; PULSE 79; RESP 17; TEMP 97.2; O2SAT 96
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
[2017-07-08] MEDS ORDERED: ZOLPIDEM TARTRATE 5 MG TAB PO PRN (13:30)
[2017-07-08 16:00] VITALS: BP 123/79; PULSE 81; RESP 17; TEMP 97.7; O2SAT 96
[2017-07-08 20:04] VITALS: BP 130/70; PULSE 90; RESP 18; TEMP 97.9; O2SAT 95
[2017-07-09] MEDS: oxyCODONE HCL ORAL CONC 5 MG/0.25 ML SYRINGE PO SCH ×4 (00:50→17:48)
[2017-07-09] MEDS: MAGNESIUM HYDROXIDE SUSP 30 ML CUP PO SCH ×2 (00:57→12:37)
[2017-07-09] MEDS: ENOXAPARIN SODIUM 30 MG/0.3 ML SYRINGE SQ SCH ×2 (06:39→17:47)
--- NOTE | 2017-07-09 07:56 | PD.ORT.PN ---
Subjective Subjective Remarks s/p IMN left femur - POD 47 s/p ORIF left clavicle fx - POD 44 s/p ORIF left glenoid fx - POD 36 s/p closed reduction left shoulder twice stable in room. no complaints. Objective Vitals Vital Signs Date Time Temp Pulse Resp B/P (MAP) Pulse Ox O2 Delivery O2 Flow Rate FiO2 07/08/17 20:04 97.9 90 18 130/70 (90) 95 07/08/17 16:00 97.7 81 17 123/79 (94) 96 07/08/17 12:00 97.2 79 17 130/79 (96) 96 07/08/17 08:00 97.4 83 17 134/85 (101) 95 I/O 07/08/17 07/08/17 07/08/17 07/09/17 07/09/17 07/09/17 07:00 15:00 23:00 07:00 15:00 23:00 Intake Total 480 ml 2022 ml Output Total 1500 ml 1000 ml 300 ml Balance -1020 ml 1022 ml -300 ml Intake Oral 480 ml 2022 ml Output Urine Total 1500 ml 1000 ml 300 ml # Bowel Movements 1 0 Imaging Last 24 hours Impressions Chest X-Ray 05/19/17 0000 Signed Impressions: Service Date/Time: Friday, May 19, 2017 01:00 - CONCLUSION: 1. Removal of the 2 pleural catheters along the right chest wall and placement of another right chest tube with distal tip in the medial inferior right hemithorax. The right pneumothorax has resolved with shift of the mediastinum back to the midline and resolution of the generalized lucency in the right hemithorax. 2. Remaining findings are stable. Conor Chaudhry MD Chest X-Ray 05/19/17 0000 Signed Impressions: Service Date/Time: Friday, May 19, 2017 00:13 - CONCLUSION: 1. The second small bore pigtail pleural catheter on the right has been placed and most of it appears to be outside of the right hemithorax except for maybe the distal tip. However, the right pneumothorax is no longer seen suggesting that it may be within the pleural space. Chest CT could confirm location, if needed. 2. Persistent volume loss and left mid and lower lung zone airspace consolidation. No left pneumothorax is visualized. 3. The nasogastric tube tip is in the stomach. Conor Chaudhry MD Thoracic Spine CT 05/18/172209 Signed Impressions: Service Date/Time: Thursday, May 18, 2017 22:27 - CONCLUSION: 1. Superior endplate fracture of T12 without involvement of the posterior cortex and with approximate 10%% loss of height. 2. Numerous bilateral posterior rib fractures from C7 to the level of the 7th rib. Josemanuel Murphy MD Pelvis X-Ray 05/18/172209 Signed Impressions: Service Date/Time: Thursday, May 18, 2017 22:09 - CONCLUSION: No gross fracture seen. Josemanuel Murphy MD Lumbar Spine CT 05/18/172209 Signed Impressions: Service Date/Time: Thursday, May 18, 2017 22:27 - CONCLUSION: 1. Lumbar vertebral bodies and posterior elements are intact. 2. Superior endplate fracture of T12 and medial left posterior 11th rib fracture. Josemanuel Murphy MD Head CT 05/18/172209 Signed Impressions: Service Date/Time: Thursday, May 18, 2017 22:27 - CONCLUSION: 1. No acute findings in the brain. Josemanuel Murphy MD Chest X-Ray 05/18/172209 Signed Impressions: Service Date/Time: Thursday, May 18, 2017 22:09 - CONCLUSION: Left chest drainage tube in the medial apex. Multiple displaced left rib fractures. Josemanuel Murphy MD Chest CT 05/18/172209 Signed Impressions: Service Date/Time: Thursday, May 18, 2017 22:27 - CONCLUSION: 1. Multiple fractures of the left ribs, left clavicle, left scapula and fracture of the lateral right 5th rib. 2. Bilateral pulmonary contusions, left greater than right and left pleural fluid. 3. Bilateral pneumothoraces with left chest drainage tube in place. Josemanuel Murphy MD Cervical Spine CT 05/18/172209 Signed Impressions: Service Date/Time: Thursday, May 18, 2017 22:27 - CONCLUSION: 1. Left transverse process fracture of C6 and fractures of the medial left 1st and 2nd ribs. 2. The vertebral bodies of the cervical spine down to C7 and posterior elements down to the level of C5 are intact. Josemanuel Murphy MD Abdomen/Pelvis CT 05/18/172209 Signed Impressions: Service Date/Time: Thursday, May 18, 2017 22:27 - CONCLUSION: 1. Multiple findings in the chest including bilateral pneumothoraces and multiple bilateral rib fractures, see CT thorax report. 2. The solid and hollow organs of the abdomen/pelvis are grossly intact. Josemanuel Murphy MD Objective Remarks LLE: Incisions well approximated. Leti in position. Intact sensation distally with good capillary refill LUE: Clean dry dressings in place, internal rotation deformity. tender. + swelling of shoulder. good cap refill. sling intact. nvi. RLE: motion of knee from 0-30deg. extreme stiffness. Point tender over proximal MCL. no laxity to valgus/varus. neg dougie LLE: nvi, Thigh tenderness and hematoma. No erythema. Overall compressible compartments. Good cap refill. intact sensation distally Assessment & Plan Assessment and Plan 1) Left Femoral Shaft Fx s/p IMN - 05/21/17 -daily dressing changes -WBAT -DC leti 2) Left Clavicle fxs s/p ORIF- 05/26/17 3) Left Glenoid Fx s/p ORIF - 06/03/17 -NWB LUE -maintain sling/swathe at all times -cancel all physical therapy of left shoulder. patient shoulder is too unstable at this point for motion due to multiple dislocations. 4) Right Knee Pain -XR reveals significan amount of HO present along MCL and LCL. however, no laxity on exam. patien has extreme stiffness of knee -work aggressively with therapy on motion of knee and stretching -WBAT -no restrictions Right thigh swelling and hematoma. I Recommend range of motion as tolerated, starting with passive range of motion and progress to active as tolerated. No need for intervention at this time. Compartments are soft. ortho surgeries complete. diet restarted. no forseeable procedures to be done at this time. CT scan shows that shoulder is reduced Kt Herrera/First An BRYAN Jul 09, 2017 07:56
[2017-07-09] MEDS: FAMOTIDINE 20 MG TAB NG SCH ×2 (08:08→21:16)
[2017-07-09] MEDS: DOCUSATE SODIUM 50 MG/SENNA 8.6 MG TAB PO SCH ×2 (08:08→21:16)
[2017-07-09] MEDS: GABAPENTIN 400 MG CAP PO SCH ×3 (08:08→17:47)
[2017-07-09] MEDS: POTASSIUM CHLORIDE 25 MEQ EFFERVESCENT TAB PO SCH (08:08)
[2017-07-09] MEDS: CHOLECALCIFEROL (VIT D3) 1000 UNIT TAB PO SCH (08:08)
[2017-07-09] MEDS: SODIUM CHLORIDE 0.9% FLUSH 10 ML FLUSH IV FLUSH SCH ×2 (08:09→21:18)
[2017-07-09 08:25] VITALS: BP 129/76; PULSE 76; RESP 16; TEMP 97.7; O2SAT 98
[2017-07-09 11:07] VITALS: BP 118/80; PULSE 80; RESP 16; TEMP 97.6; O2SAT 96
[2017-07-09 16:00] VITALS: BP 125/81; PULSE 84; RESP 18; TEMP 97.6; O2SAT 97
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
[2017-07-09 20:00] VITALS: BP 118/77; PULSE 91; RESP 17; TEMP 97.9; O2SAT 96
[2017-07-09] MEDS: MELATONIN 5 MG TAB PO PRN (21:20)
[2017-07-10] VITALS: BP 128/82; PULSE 77; RESP 17; TEMP 97.2; O2SAT 97
[2017-07-10] MEDS: oxyCODONE HCL ORAL CONC 5 MG/0.25 ML SYRINGE PO SCH ×4 (00:23→17:56)
[2017-07-10] MEDS: MAGNESIUM HYDROXIDE SUSP 30 ML CUP PO SCH ×2 (00:30→14:00)
[2017-07-10] MEDS: ENOXAPARIN SODIUM 30 MG/0.3 ML SYRINGE SQ SCH ×2 (05:17→17:57)
--- NOTE | 2017-07-10 07:08 | PD.ORT.PN ---
Subjective Subjective Remarks s/p IMN left femur - POD 48 s/p ORIF left clavicle fx - POD 45 s/p ORIF left glenoid fx - POD 37 s/p closed reduction left shoulder twice s/p right knee injury with stiffness stable in room. no complaints. Objective Vitals Vital Signs Date Time Temp Pulse Resp B/P (MAP) Pulse Ox O2 Delivery O2 Flow Rate FiO2 07/10/17 00:00 97.2 77 17 128/82 (97) 97 07/09/17 20:00 97.9 91 17 118/77 (91) 96 07/09/17 16:00 97.6 84 18 125/81 (96) 97 07/09/17 11:07 97.6 80 16 118/80 (93) 96 07/09/17 08:25 97.7 76 16 129/76 (93) 98 I/O 07/09/17 07/09/17 07/09/17 07/10/17 07/10/17 07/10/17 07:00 15:00 23:00 07:00 15:00 23:00 Intake Total 850 ml 240 ml Output Total 300 ml 700 ml 400 ml Balance -300 ml 150 ml -160 ml Intake Oral 850 ml 240 ml Output Urine Total 300 ml 700 ml 400 ml # Bowel Movements 0 Imaging Last 24 hours Impressions Chest X-Ray 05/19/17 0000 Signed Impressions: Service Date/Time: Friday, May 19, 2017 01:00 - CONCLUSION: 1. Removal of the 2 pleural catheters along the right chest wall and placement of another right chest tube with distal tip in the medial inferior right hemithorax. The right pneumothorax has resolved with shift of the mediastinum back to the midline and resolution of the generalized lucency in the right hemithorax. 2. Remaining findings are stable. Conor Chaudhry MD Chest X-Ray 05/19/17 0000 Signed Impressions: Service Date/Time: Friday, May 19, 2017 00:13 - CONCLUSION: 1. The second small bore pigtail pleural catheter on the right has been placed and most of it appears to be outside of the right hemithorax except for maybe the distal tip. However, the right pneumothorax is no longer seen suggesting that it may be within the pleural space. Chest CT could confirm location, if needed. 2. Persistent volume loss and left mid and lower lung zone airspace consolidation. No left pneumothorax is visualized. 3. The nasogastric tube tip is in the stomach. Conor Chaudhry MD Thoracic Spine CT 05/18/172209 Signed Impressions: Service Date/Time: Thursday, May 18, 2017 22:27 - CONCLUSION: 1. Superior endplate fracture of T12 without involvement of the posterior cortex and with approximate 10%% loss of height. 2. Numerous bilateral posterior rib fractures from C7 to the level of the 7th rib. Josemanuel Murphy MD Pelvis X-Ray 05/18/172209 Signed Impressions: Service Date/Time: Thursday, May 18, 2017 22:09 - CONCLUSION: No gross fracture seen. Josemanuel Murphy MD Lumbar Spine CT 05/18/172209 Signed Impressions: Service Date/Time: Thursday, May 18, 2017 22:27 - CONCLUSION: 1. Lumbar vertebral bodies and posterior elements are intact. 2. Superior endplate fracture of T12 and medial left posterior 11th rib fracture. Josemanuel Murphy MD Head CT 05/18/172209 Signed Impressions: Service Date/Time: Thursday, May 18, 2017 22:27 - CONCLUSION: 1. No acute findings in the brain. Josemanuel Murphy MD Chest X-Ray 05/18/172209 Signed Impressions: Service Date/Time: Thursday, May 18, 2017 22:09 - CONCLUSION: Left chest drainage tube in the medial apex. Multiple displaced left rib fractures. Josemanuel Murphy MD Chest CT 05/18/172209 Signed Impressions: Service Date/Time: Thursday, May 18, 2017 22:27 - CONCLUSION: 1. Multiple fractures of the left ribs, left clavicle, left scapula and fracture of the lateral right 5th rib. 2. Bilateral pulmonary contusions, left greater than right and left pleural fluid. 3. Bilateral pneumothoraces with left chest drainage tube in place. Josemanuel Murphy MD Cervical Spine CT 05/18/172209 Signed Impressions: Service Date/Time: Thursday, May 18, 2017 22:27 - CONCLUSION: 1. Left transverse process fracture of C6 and fractures of the medial left 1st and 2nd ribs. 2. The vertebral bodies of the cervical spine down to C7 and posterior elements down to the level of C5 are intact. Josemanuel Murphy MD Abdomen/Pelvis CT 05/18/17 2210 Signed Impressions: Service Date/Time: Thursday, May 18, 2017 22:27 - CONCLUSION: 1. Multiple findings in the chest including bilateral pneumothoraces and multiple bilateral rib fractures, see CT thorax report. 2. The solid and hollow organs of the abdomen/pelvis are grossly intact. Josemanuel Murphy MD Objective Remarks LLE: Incisions well approximated. Leti in position. Intact sensation distally with good capillary refill LUE: Clean dry dressings in place, internal rotation deformity. tender. + swelling of shoulder. good cap refill. sling intact. nvi. RLE: motion of knee from 0-30deg. extreme stiffness. Point tender over proximal MCL. no laxity to valgus/varus. neg dougie LLE: nvi, Thigh tenderness and hematoma. No erythema. Overall compressible compartments. Good cap refill. intact sensation distally Assessment & Plan Assessment and Plan 1) Left Femoral Shaft Fx s/p IMN - 05/21/17 -daily dressing changes -WBAT -DC leti 2) Left Clavicle fxs s/p ORIF- 05/26/17 3) Left Glenoid Fx s/p ORIF - 06/03/17 -NWB LUE -maintain sling/swathe at all times -cancel all physical therapy of left shoulder. patient shoulder is too unstable at this point for motion due to multiple dislocations. 4) Right Knee Pain -XR reveals significan amount of HO present along MCL and LCL. however, no laxity on exam. patien has extreme stiffness of knee -work aggressively with therapy on motion of knee and stretching -WBAT -no restrictions Right thigh swelling and hematoma. I Recommend range of motion as tolerated, starting with passive range of motion and progress to active as tolerated. No need for intervention at this time. Compartments are soft. ortho surgeries complete. diet restarted. no forseeable procedures to be done at this time. CT scan shows that shoulder is reduced -patient would benefit from manipulation under anesthesia to right knee due to significant stiffness. will plan on doing this over next couple days. consents on chart. Kt Herrera/First An BRYAN Jul 10, 2017 07:08
[2017-07-10 07:40] VITALS: BP 126/76; PULSE 73; RESP 17; TEMP 97.5; O2SAT 98
[2017-07-10] MEDS: POTASSIUM CHLORIDE 25 MEQ EFFERVESCENT TAB PO SCH (08:30)
[2017-07-10] MEDS: FAMOTIDINE 20 MG TAB NG SCH ×2 (08:30→19:33)
[2017-07-10] MEDS: CHOLECALCIFEROL (VIT D3) 1000 UNIT TAB PO SCH (08:31)
[2017-07-10] MEDS: DOCUSATE SODIUM 50 MG/SENNA 8.6 MG TAB PO SCH ×2 (08:31→19:33)
[2017-07-10] MEDS: GABAPENTIN 400 MG CAP PO SCH ×3 (08:31→17:56)
[2017-07-10] MEDS: SODIUM CHLORIDE 0.9% FLUSH 10 ML FLUSH IV FLUSH SCH ×2 (08:32→19:47)
[2017-07-10 12:00] VITALS: BP 122/81; PULSE 78; RESP 18; TEMP 97.9; O2SAT 97
[2017-07-10] MEDS: REMOVE OLD DURAGESIC (FENTANYL) PATCH T-DERMAL SCH (12:00)
[2017-07-10] MEDS: ERGOCALCIFEROL (VIT D2) 50,000 UNIT CAP PO SCH (12:28)
[2017-07-10] MEDS: fentaNYL 50 MCG/HR PATCH T-DERMAL SCH (12:28)
[2017-07-10 16:00] VITALS: BP 126/80; PULSE 85; RESP 18; TEMP 97.8; O2SAT 97
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
[2017-07-10 20:00] VITALS: BP 131/81; PULSE 81; RESP 18; TEMP 98.2; O2SAT 96
[2017-07-10] MEDS: MELATONIN 5 MG TAB PO PRN (22:07)
[2017-07-11] VITALS: BP 126/77; PULSE 77; RESP 18; TEMP 97.9; O2SAT 96
[2017-07-11] MEDS: oxyCODONE HCL ORAL CONC 5 MG/0.25 ML SYRINGE PO SCH ×5 (00:05→22:54)
[2017-07-11] MEDS: MAGNESIUM HYDROXIDE SUSP 30 ML CUP PO SCH ×3 (02:00→22:47)
[2017-07-11] MEDS: ENOXAPARIN SODIUM 30 MG/0.3 ML SYRINGE SQ SCH ×4 (05:03→19:22)
[2017-07-11 08:00] VITALS: BP 136/86; PULSE 84; RESP 17; TEMP 97.7; O2SAT 97
[2017-07-11] MEDS: SODIUM CHLORIDE 0.9% FLUSH 10 ML FLUSH IV FLUSH SCH ×2 (08:39→20:32)
[2017-07-11] MEDS: DOCUSATE SODIUM 50 MG/SENNA 8.6 MG TAB PO SCH ×2 (08:39→20:32)
[2017-07-11] MEDS: FAMOTIDINE 20 MG TAB NG SCH ×2 (08:39→20:32)
[2017-07-11] MEDS: CHOLECALCIFEROL (VIT D3) 1000 UNIT TAB PO SCH (08:39)
[2017-07-11] MEDS: GABAPENTIN 400 MG CAP PO SCH ×3 (08:40→17:23)
[2017-07-11] MEDS: POTASSIUM CHLORIDE 25 MEQ EFFERVESCENT TAB PO SCH (08:40)
[2017-07-11 12:00] VITALS: BP 135/76; PULSE 76; RESP 18; TEMP 97.8; O2SAT 97
[2017-07-11 16:00] VITALS: BP 135/82; PULSE 85; RESP 17; TEMP 97.8; O2SAT 96
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
[2017-07-11 20:00] VITALS: BP 131/80; PULSE 79; RESP 20; TEMP 97.9; O2SAT 96
[2017-07-11] MEDS ORDERED: POVIDONE IODINE 5% (ANTISEPSIS KIT) 4 APPLICATIONS EACH NARE PRN (23:30)
[2017-07-11] MEDS ORDERED: LACTATED RINGER'S 1000 ML IV PRN (23:30)
[2017-07-11] MEDS ORDERED: CHLORHEXIDINE GLUCONATE 2 % 1 PACK (2 CLOTHS) TOPICAL PRN (23:30)
[2017-07-12] VITALS: BP 122/70; PULSE 80; RESP 20; TEMP 97.4; O2SAT 96
[2017-07-12 04:00] VITALS: BP 129/77; PULSE 80; RESP 20; TEMP 97.6; O2SAT 95
[2017-07-12] MEDS: oxyCODONE HCL ORAL CONC 5 MG/0.25 ML SYRINGE PO SCH ×3 (04:53→16:50)
[2017-07-12] MEDS ORDERED: ACETAMINOPHEN 1000 MG/100 ML 100 ML IV ONE (07:41)
[2017-07-12 08:00] VITALS: BP 120/80; PULSE 90; RESP 18; TEMP 98; O2SAT 95
--- NOTE | 2017-07-12 08:14 | PD.OP ---
cc: Wing Hubbard MD Operative Report Date of Surgery: Jul 12, 2017 Preoperative Diagnosis: Right knee arthrofibrosis Postoperative Diagnosis: Procedure: Right knee manipulation under anesthesia Anesthesia: General Surgeon: Wing Hubbard Neonatal Specialist(s): Papito Zamora PA-C Operation and Findings: Josemanuel is well-known to me for treatment of multiple injuries. He has developed severe contractures of his right knee with areas of heterotopic ossification. Informed consent was obtained and operative site was marked. He has brought the operating room. He was given IV sedation. Timeout procedure was performed. Procedure began with examination of the right knee. Initial range of motion was from 0 to 30. At this point the knee was gently manipulated. The femur and tibia were supported. The knee was gently flexed. After manipulation the range of motion was from 0-125. Patient had no clinical laxity with varus or valgus stress testing. Fluoroscopy confirmed that the knee was reduced with no evidence of fracture. Patient was awakened and transferred to recovery room in stable condition. Wing Hubbard MD Jul 12, 2017 08:14
[2017-07-12] MEDS: SODIUM CHLORIDE 0.9% FLUSH 10 ML FLUSH IV FLUSH SCH ×2 (08:23→22:46)
[2017-07-12] MEDS ORDERED: MORPHINE SULFATE 8 MG/ML INJ ONE ×3 (08:23→08:46)
[2017-07-12] MEDS: LACTATED RINGER'S 1000 ML INJ 1,000 ML IV SCH ×2 (08:45→12:03)
[2017-07-12] MEDS: FAMOTIDINE 20 MG TAB NG SCH ×2 (09:18→22:47)
[2017-07-12] MEDS: CHOLECALCIFEROL (VIT D3) 1000 UNIT TAB PO SCH (09:19)
[2017-07-12] MEDS: DOCUSATE SODIUM 50 MG/SENNA 8.6 MG TAB PO SCH ×2 (09:20→22:47)
[2017-07-12] MEDS: POTASSIUM CHLORIDE 25 MEQ EFFERVESCENT TAB PO SCH (09:20)
[2017-07-12] MEDS: GABAPENTIN 400 MG CAP PO SCH ×3 (09:20→16:50)
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
[2017-07-12 12:00] VITALS: BP 124/71; PULSE 69; RESP 17; TEMP 97.4; O2SAT 96
[2017-07-12] MEDS ORDERED: LIDOCAINE HCL 1% PF 5 ML SYRINGE OTHER ONE (12:00)
[2017-07-12] MEDS ORDERED: PROPOFOL 200 MG/20 ML AMP IV ONE (12:00)
[2017-07-12] MEDS: MAGNESIUM HYDROXIDE SUSP 30 ML CUP PO SCH (13:15)
[2017-07-12 16:00] VITALS: BP 126/78; PULSE 80; RESP 18; TEMP 98; O2SAT 97
[2017-07-12] MEDS: ENOXAPARIN SODIUM 30 MG/0.3 ML SYRINGE SQ SCH (16:49)
[2017-07-12 20:00] VITALS: BP 132/69; PULSE 99; RESP 20; TEMP 98.8; O2SAT 95
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
[2017-07-13] VITALS: BP 117/76; PULSE 91; RESP 18; TEMP 98.6; O2SAT 93
[2017-07-13] MEDS: oxyCODONE HCL ORAL CONC 5 MG/0.25 ML SYRINGE PO SCH ×5 (00:56→23:13)
[2017-07-13] MEDS: MAGNESIUM HYDROXIDE SUSP 30 ML CUP PO SCH ×3 (00:57→21:37)
[2017-07-13 04:00] VITALS: BP 113/68; PULSE 82; RESP 18; TEMP 98.2; O2SAT 94
[2017-07-13] MEDS: LACTATED RINGER'S 1000 ML INJ 1,000 ML IV SCH ×3 (04:00→23:15)
[2017-07-13] MEDS: ENOXAPARIN SODIUM 30 MG/0.3 ML SYRINGE SQ SCH ×2 (06:00→17:44)
--- NOTE | 2017-07-13 07:21 | PD.ORT.PN ---
Subjective Subjective Remarks s/p IMN left femur - POD 51 s/p ORIF left clavicle fx - POD 48 s/p ORIF left glenoid fx - POD 40 s/p closed reduction left shoulder twice s/p manip under anesthesia to right knee stable in room. no complaints. Objective Vitals Vital Signs Date Time Temp Pulse Resp B/P (MAP) Pulse Ox O2 Delivery O2 Flow Rate FiO2 07/13/17 04:00 98.2 82 18 113/68 (83) 94 07/13/17 00:00 98.6 91 18 117/76 (90) 93 07/12/17 20:00 98.8 99 20 132/69 (90) 95 07/12/17 16:00 98.0 80 18 126/78 (94) 97 07/12/17 12:00 97.4 69 17 124/71 (88) 96 07/12/17 09:00 70 16 115/72 (86) 94 Room Air 07/12/17 08:45 70 16 121/75 (90) 94 Room Air 07/12/17 08:30 68 16 111/67 (82) 95 Room Air 07/12/17 08:15 98.2 76 16 121/72 (88) 100 07/12/17 08:00 98.0 90 18 120/80 (93) 95 I/O 07/12/17 07/12/17 07/12/17 07/13/17 07/13/17 07/13/17 07:00 15:00 23:00 07:00 15:00 23:00 Intake Total 0 ml 200 ml 525 ml 0 ml Output Total 900 ml 400 ml Balance -900 ml 200 ml 525 ml -400 ml Intake Oral 0 ml 525 ml 0 ml IV Total 50 ml Other 150 ml Output Urine Total 900 ml 400 ml # Voids 2 # Bowel Movements 1 0 0 Imaging Last 24 hours Impressions Chest X-Ray 05/19/17 0000 Signed Impressions: Service Date/Time: Friday, May 19, 2017 01:00 - CONCLUSION: 1. Removal of the 2 pleural catheters along the right chest wall and placement of another right chest tube with distal tip in the medial inferior right hemithorax. The right pneumothorax has resolved with shift of the mediastinum back to the midline and resolution of the generalized lucency in the right hemithorax. 2. Remaining findings are stable. Conor Chaudhry MD Chest X-Ray 05/19/17 0000 Signed Impressions: Service Date/Time: Friday, May 19, 2017 00:13 - CONCLUSION: 1. The second small bore pigtail pleural catheter on the right has been placed and most of it appears to be outside of the right hemithorax except for maybe the distal tip. However, the right pneumothorax is no longer seen suggesting that it may be within the pleural space. Chest CT could confirm location, if needed. 2. Persistent volume loss and left mid and lower lung zone airspace consolidation. No left pneumothorax is visualized. 3. The nasogastric tube tip is in the stomach. Conor Chaudhry MD Thoracic Spine CT 05/18/172209 Signed Impressions: Service Date/Time: Thursday, May 18, 2017 22:27 - CONCLUSION: 1. Superior endplate fracture of T12 without involvement of the posterior cortex and with approximate 10%% loss of height. 2. Numerous bilateral posterior rib fractures from C7 to the level of the 7th rib. Josemanuel Murphy MD Pelvis X-Ray 05/18/172209 Signed Impressions: Service Date/Time: Thursday, May 18, 2017 22:09 - CONCLUSION: No gross fracture seen. Josemanuel Murphy MD Lumbar Spine CT 05/18/172209 Signed Impressions: Service Date/Time: Thursday, May 18, 2017 22:27 - CONCLUSION: 1. Lumbar vertebral bodies and posterior elements are intact. 2. Superior endplate fracture of T12 and medial left posterior 11th rib fracture. Josemanuel Murphy MD Head CT 05/18/172209 Signed Impressions: Service Date/Time: Thursday, May 18, 2017 22:27 - CONCLUSION: 1. No acute findings in the brain. Josemanuel Murphy MD Chest X-Ray 05/18/172209 Signed Impressions: Service Date/Time: Thursday, May 18, 2017 22:09 - CONCLUSION: Left chest drainage tube in the medial apex. Multiple displaced left rib fractures. Josemanuel Murphy MD Chest CT 05/18/172209 Signed Impressions: Service Date/Time: Thursday, May 18, 2017 22:27 - CONCLUSION: 1. Multiple fractures of the left ribs, left clavicle, left scapula and fracture of the lateral right 5th rib. 2. Bilateral pulmonary contusions, left greater than right and left pleural fluid. 3. Bilateral pneumothoraces with left chest drainage tube in place. Josemanuel Murphy MD Cervical Spine CT 05/18/172209 Signed Impressions: Service Date/Time: Thursday, May 18, 2017 22:27 - CONCLUSION: 1. Left transverse process fracture of C6 and fractures of the medial left 1st and 2nd ribs. 2. The vertebral bodies of the cervical spine down to C7 and posterior elements down to the level of C5 are intact. Josemanuel Murphy MD Abdomen/Pelvis CT 05/18/172209 Signed Impressions: Service Date/Time: Thursday, May 18, 2017 22:27 - CONCLUSION: 1. Multiple findings in the chest including bilateral pneumothoraces and multiple bilateral rib fractures, see CT thorax report. 2. The solid and hollow organs of the abdomen/pelvis are grossly intact. Josemanuel Murphy MD Objective Remarks LLE: Incisions well approximated. Leti in position. Intact sensation distally with good capillary refill LUE: Clean dry dressings in place, internal rotation deformity. tender. + swelling of shoulder. good cap refill. sling intact. nvi. RLE: CPM machine present and patient tolerating. nvi distally LLE: nvi, Thigh tenderness and hematoma. No erythema. Overall compressible compartments. Good cap refill. intact sensation distally Assessment & Plan Assessment and Plan 1) Left Femoral Shaft Fx s/p IMN - 05/21/17 -daily dressing changes -WBAT -DC leti 2) Left Clavicle fxs s/p ORIF- 05/26/17 3) Left Glenoid Fx s/p ORIF - 06/03/17 -NWB LUE -maintain sling/swathe at all times -cancel all physical therapy of left shoulder. patient shoulder is too unstable at this point for motion due to multiple dislocations. 4) Right Knee Pain and stiffness s/p EMI - 07/12/17 -CPM 0-120deg -work aggressively with therapy on motion of knee and stretching -WBAT -no restrictions Right thigh swelling and hematoma. I Recommend range of motion as tolerated, starting with passive range of motion and progress to active as tolerated. No need for intervention at this time. Compartments are soft. ortho surgeries complete. diet restarted. no forseeable procedures to be done at this time. CT scan shows that shoulder is reduced Kt Herrera/Tree Warden PA Jul 13, 2017 07:21
[2017-07-13 08:00] VITALS: BP 127/75; PULSE 80; RESP 17; TEMP 98; O2SAT 95
[2017-07-13] MEDS: DOCUSATE SODIUM 50 MG/SENNA 8.6 MG TAB PO SCH ×2 (08:46→21:34)
[2017-07-13] MEDS: POTASSIUM CHLORIDE 25 MEQ EFFERVESCENT TAB PO SCH (08:46)
[2017-07-13] MEDS: FAMOTIDINE 20 MG TAB NG SCH ×2 (08:46→21:36)
[2017-07-13] MEDS: CHOLECALCIFEROL (VIT D3) 1000 UNIT TAB PO SCH (08:46)
[2017-07-13] MEDS: GABAPENTIN 400 MG CAP PO SCH ×3 (08:46→17:43)
[2017-07-13] MEDS: SODIUM CHLORIDE 0.9% FLUSH 10 ML FLUSH IV FLUSH SCH ×2 (08:47→21:37)
[2017-07-13] MEDS: REMOVE OLD DURAGESIC (FENTANYL) PATCH T-DERMAL SCH (12:00)
[2017-07-13] MEDS: fentaNYL 50 MCG/HR PATCH T-DERMAL SCH (12:37)
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
[2017-07-13 16:00] VITALS: BP 118/92; PULSE 91; RESP 20; TEMP 97.7; O2SAT 94
[2017-07-13 18:00] VITALS: BP 132/74; PULSE 85; RESP 17; TEMP 97.8; O2SAT 96
[2017-07-13 18:51] VITALS: BP 134/66; PULSE 81; RESP 16; TEMP 97.8; O2SAT 96
[2017-07-13] MEDS: MELATONIN 5 MG TAB PO PRN (23:12)
[2017-07-14] VITALS: BP 137/84; PULSE 80; RESP 17; TEMP 98.7; O2SAT 96
[2017-07-14] MEDS: ENOXAPARIN SODIUM 30 MG/0.3 ML SYRINGE SQ SCH ×2 (05:10→17:42)
[2017-07-14] MEDS: oxyCODONE HCL ORAL CONC 5 MG/0.25 ML SYRINGE PO SCH ×4 (05:10→23:15)
[2017-07-14 08:00] VITALS: BP 118/77; PULSE 76; RESP 17; TEMP 97.5; O2SAT 96
[2017-07-14] MEDS: DOCUSATE SODIUM 50 MG/SENNA 8.6 MG TAB PO SCH ×2 (08:32→20:50)
[2017-07-14] MEDS: FAMOTIDINE 20 MG TAB NG SCH ×2 (08:32→20:50)
[2017-07-14] MEDS: POTASSIUM CHLORIDE 25 MEQ EFFERVESCENT TAB PO SCH (08:32)
[2017-07-14] MEDS: CHOLECALCIFEROL (VIT D3) 1000 UNIT TAB PO SCH (08:32)
[2017-07-14] MEDS: GABAPENTIN 400 MG CAP PO SCH ×3 (08:32→17:41)
[2017-07-14] MEDS: SODIUM CHLORIDE 0.9% FLUSH 10 ML FLUSH IV FLUSH SCH ×2 (08:32→20:50)
[2017-07-14] MEDS: LACTATED RINGER'S 1000 ML INJ 1,000 ML IV SCH ×3 (08:37→23:15)
[2017-07-14 12:00] VITALS: BP 119/79; PULSE 80; RESP 17; TEMP 97.6; O2SAT 95
[2017-07-14] MEDS: MAGNESIUM HYDROXIDE SUSP 30 ML CUP PO SCH ×2 (12:21→20:51)
[2017-07-14 16:00] VITALS: BP 145/86; PULSE 96; RESP 18; TEMP 97.6; O2SAT 95
[2017-07-14 20:00] VITALS: BP 111/77; PULSE 92; RESP 18; TEMP 98.1; O2SAT 96
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
[2017-07-15] VITALS: BP 121/70; PULSE 82; RESP 18; TEMP 97.8; O2SAT 98
[2017-07-15 04:00] VITALS: BP 121/70; PULSE 82; RESP 18; TEMP 97.8; O2SAT 98
[2017-07-15] MEDS: ENOXAPARIN SODIUM 30 MG/0.3 ML SYRINGE SQ SCH ×2 (05:14→17:50)
[2017-07-15] MEDS: oxyCODONE HCL ORAL CONC 5 MG/0.25 ML SYRINGE PO SCH ×3 (05:15→17:51)
[2017-07-15 08:00] VITALS: BP 133/86; PULSE 82; RESP 16; TEMP 97.7; O2SAT 99
[2017-07-15] MEDS: POTASSIUM CHLORIDE 25 MEQ EFFERVESCENT TAB PO SCH (09:00)
[2017-07-15] MEDS: FAMOTIDINE 20 MG TAB NG SCH ×2 (09:05→23:16)
[2017-07-15] MEDS: CHOLECALCIFEROL (VIT D3) 1000 UNIT TAB PO SCH (09:05)
[2017-07-15] MEDS: DOCUSATE SODIUM 50 MG/SENNA 8.6 MG TAB PO SCH ×2 (09:05→23:16)
[2017-07-15] MEDS: GABAPENTIN 400 MG CAP PO SCH ×3 (09:05→17:51)
[2017-07-15 12:00] VITALS: BP 138/81; PULSE 79; RESP 17; TEMP 97.7; O2SAT 99
--- NOTE | 2017-07-15 13:14 | RADRPT ---
EXAM DATE/TIME: 07/15/2017 12:57 [facility] COMPARISON: FEMUR LEFT (AP & LAT/2VWS), June 04, 2017, 12:15. INDICATIONS : Fracture. MEDICAL HISTORY : None. SURGICAL HISTORY : ORIF left shoulder, left femur. ENCOUNTER: Subsequent ACUITY: 2 months PAIN SCORE: 0/10 LOCATION: Left Femur. FINDINGS: The intramedullary aden remains in place. There is callus formation surrounding the fracture site. The hardware remains intact. No change in the alignment and position of the fracture fragments. CONCLUSION: 1. No change in the alignment or position of the fracture fragments. 2. Callus formation surrounding the fracture site. Ronnie Childers MD on July 15, 2017 at 13:12 Board Certified Radiologist. This report was verified electronically.
[2017-07-15] MEDS: MAGNESIUM HYDROXIDE SUSP 30 ML CUP PO SCH (13:25)
[2017-07-15] MEDS: SODIUM CHLORIDE 0.9% FLUSH 10 ML FLUSH IV FLUSH SCH ×2 (13:29→23:16)
[2017-07-15 16:00] VITALS: BP 120/79; PULSE 85; RESP 16; TEMP 97.7; O2SAT 98
[2017-07-15] MEDS: LACTATED RINGER'S 1000 ML INJ 1,000 ML IV SCH (16:00)
[2017-07-15 20:00] VITALS: BP 109/69; PULSE 82; RESP 14; TEMP 98; O2SAT 96
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
[2017-07-16] VITALS: BP 123/70; PULSE 75; RESP 16; TEMP 97.9; O2SAT 97
[2017-07-16] MEDS: oxyCODONE HCL ORAL CONC 5 MG/0.25 ML SYRINGE PO SCH ×4 (01:57→16:47)
[2017-07-16] MEDS: MAGNESIUM HYDROXIDE SUSP 30 ML CUP PO SCH ×2 (01:57→13:01)
[2017-07-16] MEDS: LACTATED RINGER'S 1000 ML INJ 1,000 ML IV SCH ×3 (02:00→20:44)
[2017-07-16] MEDS: ENOXAPARIN SODIUM 30 MG/0.3 ML SYRINGE SQ SCH ×2 (06:00→16:49)
[2017-07-16 08:00] VITALS: BP 137/79; PULSE 72; RESP 18; TEMP 98; O2SAT 97
[2017-07-16] MEDS: GABAPENTIN 400 MG CAP PO SCH ×3 (08:46→16:47)
[2017-07-16] MEDS: SODIUM CHLORIDE 0.9% FLUSH 10 ML FLUSH IV FLUSH SCH ×2 (08:46→20:44)
[2017-07-16] MEDS: CHOLECALCIFEROL (VIT D3) 1000 UNIT TAB PO SCH (08:46)
[2017-07-16] MEDS: DOCUSATE SODIUM 50 MG/SENNA 8.6 MG TAB PO SCH ×2 (08:46→20:45)
[2017-07-16] MEDS: FAMOTIDINE 20 MG TAB NG SCH ×2 (08:46→20:44)
[2017-07-16] MEDS: POTASSIUM CHLORIDE 25 MEQ EFFERVESCENT TAB PO SCH (08:49)
[2017-07-16] MEDS: REMOVE OLD DURAGESIC (FENTANYL) PATCH T-DERMAL SCH (11:31)
[2017-07-16] MEDS: fentaNYL 50 MCG/HR PATCH T-DERMAL SCH (11:31)
[2017-07-16 11:54] VITALS: BP 134/82; PULSE 79; RESP 18; TEMP 97.7; O2SAT 97
[2017-07-16 16:00] VITALS: BP 133/84; PULSE 99; RESP 18; TEMP 97.5; O2SAT 95
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
[2017-07-16 20:00] VITALS: BP 120/65; PULSE 89; RESP 22; TEMP 97.7; O2SAT 95
[2017-07-17] VITALS: BP 117/64; PULSE 76; RESP 18; TEMP 97.4; O2SAT 97
[2017-07-17] MEDS: oxyCODONE HCL ORAL CONC 5 MG/0.25 ML SYRINGE PO SCH ×5 (00:14→23:06)
[2017-07-17] MEDS: MAGNESIUM HYDROXIDE SUSP 30 ML CUP PO SCH ×2 (02:00→11:56)
[2017-07-17] MEDS: ENOXAPARIN SODIUM 30 MG/0.3 ML SYRINGE SQ SCH ×2 (06:02→17:45)
--- NOTE | 2017-07-17 07:47 | PD.ORT.PN ---
Subjective Subjective Remarks s/p IMN left femur - POD 55 s/p ORIF left clavicle fx - POD 52 s/p ORIF left glenoid fx - POD 44 s/p closed reduction left shoulder twice s/p manip under anesthesia to right knee stable in room. no complaints. improving Objective Vitals Vital Signs Date Time Temp Pulse Resp B/P (MAP) Pulse Ox O2 Delivery O2 Flow Rate FiO2 07/17/17 00:00 97.4 76 18 117/64 (81) 97 07/16/17 20:00 97.7 89 22 120/65 (83) 95 07/16/17 17:35 16 07/16/17 16:00 97.5 99 18 133/84 (100) 95 07/16/17 12:36 16 07/16/17 11:54 97.7 79 18 134/82 (99) 97 07/16/17 08:00 98.0 72 18 137/79 (98) 97 I/O 07/16/17 07/16/17 07/16/17 07/17/17 07/17/17 07/17/17 07:00 15:00 23:00 07:00 15:00 23:00 Intake Total 240 ml 620 ml 500 ml Output Total 500 ml 400 ml Balance 240 ml -500 ml 620 ml 100 ml Intake Oral 240 ml 620 ml 500 ml Output Urine Total 500 ml 400 ml # Voids 3 4 # Bowel Movements 0 Imaging Last 24 hours Impressions Chest X-Ray 05/19/17 0000 Signed Impressions: Service Date/Time: Friday, May 19, 2017 01:00 - CONCLUSION: 1. Removal of the 2 pleural catheters along the right chest wall and placement of another right chest tube with distal tip in the medial inferior right hemithorax. The right pneumothorax has resolved with shift of the mediastinum back to the midline and resolution of the generalized lucency in the right hemithorax. 2. Remaining findings are stable. Conor Chaudhry MD Chest X-Ray 05/19/17 0000 Signed Impressions: Service Date/Time: Friday, May 19, 2017 00:13 - CONCLUSION: 1. The second small bore pigtail pleural catheter on the right has been placed and most of it appears to be outside of the right hemithorax except for maybe the distal tip. However, the right pneumothorax is no longer seen suggesting that it may be within the pleural space. Chest CT could confirm location, if needed. 2. Persistent volume loss and left mid and lower lung zone airspace consolidation. No left pneumothorax is visualized. 3. The nasogastric tube tip is in the stomach. Conor Chaudhry MD Thoracic Spine CT 05/18/172209 Signed Impressions: Service Date/Time: Thursday, May 18, 2017 22:27 - CONCLUSION: 1. Superior endplate fracture of T12 without involvement of the posterior cortex and with approximate 10%% loss of height. 2. Numerous bilateral posterior rib fractures from C7 to the level of the 7th rib. Josemanuel Murphy MD Pelvis X-Ray 05/18/172209 Signed Impressions: Service Date/Time: Thursday, May 18, 2017 22:09 - CONCLUSION: No gross fracture seen. Josemanuel Murphy MD Lumbar Spine CT 05/18/172209 Signed Impressions: Service Date/Time: Thursday, May 18, 2017 22:27 - CONCLUSION: 1. Lumbar vertebral bodies and posterior elements are intact. 2. Superior endplate fracture of T12 and medial left posterior 11th rib fracture. Josemanuel Murphy MD Head CT [id number]/18/172209 Signed Impressions: Service Date/Time: Thursday, May 18, 2017 22:27 - CONCLUSION: 1. No acute findings in the brain. Josemanuel Murphy MD Chest X-Ray 05/18/172209 Signed Impressions: Service Date/Time: Thursday, May 18, 2017 22:09 - CONCLUSION: Left chest drainage tube in the medial apex. Multiple displaced left rib fractures. Josemanuel Murphy MD Chest CT 05/18/172209 Signed Impressions: Service Date/Time: Thursday, May 18, 2017 22:27 - CONCLUSION: 1. Multiple fractures of the left ribs, left clavicle, left scapula and fracture of the lateral right 5th rib. 2. Bilateral pulmonary contusions, left greater than right and left pleural fluid. 3. Bilateral pneumothoraces with left chest drainage tube in place. Josemanuel Murphy MD Cervical Spine CT 05/18/172209 Signed Impressions: Service Date/Time: Thursday, May 18, 2017 22:27 - CONCLUSION: 1. Left transverse process fracture of C6 and fractures of the medial left 1st and 2nd ribs. 2. The vertebral bodies of the cervical spine down to C7 and posterior elements down to the level of C5 are intact. Josemanuel Murphy MD Abdomen/Pelvis CT 05/18/172209 Signed Impressions: Service Date/Time: Thursday, May 18, 2017 22:27 - CONCLUSION: 1. Multiple findings in the chest including bilateral pneumothoraces and multiple bilateral rib fractures, see CT thorax report. 2. The solid and hollow organs of the abdomen/pelvis are grossly intact. Josemanuel Murphy MD Objective Remarks LLE: Incisions well approximated. Leti in position. Intact sensation distally with good capillary refill LUE: Clean dry dressings in place, internal rotation deformity. tender. + swelling of shoulder. good cap refill. sling intact. nvi. RLE: CPM machine present and patient tolerating. nvi distally LLE: nvi, Thigh tenderness and hematoma. No erythema. Overall compressible compartments. Good cap refill. intact sensation distally Assessment & Plan Assessment and Plan 1) Left Femoral Shaft Fx s/p IMN - 05/21/17 -WBAT 2) Left Clavicle fxs s/p ORIF- 05/26/17 3) Left Glenoid Fx s/p ORIF - 06/03/17 -NWB LUE -maintain sling/swathe at all times -cancel all physical therapy of left shoulder. patient shoulder is too unstable at this point for motion due to multiple dislocations. -ok for motion of elbow/wrist/fingers 4) Right Knee Pain and stiffness s/p EMI - 07/12/17 -CPM 0-120deg -work aggressively with therapy on motion of knee and stretching -WBAT -no restrictions ortho surgeries complete. diet restarted. no forseeable procedures to be done at this time. Kt Herrera/Superintendent Building PA July 17, 2017 07:47
[2017-07-17 08:00] VITALS: BP 123/73; PULSE 70; RESP 22; TEMP 98; O2SAT 96
[2017-07-17] MEDS: LACTATED RINGER'S 1000 ML INJ 1,000 ML IV SCH ×2 (08:00→13:04)
[2017-07-17] MEDS: ERGOCALCIFEROL (VIT D2) 50,000 UNIT CAP PO SCH (08:50)
[2017-07-17] MEDS: SODIUM CHLORIDE 0.9% FLUSH 10 ML FLUSH IV FLUSH SCH ×2 (08:51→20:30)
[2017-07-17] MEDS: DOCUSATE SODIUM 50 MG/SENNA 8.6 MG TAB PO SCH ×2 (08:51→20:30)
[2017-07-17] MEDS: CHOLECALCIFEROL (VIT D3) 1000 UNIT TAB PO SCH (08:51)
[2017-07-17] MEDS: GABAPENTIN 400 MG CAP PO SCH ×3 (08:51→17:44)
[2017-07-17] MEDS: FAMOTIDINE 20 MG TAB NG SCH ×2 (08:51→20:30)
[2017-07-17] MEDS: POTASSIUM CHLORIDE 25 MEQ EFFERVESCENT TAB PO SCH (08:51)
[2017-07-17 12:00] VITALS: BP 126/76; PULSE 77; RESP 20; TEMP 98; O2SAT 98
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
[2017-07-17 16:00] VITALS: BP 142/73; PULSE 83; RESP 20; TEMP 97.7; O2SAT 96
[2017-07-17 20:00] VITALS: BP 119/59; PULSE 84; RESP 20; TEMP 98.8; O2SAT 95
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
[2017-07-18] VITALS: BP 114/74; PULSE 74; RESP 20; TEMP 97.8; O2SAT 97
[2017-07-18] MEDS: MAGNESIUM HYDROXIDE SUSP 30 ML CUP PO SCH ×2 (01:12→12:23)
[2017-07-18] MEDS: LACTATED RINGER'S 1000 ML INJ 1,000 ML IV SCH ×2 (04:00→11:30)
[2017-07-18] MEDS: ENOXAPARIN SODIUM 30 MG/0.3 ML SYRINGE SQ SCH ×2 (06:37→17:51)
[2017-07-18] MEDS: oxyCODONE HCL ORAL CONC 5 MG/0.25 ML SYRINGE PO SCH ×3 (06:41→17:52)
[2017-07-18] MEDS: SODIUM CHLORIDE 0.9% FLUSH 10 ML FLUSH IV FLUSH SCH ×2 (07:15→20:59)
[2017-07-18] MEDS: POTASSIUM CHLORIDE 25 MEQ EFFERVESCENT TAB PO SCH (07:58)
[2017-07-18] MEDS: FAMOTIDINE 20 MG TAB NG SCH ×2 (07:59→20:58)
[2017-07-18] MEDS: DOCUSATE SODIUM 50 MG/SENNA 8.6 MG TAB PO SCH ×2 (07:59→20:58)
[2017-07-18] MEDS: CHOLECALCIFEROL (VIT D3) 1000 UNIT TAB PO SCH (07:59)
[2017-07-18] MEDS: GABAPENTIN 400 MG CAP PO SCH ×3 (07:59→17:51)
[2017-07-18 08:00] VITALS: BP 119/76; PULSE 66; RESP 18; TEMP 97.8; O2SAT 96
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
[2017-07-18 16:00] VITALS: BP 134/72; PULSE 75; RESP 18; TEMP 97.9; O2SAT 96
[2017-07-18 20:00] VITALS: BP 116/50; PULSE 77; RESP 17; TEMP 97.7; O2SAT 97
[2017-07-19] MEDS: oxyCODONE HCL ORAL CONC 5 MG/0.25 ML SYRINGE PO SCH ×4 (00:14→18:05)
[2017-07-19] MEDS: MAGNESIUM HYDROXIDE SUSP 30 ML CUP PO SCH ×2 (00:15→12:44)
[2017-07-19 00:19] VITALS: BP 116/70; PULSE 81; RESP 18; TEMP 97.9; O2SAT 95
[2017-07-19] MEDS: ENOXAPARIN SODIUM 30 MG/0.3 ML SYRINGE SQ SCH ×2 (05:20→18:05)
[2017-07-19] MEDS: LACTATED RINGER'S 1000 ML INJ 1,000 ML IV SCH ×3 (07:10→20:41)
[2017-07-19] MEDS: DOCUSATE SODIUM 50 MG/SENNA 8.6 MG TAB PO SCH ×3 (07:10→20:41)
[2017-07-19] MEDS: POTASSIUM CHLORIDE 25 MEQ EFFERVESCENT TAB PO SCH (07:10)
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
[2017-07-19 08:00] VITALS: BP 126/77; PULSE 80; RESP 20; TEMP 97.3; O2SAT 97
[2017-07-19] MEDS: CHOLECALCIFEROL (VIT D3) 1000 UNIT TAB PO SCH (08:10)
[2017-07-19] MEDS: FAMOTIDINE 20 MG TAB NG SCH ×2 (08:10→20:41)
[2017-07-19] MEDS: GABAPENTIN 400 MG CAP PO SCH ×3 (08:10→18:05)
[2017-07-19] MEDS: SODIUM CHLORIDE 0.9% FLUSH 10 ML FLUSH IV FLUSH SCH ×2 (08:11→20:41)
[2017-07-19 12:00] VITALS: BP 135/81; PULSE 92; RESP 22; TEMP 97.9; O2SAT 96
[2017-07-19] MEDS: REMOVE OLD DURAGESIC (FENTANYL) PATCH T-DERMAL SCH (12:00)
[2017-07-19] MEDS: fentaNYL 50 MCG/HR PATCH T-DERMAL SCH (12:45)
[2017-07-19 15:58] VITALS: BP 109/77; PULSE 90; RESP 20; TEMP 98; O2SAT 96
[2017-07-19 20:00] VITALS: BP 123/76; PULSE 85; RESP 17; TEMP 98.2; O2SAT 95
[2017-07-20] VITALS: BP 111/68; PULSE 83; RESP 17; TEMP 97.5; O2SAT 97
[2017-07-20] MEDS: oxyCODONE HCL ORAL CONC 5 MG/0.25 ML SYRINGE PO SCH ×4 (00:13→18:12)
[2017-07-20] MEDS: MAGNESIUM HYDROXIDE SUSP 30 ML CUP PO SCH ×2 (00:13→14:00)
[2017-07-20] MEDS: LACTATED RINGER'S 1000 ML INJ 1,000 ML IV SCH (06:00)
[2017-07-20] MEDS: ENOXAPARIN SODIUM 30 MG/0.3 ML SYRINGE SQ SCH ×2 (06:01→18:12)
[2017-07-20 08:00] VITALS: BP 124/66; PULSE 77; RESP 18; TEMP 97.7; O2SAT 96
[2017-07-20] MEDS: POTASSIUM CHLORIDE 25 MEQ EFFERVESCENT TAB PO SCH (08:47)
[2017-07-20] MEDS: FAMOTIDINE 20 MG TAB NG SCH ×2 (08:47→22:21)
[2017-07-20] MEDS: CHOLECALCIFEROL (VIT D3) 1000 UNIT TAB PO SCH (08:47)
[2017-07-20] MEDS: DOCUSATE SODIUM 50 MG/SENNA 8.6 MG TAB PO SCH ×2 (08:47→22:21)
[2017-07-20] MEDS: GABAPENTIN 400 MG CAP PO SCH ×3 (08:47→18:11)
[2017-07-20] MEDS: SODIUM CHLORIDE 0.9% FLUSH 10 ML FLUSH IV FLUSH SCH ×2 (08:47→21:00)
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
[2017-07-20 12:00] VITALS: BP 114/76; PULSE 83; RESP 20; TEMP 98; O2SAT 95
[2017-07-20 16:00] VITALS: BP 117/80; PULSE 83; RESP 20; TEMP 97.9; O2SAT 98
[2017-07-20 20:00] VITALS: BP 114/70; PULSE 92; RESP 20; TEMP 98.3; O2SAT 95
[2017-07-21] VITALS: BP 119/61; PULSE 89; RESP 18; TEMP 97.7; O2SAT 96
[2017-07-21] MEDS: oxyCODONE HCL ORAL CONC 5 MG/0.25 ML SYRINGE PO SCH ×4 (00:41→18:28)
[2017-07-21] MEDS: MAGNESIUM HYDROXIDE SUSP 30 ML CUP PO SCH ×2 (02:00→13:05)
[2017-07-21] MEDS: ENOXAPARIN SODIUM 30 MG/0.3 ML SYRINGE SQ SCH ×2 (06:12→18:28)
[2017-07-21] MEDS ORDERED: WALKER/FOLDING1 MIS (07:41)
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
[2017-07-21 08:00] VITALS: BP 140/73; PULSE 83; RESP 17; TEMP 97.6; O2SAT 97
--- NOTE | 2017-07-21 08:19 | PD.ORT.PN ---
Subjective Subjective Remarks s/p IMN left femur - POD 59 s/p ORIF left clavicle fx - POD 56 s/p ORIF left glenoid fx - POD 48 s/p closed reduction left shoulder twice s/p manip under anesthesia to right knee - POD 9 stable in room. no complaints. improving Objective Vitals Vital Signs Date Time Temp Pulse Resp B/P (MAP) Pulse Ox O2 Delivery O2 Flow Rate FiO2 07/21/17 00:00 97.7 89 18 119/61 (80) 96 07/20/17 20:00 98.3 92 20 114/70 (85) 95 07/20/17 16:00 97.9 83 20 117/80 (92) 98 07/20/17 12:00 98.0 83 20 114/76 (89) 95 I/O 07/20/17 07/20/17 07/20/17 07/21/17 07/21/17 07/21/17 07:00 15:00 23:00 07:00 15:00 23:00 Intake Total 240 ml 1600 ml 360 ml Output Total 600 ml 800 ml 200 ml Balance -360 ml 800 ml 160 ml Intake Oral 240 ml 1600 ml 360 ml Output Urine Total 600 ml 800 ml 200 ml # Voids 2 # Bowel Movements 0 1 Imaging Last 24 hours Impressions Chest X-Ray 05/19/17 0000 Signed Impressions: Service Date/Time: Friday, May 19, 2017 01:00 - CONCLUSION: 1. Removal of the 2 pleural catheters along the right chest wall and placement of another right chest tube with distal tip in the medial inferior right hemithorax. The right pneumothorax has resolved with shift of the mediastinum back to the midline and resolution of the generalized lucency in the right hemithorax. 2. Remaining findings are stable. Conor Chaudhry MD Chest X-Ray 05/19/17 0000 Signed Impressions: Service Date/Time: Friday, May 19, 2017 00:13 - CONCLUSION: 1. The second small bore pigtail pleural catheter on the right has been placed and most of it appears to be outside of the right hemithorax except for maybe the distal tip. However, the right pneumothorax is no longer seen suggesting that it may be within the pleural space. Chest CT could confirm location, if needed. 2. Persistent volume loss and left mid and lower lung zone airspace consolidation. No left pneumothorax is visualized. 3. The nasogastric tube tip is in the stomach. Conor Chaudhry MD Thoracic Spine CT 05/18/172209 Signed Impressions: Service Date/Time: Thursday, May 18, 2017 22:27 - CONCLUSION: 1. Superior endplate fracture of T12 without involvement of the posterior cortex and with approximate 10%% loss of height. 2. Numerous bilateral posterior rib fractures from C7 to the level of the 7th rib. Josemanuel Murphy MD Pelvis X-Ray 05/18/172209 Signed Impressions: Service Date/Time: Thursday, May 18, 2017 22:09 - CONCLUSION: No gross fracture seen. Josemanuel Murphy MD Lumbar Spine CT 05/18/172209 Signed Impressions: Service Date/Time: Thursday, May 18, 2017 22:27 - CONCLUSION: 1. Lumbar vertebral bodies and posterior elements are intact. 2. Superior endplate fracture of T12 and medial left posterior 11th rib fracture. Josemanuel Murphy MD Head CT 05/18/172209 Signed Impressions: Service Date/Time: Thursday, May 18, 2017 22:27 - CONCLUSION: 1. No acute findings in the brain. Josemanuel Murphy MD Chest X-Ray 05/18/172209 Signed Impressions: Service Date/Time: Thursday, May 18, 2017 22:09 - CONCLUSION: Left chest drainage tube in the medial apex. Multiple displaced left rib fractures. Josemanuel Murphy MD Chest CT 05/18/172209 Signed Impressions: Service Date/Time: Thursday, May 18, 2017 22:27 - CONCLUSION: 1. Multiple fractures of the left ribs, left clavicle, left scapula and fracture of the lateral right 5th rib. 2. Bilateral pulmonary contusions, left greater than right and left pleural fluid. 3. Bilateral pneumothoraces with left chest drainage tube in place. Josemanuel Murphy MD Cervical Spine CT 05/18/172209 Signed Impressions: Service Date/Time: Thursday, May 18, 2017 22:27 - CONCLUSION: 1. Left transverse process fracture of C6 and fractures of the medial left 1st and 2nd ribs. 2. The vertebral bodies of the cervical spine down to C7 and posterior elements down to the level of C5 are intact. Josemanuel Murphy MD Abdomen/Pelvis CT 05/18/17 2210 Signed Impressions: Service Date/Time: Thursday, May 18, 2017 22:27 - CONCLUSION: 1. Multiple findings in the chest including bilateral pneumothoraces and multiple bilateral rib fractures, see CT thorax report. 2. The solid and hollow organs of the abdomen/pelvis are grossly intact. Josemanuel Murphy MD Objective Remarks LLE: Incisions well approximated. Leti in position. Intact sensation distally with good capillary refill LUE: Clean dry dressings in place, internal rotation deformity. tender. + swelling of shoulder. good cap refill. sling intact. nvi. RLE: CPM machine present and patient tolerating. nvi distally LLE: nvi, Thigh tenderness and hematoma. No erythema. Overall compressible compartments. Good cap refill. intact sensation distally Assessment & Plan Assessment and Plan 1) Left Femoral Shaft Fx s/p IMN - 05/21/17 -WBAT 2) Left Clavicle fxs s/p ORIF- 05/26/17 3) Left Glenoid Fx s/p ORIF - 06/03/17 -NWB LUE -maintain sling/swathe at all times -restart PT of shoulder and work on PROM and stretching 4) Right Knee Pain and stiffness s/p EMI - 07/12/17 -CPM 0-120deg -work aggressively with therapy on motion of knee and stretching -WBAT -no restrictions ortho surgeries complete. diet restarted. no forseeable procedures to be done at this time. Kt Herrera PA/Development Specialist IRVIN July 21, 2017 08:19
[2017-07-21] MEDS: SODIUM CHLORIDE 0.9% FLUSH 10 ML FLUSH IV FLUSH SCH ×2 (08:34→21:00)
[2017-07-21] MEDS: DOCUSATE SODIUM 50 MG/SENNA 8.6 MG TAB PO SCH ×2 (08:36→21:12)
[2017-07-21] MEDS: POTASSIUM CHLORIDE 25 MEQ EFFERVESCENT TAB PO SCH ×2 (08:36→08:43)
[2017-07-21] MEDS: FAMOTIDINE 20 MG TAB NG SCH ×2 (08:36→21:13)
[2017-07-21] MEDS: GABAPENTIN 400 MG CAP PO SCH ×3 (08:36→18:27)
[2017-07-21] MEDS: CHOLECALCIFEROL (VIT D3) 1000 UNIT TAB PO SCH (08:36)
[2017-07-21 12:00] VITALS: BP 122/76; PULSE 86; RESP 20; TEMP 98; O2SAT 100
[2017-07-21 16:00] VITALS: BP 139/70; PULSE 87; RESP 17; TEMP 97.5; O2SAT 97
[2017-07-21 20:00] VITALS: BP 108/69; PULSE 93; RESP 20; TEMP 98.5; O2SAT 96
[2017-07-22] VITALS: BP 120/66; PULSE 83; RESP 20; TEMP 97.8; O2SAT 97
[2017-07-22] MEDS: MAGNESIUM HYDROXIDE SUSP 30 ML CUP PO SCH ×2 (00:20→14:00)
[2017-07-22] MEDS: oxyCODONE HCL ORAL CONC 5 MG/0.25 ML SYRINGE PO SCH ×4 (00:20→18:03)
[2017-07-22] MEDS: ENOXAPARIN SODIUM 30 MG/0.3 ML SYRINGE SQ SCH ×2 (06:02→18:02)
[2017-07-22 08:00] VITALS: BP 131/80; PULSE 90; RESP 19; TEMP 97.3; O2SAT 97
[2017-07-22] MEDS: FAMOTIDINE 20 MG TAB NG SCH ×2 (08:43→21:39)
[2017-07-22] MEDS: CHOLECALCIFEROL (VIT D3) 1000 UNIT TAB PO SCH (08:43)
[2017-07-22] MEDS: POTASSIUM CHLORIDE 25 MEQ EFFERVESCENT TAB PO SCH (08:43)
[2017-07-22] MEDS: DOCUSATE SODIUM 50 MG/SENNA 8.6 MG TAB PO SCH ×2 (08:43→21:39)
[2017-07-22] MEDS: GABAPENTIN 400 MG CAP PO SCH ×3 (08:43→18:01)
[2017-07-22] MEDS: SODIUM CHLORIDE 0.9% FLUSH 10 ML FLUSH IV FLUSH SCH ×2 (09:00→21:00)
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
[2017-07-22] MEDS: fentaNYL 50 MCG/HR PATCH T-DERMAL SCH (11:43)
[2017-07-22] MEDS: REMOVE OLD DURAGESIC (FENTANYL) PATCH T-DERMAL SCH (11:43)
[2017-07-22 12:00] VITALS: BP 139/76; PULSE 78; RESP 17; TEMP 98; O2SAT 96
[2017-07-22 16:00] VITALS: BP 122/61; PULSE 86; RESP 18; TEMP 97.9; O2SAT 95
[2017-07-22 20:00] VITALS: BP 111/72; PULSE 87; RESP 20; TEMP 97.8; O2SAT 97
[2017-07-23] VITALS: BP 113/71; PULSE 74; RESP 20; TEMP 97.7; O2SAT 95
[2017-07-23] MEDS: oxyCODONE HCL ORAL CONC 5 MG/0.25 ML SYRINGE PO SCH ×5 (00:30→23:02)
[2017-07-23] MEDS: MAGNESIUM HYDROXIDE SUSP 30 ML CUP PO SCH ×3 (02:00→23:03)
[2017-07-23] MEDS: ENOXAPARIN SODIUM 30 MG/0.3 ML SYRINGE SQ SCH ×2 (05:47→17:49)
[2017-07-23 08:00] VITALS: BP 135/73; PULSE 78; RESP 18; TEMP 98.1; O2SAT 96
[2017-07-23] MEDS: SODIUM CHLORIDE 0.9% FLUSH 10 ML FLUSH IV FLUSH SCH ×2 (08:36→20:17)
[2017-07-23] MEDS: FAMOTIDINE 20 MG TAB NG SCH ×2 (08:36→20:16)
[2017-07-23] MEDS: POTASSIUM CHLORIDE 25 MEQ EFFERVESCENT TAB PO SCH (08:36)
[2017-07-23] MEDS: CHOLECALCIFEROL (VIT D3) 1000 UNIT TAB PO SCH (08:36)
[2017-07-23] MEDS: GABAPENTIN 400 MG CAP PO SCH ×3 (08:36→17:50)
[2017-07-23] MEDS: DOCUSATE SODIUM 50 MG/SENNA 8.6 MG TAB PO SCH ×2 (08:36→20:16)
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
[2017-07-23 12:00] VITALS: BP 133/76; PULSE 70; RESP 19; TEMP 98.5; O2SAT 99
[2017-07-23 16:00] VITALS: BP 123/75; PULSE 89; RESP 18; TEMP 98.6; O2SAT 97
[2017-07-23 20:00] VITALS: BP 119/70; PULSE 89; RESP 17; TEMP 99.2; O2SAT 95
[2017-07-24] MEDS: ENOXAPARIN SODIUM 30 MG/0.3 ML SYRINGE SQ SCH ×2 (05:16→18:56)
[2017-07-24] MEDS: oxyCODONE HCL ORAL CONC 5 MG/0.25 ML SYRINGE PO SCH ×3 (05:16→18:56)
[2017-07-24 08:00] VITALS: BP 130/70; PULSE 82; RESP 19; TEMP 98.4; O2SAT 99
[2017-07-24] MEDS: ERGOCALCIFEROL (VIT D2) 50,000 UNIT CAP PO SCH (08:48)
[2017-07-24] MEDS: FAMOTIDINE 20 MG TAB NG SCH ×2 (08:48→21:26)
[2017-07-24] MEDS: DOCUSATE SODIUM 50 MG/SENNA 8.6 MG TAB PO SCH ×2 (08:48→21:26)
[2017-07-24] MEDS: CHOLECALCIFEROL (VIT D3) 1000 UNIT TAB PO SCH (08:49)
[2017-07-24] MEDS: GABAPENTIN 400 MG CAP PO SCH ×3 (08:49→18:55)
[2017-07-24] MEDS: SODIUM CHLORIDE 0.9% FLUSH 10 ML FLUSH IV FLUSH SCH ×2 (09:00→21:00)
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
[2017-07-24 12:00] VITALS: BP 127/77; PULSE 86; RESP 19; TEMP 97.4; O2SAT 95
[2017-07-24] MEDS: MAGNESIUM HYDROXIDE SUSP 30 ML CUP PO SCH (14:00)
[2017-07-24 16:00] VITALS: BP 128/64; PULSE 82; RESP 19; TEMP 98.3; O2SAT 96
[2017-07-24 20:00] VITALS: BP 128/75; PULSE 84; RESP 17; TEMP 97.9; O2SAT 98
[2017-07-24] MEDS: MELATONIN 5 MG TAB PO PRN (22:30)
[2017-07-25] VITALS: BP 120/74; PULSE 72; RESP 17; TEMP 98; O2SAT 96
[2017-07-25] MEDS: MAGNESIUM HYDROXIDE SUSP 30 ML CUP PO SCH ×2 (02:00→13:57)
[2017-07-25] MEDS: oxyCODONE HCL ORAL CONC 5 MG/0.25 ML SYRINGE PO SCH ×2 (04:39)
[2017-07-25] MEDS: ENOXAPARIN SODIUM 30 MG/0.3 ML SYRINGE SQ SCH ×2 (05:15→17:26)
[2017-07-25] MEDS: SODIUM CHLORIDE 0.9% FLUSH 10 ML FLUSH IV FLUSH SCH ×2 (07:35→21:38)
[2017-07-25 08:00] VITALS: BP 119/78; PULSE 71; RESP 16; TEMP 97.6; O2SAT 98
[2017-07-25] MEDS: DOCUSATE SODIUM 50 MG/SENNA 8.6 MG TAB PO SCH ×2 (09:07→21:38)
[2017-07-25] MEDS: FAMOTIDINE 20 MG TAB NG SCH ×2 (09:07→21:37)
[2017-07-25] MEDS: CHOLECALCIFEROL (VIT D3) 1000 UNIT TAB PO SCH (09:08)
[2017-07-25] MEDS: GABAPENTIN 400 MG CAP PO SCH ×3 (09:08→17:25)
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
[2017-07-25 12:00] VITALS: BP 124/70; PULSE 73; RESP 16; TEMP 97.7; O2SAT 97
[2017-07-25] MEDS: REMOVE OLD DURAGESIC (FENTANYL) PATCH T-DERMAL SCH (13:56)
[2017-07-25] MEDS: fentaNYL 50 MCG/HR PATCH T-DERMAL SCH (13:57)
[2017-07-25] MEDS: oxyCODONE/ACETAMINOPHEN 7.5 MG/325 MG TAB PO PRN ×2 (14:04→21:38)
[2017-07-25 16:00] VITALS: BP 122/67; PULSE 78; RESP 17; TEMP 97.7; O2SAT 96
[2017-07-25 20:00] VITALS: BP 154/70; PULSE 76; RESP 17; TEMP 97.7; O2SAT 98
[2017-07-26] VITALS: BP 125/69; PULSE 62; RESP 18; O2SAT 100
[2017-07-26] MEDS: MAGNESIUM HYDROXIDE SUSP 30 ML CUP PO SCH ×3 (02:02→22:18)
[2017-07-26] MEDS: ENOXAPARIN SODIUM 30 MG/0.3 ML SYRINGE SQ SCH ×2 (04:15→16:39)
[2017-07-26] MEDS: oxyCODONE/ACETAMINOPHEN 7.5 MG/325 MG TAB PO PRN ×3 (04:15→18:27)
[2017-07-26 08:00] VITALS: BP 121/76; PULSE 69; RESP 17; TEMP 97.6; O2SAT 97
[2017-07-26] MEDS: SODIUM CHLORIDE 0.9% FLUSH 10 ML FLUSH IV FLUSH SCH ×2 (09:00→21:00)
[2017-07-26] MEDS: FAMOTIDINE 20 MG TAB NG SCH ×2 (09:31→22:18)
[2017-07-26] MEDS: DOCUSATE SODIUM 50 MG/SENNA 8.6 MG TAB PO SCH ×2 (09:31→22:18)
[2017-07-26] MEDS: CHOLECALCIFEROL (VIT D3) 1000 UNIT TAB PO SCH (09:31)
[2017-07-26] MEDS: GABAPENTIN 400 MG CAP PO SCH ×3 (09:31→16:38)
[2017-07-26 12:00] VITALS: BP 122/76; PULSE 80; RESP 18; TEMP 97.6; O2SAT 98
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
[2017-07-26 16:00] VITALS: BP 118/72; PULSE 83; RESP 16; TEMP 97.7; O2SAT 97
[2017-07-26 20:00] VITALS: BP 113/69; PULSE 81; RESP 18; TEMP 97.7; O2SAT 97
[2017-07-27] VITALS: BP 125/72; PULSE 87; RESP 17; TEMP 97.8; O2SAT 95
[2017-07-27] MEDS: ENOXAPARIN SODIUM 30 MG/0.3 ML SYRINGE SQ SCH ×2 (05:56→17:52)
[2017-07-27] MEDS: oxyCODONE/ACETAMINOPHEN 7.5 MG/325 MG TAB PO PRN ×3 (05:56→20:14)
[2017-07-27 08:00] VITALS: BP 121/78; PULSE 70; RESP 18; TEMP 97.9; O2SAT 94
[2017-07-27] MEDS: DOCUSATE SODIUM 50 MG/SENNA 8.6 MG TAB PO SCH ×2 (08:22→20:15)
[2017-07-27] MEDS: GABAPENTIN 400 MG CAP PO SCH ×3 (08:22→17:52)
[2017-07-27] MEDS: FAMOTIDINE 20 MG TAB NG SCH ×2 (08:22→20:14)
[2017-07-27] MEDS: CHOLECALCIFEROL (VIT D3) 1000 UNIT TAB PO SCH (08:22)
[2017-07-27] MEDS: SODIUM CHLORIDE 0.9% FLUSH 10 ML FLUSH IV FLUSH SCH ×2 (08:25→20:16)
[2017-07-27 12:00] VITALS: BP 120/68; PULSE 88; RESP 16; TEMP 98.2; O2SAT 97
[2017-07-27] MEDS: MAGNESIUM HYDROXIDE SUSP 30 ML CUP PO SCH ×2 (12:11→22:54)
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
[2017-07-27 16:00] VITALS: BP 114/64; PULSE 83; RESP 16; TEMP 97.9; O2SAT 96
[2017-07-27 20:00] VITALS: BP 113/71; PULSE 87; RESP 20; TEMP 98.2; O2SAT 96
[2017-07-28] VITALS: BP 121/62; PULSE 88; RESP 18; TEMP 97.7; O2SAT 96
[2017-07-28] MEDS: oxyCODONE/ACETAMINOPHEN 7.5 MG/325 MG TAB PO PRN (05:43)
[2017-07-28] MEDS: ENOXAPARIN SODIUM 30 MG/0.3 ML SYRINGE SQ SCH ×2 (05:43→17:30)
[2017-07-28 08:00] VITALS: BP 118/65; PULSE 82; RESP 18; TEMP 97.1; O2SAT 96
[2017-07-28] MEDS: CHOLECALCIFEROL (VIT D3) 1000 UNIT TAB PO SCH (08:19)
[2017-07-28] MEDS: GABAPENTIN 400 MG CAP PO SCH ×3 (08:19→17:30)
[2017-07-28] MEDS: DOCUSATE SODIUM 50 MG/SENNA 8.6 MG TAB PO SCH ×2 (08:19→21:08)
[2017-07-28] MEDS: FAMOTIDINE 20 MG TAB NG SCH ×2 (08:19→21:08)
[2017-07-28] MEDS: SODIUM CHLORIDE 0.9% FLUSH 10 ML FLUSH IV FLUSH SCH ×2 (08:20→21:08)
[2017-07-28] MEDS ORDERED: oxyCODONE/ACETAMINOPHEN 7.5 MG/325 MG TAB PO PRN ×2 (11:00→22:15)
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
[2017-07-28 12:00] VITALS: BP 117/75; PULSE 90; RESP 18; TEMP 97.8; O2SAT 96
[2017-07-28] MEDS: MAGNESIUM HYDROXIDE SUSP 30 ML CUP PO SCH (13:16)
[2017-07-28] MEDS ORDERED: fentaNYL 25 MCG/HR PATCH T-DERMAL SCH (14:00)
[2017-07-28 16:00] VITALS: BP 106/72; PULSE 70; RESP 18; TEMP 98.1; O2SAT 97
[2017-07-28 20:00] VITALS: BP 137/76; PULSE 82; RESP 17; TEMP 98.1; O2SAT 97
[2017-07-29] VITALS: BP 127/71; PULSE 79; RESP 17; TEMP 97.8; O2SAT 97
[2017-07-29] MEDS: MAGNESIUM HYDROXIDE SUSP 30 ML CUP PO SCH (02:00)
[2017-07-29] MEDS: ENOXAPARIN SODIUM 30 MG/0.3 ML SYRINGE SQ SCH (05:50)
[2017-07-29 08:00] VITALS: BP 133/76; PULSE 87; RESP 18; TEMP 97.8; O2SAT 96
[2017-07-29] MEDS: DOCUSATE SODIUM 50 MG/SENNA 8.6 MG TAB PO SCH (08:58)
[2017-07-29] MEDS: FAMOTIDINE 20 MG TAB NG SCH (08:58)
[2017-07-29] MEDS: GABAPENTIN 400 MG CAP PO SCH ×2 (08:58→12:00)
[2017-07-29] MEDS: SODIUM CHLORIDE 0.9% FLUSH 10 ML FLUSH IV FLUSH SCH (08:58)
[2017-07-29] MEDS: CHOLECALCIFEROL (VIT D3) 1000 UNIT TAB PO SCH (08:58)
[2017-07-29] MEDS ORDERED: FENT25T T-DERMAL (09:45)
[2017-07-29] MEDS ORDERED: OXYC-392 PO (09:45)
[2017-07-29] MEDS ORDERED: PERC7.5T13 PO (09:51)
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
[2017-07-29] MEDS ORDERED: oxyCODONE/ACETAMINOPHEN 7.5 MG/325 MG TAB PO ONE (10:15)
[2017-07-29 12:00] VITALS: BP 114/69; PULSE 74; RESP 18; TEMP 98.7; O2SAT 96
[2017-07-29] MEDS ORDERED: oxyCODONE/ACETAMINOPHEN 7.5 MG/325 MG TAB PO PRN (18:00)
[2017-07-31] MEDS ORDERED: REMOVE OLD DURAGESIC (FENTANYL) PATCH T-DERMAL SCH (14:00)
== END 2017-07-29 13:24 | disposition home or self-care (01) | DRG 956 ==
LOC: NEPI 22:07 → EDBD 22:41 → NEDA 22:41 → N03A 22:49 → N07A 06-08 11:32 → UNDODISIN 06-26 15:35
PROVIDERS: ADMIT Hospitalist; ATTEND Hospitalist
PROC: 5A1955Z Respiratory Ventilation, Greater than 96 Consecutive Hours (ICD-10-PCS; 2017-05-18)
PROC: 0BH17EZ Insertion of Endotracheal Airway into Trachea, Via Natural or Artificial Opening (ICD-10-PCS; 2017-05-18)
PROC: 30233K1 Transfusion of Nonautologous Frozen Plasma into Peripheral Vein, Percutaneous Approach (ICD-10-PCS; 2017-05-18)
PROC: 30233N1 Transfusion of Nonautologous Red Blood Cells into Peripheral Vein, Percutaneous Approach (ICD-10-PCS; 2017-05-18)
PROC: 0T9B70Z Drainage of Bladder with Drainage Device, Via Natural or Artificial Opening (ICD-10-PCS; 2017-05-18)
PROC: 0W9930Z Drainage of Right Pleural Cavity with Drainage Device, Percutaneous Approach (ICD-10-PCS; 2017-05-19)
PROC: 0W9930Z Drainage of Right Pleural Cavity with Drainage Device, Percutaneous Approach (ICD-10-PCS; 2017-05-19)
PROC: 04HY32Z Insertion of Monitoring Device into Lower Artery, Percutaneous Approach (ICD-10-PCS; 2017-05-19)
PROC: 0QS906Z Reposition Left Femoral Shaft with Intramedullary Internal Fixation Device, Open Approach (ICD-10-PCS; principal; 2017-05-21 09:57)
PROC: 0PSB04Z Reposition Left Clavicle with Internal Fixation Device, Open Approach (ICD-10-PCS; 2017-05-26)
PROC: 0PS804Z Reposition Left Glenoid Cavity with Internal Fixation Device, Open Approach (ICD-10-PCS; 2017-06-03)
PROC: 0PS604Z Reposition Left Scapula with Internal Fixation Device, Open Approach (ICD-10-PCS; 2017-06-03)
PROC: 0RSKXZZ Reposition Left Shoulder Joint, External Approach (ICD-10-PCS; 2017-06-26)
PROC: 0RSKXZZ Reposition Left Shoulder Joint, External Approach (ICD-10-PCS; 2017-07-05)
PROC: 0SSCXZZ Reposition Right Knee Joint, External Approach (ICD-10-PCS; 2017-07-12)
DX: S72.322A Displaced transverse fracture of shaft of left femur, initial encounter for closed fracture (principal); S22.5XXA Flail chest, initial encounter for closed fracture; S06.9X1A Unspecified intracranial injury with loss of consciousness of 30 minutes or less, initial encounter; T79.4XXA Traumatic shock, initial encounter; S12.601A Unspecified nondisplaced fracture of seventh cervical vertebra, initial encounter for closed fracture; J96.01 Acute respiratory failure with hypoxia; J96.02 Acute respiratory failure with hypercapnia; A41.9 Sepsis, unspecified organism; S27.2XXA Traumatic hemopneumothorax, initial encounter; J15.0 Pneumonia due to Klebsiella pneumoniae; D69.6 Thrombocytopenia, unspecified; G93.40 Encephalopathy, unspecified; S12.590A Other displaced fracture of sixth cervical vertebra, initial encounter for closed fracture; S27.322A Contusion of lung, bilateral, initial encounter; K52.1 Toxic gastroenteritis and colitis; S22.088A Other fracture of T11-T12 vertebra, initial encounter for closed fracture; D62 Acute posthemorrhagic anemia; J95.851 Ventilator associated pneumonia; Z99.11 Dependence on respirator [ventilator] status; E87.2 Acidosis; J98.11 Atelectasis; N17.9 Acute kidney failure, unspecified; V48.5XXA Car driver injured in noncollision transport accident in traffic accident, initial encounter; Y92.411 Interstate highway as the place of occurrence of the external cause; Y93.89 Activity, other specified; S42.002A Fracture of unspecified part of left clavicle, initial encounter for closed fracture; S42.142A Displaced fracture of glenoid cavity of scapula, left shoulder, initial encounter for closed fracture; M24.412 Recurrent dislocation, left shoulder; T36.95XA Adverse effect of unspecified systemic antibiotic, initial encounter; M24.661 Ankylosis, right knee; E83.42 Hypomagnesemia; E83.51 Hypocalcemia; E87.5 Hyperkalemia; E87.6 Hypokalemia; S80.12XA Contusion of left lower leg, initial encounter; G47.00 Insomnia, unspecified; E07.81 Sick-euthyroid syndrome; E87.70 Fluid overload, unspecified; E87.8 Other disorders of electrolyte and fluid balance, not elsewhere classified; E88.09 Other disorders of plasma-protein metabolism, not elsewhere classified; K59.00 Constipation, unspecified; S70.12XA Contusion of left thigh, initial encounter; Y84.8 Other medical procedures as the cause of abnormal reaction of the patient, or of later complication, without mention of misadventure at the time of the procedure; Z91.19 Patient's noncompliance with other medical treatment and regimen; Z16.24 Resistance to multiple antibiotics
CPT/HCPCS: 31500; 32551; 36430; 36556; 36600; 70450; 71045; 71260; 72125; 72129; 72132; 72146; 72170; 73000; 73010; 73030; 73200; 73551; 73552; 73560; 73564; 74018; 74177; 76000; 76775; 76882; 76937; 80048; 80053; 80076; 80202; 80307; 81001; 82140; 82533; 82550; 82552; 82565; 82570; 82805; 83036; 83605; 83735; 84100; 84155; 84300; 84439; 84443; 84481; 84484; 85007; 85025; 85027; 85384; 85610; 85730; 86850; 86900; 86901; 86920; 86927; 87040; 87070; 87077; 87086; 87185; 87186; 87205; 87493; 87641; 90471; 93005; 93306; 94002; 94003; 94150; 94640; 94664; 94667; 94668; 96374; 96375; 99291; C1713; C9113; G0390; J0131; J0171; J0690; J0696; J1100; J1120; J1170; J1335; J1580; J1650; J1815; J1940; J2212; J2248; J2250; J2270; J2370; J2405; J2543; J2765; J3010; J3370; J3411; J3475; J3480; J7030; J7040; J7050; J7120; J7613; L0150; L0172; L0200; L0484; P9016; P9017; P9045; Q9967